=== PATIENT | female | born 1955 | race Caucasian/White ===

== ENCOUNTER → 2016-06-17 | Outpatient (CLI) | payer BC ==
[~2016-06-17] MED LIST: ASPI81TA21 PO; CARV25TA PO; CHOL100010 PO; CHOL1TAB42 PO; CIPR-255 PO; CRG625 PO; EZET10TA63 PO; FURO20TA PO; HYDR-5688 PO; HYDR12.56 PO; KRIL1CAP24 PO; LINA1TAB PO; METR-163 PO; OMEG10007 PO; ONDA4TAB10 SL; SACU1TAB PO; SPIR25TA PO; TRIA37.5 PO
== END | disposition home or self-care (01) ==
LOC: C.MAMM 11:21
PROVIDERS: ATTEND Internal Medicine
DX: M85.80 Other specified disorders of bone density and structure, unspecified site (principal); Z90.710 Acquired absence of both cervix and uterus

== ENCOUNTER → 2016-12-08 | Day surgery (SDC) | payer BC ==
[2016-11-30 09:16] VITALS: Ht 160 cm; Wt 88.6 kg
[~2016-12-08] VITALS: Ht 160 cm; Wt 88.6 kg
[~2016-12-08] MED LIST changes: -CHOL100010 PO; -CIPR-255 PO; -CRG625 PO; +EpHEDrine SULFATE 50MG/5ML SYR ONE; -FURO20TA PO; -HYDR-5688 PO; -HYDR12.56 PO; +LIDOCAINE HCL 2% 2 ML VIAL (20MG/ML) ONE; -METR-163 PO; -OMEG10007 PO; -ONDA4TAB10 SL; +PROPOFOL IV EMULSION 10 MG/ML 20 ML VIAL IV ONE
--- NOTE | 2016-12-08 13:43 | Endo History and Physical ---
History & Physical Date of Service: Dec 08, 2016. Chief Complaint: Screening Referring Physician: Dr. Houston History of Present Illness 61 yo CF who presents for screening colonoscopy. Past Medical History High Cholesterol, CHF, Hypertension Past Surgical History Hx Cardiac Surgery: No Hx Internal Defibrillator: Yes (MEDTRONIK ) Hx Pacemaker: Yes (MEDTRONIK ) Hx Abdominal Surgery: Yes (APPY, PARTIAL HYSTER WITH BLADDER AND BOWEL RECON) Hx of Implantable Prosthesis: No Hx Post-Op Nausea and Vomiting: No Hx Cancer Surgery: No Hx Thoracic Surgery: No Hx Orthopedic: Yes (RT RCR AND BICEP REPAIR) Hx Urinary Tract Surgery: No Family History None Social History Smoking Status: Never Smoker Hx Substance Use: No Hx Alcohol Use: No Allergies Coded Allergies: Adhesives (Verified Allergy, Mild, BLISTERS, 11/30/16) Atorvastatin (Verified Allergy, Unknown, MUSCLE PAIN/ACHES, DIFFICULTY WALKING, 11/30/16) Erythromycin (Verified Allergy, Unknown, blisters;red;itchy;pain;blisters in back throat, 11/30/16) Iodine (Verified Allergy, Unknown, throat blisters;skin blisters, 11/30/16) Statins (Verified Allergy, Unknown, MUSCLE PAIN/ACHES, DIFFICULTY WALKING , 11/30/16) Tetracycline (Verified Allergy, Unknown, TERRAMYCIN ALLERGY, 11/30/16) Current Medications Reported Home Medications Medications Dose Route/Sig Max Daily Dose Days Date Category Krill Oil 500 mg (Krill Oil) 1 Cap Cap 1 Cap PO QAM 11/30/16 Reported Vitamin D (Cholecalciferol) 5,000 Unit Tab 1 Tab PO HS 11/30/16 Reported Tradjenta (Linagliptin) 5 Mg Tab 1 Tab PO QAM 11/30/16 Reported Coreg (Carvedilol) 25 Mg Tab 25 Mg PO HS 11/30/16 Reported Coreg (Carvedilol) 25 Mg Tab 0.5 Tab PO QAM 11/30/16 Reported Dyazide 37.5MG/25MG (Triamterene/HCTZ) Cap 1 Tab PO Q2D 04/02/16 Reported Entresto 24-26 mg (Sacubitril-Valsartan) 1 Tab Tab 1 Tab PO BID 04/02/16 Reported Aldactone (Spironolactone) 25 Mg Tab 25 Mg PO QAM 03/14/14 Reported Ecotrin Or Generic (Aspirin) 81 Mg Tab 81 Mg PO Q2D 02/25/12 Reported Zetia (Ezetimibe) 10 Mg Tab 10 Mg PO HS 08/23/09 Reported Vital Signs Weight (Kilograms): 88.64 Height (Feet): 5 Height (Inches): 3 Physical Exam General Appearance: WD/WN, no apparent distress Respiratory/Chest: Auscultation: breath sounds normal Cardiovascular: Heart Auscultation: RRR Abdomen: Bowel Sounds: normal Inspection & Palpation: soft, non-distended, no tenderness, guarding & rebound Assessment and Plan Assessment: 61 yo CF who presents for screening colonoscopy. Plan: Proceed with colonoscopy.
[2016-12-08 14:01] VITALS: TEMP 36.5
--- NOTE | 2016-12-08 14:51 | GI REPORT ---
Procedure Date: 12/08/2016 2:13 PM Procedure: Colonoscopy Indications: Screening for colorectal malignant neoplasm Medicines: Monitored Anesthesia Care Complications: No immediate complications. Estimated Blood Loss: Estimated blood loss: none. Procedure: Pre-Anesthesia Assessment: - Prior to the procedure, a History and Physical was performed, and patient medications and allergies were reviewed. The patient's tolerance of previous anesthesia was also reviewed. The risks and benefits of the procedure and the sedation options and risks were discussed with the patient. All questions were answered, and informed consent was obtained. Prior Anticoagulants: The patient has taken aspirin, last dose was 3 days prior to procedure. ASA Grade Assessment: III - A patient with severe systemic disease. After reviewing the risks and benefits, the patient was deemed in satisfactory condition to undergo the procedure. After I obtained informed consent, the scope was passed under direct vision. Throughout the procedure, the patient's blood pressure, pulse, and oxygen saturations were monitored continuously. The Scope was introduced through the anus and advanced to the terminal ileum. The colonoscopy was performed without difficulty. The patient tolerated the procedure well. The quality of the bowel preparation was good. The terminal ileum, ileocecal valve, appendiceal orifice, and rectum were photographed. Findings: Multiple small-mouthed diverticula were found in the sigmoid colon. Non-bleeding internal hemorrhoids were found during retroflexion. The hemorrhoids were small. Two biopsies were obtained with cold forceps for histology in the ascending colon. To stop active bleeding, one hemostatic clip was successfully placed (MR conditional). There was no bleeding at the end of the procedure. Impression: - Diverticulosis in the sigmoid colon. - Non-bleeding internal hemorrhoids. - Biopsies performed in the ascending colon. - One hemostatic clip was successfully placed (MR conditional). Recommendation: - Resume previous diet. - Continue present medications. - Repeat colonoscopy for surveillance based on pathology results. - Return to primary care physician as previously scheduled. Michael Padilla, DO 12/08/2016 2:51:15 PM This report has been signed electronically. Note Initiated On: 12/08/2016 2:13 PM I attest to the content of the Intraoperative Record and orders documented therein, exceptions below
--- NOTE | 2016-12-08 14:52 | Discharge Instructions ---
Endoscopy Patient Instructions Date / Procedure(s) Performed Dec 08, 2016. Colonoscopy Allergy Information Coded Allergies: Adhesives (Verified Allergy, Mild, BLISTERS, 12/08/16) Atorvastatin (Verified Allergy, Unknown, MUSCLE PAIN/ACHES, DIFFICULTY WALKING, 12/08/16) Erythromycin (Verified Allergy, Unknown, blisters;red;itchy;pain;blisters in back throat, 12/08/16) Iodine (Verified Allergy, Unknown, throat blisters;skin blisters, 12/08/16) Statins (Verified Allergy, Unknown, MUSCLE PAIN/ACHES, DIFFICULTY WALKING , 12/08/16) Tetracycline (Verified Allergy, Unknown, TERRAMYCIN ALLERGY, 12/08/16) Discharge Date / Findings Dec 08, 2016. Random biopsies with endoclip placement x1 Diverticulosis Internal hemorrhoids Medication Instructions Stopped Medication(s): ASPIRIN 81MG LAST DOSE 12/05/16 OK to resume all medications today as prescribed Reported Home Medications Medications Dose Route/Sig Max Daily Dose Days Date Category Krill Oil 500 mg (Krill Oil) 1 Cap Cap 1 Cap PO QAM 11/30/16 Reported Vitamin D (Cholecalciferol) 5,000 Unit Tab 1 Tab PO HS 11/30/16 Reported Tradjenta (Linagliptin) 5 Mg Tab 1 Tab PO QAM 11/30/16 Reported Coreg (Carvedilol) 25 Mg Tab 25 Mg PO HS 11/30/16 Reported Coreg (Carvedilol) 25 Mg Tab 0.5 Tab PO QAM 11/30/16 Reported Dyazide 37.5MG/25MG (Triamterene/HCTZ) Cap 1 Tab PO Q2D 04/02/16 Reported Entresto 24-26 mg (Sacubitril-Valsartan) 1 Tab Tab 1 Tab PO BID 04/02/16 Reported Aldactone (Spironolactone) 25 Mg Tab 25 Mg PO QAM 03/14/14 Reported Ecotrin Or Generic (Aspirin) 81 Mg Tab 81 Mg PO Q2D 02/25/12 Reported Zetia (Ezetimibe) 10 Mg Tab 10 Mg PO HS 08/23/09 Reported Provider Instructions Activity Restrictions - No exercising or heavy lifting for 24 hours. - Do not drink alcohol the day of the procedure. - Do not drive a car or operate machinery until the day after the procedure. - Do not make any important decisions or sign important papers in 24 hours after the procedure. Following Day: - Return to full activity which may include returning to work/school. Diet Start your diet with liquids and light foods (jello, soup, juice, toast). Then eat your usual diet if not nauseated. Treatment For Common After Affects For mild abdominal pain, bloating, or excessive gas: - Rest - Eat lightly - Lie on right side Follow-Up Information Follow-up with DR. GARCIA as scheduled Anesthesia Information What You Should Know You have had a procedure that required some medicine to reduce anxiety and discomfort. This treatment is called moderate sedation. After receiving the treatment, you may be sleepy, but you will be able to breathe on your own. The effects of the treatment may last for several hours. Follow these instructions along with Activity/Diet recommendations noted above: * Do NOT do anything where dizziness or clumsiness would be dangerous. * Rest quietly at home today, then you can be up and about tomorrow. * Have a responsible person stay with you the rest of today. * You may have had an I.V. today. If so, you may take the dressing off later today. Recommendations Call your doctor if: * Trouble breathing * Continuous vomiting for more than 24 hours * Temperature above 101 degrees * Severe abdominal pain or bloating * Pain not relieved by pain medicine ordered * There is increased drainage or redness from any incision * A large amount of rectal bleeding greater than 2-3 tablespoons. (If you had a polyp/s removed or have hemorrhoids, a small amount of blood - from the rectum is to be expected.) * You have any unanswered questions or concerns. IN THE EVENT OF A SERIOUS EMERGENCY, GO TO THE NEAREST EMERGENCY ROOM Your discharge instructions were prepared by provider Michael Padilla. Patient Instructions Signature Page Maribel Noyola Patient (or Guardian) Signature/Date: I have read and understand the instructions given to me by my caregivers. Caregiver/RN/Doctor Signature/Date: The above-named patient and/or guardian has received patient instructions on this date. + Original Patient Signature Page (only) stays with chart. Please make copy for patient.
--- NOTE | 2016-12-08 15:16 | Anesthesiology Progress Note ---
Anesthesia Post Op Note Date & Time Dec 08, 2016 at 15:16 Vital Signs Pain Intensity: 0 Vital Signs Past 12 Hours Date Time Temp Pulse Resp B/P (MAP) Pulse Ox O2 Delivery O2 Flow Rate FiO2 12/08/16 15:03 75 20 106/61 (76) 97 Room Air 12/08/16 14:49 82 14 96/60 (72) 96 Room Air 12/08/16 14:01 36.5 79 20 109/62 (78) 95 Room Air Notes Mental Status: alert / awake / arousable, participated in evaluation Pt Amnestic to Procedure: Yes Nausea / Vomiting: adequately controlled Pain: adequately controlled Airway Patency, RR, SpO2: stable & adequate BP & HR: stable & adequate Hydration State: stable & adequate Anesthetic Complications: no major complications apparent
[2016-12-08 15:18] VITALS: BP 103/62; PULSE 70; O2SAT 97
== END | disposition home or self-care (01) ==
LOC: C.GI 13:25
PROVIDERS: ATTEND Internal Medicine
DX: Z12.11 Encounter for screening for malignant neoplasm of colon (principal); K57.30 Diverticulosis of large intestine without perforation or abscess without bleeding; K64.8 Other hemorrhoids; E78.00 Pure hypercholesterolemia, unspecified; I11.0 Hypertensive heart disease with heart failure; I50.9 Heart failure, unspecified; Z90.49 Acquired absence of other specified parts of digestive tract; Z90.710 Acquired absence of both cervix and uterus

== ENCOUNTER → 2017-05-13 | Outpatient (CLI) | payer BC ==
[~2017-05-13] MED LIST changes: -EpHEDrine SULFATE 50MG/5ML SYR ONE; -LIDOCAINE HCL 2% 2 ML VIAL (20MG/ML) ONE; -PROPOFOL IV EMULSION 10 MG/ML 20 ML VIAL IV ONE
--- NOTE | 2017-05-17 15:29 | MAMMOGRAPHY REPORT ---
BILATERAL DIGITAL SCREENING MAMMOGRAM TOMOSYNTHESIS WITH CAD: 05/13/2017 CLINICAL HISTORY: Routine screening. TECHNIQUE: Breast tomosynthesis in addition to standard 2D mammography was performed. Current study was also evaluated with a Computer Aided Detection (CAD) system. COMPARISON: Comparison is made to exams dated: 05/05/2015 mammogram, 02/19/2014 mammogram, 02/02/2013 mammogram, 12/14/2011 mammogram, 12/10/2010 mammogram, and 05/12/2016 mammogram - [facility] [address] BREAST COMPOSITION: There are scattered areas of fibroglandular density in both breasts. FINDINGS: No suspicious masses, calcifications, or areas of architectural distortion are noted in ei ther breast. There has been no significant interval change compared to prior exams. Bilateral nodula rity is not significantly changed. Note that the left MLO view is somewhat suboptimal due to difficu lties with positioning due to a left-sided pacemaker. IMPRESSION: ACR BI-RADS CATEGORY 2: BENIGN There is no mammographic evidence of malignancy. A 1 year screening mammogram is recommended. The pa tient will receive written notification of the results. Approximately 10% of breast cancers are not detected with mammography. A negative mammographic report should not delay biopsy if a clinically suggestive mass is present. Mary Alberts M.D. ah/:05/13/2017 17:17:10 Auto Radio Mechanic: Martine MARRERO(R)(M), [facility] [address] letter sent: Normal 1/2 BI-RADS Code: ACR BI-RADS Category 2: Benign
== END | disposition home or self-care (01) ==
LOC: C.MAMM 10:47
PROVIDERS: ATTEND Obstetrics & Gynecology
DX: Z12.31 Encounter for screening mammogram for malignant neoplasm of breast (principal)

== ENCOUNTER → 2017-05-13 | Outpatient (CLI) | payer BC ==
--- NOTE | 2017-05-13 10:53 | DIAGNOSTIC IMAGING REPORT ---
(CHEST) THORAX WITHOUT CLINICAL HISTORY: 62 years-old Female presenting with R91.1 Incidental pulmonary nodule, > 3mm and < [id number]. TECHNIQUE: Multidetector CT imaging of the chest was performed without the use of intravenous contrast. IV contrast: None. A dose lowering technique was used consistent with the principles of ALARA (as low as reasonably achievable). COMPARISON: Outside chest CT from 05/13/2016. CT DOSE (mGy.cm): The estimated cumulative dose is 619.86 mGycm. 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 On soft tissue windows, subcentimeter hypodense nodule in the right lobe of the thyroid. Left subclavian implanted cardiac defibrillator. No axillary, supraclavicular, or mediastinal lymphadenopathy. Evaluation of the jovanni limited without intravenous contrast. Atherosclerosis of the aorta. Multichamber enlargement of the heart. Coronary artery calcification. No pericardial or pleural effusion. Upper abdomen normal. On lung windows, few bandlike opacities in the left lung likely atelectasis or scarring. 4 mm solid nodule in the lateral basal segment of the left lower lobe (series 4 image 181), unchanged. No new pulmonary nodule or other infiltrate. Airways patent. On bone windows, degenerative changes of the thoracic spine. IMPRESSION: 1. Stable appearance of the 4 mm solid left lower lobe pulmonary nodule. No new pulmonary nodule. Electronically signed by: Brodie Aragon M.D. 05/13/2017 10:52 AM Dictated Date/Time: 05/13/2017 10:25 AM
== END | disposition home or self-care (01) ==
LOC: C.CTS 10:08
PROVIDERS: ATTEND Internal Medicine
DX: R91.1 Solitary pulmonary nodule (principal)

== ENCOUNTER 2022-05-13 11:53 | Inpatient (IN) ==
[2022-05-13] MEDS ORDERED: CLINDAMYCIN/D5W 900 MG/50 ML BAG IV ONE (12:11)
[2022-05-13] MEDS ORDERED: ACETAMINOPHEN 1,000 MG/100 ML VIAL IV STA (12:11)
--- NOTE | 2022-05-13 12:20 | Emergency Department Note ---
Impression & Plan SOB (shortness of breath), Tongue swelling, Dental abscess, Jaw pain, CHF (congestive heart failure) ED Provider Note NAME: LANCE CALIX AGE: 67 SEX: F : 1955 ARRIVES VIA: Walk-In INFORMANT: [Patient] ED PROVIDER(S): [Hermann Griffith MD] CHIEF COMPLAINT: Allergic reaction HISTORY OF PRESENT ILLNESS: The patient is a 67-year-old female who has had significant right sided lower dental pain for around a week. She went to see her dentist on Tuesday, 2 days ago. He felt that she had an abscess below one of her molars on the right and placed her on amoxicillin. The patient has had right-sided face and dental pain ongoing despite the antibiotics. Today, she woke up at around 10 AM, 2 hours ago. She had swelling of her tongue and her throat was sore and felt tight. She felt short of breath. No rash. She took 50 mg of oral Benadryl and presents to the ER. The patient does feel improved since the Benadryl. She has a history of antibiotic allergies but has never had an issue with amoxicillin. She does not have a fever. She did not notice lip swelling, only her tongue and the throat felt swollen. REVIEW OF SYSTEMS: See HPI for pertinent positives and negatives. A total of ten systems were reviewed and were otherwise negative. PMHx/PSHx: See Below SOCIAL HISTORY: See Below. PHYSICAL EXAM: GENERAL: Patient is in no acute distress. HEENT: No acute trauma, normocephalic atraumatic, mucous membranes moist, no nasal congestion, no scleral icterus. No facial swelling seen. No obvious swelling to the floor the mouth. The uvula is not swollen and the posterior pharynx appears unremarkable. She does have pain to palpate the right first lower molar. No obvious drainable abscess. She can speak without slurring her words. There is some trismus to open the jaw. NECK: No stridor, no adenopathy, no meningismus, trachea is midline. LUNGS: Clear to auscultation bilaterally, no wheeze, no rhonchi, breath sounds equal. HEART: Without murmurs gallops or rubs, regular rate and rhythm. ABDOMEN: Soft, nontender, bowel sounds positive, no peritonitis. EXTREMITIES: No cyanosis. Mild bilateral pedal edema, no upper extremity swelling. NEUROLOGIC: Oriented x 3, no acute motor or sensory deficits, no focal weakness. SKIN: No rash, no jaundice, no diaphoresis. DIFFERENTIAL DIAGNOSIS: Allergic reaction, abscess, Ludwigs angina, angioedema, failed outpatient management, hypoxia, CHF, among others. EMERGENCY DEPARTMENT COURSE/PROCEDURES: MEDICAL DECISION MAKING: There is no leukocytosis or concerning anemia. There is a normal platelet co unt. Creatinine is mildly elevated, this is baseline. No electrolyte abnormality in need of emergent correction. No concerning liver enzyme elevation. Chest film shows some mild CHF consistent with her previous history. Soft tissue neck CT shows mandibular soft tissue swelling on the right with a described cyst. On exam, the patient's right first lower molar was quite tender. There was no hypoxia. No obvious right facial swelling. The patient has a right-sided dental infection, I suspect a right sided lower jaw abscess. This has caused edema and swelling of her tongue. She has difficulty swallowing. She felt short of breath. The patient is in need of a hospital stay. She did receive IV clindamycin as antibiotic coverage. She was given IV Tylenol for pain. I do not think this was an allergic reaction, more so I think the swelling was from the infection itself. I did speak with Dr. Amezcua of facial surgery. He will see the patient in consult, the patient will likely eventually be taken to the OR for drainage. I spoke with the patient and case management, the on-call hospitalist was consulted. Past Med/Surg History Medical History Allergic rhinitis Asymptomatic menopausal state Atopic dermatitis CKD (chronic kidney disease), stage III Congestive heart failure with cardiomyopathy follows with Dr. Mejia Diabetes mellitus type II, controlled NIDDM Diverticulosis of colon Eustachian tube dysfunction History of sigmoidoscopy Hyperlipidemia Hypertension IBS (irritable bowel syndrome) ICD (implantable cardioverter-defibrillator) in place Placed Feb 2015 > [employer] > last checked 03/23/21 with > placed for CHF Incidental pulmonary nodule, > 3mm and < 8mm Internal hemorrhoids Mitral valve disorder follows with Dr. Mejia Obesity Osteopenia Renal insufficiency pt unaware Sigmoid diverticulitis Stage 3b chronic kidney disease Vitamin D deficiency Vitamin D deficiency Surgical History History of appendectomy History of arthroscopy of right knee History of arthroscopy of right shoulder History of breast biopsy History of cardiac cath History of carpal tunnel surgery History of colonoscopy History of repair of rotator cuff History of vaginal hysterectomy Family History Mother Breast cancer Diabetes Grandmother Myocardial infarction Denies family history of Ovarian cancer Prostate cancer Colorectal cancer Social History Smoking Status: Never smoker Second Hand Exposure: No; Hx Alcohol Use: Yes Alcohol type: wine Hx Substance Use: No Preferred Language: Albanian Communication Ability: Effective Visual Impairment: No Limitations Hearing Ability: Normal Field Marketing Specialist Required: No Beliefs That Will Affect Care: None marital status: Current Living Situation: Spouse current occupational status: retired Feels Safe at Home: Yes Childhood Exposure to Second-Hand Smoke: No caffeine: Yes during the past year weight has: remained stable Dental Care, Regularly: Yes Physical Activity Frequency: Does not Exercise Seatbelt Use: always Sunscreen Use: Yes Assistive Devices: Glasses Allergies Allergies Allergy/AdvReac Type Severity Reaction Status Date / Time erythromycin base Allergy Severe blisters;red;itchy;pain;blisters Verified 05/13/22 14:12 in back throat iodine Allergy Severe throat Verified 05/13/22 14:12 blisters;skin blisters meperidine [From Demerol] Allergy Severe quit Verified 05/13/22 14:12 breathing adhesive Allergy Mild BLISTERS Verified 05/13/22 14:12 atorvastatin Allergy Unknown MUSCLE Verified 05/13/22 14:12 PAIN/ACHES, DIFFICULTY WALKING azithromycin Allergy Unknown Gastrointestinal Verified 05/13/22 14:12 Upset rosuvastatin [From Crestor] Allergy Unknown Cramping Verified 05/13/22 14:12 of the Muscles Ocbktqs-GXL-NjP Reductase Allergy Unknown MUSCLE Verified 05/13/22 14:12 Inhibitor PAIN/ACHES, [Rcxyezc-Jcv-Pdl Reductase DIFFICULTY Inhibitor] WALKING tetracycline Allergy Unknown TERRAMYCIN Verified 05/13/22 14:12 ALLERGY metformin AdvReac Mild Diarrhea Verified 05/13/22 14:12 Home Meds Home Medications Medication Instructions Recorded Confirmed cholecalciferol (vitamin D3) 125 5,000 units PO DAILY 01/14/19 05/13/22 mcg (5,000 unit) capsule omega-3 fatty acids 1,000 mg PO QAM 03/27/21 05/13/22 aspirin 81 mg tablet,delayed 81 mg PO Q OTHER DAY 05/13/22 05/13/22 release furosemide 20 mg tablet 20 mg PO .DAILY UD edema 05/13/22 05/13/22 Previous Rx's Medication Instructions Recorded lancets (Accu-Chek Softclix #100 ea 11/26/19 Lancets) blood sugar diagnostic (Accu-Chek #100 ea 02/09/21 Guide test strips) sacubitril 49 mg-valsartan 51 mg 1 tab PO BID #180 tabs 09/07/21 tablet pantoprazole 40 mg tablet,delayed 40 mg PO DAILY #90 tabs 09/21/21 release spironolactone 25 mg tablet 25 mg PO PM #90 tabs 09/21/21 empagliflozin 25 mg tablet 25 mg PO DAILY #90 tabs 11/09/21 ezetimibe 10 mg tablet 10 mg PO PM #90 tabs 02/15/22 carvedilol 12.5 mg tablet 12.5 mg PO BID #180 tabs 04/27/22 Results & Data (ED) Vital Signs Vital Signs - 24 hr 05/13/22 11:55 05/13/22 12:11 05/13/22 12:11 Temperature 37.2 C Temperature Source Temporal Artery Scan Pulse Rate 92 H Pulse Rate [Apical] Pulse Rhythm [Apical] Pulse Strength [Apical] Respiratory Rate 16 Respiratory Effort / Characteristics Non-Labored Spontaneous Respiratory Depth Normal Respiratory Pattern Regular Blood Pressure 97/63 L Blood Pressure [Right Arm] Blood Pressure Mean 74 Blood Pressure Mean [Right Arm] Blood Pressure Position Sitting Pulse Oximetry 93 95 95 Oxygen Delivery Method Room Air Room Air Room Air Sepsis Recent Fever Within 48 Hours No Sepsis New/Unexplained Change in Mental Status No Sepsis Action Taken by Nursing No Action Required 05/13/22 12:54 05/13/22 13:06 Temperature Temperature Source Pulse Rate Pulse Rate [Apical] 84 85 Pulse Rhythm [Apical] Regular Pulse Strength [Apical] Normal Respiratory Rate 18 19 Respiratory Effort / Characteristics Non-Labored Non-Labored Spontaneous Respiratory Depth Normal Normal Respiratory Pattern Regular Blood Pressure Blood Pressure [Right Arm] 87/57 L Blood Pressure Mean Blood Pressure Mean [Right Arm] 67 Blood Pressure Position Pulse Oximetry 94 93 Oxygen Delivery Method Room Air Room Air Sepsis Recent Fever Within 48 Hours Sepsis New/Unexplained Change in Mental Status Sepsis Action Taken by [facility] Medications Current Medication List: was personally reviewed by me Laboratory Data Attestation: I reviewed the patient's lab results. Result diagrams: 05/13/22 12:21 05/13/22 12:21 Lab Results 05/13/22 05/13/22 Range/Units 12:21 12:21 WBC 9.60 (4.8-10.8) K/ul RBC 4.94 (3.93-5.22) M/uL Hgb 15.6 (12.0-16.0) g/dl Hct 46.0 H (34.1-44.9) % MCV 93.1 (80.0-100.0) fL MCH 31.6 (25.0-34.0) pg MCHC 33.9 (32.0-36.0) g/dL RDW Std Deviation 45.2 (36.4-46.3) fL RDW Coeff of Osman 13.2 (11.5-14.5) % Plt Count 224 (130-400) K/uL MPV 9.6 (9.4-12.3) fL Immature Gran % (Auto) 0.2 % Neut % (Auto) 79.9 % Lymph % (Auto) 13.2 % [place] % (Auto) 6.4 % Eos % (Auto) 0.1 % Baso % (Auto) 0.2 % Neut # (Auto) 7.67 H (1.4-6.5) K/uL Lymph # (Auto) 1.27 (1.2-3.4) K/uL [place] # (Auto) 0.61 (0.24-0.82) K/uL Eos # (Auto) 0.01 (0-0.50) K/uL Baso # (Auto) 0.02 (0-0.2) K/uL Immature Gran # (Auto) 0.02 (0.00-0.02) K/uL Sodium 138 (136-145) mmol/L Potassium 3.9 (3.5-5.1) mmol/L Chloride 100 (98-107) mmol/L Carbon Dioxide 31 (21-32) mmol/L Anion Gap 7 (3-11) BUN 27 H (6-23) mg/dl Creatinine 1.47 H (0.6-1.2) mg/dl Est Cr Clr Drug Dosing 38.0 ml/min Est GFR ( Amer) 42.7 ml/min Est GFR (Non-Af Amer) 36.8 ml/min BUN/Creatinine Ratio 18.4 (10-20) Glucose 176 H (70-99(Fasting)) mg/dl Calcium 9.5 (8.5-10.1) mg/dl Total Bilirubin 2.0 H (0.2-1.0) mg/dl AST 14 (13-39) U/L ALT 14 (7-52) U/L Alkaline Phosphatase 64 (34-104) U/L Total Protein 7.0 (6.0-8.3) gm/dl Albumin 4.1 (3.4-5.0) gm/dl Globulin 2.9 (2.5-4.0) gm/dl Albumin/Globulin Ratio 1.4 (0.9-2) Administered Medications Discontinued Medications Clindamycin Phosphate (Cleocin/D5w) 900 mg in 50 mls @ 100 mls/hr IV NOW ONE Stop: 05/13/22 12:40 Last Infusion: 05/13/22 13:33 Dose: 0 mls/hr Documented By: Admin: 05/13/22 12:53 Dose: 100 mls/hr Documented By: OUSMANE Acetaminophen (Ofirmev) 1,000 mg in 100 mls @ 400 mls/hr IV NOW STA Stop: 05/13/22 12:25 Last Infusion: 05/13/22 12:47 Dose: 0 mls/hr Documented By: Admin: 05/13/22 12:32 Dose: 400 mls/hr Documented By: OUSMANE Imaging Data Radiologist's Impression: Chest X-Ray 05/13/22 12:11 XR chest 1V portable HISTORY: 67 years-old Female sob acute shortness of breath COMPARISON: CT soft tissue neck of same day, chest radiograph 04/02/2016 TECHNIQUE: AP view of the chest FINDINGS: Cardiac silhouette is enlarged. Left subclavian pacer/AICD. Atherosclerosis of the aorta. Pulmonary vascular congestion. No pneumothorax, large pleural effusion or lobar airspace consolidation. Degenerative changes of the shoulders and spine. IMPRESSION: Cardiomegaly with pulmonary vascular congestion. ACT 112: Negative or not required by law. The above report was generated using voice recognition software. It may contain grammatical, syntax or spelling errors. Electronically signed by: Dick Franklin M.D. 05/13/2022 1:[address] 05/13/22 12:11 CT soft tissue neck wo con HISTORY: 67 years-old Female right dental pain, tongue swelling, dye allergy acute right-sided facial pain and swelling COMPARISON: None TECHNIQUE: Multiple axial CT images of the soft tissues of the neck were obtained without the use of IV contrast. A dose lowering technique was used consistent with the principals of ALIZA. FINDINGS: Senescent calcifications of the basal ganglia. Cerebral vascular calcifications. Cardiomegaly with left subclavian pacer/AICD noted on the access consultant localizer images. The globes and orbits are within normal limits. Streak artifact from dental amalgam hardware limits evaluation of the oral pharynx. The nasopharynx, oral pharynx and hypopharynx appear patent and unremarkable. The glottis and subglottic airway is within normal limits. The thyroid, parotid and submandibular glands are within normal limits. There is mild subcutaneous and deep tissue edema within the right submandibular tissues with likely reactive right submandibular lymph node nodes measuring up to 6 mm. Lung apices are generally clear. Calcified plaque of the carotid bulbs. Paranasal sinuses and mastoid air cells are generally clear. No acute facial bone fracture identified. Hqjn-fz-joimdqib degenerative changes of the cervical spine. Root canal changes of the right mandibular first molar with large posterior periapical cyst. No definite cortical dehiscence or abscess identified. IMPRESSION: 1. Large periapical cyst of the right mandibular first molar with subcutaneous and deep tissue edema within the right submandibular tissues. 2. No abscess identified. ACT 112: Negative or not required by law. The above report was generated using voice recognition software. It may contain grammatical, syntax or spelling errors. Electronically signed by: Dick Franklin M.D. 05/13/2022 1:04 PM Discharge Plan Visit Data Chief Complaint: Allergic Reaction Stated Complaint: ALLERGIC REACTION ED Provider: Hermann Griffith Discharge Problem: SOB (shortness of breath), Tongue swelling, Dental abscess, Jaw pain, CHF (congestive heart failure) Patient Disposition: Admitted As Inpatient Condition: Fair Forms Stand Alone Forms: My [facility] Prescriptions Prescriptions: No Action (DME) lancets [Accu-Chek Softclix Lancets] Misc See Dose Instructions .ROUTE .MEDSUPPLY Qty: 100 3RF Dose Instruction: As directed Rx Instructions: Check daily and as needed (DME) Accu-Chek Guide test strips Strip See Dose Instructions .ROUTE .MEDSUPPLY Qty: 100 3RF Dose Instruction: As directed Rx Instructions: daily and as needed sacubitril-valsartan 49-51 mg tablet 1 tab PO BID Qty: 180 3RF spironolactone 25 mg tablet 25 mg PO PM Qty: 90 3RF pantoprazole 40 mg tablet,delayed release (DR/EC) 40 mg PO DAILY Qty: 90 3RF empagliflozin 25 mg tablet 25 mg PO DAILY Qty: 90 3RF ezetimibe 10 mg tablet 10 mg PO PM Qty: 90 3RF carvedilol 12.5 mg tablet 12.5 mg PO BID Qty: 180 1RF cholecalciferol (vitamin D3) 5,000 unit capsule 5,000 units PO DAILY omega-3 fatty acids Capsule 1,000 mg PO QAM aspirin [Aspir-Low] 81 mg Tablet,Delayed Release (Dr/Ec) 81 mg PO Q OTHER DAY furosemide 20 mg tablet 20 mg PO .DAILY UD Rx Instructions: Can increase to 40 mg PRN for weight > 180 lb. Referrals Referrals: Theo Houston MD [Primary Care Provider] -
[2022-05-13 12:34] LABS: Basophils # (auto) 0.02 K/uL (0-0.2); Basophils % (auto) 0.2 %; Eosinophils # (auto) 0.01 K/uL (0-0.50); Eosinophils % (auto) 0.1 %; Hemoglobin 15.6 g/dl (12.0-16.0); Immature Granulocytes # (auto) 0.02 K/uL (0.00-0.02); Immature Granulocytes % (auto) 0.2 %; Lymphocytes # (auto) 1.27 K/uL (1.2-3.4); Lymphocytes % (auto) 13.2 %; Mean Corpuscular Hemoglobin 31.6 pg (25.0-34.0); Mean Corpuscular Hgb Conc 33.9 g/dL (32.0-36.0); Mean Corpuscular Volume 93.1 fL (80.0-100.0); Mean Platelet Volume 9.6 fL (9.4-12.3); Monocytes # (auto) 0.61 K/uL (0.24-0.82); Monocytes % (auto) 6.4 %; Neutrophils # (auto) 7.67 K/uL (1.4-6.5); Neutrophils % (auto) 79.9 %; Platelet Count 224 K/uL (130-400); RDW Coefficient of Variation 13.2 % (11.5-14.5); RDW Standard Deviation 45.2 fL (36.4-46.3); Red Blood Count 4.94 M/uL (3.93-5.22)
[2022-05-13 13:05] LABS: Albumin Globulin Ratio 1.4 (0.9-2); Albumin Level 4.1 gm/dl (3.4-5.0); BUN Creatinine Ratio 18.4 (10-20); Calcium 9.5 mg/dl (8.5-10.1); Est GFR (African American) 42.7 ml/min; Est GFR (Non-African American) 36.8 ml/min; Globulin 2.9 gm/dl (2.5-4.0); Potassium 3.9 mmol/L (3.5-5.1)
--- NOTE | 2022-05-13 13:06 | CT Scan Report ---
CT soft tissue neck wo con HISTORY: 67 years-old Female right dental pain, tongue swelling, dye allergy acute right-sided facia l pain and swelling COMPARISON: None TECHNIQUE: Multiple axial CT images of the soft tissues of the neck were obtained without the use of IV contrast. A dose lowering technique was used consistent with the principals of ALIZA. FINDINGS: Senescent calcifications of the basal ganglia. Cerebral vascular calcifications. Cardiomegaly with le ft subclavian pacer/AICD noted on the outreach associate localizer images. The globes and orbits are within normal limits. Streak artifact from dental amalgam hardware limits evaluation of the oral pharynx. The nasopharynx, oral pharynx and hypopharynx appear patent and unremarkable. The glottis and subglottic airway is wit hin normal limits. The thyroid, parotid and submandibular glands are within normal limits. There is m ild subcutaneous and deep tissue edema within the right submandibular tissues with likely reactive ri ght submandibular lymph node nodes measuring up to 6 mm. Lung apices are generally clear. Calcified plaque of the carotid bulbs. Paranasal sinuses and mastoid air cells are generally clear. No acute facial bone fracture identified. Yjnm-[id number]-kzpdwpqs degenerati ve changes of the cervical spine. Root canal changes of the right mandibular first molar with large p osterior periapical cyst. No definite cortical dehiscence or abscess identified. IMPRESSION: 1. Large periapical cyst of the right mandibular first molar with subcutaneous and deep tissue edema within the right submandibular tissues. 2. No abscess identified. ACT 112: Negative or not required by law. The above report was generated using voice recognition software. It may contain grammatical, syntax o r spelling errors. Electronically signed by: Dick Franklin M.D. 05/13/2022 1:04 PM
--- NOTE | 2022-05-13 13:07 | XRay Report ---
XR chest 1V portable HISTORY: 67 years-old Female sob acute shortness of breath COMPARISON: CT soft tissue neck of same day, chest radiograph 04/02/2016 TECHNIQUE: AP view of the chest FINDINGS: Cardiac silhouette is enlarged. Left subclavian pacer/AICD. Atherosclerosis of the aorta. Pulmonary v ascular congestion. No pneumothorax, large pleural effusion or lobar airspace consolidation. Degenera tive changes of the shoulders and spine. IMPRESSION: Cardiomegaly with pulmonary vascular congestion. ACT 112: Negative or not required by law. The above report was generated using voice recognition software. It may contain grammatical, syntax o r spelling errors. Electronically signed by: Dick Franklin M.D. 05/13/2022 1:05 PM
--- NOTE | 2022-05-13 13:53 | History & Physical Report ---
Date of Service May 13, 2022 Assessment & Plan (1) Dental abscess: Plan: - 1 week of right jaw pain, acutely worse over past 3 days. - Started on amoxicillin 2 days ago by dentist after obtaining an xray concerning for a molar abscess--however pain/swelling only worse after being on this for 2 days with tongue, throat swelling this AM. -Patient took 50 mg Benadryl in route to ED with resolution of swelling. Did have some shortness of breath had never experienced compromised airway, hypoxia, fever, rash. - Initially reaction felt to be possible allergic reaction due to several antibiotic allergies in the past, however more likely that the swelling was pr ogression of the infection/abscess. - Soft tissue neck CT: Large periapical cyst of the right mandibular first molar with subcutaneous and deep tissue edema within the right submandibular tissues. - Case discussed with [facility] surgeon, Dr. Amezcua who revealed imaging and feels this is an abscess. - IV clindamycin ordered with possible OR during admission--given her severe heart failure history, will require cardiac clearance. Cardiology will be consulted. - RCRI: 1 points (CHF): 6.0% 30-day risk of /NE/cardiac arrest) (2) Chronic HFrEF (heart failure with reduced ejection fraction): Plan: - Patient has an idiopathic cardiomyopathy and severely reduced systolic function, EF 15% s/p AICD placement. - No current complaints of swelling or shortness of breath. - She is normally borderline hypotensive, BP 99/62. - We will continue her home regimen: Januvia 25 mg daily, carvedilol 12.5 mg twice daily, Entresto, spironolactone 25 mg at night, Lasix rotating dose 20 mg / 40 mg every other day (due for 20 mg dose today 05/13), ASA for primary prevention. - Hold parameters for hypotension in place. - CXR: Cardiomegaly with pulmonary vascular congestion, has not yet had her Lasix, (3) CKD (chronic kidney disease), stage III: Plan: - BUN 27, creatinine 1.47, at/near baseline. - CrCl 38.0, GFR 36.8. - Monitor on daily BMP. - Avoid nephrotoxins, renally dose medications as able. (4) Diabetes mellitus type II, controlled: Plan: - Maintain on Januvia, will continue this from heart failure perspective, as well as add on bolus insulin with goal range [id number], CF 30, CR 15 - A1c 6.9% in October. We will update during admission. (5) Hyperlipidemia: Plan: - Continue ezetimibe. 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 (6) Reflux esophagitis: Plan: - Continue pantoprazole. Plan - Admit to PCU. - SCDs, heparin for VTE PPx. - Full code. History of Present Illness Chief Complaint: throat and tongue swelling x 4 hours Primary Care Provider: Theo Houston MD Maribel Noyola is a 67-year-old female with past medical history significant for idiopathic/hereditary cardiomyopathy and HFrEF, s/p ICD placement, orthostatic hypotension, DM2, and COPD who presents today for an allergic reaction. She saw her dentist 2 days ago for right-sided lower dental pain ongoing for the past week who felt that this was an abscess under one of her molars based on x-ray obtained in office and placed patient on amoxicillin. Despite the antibiotic she has continued to have face and dental pain and this morning woke up around 10 AM from a nap with swelling of her tongue and throat. She did feel somewhat short of breath and took 50 mg of Benadryl as she has had several antibiotic allergies in the past. He notes the swelling did come down significantly with the Benadryl and she is feeling back to her baseline. Does have several antibiotic allergies but never had issues with amoxicillin in the past. She did not have any rash, fever, lip swelling. On presentation her BP is 87/57, which is about her baseline given severe heart failure. Otherwise vital signs within normal limits, she is not hypoxic or febrile since arrival. Tryptase level pending, labs collected are largely unremarkable, BUN 27 creatinine 1.47 which is about baseline for her, glucose 176, t. bili mildly elevated 2.0. CXR with cardiomegaly and pulmonary congestion, CT soft tissue of the neck shows large periapical cyst in the right mandibular first molar with subcutaneous and deep tissue edema and right submandibular tissues, felt to be an abscess on review by Dr. Aemzcua w/ oromaxillary surgery. Plan for IV antibiotics and management of edema vs allergic reaction with possible OR at some point for further management of abscess. Allergies Allergy/AdvReac Type Severity Reaction Status Date / Time erythromycin base Allergy Severe blisters;red;itchy;pain;blisters Verified 05/13/22 14:12 in back throat iodine Allergy Severe throat Verified 05/13/22 14:12 blisters;skin blisters meperidine [From Demerol] Allergy Severe quit Verified 05/13/22 14:12 breathing adhesive Allergy Mild BLISTERS Verified 05/13/22 14:12 atorvastatin Allergy Unknown MUSCLE Verified 05/13/22 14:12 PAIN/ACHES, DIFFICULTY WALKING azithromycin Allergy Unknown Gastrointestinal Verified 05/13/22 14:12 Upset rosuvastatin [From Crestor] Allergy Unknown Cramping Verified 05/13/22 14:12 of the Muscles [id number]-WFY-CeO Reductase Allergy Unknown MUSCLE Verified 05/13/22 14:12 Inhibitor PAIN/ACHES, [Zjmudmz-Jcv-Ryd Reductase DIFFICULTY Inhibitor] WALKING tetracycline Allergy Unknown TERRAMYCIN Verified 05/13/22 14:12 ALLERGY metformin AdvReac Mild Diarrhea Verified 05/13/22 14:12 Home Medications Medication Instructions Recorded Confirmed Type cholecalciferol (vitamin D3) 125 5,000 units PO DAILY 01/14/19 05/13/22 History mcg (5,000 unit) capsule lancets (Accu-Chek Softclix #100 ea 11/26/19 05/04/22 Rx Lancets) blood sugar diagnostic (Accu-Chek #100 ea 02/09/21 05/04/22 Rx Guide test strips) omega-3 fatty acids 1,000 mg PO QAM 03/27/21 05/13/22 History sacubitril 49 mg-valsartan 51 mg 1 tab PO BID #180 tabs 09/07/21 05/13/22 Rx tablet pantoprazole 40 mg tablet,delayed 40 mg PO DAILY #90 tabs 09/21/21 05/13/22 Rx release spironolactone 25 mg tablet 25 mg PO PM #90 tabs 09/21/21 05/13/22 Rx empagliflozin 25 mg tablet 25 mg PO DAILY #90 tabs 11/09/21 05/13/22 Rx ezetimibe 10 mg tablet 10 mg PO PM #90 tabs 02/15/22 05/13/22 Rx carvedilol 12.5 mg tablet 12.5 mg PO BID #180 tabs 04/27/22 05/13/22 Rx aspirin 81 mg tablet,delayed 81 mg PO Q OTHER DAY 05/13/22 05/13/22 History release furosemide 20 mg tablet 20 mg PO .DAILY UD edema 05/13/22 05/13/22 History Past Med/Surg History Medical History Allergic rhinitis Asymptomatic menopausal state Atopic dermatitis CKD (chronic kidney disease), stage III Congestive heart failure with cardiomyopathy follows with Dr. Mejia Diabetes mellitus type II, controlled NIDDM Diverticulosis of colon Eustachian tube dysfunction History of sigmoidoscopy Hyperlipidemia Hypertension IBS (irritable bowel syndrome) ICD (implantable cardioverter-defibrillator) in place Placed Feb 2015 > [employer] > last checked 03/23/21 with > placed for CHF Incidental pulmonary nodule, > 3mm and < 8mm Internal hemorrhoids Mitral valve disorder follows with Dr. Mejia Obesity Osteopenia Renal insufficiency pt unaware Sigmoid diverticulitis Stage 3b chronic kidney disease Vitamin D deficiency Vitamin D deficiency Surgical History History of appendectomy History of arthroscopy of right knee History of arthroscopy of right shoulder History of breast biopsy History of cardiac cath History of carpal tunnel surgery History of colonoscopy History of repair of rotator cuff History of vaginal hysterectomy Family History Mother Breast cancer Diabetes Grandmother Myocardial infarction Denies family history of Ovarian cancer Prostate cancer Colorectal cancer Social History Smoking Status: Never smoker Second Hand Exposure: No; Hx Alcohol Use: Yes Alcohol type: wine Hx Substance Use: No Preferred Language: Irish Communication Ability: Effective Visual Impairment: No Limitations Hearing Ability: Normal Consolidator Required: No Beliefs That Will Affect Care: None marital status: Current Living Situation: Spouse current occupational status: retired Feels Safe at Home: Yes Childhood Exposure to Second-Hand Smoke: No caffeine: Yes during the past year weight has: remained stable Dental Care, Regularly: Yes Physical Activity Frequency: Does not Exercise Seatbelt Use: always Sunscreen Use: Yes Assistive Devices: Glasses Review of Systems Review of Systems: Constitutional: No fever/chills, weakness, fatigue, myalgias, anorexia, night sweats Eyes: No diplopia, no worsening or blurred vision ENT: Right jaw pain x1 week acutely worsened over the past 3 days with worsen ing tongue, right sided face/throat swelling sometime this morning upon awakening from a nap Respiratory: Transient shortness of breath this morning with tongue/throat swelling; no cough, sputum, no current dyspnea at rest or on exertion Cardiovascular: No chest pain, tightness or palpitations Abdomen: No pain, nausea, vomiting, diarrhea or constipation : Denies dysuria, hematuria, increased urgency/frequency, urinary retention Musculoskeletal: No joint pain, calf pain, swelling Neurologic: No weakness, numbness/tingling, or balance problems Psychiatric: No anxiety or depression Skin: No rash or itch Physical Exam Physical Exam: General: awake, alert, no apparent distress sitting upright breathing comfortably without accessory muscle use, tachypnea, or conversational dyspnea Head: Normocephalic, atraumatic ENT: Right mandible TTP with some lymphadenopathy, tongue appears normal or minimally swollen if anything, without any purulent drainage, tonsils partially visualized without any exudate, no stridor; PERRL, EOMI Chest: Clear to auscultation, on room air, no adventitious breath sounds Cardiac: Regular rate and rhythm, no murmur, no JVD, normal peripheral pulses, good capillary refill Abdominal: NABS x 4 quadrants, soft, nontender to palpation, no rebound, guarding or tenderness Extremities: Normal inspection, no peripheral edema or erythema, calfs nontender to palpation Psych: Normal mood and affect Neuro: AAO x 3, strength intact bilaterally and rated 5/5, no motor deficits, speech is clear, no peripheral sensory deficits Skin: no rash or erythema Results & Data Results & Data ([facility]) Vital Signs (Past 12 Hours) Vital Signs Temp Pulse Pulse Resp BP BP Pulse Ox 05/13/22 13:06 85 19 87/57 L 93 05/13/22 12:54 84 18 94 05/13/22 12:11 95 05/13/22 12:11 95 05/13/22 11:55 37.2 C 92 H 16 97/63 L 93 O2 Del Method 05/13/22 13:06 Room Air 05/13/22 12:54 Room Air 05/13/22 12:11 Room Air 05/13/22 12:11 Room Air 05/13/22 11:55 Room Air Laboratory Results Abnormal lab results 05/13/22 05/13/22 Range/Units 12:21 12:21 Hct 46.0 H (34.1-44.9) % Neut # (Auto) 7.67 H (1.4-6.5) K/uL BUN 27 H (6-23) mg/dl Creatinine 1.47 H (0.6-1.2) mg/dl Glucose 176 H (70-99(Fasting)) mg/dl Total Bilirubin 2.0 H (0.2-1.0) mg/dl Diagnostic Findings Chest X-Ray 05/13/22 12:11 XR chest 1V portable HISTORY: 67 years-old Female sob acute shortness of breath COMPARISON: CT soft tissue neck of same day, chest radiograph 04/02/2016 TECHNIQUE: AP view of the chest FINDINGS: Cardiac silhouette is enlarged. Left subclavian pacer/AICD. Atherosclerosis of the aorta. Pulmonary vascular congestion. No pneumothorax, large pleural effusion or lobar airspace consolidation. Degenerative changes of the shoulders and spine. IMPRESSION: Cardiomegaly with pulmonary vascular congestion. ACT 112: Negative or not required by law. The above report was generated using voice recognition software. It may contain grammatical, syntax or spelling errors. Electronically signed by: Dick Franklin M.D. 05/13/2022 1:[address] 05/13/22 12:11 CT soft tissue neck wo con HISTORY: 67 years-old Female right dental pain, tongue swelling, dye allergy acute right-sided facial pain and swelling COMPARISON: None TECHNIQUE: Multiple axial CT images of the soft tissues of the neck were obtained without the use of IV contrast. A dose lowering technique was used consistent with the principals of ALIZA. FINDINGS: Senescent calcifications of the basal ganglia. Cerebral vascular calcifications. Cardiomegaly with left subclavian pacer/AICD noted on the underground foreman localizer images. The globes and orbits are within normal limits. Streak artifact from dental amalgam hardware limits evaluation of the oral pharynx. The nasopharynx, oral pharynx and hypopharynx appear patent and unremarkable. The glottis and subglottic airway is within normal limits. The thyroid, parotid and submandibular glands are within normal limits. There is mild subcutaneous and deep tissue edema within the right submandibular tissues with likely reactive right submandibular lymph node nodes measuring up to 6 mm. Lung apices are generally clear. Calcified plaque of the carotid bulbs. Paranasal sinuses and mastoid air cells are generally clear. No acute facial bone fracture identified. Wvnk-yn-dqhqaugi degenerative changes of the cervical spine. Root canal changes of the right mandibular first molar with large posterior periapical cyst. No definite cortical dehiscence or abscess identified. IMPRESSION: 1. Large periapical cyst of the right mandibular first molar with subcutaneous and deep tissue edema within the right submandibular tissues. 2. No abscess identified. ACT 112: Negative or not required by law. The above report was generated using voice recognition software. It may contain grammatical, syntax or spelling errors. Electronically signed by: Dick Franklin M.D. 05/13/2022 1:04 PM Code Status & VTE Plan Code Status Full Code. Supervising Physician Co-Signing Physician Notes PA Supervision Note: I personally saw and examined the patient. I verified all alejandra points and agree with JACOB Sheridan with the following exceptions and/or additions: S-this patient is a 67-year-old female with a history of nonischemic cardiomyopathy, nonsustained V. tach, CKD stage III, ICD, HTN, hyperlipidemia, DM2, who presents to the ER with worsening right-sided jaw pain and swelling inside the mouth that she initially thought was due to an allergic reaction to amoxicillin provided by her dentist. She denies rash or itching, did have some shortness of breath earlier which went away with taking her Lasix as she missed her dose this morning. Pain is improved with acetaminophen. Found to have possible abscess on imaging of the face and neck. She denies any fevers but did have some chills at home. No chest pains, no nausea or vomiting, no diarrhea, no abdominal pains. History and ROS otherwise reviewed as above. O- Vitals reviewed Gen: AAOx3, NAD HEENT: Anicteric sclerae, EOMI, right lower gumline with white exudate, erythema , and significant positive TTP over second molar region. Also with tenderness to palpation over the right submandibular region of the neck without any overlying erythema. Specifically, there is no tongue or lip swelling, no throat swelling and her airway is widely patent CV: RRR no mgr nl S1S2 Pulm: CTAB no wcr Abd: +BS soft NT ND no masses or hernias Ext: Trace edema ankles bilaterally, 2+ DP pulses Skin: No rashes, warm/dry Neuro: Full strength throughout Labs, Rads, and ECG reviewed A/B-59-afuf-old female with history as above, here with dental infection and pain. Allergic reaction has been clinically ruled out. Continue IV antibiotics with clindamycin Awaiting OMFS consultation but will keep n.p.o. after midnight in case of procedure for tomorrow Cardiology consultation for preoperative medical assessment-we will monitor carefully for decompensation of her heart failure in the perioperative setting Continue all home cardiology type medications Tylenol as needed for pain PG Care Time/CCT Total # of Minutes Spent Total Time Spent with Patient: Total time spent is greater than 50% in coordination of care (as documented) at patient's floor/unit and/or counseling patient: Coding Level of Care Code 90613 Initial Inpt Care Lvl 3 Diagnoses Dental abscess K04.7 Chronic HFrEF (heart failure with reduced ejection fraction) I50.22 CKD (chronic kidney disease), stage III N18.30 Diabetes mellitus type II, controlled E11.9 Diabetes mellitus complication status: without complication Diabetes mellitus alf insulin use: without marine oil terminal superintendent use Hyperlipidemia E78.5 Reflux esophagitis K21.00 (1) Diabetes mellitus type II, controlled Diabetes mellitus complication status: without complication Diabetes mellitus marine oil terminal superintendent insulin use: without alf use Qualified Code(s): E11.9 - Type 2 diabetes mellitus without complications
[2022-05-13] MEDS ORDERED: FUROSEMIDE 20 MG TAB PO ONE (14:36)
[2022-05-13] MEDS ORDERED: GLUCAGON FOR INJ 1 MG VIAL SQ PRN (16:26)
[2022-05-13] MEDS ORDERED: POLYETHYLENE (MIRALAX) 17 GM PACK PO PRN (16:26)
[2022-05-13] MEDS ORDERED: ONDANSETRON INJ 2 MG/ML 2 ML VIAL IV PRN (16:26)
[2022-05-13] MEDS ORDERED: GLUCOSE 10 TAB/TUBE PO PRN (16:26)
[2022-05-13] MEDS ORDERED: ALUMINUM/MAGNESIUM SUSP 30 ML UDC PO PRN (16:26)
[2022-05-13] MEDS ORDERED: ACETAMINOPHEN 325 MG TAB PO PRN (16:26)
[2022-05-13] MEDS ORDERED: DEXTROSE 50% 50 ML SYRINGE IV PRN (16:26)
[2022-05-13] MEDS ORDERED: CARBOHYDRATES FOR HYPOGLYCEMIA PO PRN (16:26)
[2022-05-13] MEDS ORDERED: GLUCOSE 40% GEL 15 GM TUBE PO PRN (16:26)
--- NOTE | 2022-05-13 18:19 | Oral/Maxillofacial Consult ---
Date of Consultation May 13, 2022 History of Present Illness Attending Physician: Mali Garay MD History of Present Illness This patient is a 67-year-old female with a history of nonischemic cardiomyopathy, nonsustained V. tach, CKD stage III, ICD, HTN, hyperlipidemia, DM2, who presents to the ER with worsening right-sided jaw pain and swelling inside the mouth that she initially thought was due to an allergic reaction to amoxicillin provided by her dentist. She denies rash or itching, did have some shortness of breath earlier which went away with taking her Lasix as she missed her dose this morning. Pain is improved with acetaminophen. Found to have possible abscess on imaging of the face and neck. She denies any fevers but did have some chills at home. No chest pains, no nausea or vomiting, no diarrhea, no abdominal pains. Oral Maxillofacial Surgery Exam Present Complaint: I have pain/swelling/drainage from my infected# 30 tooth Symptoms have been ongoing for a while. Dentist placed on Amoxicillin on Tuesday yet symptoms continue to get worse This AM--tongue swollen, jaws tight, difficulty swallowing, ear pain, swelling floor of the mouth and submandibular area right side. Oral Exam: Finding-swelling associated with the # 30, tender gingival tissue with deep pocket formation.Tooth in an abnormal position and removal is clinical indicated. Large abscess at apex # 30 that has extended into soft tissues Imaging: CT soft tissue neck wo con HISTORY: 67 years-old Female right dental pain, tongue swelling, dye allergy acute right-sided facial pain and swelling FINDINGS: Senescent calcifications of the basal ganglia. Cerebral vascular calcifications. Cardiomegaly with left subclavian pacer/AICD noted on the master brewer localizer images. The globes and orbits are within normal limits. Streak artifact from dental amalgam hardware limits evaluation of the oral pharynx. The nasopharynx, oral pharynx and hypopharynx appear patent and unremarkable. The glottis and subglottic airway is within normal limits. The thyroid, parotid and submandibular glands are within normal limits. There is mild subcutaneous and deep tissue edema within the right submandibular tissues with likely reactive right submandibular lymph node nodes measuring up to 6 mm. Lung apices are generally clear. Calcified plaque of the carotid bulbs. Paranasal sinuses and mastoid air cells are generally clear. No acute facial bone fracture identified. Jlbs-co-wbzgtucu degenerative changes of the cervical spine. Root canal changes of the right mandibular first molar with large posterior periapical cyst. No definite cortical dehiscence or abscess identified. IMPRESSION: 1. Large periapical cyst of the right mandibular first molar with subcutaneous and deep tissue edema within the right submandibular tissues. 2. No abscess identified. Soft tissue: Subperiosteal area Right side = swollen, Floor of the mouth, tongue--swollen and tender Normal---hard/soft palate, posterior pharyngeal area all with in normal limits, no pathology or abnormal findings noted. No lesions noted that require follow up or Bx. Oral Care: Overall oral care is very good Occlusion: Class I TMJ exam: No pop, clicking, pain, good ROM, No history of TMJ injury or dysfunction Periodontal exam: Healthy gingival tissue without evidence of periodontal pathology. Noted swelling and tenderness right side, floor of mouth and submand. area. Head/Neck exam: Neck is supple, FROM, Able to extend and flex neck w/o difficulty, no masses, no abnormalities, no airway issues, no evidence of sleep apnea. Treatment Plan: Given that she failed outpatient antibiotics---IV antibiotics, pain management needed Take to OR tomorrow Drain abscess, extraction of # 30 Set up with general anesthesia in hospital due to complexity of the procedure secondary to her underlying medical comorbidities. I reviewed the treatment plan and consent with the patient. Understanding was expressed. Time was given for questions regarding the surgery, risks and post op care. Discussed alternative to treatment--procedure as planned, Do not do surgery The following teeth are decayed and fractured and removal is indicated GUY:# 30 Risks discussed: Bleeding,Pain,swelling,infection, dry socket, delayed healing, nerve injury to face,lips,tongue,chin area which could be permanent (rare). TMJ, jaw stiffness, change in bite (rare), ear pain (referred). Sinus problems like fistula or infection. Need to leave a small root fragment in place to avoid injury to nerve or sinus. Relationship of wisdom teeth to nerve/sinus and risk of jaw fracture. Home care reviewed: tooth brushing, rinsing, follow up care with Dr Amezcua. diet=ecoxs-thbp-cdmg dental. Discussed activity level, driving/work while on Rx pain Meds. Surgery to be set up once she is cleared by hospital medicine. Allergies Allergy/AdvReac Type Severity Reaction Status Date / Time erythromycin base Allergy Severe blisters;red;itchy;pain;blisters Verified 05/13/22 14:12 in back throat iodine Allergy Severe throat Verified 05/13/22 14:12 blisters;skin blisters meperidine [From Demerol] Allergy Severe quit Verified 05/13/22 14:12 breathing adhesive Allergy Mild BLISTERS Verified 05/13/22 14:12 atorvastatin Allergy Unknown MUSCLE Verified 05/13/22 14:12 PAIN/ACHES, DIFFICULTY WALKING azithromycin Allergy Unknown Gastrointestinal Verified 05/13/22 14:12 Upset rosuvastatin [From Crestor] Allergy Unknown Cramping Verified 05/13/22 14:12 of the Muscles Mzhgfvx-YSX-LjU Reductase Allergy Unknown MUSCLE Verified 05/13/22 14:12 Inhibitor PAIN/ACHES, [Kymeysc-Res-Njq Reductase DIFFICULTY Inhibitor] WALKING tetracycline Allergy Unknown TERRAMYCIN Verified 05/13/22 14:12 ALLERGY metformin AdvReac Mild Diarrhea Verified 05/13/22 14:12 Home Medications Medication Instructions Recorded Confirmed Type cholecalciferol (vitamin D3) 125 5,000 units PO DAILY 01/14/19 05/13/22 History mcg (5,000 unit) capsule lancets (Accu-Chek Softclix #100 ea 11/26/19 05/04/22 Rx Lancets) blood sugar diagnostic (Accu-Chek #100 ea 02/09/21 05/04/22 Rx Guide test strips) omega-3 fatty acids 1,000 mg PO QAM 03/27/21 05/13/22 History sacubitril 49 mg-valsartan 51 mg 1 tab PO BID #180 tabs 09/07/21 05/13/22 Rx tablet pantoprazole 40 mg tablet,delayed 40 mg PO DAILY #90 tabs 09/21/21 05/13/22 Rx release spironolactone 25 mg tablet 25 mg PO PM #90 tabs 09/21/21 05/13/22 Rx empagliflozin 25 mg tablet 25 mg PO DAILY #90 tabs 11/09/21 05/13/22 Rx ezetimibe 10 mg tablet 10 mg PO PM #90 tabs 02/15/22 05/13/22 Rx carvedilol 12.5 mg tablet 12.5 mg PO BID #180 tabs 04/27/22 05/13/22 Rx aspirin 81 mg tablet,delayed 81 mg PO Q OTHER DAY 05/13/22 05/13/22 History release furosemide 20 mg tablet 20 mg PO .DAILY UD edema 05/13/22 05/13/22 History Patient History Medical History Allergic rhinitis Asymptomatic menopausal state Atopic dermatitis CKD (chronic kidney disease), stage III Congestive heart failure with cardiomyopathy follows with Dr. Mejia Diabetes mellitus type II, controlled NIDDM Diverticulosis of colon Eustachian tube dysfunction History of sigmoidoscopy Hyperlipidemia Hypertension IBS (irritable bowel syndrome) ICD (implantable cardioverter-defibrillator) in place Placed Feb 2015 > [employer] > last checked 03/23/21 with > placed for CHF Incidental pulmonary nodule, > 3mm and < 8mm Internal hemorrhoids Mitral valve disorder follows with Dr. Mejia Obesity Osteopenia Renal insufficiency pt unaware Sigmoid diverticulitis Stage 3b chronic kidney disease Vitamin D deficiency Vitamin D deficiency Surgical History History of appendectomy History of arthroscopy of right knee History of arthroscopy of right shoulder History of breast biopsy benign History of cardiac cath 10/2017 [facility] no stents History of carpal tunnel surgery History of Neuroplasty Decompression Median Nerve At Carpal Tunnel> right History of colonoscopy History of repair of rotator cuff right History of vaginal hysterectomy Family History Mother Breast cancer Diabetes Grandmother Myocardial infarction Denies family history of Ovarian cancer Prostate cancer Colorectal cancer Social History Smoking Status: Never smoker Second Hand Exposure: No; Hx Alcohol Use: Yes Alcohol type: wine Hx Substance Use: No Preferred Language: Chinese Communication Ability: Effective Visual Impairment: No Limitations Hearing Ability: Normal Director Of Analytics Required: No Beliefs That Will Affect Care: None marital status: Current Living Situation: Spouse current occupational status: retired Feels Safe at Home: Yes Childhood Exposure to Second-Hand Smoke: No caffeine: Yes during the past year weight has: remained stable Dental Care, Regularly: Yes Physical Activity Frequency: Does not Exercise Seatbelt Use: always Sunscreen Use: Yes Assistive Devices: Glasses Results & Data ([facility]) Vital Signs (Past 12 Hours) Vital Signs Temp Pulse Pulse Resp BP BP Pulse Ox 05/13/22 16:43 05/13/22 16:43 86 16 93/56 L 93 05/13/22 16:14 80 18 93/56 L 94 05/13/22 14:24 77 18 99/62 L 93 05/13/22 13:06 85 19 87/57 L 93 05/13/22 12:54 84 18 94 05/13/22 12:11 95 05/13/22 12:11 95 05/13/22 11:55 37.2 C 92 H 16 97/63 L 93 Pulse Ox O2 Del Method O2 Del Method 05/13/22 16:43 93 Room Air 05/13/22 16:43 Room Air 05/13/22 16:14 Room Air 05/13/22 14:24 Room Air 05/13/22 13:06 Room Air 05/13/22 12:54 Room Air 05/13/22 12:11 Room Air 05/13/22 12:11 Room Air 05/13/22 11:55 Room Air PG Care Time/CCT Total # of Minutes Spent Total Time Spent with Patient: Total time spent is greater than 50% in coordination of care (as documented) at patient's floor/unit and/or counseling patient: Coding Level of Care Code 50984 Initial Inpt Care Lvl 3
[2022-05-13] MEDS: EZETIMIBE 10 MG TABLET PO SCH (18:28)
[2022-05-13] MEDS: carvediloL 12.5 MG TAB PO SCH (18:28)
[2022-05-13] MEDS: SPIRONOLACTONE 25 MG TAB PO SCH (18:28)
[2022-05-13] MEDS: VALSARTAN/SACUBITRIL 51/49 MG TAB PO SCH (18:28)
[2022-05-13] MEDS: INSULIN ASPART PER UNIT SC SCH ×2 (19:33→21:08)
[2022-05-13] MEDS: CLINDAMYCIN/D5W 900 MG/50 ML BAG IV SCH (20:00)
[2022-05-13] MEDS: HEPARIN SOD 5,000 UNIT/0.5 ML VIAL SQ SCH (20:15)
[2022-05-14] MEDS: CLINDAMYCIN/D5W 900 MG/50 ML BAG IV SCH ×3 (05:25→20:45)
[2022-05-14 06:20] LABS: Basophils # (auto) 0.03 K/uL (0-0.2); Basophils % (auto) 0.3 %; Eosinophils # (auto) 0.04 K/uL (0-0.50); Eosinophils % (auto) 0.5 %; Hematocrit (blood only) 41.7 % (34.1-44.9); Immature Granulocytes # (auto) 0.03 K/uL (0.00-0.02); Immature Granulocytes % (auto) 0.3 %; Lymphocytes # (auto) 1.86 K/uL (1.2-3.4); Lymphocytes % (auto) 21.6 %; Mean Corpuscular Hemoglobin 31.7 pg (25.0-34.0); Mean Corpuscular Hgb Conc 33.6 g/dL (32.0-36.0); Mean Corpuscular Volume 94.3 fL (80.0-100.0); Mean Platelet Volume 9.8 fL (9.4-12.3); Monocytes # (auto) 0.73 K/uL (0.24-0.82); Monocytes % (auto) 8.5 %; Neutrophils # (auto) 5.92 K/uL (1.4-6.5); Neutrophils % (auto) 68.8 %; Platelet Count 205 K/uL (130-400); RDW Coefficient of Variation 13.2 % (11.5-14.5); RDW Standard Deviation 45.9 fL (36.4-46.3); Red Blood Count 4.42 M/uL (3.93-5.22); White Blood Count 8.61 K/ul (4.8-10.8)
[2022-05-14 06:49] LABS: BUN Creatinine Ratio 19.2 (10-20); Calcium 8.6 mg/dl (8.5-10.1); Creatinine Clr Calc Pharmacy 37.9 ml/min; Est GFR (Non-African American) 37.1 ml/min; Magnesium 2.2 mg/dl (1.7-2.4); Potassium 3.6 mmol/L (3.5-5.1)
[2022-05-14 07:46] LABS: Estimated Average Glucose 157 mg/dl; Hemoglobin A1C 7.1 % (4.5-5.6)
[2022-05-14] MEDS: INSULIN ASPART PER UNIT SC SCH ×4 (07:54→20:48)
[2022-05-14] MEDS ORDERED: FUROSEMIDE 40 MG TAB PO SCH (09:00)
--- NOTE | 2022-05-14 11:48 | Anesthesiology Consultation ---
Date of Service May 14, 2022 Assessment & Plan (1) Encounter for pre-operative examination: Chart Review Chart Review: entry level buyer initiated History Surgery Operation Date: 05/14/22 12:25 Proposed Procedures p Incision and Drainage, Tooth Extraction - Quinton Amezcua DMD Height/Weight Height: 5 ft 3 in Weight: 79.6 kg Allergies Allergy/AdvReac Type Severity Reaction Status Date / Time erythromycin base Allergy Severe blisters;red;itchy;pain;blisters Verified 05/13/22 14:12 in back throat iodine Allergy Severe throat Verified 05/13/22 14:12 blisters;skin blisters meperidine [From Demerol] Allergy Severe quit Verified 05/13/22 14:12 breathing adhesive Allergy Mild BLISTERS Verified 05/13/22 14:12 atorvastatin Allergy Unknown MUSCLE Verified 05/13/22 14:12 PAIN/ACHES, DIFFICULTY WALKING azithromycin Allergy Unknown Gastrointestinal Verified 05/13/22 14:12 Upset rosuvastatin [From Crestor] Allergy Unknown Cramping Verified 05/13/22 14:12 of the Muscles Xahusmd-DBW-OxQ Reductase Allergy Unknown MUSCLE Verified 05/13/22 14:12 Inhibitor PAIN/ACHES, [Hklugxf-Kvr-Cfe Reductase DIFFICULTY Inhibitor] WALKING tetracycline Allergy Unknown TERRAMYCIN Verified 05/13/22 14:12 ALLERGY metformin AdvReac Mild Diarrhea Verified 05/13/22 14:12 Medications Home Medications Medication Instructions Recorded Confirmed Last Taken cholecalciferol (vitamin D3) 125 5,000 units PO DAILY 01/14/19 05/13/22 05/13/22 09:30 mcg (5,000 unit) capsule lancets (Accu-Chek Softclix #100 ea 11/26/19 05/04/22 Unknown Lancets) blood sugar diagnostic (Accu-Chek #100 ea 02/09/21 05/04/22 Unknown Guide test strips) omega-3 fatty acids 1,000 mg PO QAM 03/27/21 05/13/22 05/13/22 09:30 sacubitril 49 mg-valsartan 51 mg 1 tab PO BID #180 tabs 09/07/21 05/13/22 05/13/22 09:30 tablet pantoprazole 40 mg tablet,delayed 40 mg PO DAILY #90 tabs 09/21/21 05/13/22 05/13/22 09:30 release spironolactone 25 mg tablet 25 mg PO PM #90 tabs 09/21/21 05/13/22 Unknown empagliflozin 25 mg tablet 25 mg PO DAILY #90 tabs 11/09/21 05/13/22 05/13/22 09:30 ezetimibe 10 mg tablet 10 mg PO PM #90 tabs 02/15/22 05/13/22 Unknown carvedilol 12.5 mg tablet 12.5 mg PO BID #180 tabs 04/27/22 05/13/22 05/13/22 09:30 aspirin 81 mg tablet,delayed 81 mg PO Q OTHER DAY 05/13/22 05/13/22 Unknown release furosemide 20 mg tablet 20 mg PO .DAILY UD edema 05/13/22 05/13/22 Unknown Active Medications Generic Name Dose Route Start Last Admin Trade Name Freq PRN Reason Stop Dose Admin Acetaminophen 650 mg 05/13/22 16:26 05/13/22 17:30 Acetaminophen 325 Mg Tab PO 06/12/22 16:25 650 mg Q4H PRN Administration Pain or Fever Carvedilol 12.5 mg 05/13/22 21:00 05/13/22 18:28 Carvedilol 12.5 Mg Tab PO 06/12/22 20:59 Not Given BID WALKER Ezetimibe 10 mg 05/13/22 21:00 05/13/22 18:28 Ezetimibe 10 Mg Tablet PO 06/12/22 20:59 Not Given PM WALKER Heparin Sodium (Porcine) 5,000 units 05/13/22 21:00 05/13/22 20:15 Heparin Sod 5,000 Unit/0.5 Ml Vial SQ 06/12/22 20:59 Not Given Q12 WALKER Clindamycin Phosphate 900 mg in 50 mls @ 100 mls/hr 05/13/22 21:00 05/14/22 05:55 Cleocin/D5w IV 05/23/22 20:59 Infused Q8H [facility] Infusion Insulin Aspart 0 units 05/13/22 16:30 05/14/22 07:54 Insulin Aspart Per Unit SC 06/12/22 16:29 Not Given ACHS WALKER Sacubitril/Valsartan 1 tab 05/13/22 21:00 05/13/22 18:28 Valsartan/Sacubitril 51/49 Mg Tab PO 06/12/22 20:59 Not Given BID WALKER Spironolactone 25 mg 05/13/22 21:00 05/13/22 18:28 Spironolactone 25 Mg Tab PO 06/12/22 20:59 Not Given PM WALKER NPO Date Last Intake of Fluids: 05/13/22 Date Last Intake of Solids: 05/13/22 Past Medical History Medical History Allergic rhinitis Asymptomatic menopausal state Atopic dermatitis CKD (chronic kidney disease), stage III Congestive heart failure with cardiomyopathy follows with Dr. Mejia Diabetes mellitus type II, controlled NIDDM Diverticulosis of colon Eustachian tube dysfunction History of sigmoidoscopy Hyperlipidemia Hypertension IBS (irritable bowel syndrome) ICD (implantable cardioverter-defibrillator) in place Placed Feb 2015 > [employer] > last checked 03/23/21 with > placed for CHF Incidental pulmonary nodule, > 3mm and < 8mm Internal hemorrhoids Mitral valve disorder follows with Dr. Mejia Obesity Osteopenia Renal insufficiency pt unaware Sigmoid diverticulitis Stage 3b chronic kidney disease Vitamin D deficiency Vitamin D deficiency Past Family History Family History Mother Breast cancer Diabetes Grandmother Myocardial infarction Denies family history of Ovarian cancer Prostate cancer Colorectal cancer Past Surgical History Surgical History History of appendectomy History of arthroscopy of right knee History of arthroscopy of right shoulder History of breast biopsy benign History of cardiac cath 10/2017 [facility] no stents History of carpal tunnel surgery History of Neuroplasty Decompression Median Nerve At Carpal Tunnel> right History of colonoscopy History of repair of rotator cuff right History of vaginal hysterectomy Social History Smoking Status: Never smoker Hx Alcohol Use: Yes Alcohol type: wine alcohol intake frequency: holidays/special occasions only Hx Substance Use: No substance use type: does not use Physical Exam Vital Signs Last Vital Signs Temp 98.2 F 05/14/22 11:30 Pulse 83 05/14/22 11:30 Resp 18 05/14/22 11:30 BP 101/66 05/14/22 11:30 Pulse Ox 95 05/14/22 11:30 O2 Del Method 05/14/22 11:30 Testing Laboratory Results 05/14/22 05:55 05/14/22 05:55 Hemoglobin A1c 7.1 % (4.5-5.6) H 05/14/22 05:55 05/14/22 07:31 POC Glucose 139 H Electrocardiogram Date: 05/14/22 Normal sinus rhythm, rate 92 bpm Left axis deviation Non-specific intra-ventricular conduction block Possible Anterolateral infarct , age undetermined Abnormal ECG When compared with ECG of 02-APR-2016 08:00, Premature ventricular complexes are no longer Present Non-specific intra-ventricular conduction block has replaced Incomplete left bundle block Borderline criteria for Anterolateral infarct are now Present Chest X-Ray Date: 05/13/22 FINDINGS: Cardiac silhouette is enlarged. Left subclavian pacer/AICD. Atherosclerosis of the aorta. Pulmonary vascular congestion. No pneumothorax, large pleural effusion or lobar airspace consolidation. Degenerative changes of the shoulders and spine. IMPRESSION: Cardiomegaly with pulmonary vascular congestion. Echocardiogram Date: 10/27/21 Compared with 04/04/19, mild further decline in LV systolic function, otherwise no significant change LV is moderately dilated LV systolic function is severely reduced EF 15-20% Severe global hypokinesis of LV Thrombus cannot be excluded Mod MR LA is mildly dilated There is a pacemaker lead in the RV IVC is normal in size, with reduced inspiratory collapse
[2022-05-14] MEDS ORDERED: ATROPINE SULFATE 0.1 MG/ML 10ML SYR IV PRN (11:59)
[2022-05-14] MEDS ORDERED: ePHEDrine sulfate 50 MG/ML AMP IV PRN (11:59)
[2022-05-14] MEDS ORDERED: ONDANSETRON INJ 2 MG/ML 2 ML VIAL IV PRN (11:59)
[2022-05-14] MEDS ORDERED: fentaNYL citrate 100 MCG/2 ML VIAL IV PRN (11:59)
[2022-05-14] MEDS ORDERED: DexMEDEtomidine HCL IV 100 MCG/ML VIAL IV ONE (12:11)
--- NOTE | 2022-05-14 12:18 | History & Physical Bridge Note ---
Date of Service May 14, 2022 History & Physical Bridge Note I have examined the patient, reviewed the History & Physical and in the interval since the performance of the History & Physical I have noted the following changes of clinical significance: no changes noted Still very swollen and very tender to touch Plan I&D right subperiosteal and Submandibular space with extraction of # 30
[2022-05-14] MEDS ORDERED: ONDANSETRON INJ 2 MG/ML 2 ML VIAL ONE (12:19)
[2022-05-14] MEDS ORDERED: MIDAZOLAM HCL 1 MG/ML 2ML VIAL ONE (12:19)
[2022-05-14] MEDS ORDERED: fentaNYL citrate 100 MCG/2 ML VIAL ONE ×2 (12:19→14:03)
[2022-05-14] MEDS ORDERED: KETAMINE 50 MG/5 ML SYRINGE ONE (12:20)
[2022-05-14] MEDS ORDERED: BUPIVACAINE/EPINEPHRINE 0.5% 1:200,000 1.8 ML CARP ONE (12:24)
[2022-05-14] MEDS ORDERED: CHLORHEXIDINE GLUCONATE 0.12% 480 ML MT ONE (12:24)
[2022-05-14] MEDS ORDERED: LIDOCAINE/EPINEPHRINE 1.7 ML CTR ONE (12:36)
--- NOTE | 2022-05-14 13:24 | Anesthesiology Progress Note ---
Date of Service May 14, 2022 Anesthesia Post Procedure Vital Signs Vital Signs: Temp Pulse Pulse Pulse Resp BP BP 05/14/22 13:15 81 21 85/52 L 05/14/22 13:05 97.3 F L 81 23 85/54 L 05/14/22 11:57 97.5 F L 91 H 18 96/63 L 05/14/22 11:30 98.2 F 83 18 101/66 05/14/22 08:00 05/14/22 08:00 98.8 F 88 18 92/58 L 05/14/22 03:00 98.8 F 81 18 90/58 L 05/13/22 23:09 98.6 F 83 18 104/37 L 05/13/22 22:10 82 05/13/22 19:23 71 05/13/22 19:15 05/13/22 19:15 97.7 F 76 18 85/54 L 05/13/22 16:43 05/13/22 16:43 86 16 93/56 L 05/13/22 16:14 80 18 93/56 L 05/13/22 14:24 77 18 99/62 L Pulse Ox Pulse Ox O2 Del Method O2 Del Method O2 Flow Rate 05/14/22 13:15 98 Nasal Cannula 5 05/14/22 13:05 94 Nasal Cannula 5 05/14/22 11:57 93 Room Air 05/14/22 11:30 95 Room Air 05/14/22 08:00 Room Air 05/14/22 08:00 95 Room Air 05/14/22 03:00 94 Room Air 05/13/22 23:09 93 Room Air 05/13/22 22:10 05/13/22 19:23 05/13/22 19:15 Room Air 05/13/22 19:15 94 Room Air 05/13/22 16:43 93 Room Air 05/13/22 16:43 93 Room Air 05/13/22 16:14 94 Room Air 05/13/22 14:24 93 Room Air Pain Intensity Right Jaw: Pain Intensity: 3 Transfer of Care Handoff Completed per policy Notes Mental Status: alert / awake / arousable and participated in evaluation Patient Amnestic to Procedure: Yes Nausea / Vomiting: adequately controlled Pain: adequately controlled Airway Patency, RR, SpO2: stable & adequate BP & HR: stable & adequate Hydration State: stable & adequate Anesthetic Complications: no major complications apparent and Pt Satisfied with anesthetic care
--- NOTE | 2022-05-14 13:29 | Operative Report ---
PG Post Operative Report Pre & Post Diagnosis CPT 94747 K12.2 and K14.0 Infection floor of the mouth and subperiosteal plane/ tongue pain [id number] Extraction # 30 area Operation Date: 05/14/22 12:25 Pre-Op Diagnosis: infection floor of the mouth and subperiosteal plane # 30 area Right tooth abscess Post-Op Diagnosis: infection floor of the mouth and subperiosteal plane # 30 area Right tooth abscess I identified the patient and participated in the time-out.: Yes Procedure Operation Date: 05/14/22 12:25 Actual Procedures infection floor of the mouth and subperiosteal plane # 30 area p Incision and Drainage, Tooth Extraction(Right) - Quinton Amezcua DMD Surgeon Quinton Amezcua DMD Software Applications Specialist none Estimated Blood Loss 1 Findings Consistent with Post-Op Diagnosis infection floor of the mouth and subperiosteal plane # 30 area Fluids infection and swelling FOM and subperiosteal space Specimens none Drains none Anesthesia Type MAC Indications infection Description of Procedure Actual Procedures p Incision and Drainage Submandibular, subperiosteal and Floor of the mouth Abscess; Removal of Tooth #30(Not Applicable) - Quinton Amezcua DMD Once cleared for surgery general anesthesia was achieved, the eyes were protected by the anesthesia dept criteria. A time out was take for patient ID, antibiotics, equipment and position verification once all agreed the procedure began. Local anesthesia using Marcaine with a vasoconstrictor ( 1.8 ml per site) given into right inferior alveolar nerve A throat pack was placed after the oral cavity was irrigated with saline. Once a surgical level of anesthesia was obtained and the local anesthesia was given time for the blocks the surgery was started. I turned my attention to the infection which was located in the Submandibular, subperiosteal and Floor of the mouth Abscess The tongue was elevated and there was also swelling associated with tooth # 30 (this was the reason was admitted ) Incision and Drainage Using a 15 blade an incision was made medial to the alveolar ridge and lateral to the duct of the submandibular gland. Once the incision was made a lot of pus extruded from the site. A curved hemostat was carefully placed into the infected space along the medial side of the lower jaw to the inferior boarder. Some further drainage was now allowed to escape. I palpated the submandibular space and no further drainage was expressed. The area was irrigated with at least 100 ml of NS solution. I now turned my attention to remove the # 30 tooth. Lower #30 The full thick Muco-periosteal flap was made on the facial aspect from # 27-31. The flap was reflected to expose the the subperiosteal space the bone adjacent to #30 The rogue was used to remove bone, the tooth was removed with a 301 elevator, the mental nerve was intact, there was a large amount of granulation tissue on the apex and some more pus that was expressed. This was a failing necrotic root canal tooth. As seen on the CT scan there was perforation of the cortical plate resulting in the infection spread. I inspected the sites to insure all bleeding was controlled. I removed the throat pack and suctioned the throat. A gauze pressure dressings were placed. All instrument and sponge count was correct. the patient was allowed to awake from the anesthesia. Once full awake patient was taken to the recovery room with all vital sign stable. The patient tolerated the surgery very well. I will follow the patient in my office if needed, Rx and instructions will be given upon discharge by medicine. I attest to the content of the Intraoperative Record and any orders documented therein. Any exceptions are noted below.
[2022-05-14] MEDS ORDERED: Nursing to Pharmacy Communication SCH (14:00)
[2022-05-14] MEDS ORDERED: Nursing to Pharmacy Communication STA (14:02)
[2022-05-14] MEDS: fentaNYL citrate 100 MCG/2 ML VIAL IV PRN ×4 (14:05→14:20)
[2022-05-14] MEDS: HEPARIN SOD 5,000 UNIT/0.5 ML VIAL SQ SCH (14:06)
[2022-05-14] MEDS: carvediloL 12.5 MG TAB PO SCH ×2 (14:46→20:45)
[2022-05-14] MEDS ORDERED: ACETAMINOPHEN 1,000 MG/100 ML VIAL IV STA (15:30)
[2022-05-14] MEDS ORDERED: MoRPHine SULFATE 2 MG/ML CARP IV PRN (15:31)
[2022-05-14] MEDS: CHOLECALCIFEROL 5,000 UNITS 125 MCG TAB PO SCH (15:31)
[2022-05-14] MEDS: PANTOprazole 40 MG TAB PO SCH (15:34)
[2022-05-14] MEDS: VALSARTAN/SACUBITRIL 51/49 MG TAB PO SCH ×2 (15:34→20:45)
[2022-05-14] MEDS: EMPAGLIFLOZIN 25 MG TAB PO SCH (15:34)
[2022-05-14] MEDS: OMEGA-3 (PURIFIED FISH OIL) 1 GM CAP PO SCH (15:34)
--- NOTE | 2022-05-14 19:23 | Hospitalist Progress Note ---
Date of Service May 14, 2022 Assessment & Plan (1) Dental abscess: Plan: - 1 week of right jaw pain, acutely worse over past 3 days. - Started on amoxicillin 2 days ago by dentist after obtaining an xray concerning for a molar abscess--however pain/swelling only worse after being on this for 2 days with tongue, throat swelling on day of admission -Patient took 50 mg Benadryl in route to ED with resolution of swelling. Did have some shortness of breath had never experienced compromised airway, hypoxia, fever, rash. - Initially reaction felt to be possible allergic reaction due to several antibiotic allergies in the past, however more likely that the swelling was progression of the infection/abscess. - Soft tissue neck CT: Large periapical cyst of the right mandibular first molar with subcutaneous and deep tissue edema within the right submandibular tissues. - Case discussed with [facility] surgeon, Dr. Amezcua who revealed imaging and feels this is an abscess. - started on IV clindamycin Now s/p oral surgery with I&D of abscess and removal of molar #30 Having some post-op pain -ordered IV morphine prn and a one time dose of IV tylenol -continue po prn tylenol as well -continue IV clindamycin -plan to dc to home tomorrow with chlorhexidine mouth rinse, pain meds, po abx if pain controlled and doing ok from a cardiac standpoint (2) Chronic HFrEF (heart failure with reduced ejection fraction): Plan: - Patient has an idiopathic cardiomyopathy and severely reduced systolic function, EF 15% s/p AICD placement. - No current complaints of swelling or shortness of breath. - She is normally borderline hypotensive with SBP in 80-90s -will continue her home regimen: Januvia 25 mg daily, carvedilol 12.5 mg twice daily, Entresto, spironolactone 25 mg at night, Lasix rotating dose 20 mg / 40 mg every other day (due for 20 mg dose today 05/13), ASA for primary prevention. - Hold parameters for hypotension in place. - CXR: Cardiomegaly with pulmonary vascular congestion -monitor I/Os, daily weights, low sodium diet (3) CKD (chronic kidney disease), stage III: Plan: - BUN 27, creatinine 1.4, at/near baseline. - Monitor on daily BMP. - Avoid nephrotoxins, renally dose medications as able. (4) Diabetes mellitus type II, controlled: Plan: - Maintain on Januvia, will continue this from heart failure perspective, as well as add on bolus insulin with goal range [id number], CF 30, CR 15 - A1c 6.9% in October. Now is 7.1%, remains with good control (5) Hyperlipidemia: Plan: - Continue ezetimibe. 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 (6) Reflux esophagitis: Plan: - Continue pantoprazole. Plan - continued stay on PCU. - SCDs for VTE PPx.Stopped heparin due to bleeding in mouth - Full code. Admission and Anticipated Discharge Date Admission Date: May 13, 2022 Subjective Pt returned from oral surgery and had severe pain in right side of face which is now better with morphine nad IV tylenol. No CP or OSB, no nausea. Ate some mashed potatoes. Feels she needs to stay over another night before discharge. Tele with NSR and paced rhythm, rates 80s Review of Systems Review of Systems: All systems reviewed & are unremarkable except as noted in HPI & below Physical Exam Constitutional: WD/WN, vitals as above Eyes: + anicteric sclerae ENMT: Mouth: + oropharynx abnormality (small amount bloody drainage on tongue, no swelling) Neck: trachea midline, no thyromegaly Respiratory: normal respiratory effort, lungs clear to auscultation Cardiovascular: RRR, no murmur, no edema Chest (Breasts): Chest: normal inspection of chest Gastrointestinal (Abdomen): normal bowel sounds, soft, nontender, no hepatosplenomegaly Musculoskeletal: Extremities: extremities normal to inspection; no cyanosis and no clubbing Skin: no rashes, warm and dry Neurologic: moves all extremities and awake; no focal motor deficits Psychiatric: A+Ox3, euthymic affect Lymphatic: no lymphedema Results & Data Results & Data ([facility]) Vital Signs (Past 12 Hours) Vital Signs Temp Pulse Pulse Resp BP BP Pulse Ox 05/14/22 16:24 36.5 C 90 18 96/66 L 91 05/14/22 15:45 36.8 C 90 18 94/65 L 94 05/14/22 15:15 36.8 C 71 18 84/55 L 95 05/14/22 15:02 36.7 C 88 18 94/65 L 98 05/14/22 14:45 89 18 103/62 97 05/14/22 14:35 91 H 18 100/64 97 05/14/22 14:25 84 18 99/61 L 97 05/14/22 14:15 88 15 95/46 L 96 05/14/22 14:05 86 20 88/51 L 98 05/14/22 13:55 82 21 88/60 L 95 05/14/22 13:45 77 10 L 90/57 L 97 05/14/22 13:35 36.8 C 71 15 84/55 L 97 05/14/22 13:25 79 24 85/52 L 98 05/14/22 13:15 81 21 85/52 L 98 05/14/22 13:05 36.3 C L 81 23 85/54 L 94 05/14/22 11:57 36.4 C L 91 H 18 96/63 L 93 05/14/22 11:30 36.8 C 83 18 101/66 95 05/14/22 08:00 05/14/22 08:00 37.1 C 88 18 92/58 L 95 O2 Del Method O2 Flow Rate 05/14/22 16:24 Room Air 05/14/22 15:45 Room Air 05/14/22 15:15 Room Air 05/14/22 15:02 Nasal Cannula 2 05/14/22 14:45 Nasal Cannula 2 05/14/22 14:35 Nasal Cannula 2 05/14/22 14:25 Nasal Cannula 2 05/14/22 14:15 Room Air 05/14/22 14:05 Room Air 05/14/22 13:55 Room Air 05/14/22 13:45 Room Air 05/14/22 13:35 Nasal Cannula 2 05/14/22 13:25 Nasal Cannula 2 05/14/22 13:15 Nasal Cannula 5 05/14/22 13:05 Nasal Cannula 5 05/14/22 11:57 Room Air 05/14/22 11:30 Room Air 05/14/22 08:00 Room Air 05/14/22 08:00 Room Air Laboratory Results 05/14/22 05/14/22 05/14/22 Range/Units 16:32 13:08 11:22 WBC (4.8-10.8) K/ul RBC (3.93-5.22) M/uL Hgb (12.0-16.0) g/dl Hct (34.1-44.9) % MCV (80.0-100.0) fL MCH (25.0-34.0) pg MCHC (32.0-36.0) g/dL RDW Std Deviation (36.4-46.3) fL RDW Coeff of Osman (11.5-14.5) % Plt Count (130-400) K/uL MPV (9.4-12.3) fL Immature Gran % (Auto) % Neut % (Auto) % Lymph % (Auto) % Harrison % (Auto) % Eos % (Auto) % Baso % (Auto) % Neut # (Auto) (1.4-6.5) K/uL Lymph # (Auto) (1.2-3.4) K/uL Harrison # (Auto) (0.24-0.82) K/uL Eos # (Auto) (0-0.50) K/uL Baso # (Auto) (0-0.2) K/uL Immature Gran # (Auto) (0.00-0.02) K/uL Sodium (136-145) mmol/L Potassium (3.5-5.1) mmol/L Chloride (98-107) mmol/L Carbon Dioxide (21-32) mmol/L Anion Gap (3-11) BUN (6-23) mg/dl Creatinine (0.6-1.2) mg/dl Est Cr Clr Drug Dosing ml/min Est GFR ( Amer) ml/min Est GFR (Non-Af Amer) ml/min BUN/Creatinine Ratio (10-20) Glucose (70-99(Fasting)) mg/dl POC Glucose 136 H 131 H 116 H (70-99) mg/dl Estimat Average Glucose mg/dl Hemoglobin A1c (4.5-5.6) % Calcium (8.5-10.1) mg/dl Magnesium (1.7-2.4) mg/dl 05/14/22 05/14/22 05/14/22 Range/Units 07:31 05:55 05:55 WBC (4.8-10.8) K/ul RBC (3.93-5.22) M/uL Hgb (12.0-16.0) g/dl Hct (34.1-44.9) % MCV (80.0-100.0) fL MCH (25.0-34.0) pg MCHC (32.0-36.0) g/dL RDW Std Deviation (36.4-46.3) fL RDW Coeff of Osman (11.5-14.5) % Plt Count (130-400) K/uL MPV (9.4-12.3) fL Immature Gran % (Auto) % Neut % (Auto) % Lymph % (Auto) % Harrison % (Auto) % Eos % (Auto) % Baso % (Auto) % Neut # (Auto) (1.4-6.5) K/uL Lymph # (Auto) (1.2-3.4) K/uL Harrison # (Auto) (0.24-0.82) K/uL Eos # (Auto) (0-0.50) K/uL Baso # (Auto) (0-0.2) K/uL Immature Gran # (Auto) (0.00-0.02) K/uL Sodium 138 (136-145) mmol/L Potassium 3.6 (3.5-5.1) mmol/L Chloride 102 (98-107) mmol/L Carbon Dioxide 27 (21-32) mmol/L Anion Gap 9 (3-11) BUN 28 H (6-23) mg/dl Creatinine 1.46 H (0.6-1.2) mg/dl Est Cr Clr Drug Dosing 37.9 ml/min Est GFR ( Amer) 43.0 ml/min Est GFR (Non-Af Amer) 37.1 ml/min BUN/Creatinine Ratio 19.2 (10-20) Glucose 146 H (70-99(Fasting)) mg/dl POC Glucose 139 H (70-99) mg/dl Estimat Average Glucose 157 mg/dl Hemoglobin A1c 7.1 H (4.5-5.6) % Calcium 8.6 (8.5-10.1) mg/dl Magnesium 2.2 (1.7-2.4) mg/dl 05/14/22 05/13/22 Range/Units 05:55 20:06 WBC 8.61 (4.8-10.8) K/ul RBC 4.42 (3.93-5.22) M/uL Hgb 14.0 (12.0-16.0) g/dl Hct 41.7 (34.1-44.9) % MCV 94.3 (80.0-100.0) fL MCH 31.7 (25.0-34.0) pg MCHC 33.6 (32.0-36.0) g/dL RDW Std Deviation 45.9 (36.4-46.3) fL RDW Coeff of Osman 13.2 (11.5-14.5) % Plt Count 205 (130-400) K/uL MPV 9.8 (9.4-12.3) fL Immature Gran % (Auto) 0.3 % Neut % (Auto) 68.8 % Lymph % (Auto) 21.6 % Harrison % (Auto) 8.5 % Eos % (Auto) 0.5 % Baso % (Auto) 0.3 % Neut # (Auto) 5.92 (1.4-6.5) K/uL Lymph # (Auto) 1.86 (1.2-3.4) K/uL Harrison # (Auto) 0.73 (0.24-0.82) K/uL Eos # (Auto) 0.04 (0-0.50) K/uL Baso # (Auto) 0.03 (0-0.2) K/uL Immature Gran # (Auto) 0.03 H (0.00-0.02) K/uL Sodium (136-145) mmol/L Potassium (3.5-5.1) mmol/L Chloride (98-107) mmol/L Carbon Dioxide (21-32) mmol/L Anion Gap (3-11) BUN (6-23) mg/dl Creatinine (0.6-1.2) mg/dl Est Cr Clr Drug Dosing ml/min Est GFR ( Amer) ml/min Est GFR (Non-Af Amer) ml/min BUN/Creatinine Ratio (10-20) Glucose (70-99(Fasting)) mg/dl POC Glucose 234 H (70-99) mg/dl Estimat Average Glucose mg/dl Hemoglobin A1c (4.5-5.6) % Calcium (8.5-10.1) mg/dl Magnesium (1.7-2.4) mg/dl PG Care Time/CCT Total # of Minutes Spent Total Time Spent with Patient: Total time spent is greater than 50% in coordination of care (as documented) at patient's floor/unit and/or counseling patient: Coding Level of Care Code 95199 Subseq Hosp Care Lvl 2 Diagnoses Dental abscess K04.7 Chronic HFrEF (heart failure with reduced ejection fraction) I50.22 CKD (chronic kidney disease), stage III N18.30 Diabetes mellitus type II, controlled E11.9 Diabetes mellitus terminal manager insulin use: without intermediate use Diabetes mellitus complication status: without complication Hyperlipidemia E78.5 Reflux esophagitis K21.00 (1) Diabetes mellitus type II, controlled Diabetes mellitus terminal manager insulin use: without intermediate use Diabetes mellitus complication status: without complication Qualified Code(s): E11.9 - Type 2 diabetes mellitus without complications
[2022-05-14] MEDS: SPIRONOLACTONE 25 MG TAB PO SCH (20:45)
[2022-05-14] MEDS: EZETIMIBE 10 MG TABLET PO SCH (20:45)
[2022-05-15] MEDS: CLINDAMYCIN/D5W 900 MG/50 ML BAG IV SCH ×2 (05:27→12:38)
[2022-05-15 06:12] LABS: Basophils # (auto) 0.02 K/uL (0-0.2); Basophils % (auto) 0.2 %; Eosinophils # (auto) 0.05 K/uL (0-0.50); Eosinophils % (auto) 0.6 %; Hematocrit (blood only) 42.3 % (34.1-44.9); Immature Granulocytes # (auto) 0.03 K/uL (0.00-0.02); Immature Granulocytes % (auto) 0.4 %; Lymphocytes # (auto) 1.84 K/uL (1.2-3.4); Lymphocytes % (auto) 22.9 %; Mean Corpuscular Hgb Conc 33.1 g/dL (32.0-36.0); Mean Corpuscular Volume 96.8 fL (80.0-100.0); Mean Platelet Volume 9.7 fL (9.4-12.3); Monocytes # (auto) 0.69 K/uL (0.24-0.82); Monocytes % (auto) 8.6 %; Neutrophils # (auto) 5.41 K/uL (1.4-6.5); Neutrophils % (auto) 67.3 %; Platelet Count 206 K/uL (130-400); RDW Coefficient of Variation 13.2 % (11.5-14.5); RDW Standard Deviation 47.7 fL (36.4-46.3); Red Blood Count 4.37 M/uL (3.93-5.22); White Blood Count 8.04 K/ul (4.8-10.8)
[2022-05-15 06:31] LABS: BUN Creatinine Ratio 19.3 (10-20); Creatinine Clr Calc Pharmacy 32.4 ml/min; Est GFR (African American) 35.5 ml/min; Est GFR (Non-African American) 30.7 ml/min; Magnesium 2.2 mg/dl (1.7-2.4); Potassium 3.9 mmol/L (3.5-5.1)
--- NOTE | 2022-05-15 07:00 | Electrocardiogram Report ---
Test Reason : Blood Pressure : / mmHG Vent. Rate : 092 BPM Atrial Rate : 092 BPM P-R Int : 194 ms QRS Dur : 144 ms QT Int : 432 ms P-R-T Axes : 037 -68 065 degrees QTc Int : 534 ms Normal sinus rhythm Left axis deviation Non-specific intra-ventricular conduction block Anterior infarct Abnormal ECG When compared with ECG of 02-APR-2016 08:00, Non-specific intra-ventricular conduction block has replaced Incomplete left bundle block Criteria for Anterior infarct are now Present Confirmed by Chaparro Duarte ([id number]) on 05/15/2022 7:00:00 AM Referred By: REFERRED SELF Confirmed By:Chaparro Duarte
[2022-05-15] MEDS ORDERED: FUROSEMIDE 20 MG TAB PO SCH (09:00)
[2022-05-15] MEDS: carvediloL 12.5 MG TAB PO SCH (09:16)
[2022-05-15] MEDS: INSULIN ASPART PER UNIT SC SCH ×2 (09:18→13:00)
[2022-05-15] MEDS: CHOLECALCIFEROL 5,000 UNITS 125 MCG TAB PO SCH (09:59)
[2022-05-15] MEDS: VALSARTAN/SACUBITRIL 51/49 MG TAB PO SCH (09:59)
[2022-05-15] MEDS: PANTOprazole 40 MG TAB PO SCH (10:00)
[2022-05-15] MEDS: OMEGA-3 (PURIFIED FISH OIL) 1 GM CAP PO SCH (10:00)
[2022-05-15] MEDS: EMPAGLIFLOZIN 25 MG TAB PO SCH (10:00)
--- NOTE | 2022-05-15 12:55 | Discharge Summary ---
Date of Service May 15, 2022 Admission HPI Per Admitting Provider Maribel Noyola is a 67-year-old female with past medical history significant for idiopathic/hereditary cardiomyopathy and HFrEF, s/p ICD placement, orthostatic hypotension, DM2, and COPD who presents today for an allergic reaction. She saw her dentist 2 days ago for right-sided lower dental pain ongoing for the past week who felt that this was an abscess under one of her molars based on x-ray obtained in office and placed patient on amoxicillin. Despite the antibiotic she has continued to have face and dental pain and this morning woke up around 10 AM from a nap with swelling of her tongue and throat. She did feel somewhat short of breath and took 50 mg of Benadryl as she has had several antibiotic allergies in the past. He notes the swelling did come down significantly with the Benadryl and she is feeling back to her baseline. Does have several antibiotic allergies but never had issues with amoxicillin in the past. She did not have any rash, fever, lip swelling. On presentation her BP is 87/57, which is about her baseline given severe heart failure. Otherwise vital signs within normal limits, she is not hypoxic or febrile since arrival. Tryptase level pending, labs collected are largely unremarkable, BUN 27 creatinine 1.47 which is about baseline for her, glucose 176, t. bili mildly elevated 2.0. CXR with cardiomegaly and pulmonary congestion, CT soft tissue of the neck shows large periapical cyst in the right mandibular first molar with subcutaneous and deep tissue edema and right submandibular tissues, felt to be an abscess on review by Dr. Amezcua w/ oromaxillary surgery. Plan for IV antibiotics and management of edema vs allergic reaction with possible OR at some point for further management of abscess. Principal Diagnosis Dental abscess Discharge Exam Constitutional WD/WN, vitals as above Eyes + anicteric sclerae ENMT Mouth: + oropharynx abnormality (missing right lower molar,mild edema gums,no bleeding); no tongue abnormality Neck trachea midline, no thyromegaly Respiratory normal respiratory effort, lungs clear to auscultation Cardiovascular RRR, no murmur, no edema Chest (Breasts) Chest: normal inspection of chest Gastrointestinal (Abdomen) normal bowel sounds, soft, nontender, no hepatosplenomegaly Musculoskeletal Extremities: extremities normal to inspection; no cyanosis and no clubbing Skin no rashes, warm and dry Neurologic moves all extremities and awake; no focal motor deficits Psychiatric A+Ox3, euthymic affect Lymphatic no lymphedema Discharge Data Allergies Allergy/AdvReac Type Severity Reaction Status Date / Time erythromycin base Allergy Severe blisters;red;itchy;pain;blisters Verified 05/13/22 14:12 in back throat iodine Allergy Severe throat Verified 05/13/22 14:12 blisters;skin blisters meperidine [From Demerol] Allergy Severe quit Verified 05/13/22 14:12 breathing adhesive Allergy Mild BLISTERS Verified 05/13/22 14:12 atorvastatin Allergy Unknown MUSCLE Verified 05/13/22 14:12 PAIN/ACHES, DIFFICULTY WALKING azithromycin Allergy Unknown Gastrointestinal Verified 05/13/22 14:12 Upset rosuvastatin [From Crestor] Allergy Unknown Cramping Verified 05/13/22 14:12 of the Muscles Cgyicdy-PJF-BuJ Reductase Allergy Unknown MUSCLE Verified 05/13/22 14:12 Inhibitor PAIN/ACHES, [Yxkyqgu-Vbh-Rup Reductase DIFFICULTY Inhibitor] WALKING tetracycline Allergy Unknown TERRAMYCIN Verified 05/13/22 14:12 ALLERGY metformin AdvReac Mild Diarrhea Verified 05/13/22 14:12 Consultations 05/13/22 13:32 Consult Oromaxillofacial Surgery Stat 05/13/22 13:40 ED Decision to Admit Stat 05/13/22 16:26 Consult Oromaxillofacial Surgery Routine Procedures Performed Operation Date: 05/14/22 12:25 Actual Procedures p Incision and Drainage, Tooth Extraction(Right) - Quinton Amezcua DMD Ordered Studies 05/13/22 12:11 CT neck soft tissues [CT soft tissue neck wo con] Stat Hospital Course (1) Dental abscess: - 1 week of right jaw pain, acutely worse over past 3 days. - Started on amoxicillin 2 days prior by dentist after obtaining an xray concerning for a molar abscess--however pain/swelling only worse after being on this for 2 days with tongue, throat swelling on day of admission -Patient took 50 mg Benadryl in route to ED with resolution of swelling. Did have some shortness of breath had never experienced compromised airway, hypoxia, fever, rash. - Initially reaction felt to be possible allergic reaction due to several antibiotic allergies in the past, however more likely that the swelling was progression of the infection/abscess. - Soft tissue neck CT: Large periapical cyst of the right mandibular first molar with subcutaneous and deep tissue edema within the right submandibular tissues. - Case discussed with [facility] surgeon, Dr. Amezcua who revealed imaging and feels this is an abscess. - started on IV clindamycin Now s/p oral surgery with I&D of abscess and removal of molar #30 on 05/14 Had some post-op pain which is now much improved Is tolerating soft diet -continue po prn tylenol and hydrocodne prn, icing, salt rinses, clorhexadine rinses -f/u [facility] as oupt in 1-2 weeks -continue po clindamycin x 7 days (2) Chronic HFrEF (heart failure with reduced ejection fraction): - Patient has an idiopathic cardiomyopathy and severely reduced systolic functi on, EF 15% s/p AICD placement. - No current complaints of swelling or shortness of breath. - She is normally borderline hypotensive with SBP in 80-90s -will continue her home regimen: Januvia 25 mg daily, carvedilol 12.5 mg twice daily, Entresto, spironolactone 25 mg at night, Lasix rotating dose 20 mg / 40 mg every other day (due for 20 mg dose today 05/13), ASA for primary prevention. - CXR: Cardiomegaly with pulmonary vascular congestion but asymptomatic -continue daily weights, low sodium diet at home -check BMP with CHF clinic at f/u this coming week given mild increase in ladle car operator to 1.7 on day of discharge (3) CKD (chronic kidney disease), stage III: - BUN 27, creatinine 1.4, at/near baseline on arrival and at 1.7 day of discharge not overly concerning, was nPO for procedure and with dental pain, now omero po - Monitor BMP next week with CHF clinic - Avoid nephrotoxins, renally dose medications as able, ok to continue all usual home meds (4) Diabetes mellitus type II, controlled: - Maintain on Januvia, will continue this from heart failure perspective - A1c 6.9% in October. Now is 7.1%, remains with good control (5) Hyperlipidemia: - Continue ezetimibe. 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 (6) Reflux esophagitis: - Continue pantoprazole. Plan - SCDs for VTE PPx.Stopped heparin due to bleeding in mouth Dispo-stable for dc to home - Full code. Total Time Total Time Spent Total Time Spent (In Minutes): 35 min Discharge Plan Discharge Items Patient Disposition: Home - Self-Care Reason For Visit: MOLAR ABSCESS Discharge Diagnosis: acute oral infection lower right Condition on Discharge: Good Activity: Resume your previous activity Bathing: No limitations Exercise/Sports: Gradually increase as tolerated Driving/Machine Use: Resume 1 day after discharge Weightbearing: Full weightbearing Non-emergency contact: Surgeon Call non-emergency contact if: you have any medication questions and your wound pain has increased Follow-up/Referrals: Theo Houston MD [Primary Care Provider] - (Follow up within 1-2 weeks.) Quinton Amezcua DMD [Physician] - Diet: Regular and Low Sodium (2gm) Diet Texture: Dental soft (bite-sized) Addtl Attending Provider Instructions: ADDITIONAL ACTIVITY RECOMMENDATIONS: * [place] teeth after every meal. It is very important to keep your mouth clean to prevent infection. * Starting tonight rinse with the Peridex as directed then 2 x a day * it is very important to keep well hydrated, this prevents fever and possible dry socket pain SPECIAL CARE INSTRUCTIONS: *It is not uncommon that between day 2-4 that your swelling will be at its worst this is very normal, do not be alarmed. * Keep ice on the side of your face for the next 24 to 36 hours. This will help keep the swelling down. * After 36 hours, apply heat (hot water bottle or heating pad) for the next two days, as often as possible. * Tomorrow start rinsing your mouth with 1/2 teaspoon salt in 8 ounces warm water. This rinse should be used every 4-6 hours. * You may experience slight nausea. To prevent this, never take your medication on an empty stomach. If nauseated, take small sips of madeleine octavia until you feel better; then you may start on applesauce and toast. * Some swelling is common. It should gradually decrease within 4-5 days. * A certain amount of bleeding is to be expected. It is often possible to control mild oozing by placing folded gauze over the area and biting down for 30 minutes. If you are unable to control excessive bleeding, call Dr Amezcua at [phone] * You may experience some discomfort for a few days. If pain or swelling increases, Call Dr Amezcua * Return to the office for a follow up check up on: * office address--[address] phone # [phone] [facility] Provider Instructions: Please have Ms. Cristy Salazar of the CHF clinic check your blood work for your kidney function at your appointment next week. Continue the clindamycin three times a day for a course of antibiotics. You can take tylenol for mild-moderate pain and the hydrocodone as needed for moderate-severe pain. Pending Studies at Discharge: No Studies:: start with clear--full--dental soft Stand-Alone Forms: My [facility] ClassOwl, Smoking Cessation Medications and DC Order Prescriptions: New acetaminophen 325 mg Tablet 650 mg PO Q4H PRN (Reason: pain) Qty: 30 0RF Rx Instructions: OTC clindamycin HCl 300 mg capsule 300 mg PO Q8H 7 Days Qty: 21 0RF Continued (DME) lancets [Accu-Chek Softclix Lancets] Misc See Dose Instructions .ROUTE .MEDSUPPLY Qty: 100 3RF Dose Instruction: As directed Rx Instructions: Check daily and as needed (DME) Accu-Chek Guide test strips Strip See Dose Instructions .ROUTE .MEDSUPPLY Qty: 100 3RF Dose Instruction: As directed Rx Instructions: daily and as needed sacubitril-valsartan 49-51 mg tablet 1 tab PO BID Qty: 180 3RF spironolactone 25 mg tablet 25 mg PO PM Qty: 90 3RF pantoprazole 40 mg tablet,delayed release (DR/EC) 40 mg PO DAILY Qty: 90 3RF empagliflozin 25 mg tablet 25 mg PO DAILY Qty: 90 3RF ezetimibe 10 mg tablet 10 mg PO PM Qty: 90 3RF carvedilol 12.5 mg tablet 12.5 mg PO BID Qty: 180 1RF cholecalciferol (vitamin D3) 5,000 unit capsule 5,000 units PO DAILY omega-3 fatty acids Capsule 1,000 mg PO QAM aspirin [Aspir-Low] 81 mg Tablet,Delayed Release (Dr/Ec) 81 mg PO Q OTHER DAY furosemide 20 mg tablet 20 mg PO .DAILY UD Rx Instructions: Can increase to 40 mg PRN for weight > 180 lb. hydrocodone-acetaminophen 5-325 mg tablet 1 tab PO Q4H PRN (Reason: moderate-severe pain) Qty: 10 0RF Discharge Orders: Discharge Order (Routine); Ordered 05/15/22 Ordered By: Mali Grier/Other Patient Handouts: Managing Type 2 Diabetes Admission Data Admit Date/Time: 05/13/22 14:00 Attending Provider: Mali Garay Admit Provider: Mali Garay Primary Care Provider: Theo Houston Other Providers: Quinton Amezcua Natalie B. Coding Level of Care Code D/C DAY MANAGEMENT >30 MINS Diagnoses Dental abscess K04.7 Chronic HFrEF (heart failure with reduced ejection fraction) I50.22 CKD (chronic kidney disease), stage III N18.30 Diabetes mellitus type II, controlled E11.9 Diabetes mellitus residential insulin use: without long chain beamer use Diabetes mellitus complication status: without complication Hyperlipidemia E78.5 Reflux esophagitis K21.00
== END 2022-05-15 13:36 | disposition home or self-care (01) | DRG 137 ==
LOC: ED 11:53 → EDINP 14:00 → 4W 20:19

== ENCOUNTER 2022-05-23 22:27 | Inpatient (IN) ==
[2022-05-23] MEDS ORDERED: ASPIRIN CHEW 324 MG PO STA (22:43)
[2022-05-23] MEDS ORDERED: ONDANSETRON INJ 2 MG/ML 2 ML VIAL IV STA (22:43)
[2022-05-23] MEDS ORDERED: SODIUM CHLORIDE 0.9% 500 ML IV STA (22:43)
[2022-05-23 23:17] LABS: Basophils # (auto) 0.03 K/uL (0-0.2); Basophils % (auto) 0.3 %; Eosinophils # (auto) 0.03 K/uL (0-0.50); Eosinophils % (auto) 0.3 %; Hematocrit (blood only) 40.8 % (34.1-44.9); Hemoglobin 13.9 g/dl (12.0-16.0); Immature Granulocytes # (auto) 0.03 K/uL (0.00-0.02); Immature Granulocytes % (auto) 0.3 %; Lymphocytes # (auto) 1.53 K/uL (1.2-3.4); Lymphocytes % (auto) 14.3 %; Mean Corpuscular Hemoglobin 31.7 pg (25.0-34.0); Mean Corpuscular Hgb Conc 34.1 g/dL (32.0-36.0); Mean Corpuscular Volume 93.2 fL (80.0-100.0); Mean Platelet Volume 9.6 fL (9.4-12.3); Monocytes # (auto) 0.52 K/uL (0.24-0.82); Monocytes % (auto) 4.8 %; Neutrophils # (auto) 8.59 K/uL (1.4-6.5); Platelet Count 227 K/uL (130-400); RDW Coefficient of Variation 13.2 % (11.5-14.5); Red Blood Count 4.38 M/uL (3.93-5.22); White Blood Count 10.73 K/ul (4.8-10.8)
[2022-05-23] MEDS ORDERED: GI COCKTAIL ED USE PO ONE (23:22)
[2022-05-23] MEDS ORDERED: MoRPHine SULFATE 2 MG/ML CARP IV STA (23:22)
[2022-05-23 23:23] LABS: iSTAT Creatinine 1.6 mg/dl (0.6-1.3); iSTAT Hemoglobin 14.3 g/dl (12.0-16.0); iSTAT Ionized Calcium 1.14 mmol/l (1.12-1.32); iSTAT Potassium 3.8 mmol/L (3.3-5.0)
[2022-05-23 23:29] LABS: INR 1.1 (0.9-1.1); Partial Thromboplastin Ratio 0.8; Partial Thromboplastin Time 23.1 Seconds (21.0-31.0); Prothrombin Time 11.2 Seconds (9.0-12.0)
[2022-05-23 23:37] LABS: Albumin Level 4.2 gm/dl (3.4-5.0); BUN Creatinine Ratio 20.6 (10-20); Bilirubin Direct 0.2 mg/dl (0-0.2); Calcium 9.2 mg/dl (8.5-10.1); Creatinine Clr Calc Pharmacy 36.3 ml/min; Est GFR (Non-African American) 34.5 ml/min; Potassium 3.8 mmol/L (3.5-5.1)
[2022-05-23 23:43] LABS: Troponin I High Sensitivity 13.4 pg/ml (0-14)
--- NOTE | 2022-05-24 00:18 | Emergency Department Note ---
History of Present Illness General Chief Complaint: Abdominal Pain Stated Complaint: ABDOMINAL PAIN, VOMITING, SHOULDER PAIN Time Seen by Provider: 05/23/22 22:43 History of Present Illness Provider Complaint: abdominal pain Onset (ago): 1 day(s) Pain Consistency: constant Location: epigastric Radiation: back and chest Severity: moderate Maximum Pain Intensity: 8 Current Pain Intensity: 8 Quality: + stabbing, + aching, + sharp and + dull Relieved By: + nothing Exacerbated By: + nothing Context: no foreign travel, no possible food poisoning, no sick contacts, no recent antibiotic use, no recent surgery/procedure, no recent injury or no history of similar episodes Associated Symptoms: + nausea and + vomiting; no diarrhea, no fever, no chills, no dysuria, no hematemesis, no hematochezia, no melena, no hematuria, no anorexia, no headache and no neck pain Home Medications Medication Instructions Recorded Confirmed Type cholecalciferol (vitamin D3) 125 5,000 units PO DAILY 01/14/19 05/23/22 History mcg (5,000 unit) capsule lancets (Accu-Chek Softclix #100 ea 11/26/19 05/18/22 Rx Lancets) blood sugar diagnostic (Accu-Chek #100 ea 02/09/21 05/18/22 Rx Guide test strips) sacubitril 49 mg-valsartan 51 mg 1 tab PO BID #180 tabs 09/07/21 05/23/22 Rx tablet pantoprazole 40 mg tablet,delayed 40 mg PO DAILY #90 tabs 09/21/21 05/23/22 Rx release spironolactone 25 mg tablet 25 mg PO PM #90 tabs 09/21/21 05/23/22 Rx empagliflozin 25 mg tablet 25 mg PO DAILY #90 tabs 11/09/21 05/23/22 Rx ezetimibe 10 mg tablet 10 mg PO PM #90 tabs 02/15/22 05/23/22 Rx carvedilol 12.5 mg tablet 12.5 mg PO BID #180 tabs 04/27/22 05/23/22 Rx aspirin 81 mg tablet,delayed 81 mg PO Q OTHER DAY 05/13/22 05/23/22 History release furosemide 20 mg tablet 20 mg PO DAILY edema 05/13/22 05/23/22 History acetaminophen 325 mg tablet 650 mg PO Q4H PRN pain #30 tabs 05/14/22 05/23/22 Rx hydrocodone 5 mg-acetaminophen 325 1 tab PO Q4H PRN moderate-severe 05/14/22 05/23/22 Rx mg tablet pain #10 tabs fluconazole 150 mg tablet 150 mg PO Q3D 2 doses #2 tabs 05/20/22 05/23/22 Rx omega-3 fatty acids 1,000 mg 1,000 mg PO QAM 05/23/22 05/23/22 History capsule Allergies Allergy/AdvReac Type Severity Reaction Status Date / Time erythromycin base Allergy Severe blisters;red;itchy;pain;blisters Verified 05/23/22 22:59 in back throat iodine Allergy Severe throat Verified 05/23/22 22:59 blisters;skin blisters meperidine [From Demerol] Allergy Severe quit Verified 05/23/22 22:59 breathing adhesive Allergy Intermediate BLISTERS Verified 05/23/22 22:59 tetracycline Allergy Unknown TERRAMYCIN Verified 05/23/22 22:59 ALLERGY atorvastatin AdvReac Intermediate MUSCLE Verified 05/23/22 22:59 PAIN/ACHES, DIFFICULTY WALKING azithromycin AdvReac Intermediate Gastrointestinal Verified 05/23/22 22:59 Upset metformin AdvReac Intermediate Diarrhea Verified 05/23/22 22:59 rosuvastatin [From Crestor] AdvReac Intermediate Cramping Verified 05/23/22 22:59 of the Muscles Duqnlff-GBP-VjW Reductase AdvReac Intermediate MUSCLE Verified 05/23/22 22:59 Inhibitor PAIN/ACHES, [Gbzubux-Ynl-Hho Reductase DIFFICULTY Inhibitor] WALKING Past Med/Surg History Medical History Allergic rhinitis Asymptomatic menopausal state Atopic dermatitis CKD (chronic kidney disease), stage III Congestive heart failure with cardiomyopathy follows with Dr. Mejia Diabetes mellitus type II, controlled NIDDM Diverticulosis of colon Eustachian tube dysfunction History of sigmoidoscopy Hyperlipidemia Hypertension IBS (irritable bowel syndrome) ICD (implantable cardioverter-defibrillator) in place Placed Feb 2015 > Pumanttronic > last checked 03/23/21 with > placed for CHF Incidental pulmonary nodule, > 3mm and < 8mm Internal hemorrhoids Mitral valve disorder follows with Dr. Mejia Obesity Osteopenia Renal insufficiency pt unaware Sigmoid diverticulitis Stage 3b chronic kidney disease Vitamin D deficiency Vitamin D deficiency Surgical History History of appendectomy History of arthroscopy of right knee History of arthroscopy of right shoulder History of breast biopsy benign History of cardiac cath 10/2017 [facility] no stents History of carpal tunnel surgery History of Neuroplasty Decompression Median Nerve At Carpal Tunnel> right History of colonoscopy History of incision and drainage (05/14/22) infection floor of the mouth and subperiosteal plane # 30 area p Incision and Drainage, Tooth Extraction(Right) - Quinton Amezcua, DMD History of repair of rotator cuff right History of vaginal hysterectomy Family History Mother Breast cancer Diabetes Grandmother Myocardial infarction Denies family history of Ovarian cancer Prostate cancer Colorectal cancer Social History Smoking Status: Never smoker Second Hand Exposure: No; Hx Alcohol Use: Yes Alcohol type: wine Hx Substance Use: No Preferred Language: Malian Communication Ability: Effective Visual Impairment: No Limitations Hearing Ability: Normal Research Environmental Scientist Required: No Beliefs That Will Affect Care: None marital status: Current Living Situation: Spouse current occupational status: retired Feels Safe at Home: Yes Childhood Exposure to Second-Hand Smoke: No caffeine: Yes during the past year weight has: remained stable Dental Care, Regularly: Yes Physical Activity Frequency: Does not Exercise Seatbelt Use: always Sunscreen Use: Yes Assistive Devices: None Physical Exam Vital Signs: Vital Signs - 24 hr 05/23/22 22:29 05/24/22 00:19 05/24/22 00:27 Temperature 36.4 C L Temperature Source Temporal Artery Sc an Pulse Rate 100 H 90 Pulse Rate [Apical ] 88 Pulse Rhythm Regular Pulse Rhythm [Apic al] Regular Pulse Strength [Ap ical] Normal Respiratory Rate 20 18 18 Respiratory Effort / Characteristics Non-Labored Sponta neous Non-Labored Sponta neous Respiratory Depth Normal Normal Respiratory Patter n Regular Blood Pressure 101/70 Blood Pressure [Ri ght Arm] 106/64 Blood Pressure Shelbi n 80 Blood Pressure Shelbi n [Right Arm] 78 Blood Pressure Pos ition [Right Arm] Semi-fowlers Pulse Oximetry 92 96 94 Oxygen Delivery Me thod Room Air Room Air Room Air Sepsis New/Unexpla ined Change in Men jatinder Status N/A Sepsis Action Take n by Nursing No Action Required Physical Exam: Physical Exam GENERAL: She is oriented to person, place, and time. She appears well-developed and well-nourished. She does not appear distressed. HENT: Exam performed. -Head: Normocephalic and atraumatic. -Right Ear: External ear normal. No mastoid tenderness. -Left Ear: External ear normal. No mastoid tenderness. -Mouth/Throat: The oropharynx is clear and moist. No trismus in the jaw. No dental abscesses or uvula swelling. No oropharyngeal exudate or tonsillar abscesses. EYES: Conjunctivae and EOM are normal. Pupils are equal, round, and reactive to light. Right eye exhibits no discharge. Left eye exhibits no discharge. No scleral icterus. NECK: Normal range of motion. Neck supple. No JVD present. No spinous process tenderness present. No carotid bruit present. No rigidity. No tracheal deviation and normal range of motion present. No Brudzinski's sign and no Kernig's sign noted. CV: Normal rate, regular rhythm, normal heart sounds and intact distal pulses. There is no peripheral edema. Palpable radial pulses bue. PULM/CHEST: Effort normal and breath sounds normal. No respiratory distress. No stridor. She has no wheezes. She has no rales. -Chest Wall: She exhibits no tenderness. ABD: The abdomen is soft. Bowel sounds are normal. She has no distension. No mass is present. There is tenderness to palpation of the epigastric area. There is no rebound, no guarding, no Stout's sign and no tenderness at McBurney's point. Rovsig negative MUSC/SKEL: Normal range of motion. There is no peripheral edema, tenderness or deformity. LYMPH: No cervical adenopathy. NEURO: She is alert and oriented to person, place, and time. She has normal strength. No cranial nerve deficit or sensory deficit. Coordination and gait normal. GCS eye subscore is 4. GCS verbal subscore is 5. GCS motor subscore is 6. Cerebellar tests wnl. SKIN: Skin is warm and dry. She is not diaphoretic. PSYCH: She has a normal mood and affect. Behavior is normal. Judgment and thought content normal. Course Course 2242: The patient was evaluated in room A10. A complete history and physical exam was performed Administered Medications Discontinued Medications Al Hydrox/Mg Hydrox/Simethicone (Gi Cocktail Ed Use) 1 dose PO ONE ONE Stop: 05/23/22 23:23 Last Admin: 05/23/22 23:33 Dose: 1 dose Documented By: RICHI Aspirin (Aspirin Chew 324 Mg) 324 mg PO NOW STA Stop: 05/23/22 22:44 Last Admin: 05/23/22 23:15 Dose: 324 mg Documented By: RICHI Sodium Chloride (Nss) 500 mls @ 999 mls/hr IV .Q31M STA Stop: 05/23/22 23:13 Last Infusion: 05/23/22 23:51 Dose: 0 mls/hr Documented By: Admin: 05/23/22 23:17 Dose: 999 mls/hr Documented By: RICHI Morphine Sulfate (Morphine Sulfate 2 Mg/Ml Carp) 2 mg IV NOW STA Stop: 05/23/22 23:23 Last Admin: 05/23/22 23:36 Dose: 2 mg Documented By: RICHI Morphine Sulfate (Morphine Sulfate 4 Mg/Ml 1 Ml Carp\Vial) 4 mg IV NOW STA Stop: 05/24/22 00:58 Last Admin: 05/24/22 01:05 Dose: 4 mg Documented By: RICHI Ondansetron HCl (Ondansetron Inj 2 Mg/Ml 2 Ml Vial) 4 mg IV NOW STA Stop: 05/23/22 22:44 Last Admin: 05/23/22 23:15 Dose: 4 mg Documented By: RICHI Ondansetron HCl (Ondansetron Inj 2 Mg/Ml 2 Ml Vial) 4 mg IV NOW STA Stop: 05/24/22 00:58 Last Admin: 05/24/22 01:03 Dose: 4 mg Documented By: RICHI Medical Decision Making Laboratory Data Result diagrams: 05/23/22 22:58 05/23/22 22:58 Lab Results 05/23/22 05/23/22 05/23/22 Range/Units 22:58 22:58 22:58 WBC 10.73 (4.8-10.8) K/ul RBC 4.38 (3.93-5.22) M/uL Hgb 13.9 (12.0-16.0) g/dl POC Hgb (12.0-16.0) g/dl Hct 40.8 (34.1-44.9) % POC Hct (37-47) % MCV 93.2 (80.0-100.0) fL MCH 31.7 (25.0-34.0) pg MCHC 34.1 (32.0-36.0) g/dL RDW Std Deviation 45.0 (36.4-46.3) fL RDW Coeff of Osman 13.2 (11.5-14.5) % Plt Count 227 (130-400) K/uL MPV 9.6 (9.4-12.3) fL Immature Gran % (Auto) 0.3 % Neut % (Auto) 80.0 % Lymph % (Auto) 14.3 % Anderson % (Auto) 4.8 % Eos % (Auto) 0.3 % Baso % (Auto) 0.3 % Neut # (Auto) 8.59 H (1.4-6.5) K/uL Lymph # (Auto) 1.53 (1.2-3.4) K/uL Anderson # (Auto) 0.52 (0.24-0.82) K/uL Eos # (Auto) 0.03 (0-0.50) K/uL Baso # (Auto) 0.03 (0-0.2) K/uL Immature Gran # (Auto) 0.03 H (0.00-0.02) K/uL PT 11.2 (9.0-12.0) Seconds INR 1.1 (0.9-1.1) APTT 23.1 (21.0-31.0) Seconds PTT Ratio 0.8 POC Sodium (135-144) mmol/L Sodium 137 (136-145) mmol/L POC Potassium (3.3-5.0) mmol/L Potassium 3.8 (3.5-5.1) mmol/L POC Chloride (101-112) mmol/L Chloride 102 (98-107) mmol/L Carbon Dioxide 24 (21-32) mmol/L POC Total CO2 (24-31) mmol/L Anion Gap 11 (3-11) POC Anion Gap (16-25) mmol/L POC BUN (7-18) mg/dl BUN 32 H (6-23) mg/dl Creatinine 1.55 H (0.6-1.2) mg/dl POC Creatinine (0.6-1.3) mg/dl Est Cr Clr Drug Dosing 36.3 ml/min Est GFR ( Amer) 40.0 ml/min Est GFR (Non-Af Amer) 34.5 ml/min BUN/Creatinine Ratio 20.6 H (10-20) Glucose 161 H (70-99(Fasting)) mg/dl POC Glucose (other) (70-99) mg/dl Calcium 9.2 (8.5-10.1) mg/dl POC Ioniz Calcium Carlito (1.12-1.32) mmol/l Total Bilirubin 1.0 (0.2-1.0) mg/dl Direct Bilirubin 0.2 (0-0.2) mg/dl AST 19 (13-39) U/L ALT 18 (7-52) U/L Alkaline Phosphatase 57 (34-104) U/L Troponin I High Sens 13.4 (0-14) pg/ml Total Protein 7.0 (6.0-8.3) gm/dl Albumin 4.2 (3.4-5.0) gm/dl Lipase 32 (11-82) U/L SARS-CoV-2, RNA, NAAT (NEGATIVE) 05/23/22 05/23/22 Range/Units 23:10 23:44 WBC (4.8-10.8) K/ul RBC (3.93-5.22) M/uL Hgb (12.0-16.0) g/dl POC Hgb 14.3 (12.0-16.0) g/dl Hct (34.1-44.9) % POC Hct 42 (37-47) % MCV (80.0-100.0) fL MCH (25.0-34.0) pg MCHC (32.0-36.0) g/dL RDW Std Deviation (36.4-46.3) fL RDW Coeff of Osman (11.5-14.5) % Plt Count (130-400) K/uL MPV (9.4-12.3) fL Immature Gran % (Auto) % Neut % (Auto) % Lymph % (Auto) % Anderson % (Auto) % Eos % (Auto) % Baso % (Auto) % Neut # (Auto) (1.4-6.5) K/uL Lymph # (Auto) (1.2-3.4) K/uL Anderson # (Auto) (0.24-0.82) K/uL Eos # (Auto) (0-0.50) K/uL Baso # (Auto) (0-0.2) K/uL Immature Gran # (Auto) (0.00-0.02) K/uL PT (9.0-12.0) Seconds INR (0.9-1.1) APTT (21.0-31.0) Seconds PTT Ratio POC Sodium 138 (135-144) mmol/L Sodium (136-145) mmol/L POC Potassium 3.8 (3.3-5.0) mmol/L Potassium (3.5-5.1) mmol/L POC Chloride 103 (101-112) mmol/L Chloride (98-107) mmol/L Carbon Dioxide (21-32) mmol/L POC Total CO2 23 L (24-31) mmol/L Anion Gap (3-11) POC Anion Gap 16.0 (16-25) mmol/L POC BUN 29 H (7-18) mg/dl BUN (6-23) mg/dl Creatinine (0.6-1.2) mg/dl POC Creatinine 1.6 H (0.6-1.3) mg/dl Est Cr Clr Drug Dosing ml/min Est GFR ( Amer) ml/min Est GFR (Non-Af Amer) ml/min BUN/Creatinine Ratio (10-20) Glucose (70-99(Fasting)) mg/dl POC Glucose (other) 163 H (70-99) mg/dl Calcium (8.5-10.1) mg/dl POC Ioniz Calcium Carlito 1.14 (1.12-1.32) mmol/l Total Bilirubin (0.2-1.0) mg/dl Direct Bilirubin (0-0.2) mg/dl AST (13-39) U/L ALT (7-52) U/L Alkaline Phosphatase (34-104) U/L Troponin I High Sens (0-14) pg/ml Total Protein (6.0-8.3) gm/dl Albumin (3.4-5.0) gm/dl Lipase (11-82) U/L SARS-CoV-2, RNA, NAAT NEGATIVE (NEGATIVE) Imaging Data My Impression: Cardiomegaly with mild cephalization Radiologist's Impression: PreliminaryFindingsOnly See Final Report For Complete Findings CT ABDOMEN & PELVIS Without Contrast: There is no bowel obstruction or inflammation. Left:Diverticulosis. Negative for diverticulitis or colitis. The appendix is not distinctlyidentified. No secondarysigns of appendicitis. No free intraperitoneal air or free fluid. The gallbladder is somewhat distended and there is a question of mild gallbladder wall thickening and some fat stranding around the gallbladder. Correlate with right upper quadrant pain to help evaluate for acute gallbladder disease. Ultrasound if indicated. Normal liver. There is some nonspecific fatty stranding in the area of the falciformligament extending to the latanya. Uncertain if related.. Normal spleen. Normal pancreas. Normal adrenal glands. No urinarytract stone or obstruction. Cardiomegaly. Small left pleural effusion. Trace right pleural effusion. Peribronchial thickening at the lung bases. Osseous structures are intact Radiologist: Rudi Ratliff MD Study ready at 00:05 and initial results transmitted at 00:48 ECG Data Attestation: I personally reviewed and interpreted this ECG as follows: Indication: chest pain Rate (beats per minute): 98 Rhythm: normal sinus Findings: + LBBB; no ST depression or no ST elevation Comparison ECG Date: from (May 14, 2022) Change: no significant change Additional Comments: NM 180 QRS 142 QTC 515 EKG #2 at 0025: Sinus rhythm with a rate of 88. NM 188 QRS 140 QTC 527 left bundle branch block present. No ST elevation or ST depression. No significant change from her previous EKG. MDM Narrative Cardiac monitoring: An order was placed for continuous cardiac monitoring. The monitor shows a rate of 100 with sinus rhythm Labs are within normal limits with white blood cell count of 10 creatinine of 1.55 at patient's baseline. Bilirubin and liver function test within normal limits lipase within normal limits troponin within normal limits. CT of the abdomen pelvis showed gallbladder distention with mild wall thickening and fat stranding around the gallbladder. Patient has a negative Stout sign. Patient will be treated with antibiotics at this time for possible cholecystitis Rocephin and Flagyl. Discussed CT findings with the patient who states she is not sure if she would want to proceed with any surgical options as she states she has a very weak heart. Discussed case with Dr. Glass hospitalist team and patient will be brought in for HIDA scan and GI consultation surgical consultation. Ultrasound of the right upper quadrant is pending. While the patient was in the emergency department the patient's oxygen saturation did go down to 89%, this is unclear if this is due to the morphine that she was given for pain or due to the fluids that she was given for her initial hypotension. Patient tolerating nasal cannula well and her oxygen saturations well on nasal cannula. Impression & Plan Abdominal pain, Cholecystitis Discharge Plan Visit Data Chief Complaint: Abdominal Pain Stated Complaint: ABDOMINAL PAIN, VOMITING, SHOULDER PAIN ED Provider: Harrison Peter Discharge Problem: Abdominal pain, Cholecystitis Patient Disposition: Being Evaluated by Hospitalist Forms Stand Alone Forms: [facility] [employer] Prescriptions Prescriptions: No Action (DME) lancets [Accu-Chek Softclix Lancets] Misc See Dose Instructions .ROUTE .MEDSUPPLY Qty: 100 3RF Dose Instruction: As directed Rx Instructions: Check daily and as needed (DME) Accu-Chek Guide test strips Strip See Dose Instructions .ROUTE .MEDSUPPLY Qty: 100 3RF Dose Instruction: As directed Rx Instructions: daily and as needed sacubitril-valsartan 49-51 mg tablet 1 tab PO BID Qty: 180 3RF spironolactone 25 mg tablet 25 mg PO PM Qty: 90 3RF pantoprazole 40 mg tablet,delayed release (DR/EC) 40 mg PO DAILY Qty: 90 3RF empagliflozin 25 mg tablet 25 mg PO DAILY Qty: 90 3RF ezetimibe 10 mg tablet 10 mg PO PM Qty: 90 3RF fluconazole 150 mg tablet 150 mg PO Q3D Qty: 2 0RF carvedilol 12.5 mg tablet 12.5 mg PO BID Qty: 180 1RF cholecalciferol (vitamin D3) 5,000 unit capsule 5,000 units PO DAILY aspirin 81 mg Tablet,Delayed Release (Dr/Ec) 81 mg PO Q OTHER DAY furosemide 20 mg tablet 20 mg PO DAILY Rx Instructions: May increase to 40 mg PRN for weight > 180 lb. acetaminophen 325 mg Tablet 650 mg PO Q4H PRN (Reason: pain) Qty: 30 0RF Rx Instructions: OTC hydrocodone-acetaminophen 5-325 mg tablet 1 tab PO Q4H PRN (Reason: moderate-severe pain) Qty: 10 0RF omega-3 fatty acids 1,000 mg Capsule 1,000 mg PO QAM Referrals Referrals: Theo Houston MD [Primary Care Provider] -
[2022-05-24] MEDS ORDERED: MoRPHine SULFATE 4 MG/ML 1 ML CARP\\VIAL IV STA (00:57)
[2022-05-24] MEDS ORDERED: metroNIDAZOLE 500 MG/100 ML BAG IV STA (00:57)
[2022-05-24] MEDS ORDERED: ONDANSETRON INJ 2 MG/ML 2 ML VIAL IV STA (00:57)
[2022-05-24] MEDS ORDERED: cefTRIAXone SODIUM 1,000 MG in DEXTROSE 5% AD-VAN 50 ML IV STA (00:57)
--- NOTE | 2022-05-24 01:20 | History & Physical Report ---
Date of Service May 24, 2022 Assessment & Plan (1) Abdominal pain: Plan: 67-year-old female with history of idiopathic cardiomyopathy with severely reduced EF, ICD in place, diabetes and CKD presents with acute onset of epigastric abdominal pain since 0400. Labs are unremarkable with no leukocytosis, normal LFTs and lipase. Exam with negative Stout's testing. CT as above with possible edema of the gallbladder. Considering acute cholecystitis - patient is afebrile, normal labs as above. Patient is uncertain that she would want any type of surgical intervention unless absolutely necessary given her cardiac history. Possibly GERD or PUD. Patient does have a hiatal hernia and had an esophageal ulcer in the past. -Observation to medical -Awaiting results of US -Check HIDA scan -Zofran PRN nausea -Morphine PRN pain -Zosyn empirically for possible cholecystitis -Protonix 40mg IV daily -Maalox PRN -Consider GI consultation if symptoms continue -General surgery evaluation appreciated (2) Chronic HFrEF (heart failure with reduced ejection fraction): Plan: Patient with idiopathic cardiomyopathy, chronic heart failure with severe reduced EF of 15 to 20% status post ICD placement. Patient follows with heart failure clinic. Dry weight reported to be 175 pounds. She appears euvolemic on exam today. Continue Entresto Continue spironolactone Continue empagliflozin Continue carvedilol Gentle IV fluids, LR at 80 mL/h x 1 L only Monitor blood pressure carefully. Patient has had hypotension associated with her medications. (3) CKD (chronic kidney disease), stage III: Plan: BUN and creatinine are near baseline. Avoid nephrotoxic agents Renal dosing were needed Repeat chemistry in a.m. (4) Hypertension: Plan: Patient with episodes of hypotension associate with medication use. Presently 106/64 We will continue heart failure medications as above with close monitoring of blood pressure (5) Hyperlipidemia: Plan: Chronic. Patient is statin intolerant due to muscle aches and pains. Continue Zetia 10 mg p.o. every afternoon (6) Diabetes mellitus type II, controlled: Plan: Overall well controlled. Blood sugar elevated today at 161. Last hemoglobin A1c on 05/14/2022 = 7.1. Continue empagliflozin Insulin sliding scale with goal blood sugar 110-1 40 F/E/N - LR at 80mL/hr x 1L Ppx - low risk for DVT Code - Full Dispo - Observation to medical History of Present Illness Chief Complaint: epigastric pain Primary Care Provider: Theo Houston MD Patient is a 67yo female with multiple medical comorbidities to include idiopathic cardiomyopathy with HFrEF s/p ICD placement, DM and COPD presenting with epigastric pain. Patient reports she did not feel well last evening. She ate some cheese and crackers. At 0400 she woke with severe sharp and stabbing epigastric pain with radiation to the right shoulder. She reports some belching as well as some reflux symptoms, bitter tasking fluid in her throat, nausea and non-bloody/non-bilious vomiting. No history of prior. No complaint of fever, chills, chest pain. Normal bowel movements with no melena or hematochezia. She took some TUMS with some relief. However, pain persisted. Intermittent worsening throughout the day today which prompted her to come to the ER. In the ER she was hypotensive with BP of 80/52. She was given 500mL IVF with improvement in BP to 106/64. Still with epigastric pain. Is having difficult time getting comfortable. ER Course: ASA 324mg Zofran 4mg IV x 2 doses NSS x 500mL GI cocktail Morphine 2mg IV + 4mg IV Allergies Allergy/AdvReac Type Severity Reaction Status Date / Time erythromycin base Allergy Severe blisters;red;itchy;pain;blisters Verified 05/23/22 22:59 in back throat iodine Allergy Severe throat Verified 05/23/22 22:59 blisters;skin blisters meperidine [From Demerol] Allergy Severe quit Verified 05/23/22 22:59 breathing adhesive Allergy Intermediate BLISTERS Verified 05/23/22 22:59 tetracycline Allergy Unknown TERRAMYCIN Verified 05/23/22 22:59 ALLERGY atorvastatin AdvReac Intermediate MUSCLE Verified 05/23/22 22:59 PAIN/ACHES, DIFFICULTY WALKING azithromycin AdvReac Intermediate Gastrointestinal Verified 05/23/22 22:59 Upset metformin AdvReac Intermediate Diarrhea Verified 05/23/22 22:59 rosuvastatin [From Crestor] AdvReac Intermediate Cramping Verified 05/23/22 22:59 of the Muscles Tuesuca-KGF-CfU Reductase AdvReac Intermediate MUSCLE Verified 05/23/22 22:59 Inhibitor PAIN/ACHES, [Svyfyam-Szp-Lnt Reductase DIFFICULTY Inhibitor] WALKING Home Medications Medication Instructions Recorded Confirmed Type cholecalciferol (vitamin D3) 125 5,000 units PO DAILY 01/14/19 05/23/22 History mcg (5,000 unit) capsule lancets (Accu-Chek Softclix #100 ea 11/26/19 05/18/22 Rx Lancets) blood sugar diagnostic (Accu-Chek #100 ea 02/09/21 05/18/22 Rx Guide test strips) sacubitril 49 mg-valsartan 51 mg 1 tab PO BID #180 tabs 09/07/21 05/23/22 Rx tablet pantoprazole 40 mg tablet,delayed 40 mg PO DAILY #90 tabs 09/21/21 05/23/22 Rx release spironolactone 25 mg tablet 25 mg PO PM #90 tabs 09/21/21 05/23/22 Rx empagliflozin 25 mg tablet 25 mg PO DAILY #90 tabs 11/09/21 05/23/22 Rx ezetimibe 10 mg tablet 10 mg PO PM #90 tabs 02/15/22 05/23/22 Rx carvedilol 12.5 mg tablet 12.5 mg PO BID #180 tabs 04/27/22 05/23/22 Rx aspirin 81 mg tablet,delayed 81 mg PO Q OTHER DAY 05/13/22 05/23/22 History release furosemide 20 mg tablet 20 mg PO DAILY edema 05/13/22 05/23/22 History acetaminophen 325 mg tablet 650 mg PO Q4H PRN pain #30 tabs 05/14/22 05/23/22 Rx hydrocodone 5 mg-acetaminophen 325 1 tab PO Q4H PRN moderate-severe 05/14/22 05/23/22 Rx mg tablet pain #10 tabs fluconazole 150 mg tablet 150 mg PO Q3D 2 doses #2 tabs 05/20/22 05/23/22 Rx omega-3 fatty acids 1,000 mg 1,000 mg PO QAM 05/23/22 05/23/22 History capsule Past Med/Surg History Medical History Allergic rhinitis Asymptomatic menopausal state Atopic dermatitis CKD (chronic kidney disease), stage III Congestive heart failure with cardiomyopathy follows with Dr. Mejia Diabetes mellitus type II, controlled NIDDM Diverticulosis of colon Eustachian tube dysfunction History of sigmoidoscopy Hyperlipidemia Hypertension IBS (irritable bowel syndrome) ICD (implantable cardioverter-defibrillator) in place Placed Feb 2015 > [employer] > last checked 03/23/21 with > placed for CHF Incidental pulmonary nodule, > 3mm and < 8mm Internal hemorrhoids Mitral valve disorder follows with Dr. Mejia Obesity Osteopenia Renal insufficiency pt unaware Sigmoid diverticulitis Stage 3b chronic kidney disease Vitamin D deficiency Vitamin D deficiency Surgical History History of appendectomy History of arthroscopy of right knee History of arthroscopy of right shoulder History of breast biopsy benign History of cardiac cath 10/2017 [facility] no stents History of carpal tunnel surgery History of Neuroplasty Decompression Median Nerve At Carpal Tunnel> right History of colonoscopy History of incision and drainage (05/14/22) infection floor of the mouth and subperiosteal plane # 30 area p Incision and Drainage, Tooth Extraction(Right) - Quinton Amezcua, DMD History of repair of rotator cuff right History of vaginal hysterectomy Family History Mother Breast cancer Diabetes Grandmother Myocardial infarction Denies family history of Ovarian cancer Prostate cancer Colorectal cancer Social History Smoking Status: Never smoker Second Hand Exposure: No; Hx Alcohol Use: Yes Alcohol type: wine Hx Substance Use: No Preferred Language: [place] Communication Ability: Effective Visual Impairment: No Limitations Hearing Ability: Normal Patent Agent Required: No Beliefs That Will Affect Care: None marital status: Current Living Situation: Spouse current occupational status: retired Feels Safe at Home: Yes Childhood Exposure to Second-Hand Smoke: No caffeine: Yes during the past year weight has: remained stable Dental Care, Regularly: Yes Physical Activity Frequency: Does not Exercise Seatbelt Use: always Sunscreen Use: Yes Assistive Devices: None Review of Systems Review of Systems: All systems reviewed & are unremarkable except as noted in HPI & below Physical Exam Physical Exam: General: patient resting comfortably, NAD, non-toxic in appearance, AA&O x 4 Skin: warm, dry, intact, no rashes or lesions HEENT: NC/AT, PERRL, EOMI, anicteric sclera, conjunctiva without injection, external ear normal to inspection and nontender, nares patent, moist mucus membranes, dentition intact, no oropharyngeal lesions, neck supple, trachea midline, no LAD, no thyromegaly, no JVD Heart: +S1/S2, regular, no m/r/g Lungs: equal air entry bilaterally, no rales/rhonchi/wheezes Abd: +BS, soft, ND, negative Stout's, epigastric tenderness with some voluntary guarding, no rebound, no masses/organomegaly/ascites Ext: warm, 2+ pulses in UE/LE bilaterally, no clubbing/cyanosis or edema Neuro: nonfocal, patient AA&O x 4, speech intact, no facial droop, moving all extremities on command with equal strength 5/5 Results & Data Results & Data ([facility]) Vital Signs (Past 12 Hours) Vital Signs Temp Pulse Pulse Resp BP BP Pulse Ox 05/24/22 00:27 88 18 106/64 94 05/24/22 00:19 90 18 96 05/23/22 22:29 36.4 C L 100 H 20 101/70 92 O2 Del Method 05/24/22 00:27 Room Air 05/24/22 00:19 Room Air 05/23/22 22:29 Room Air Laboratory Results Laboratory Results WBC 10.73 K/ul (4.8-10.8) 05/23/22 22:58 RBC 4.38 M/uL (3.93-5.22) 05/23/22 22:58 Hgb 13.9 g/dl (12.0-16.0) 05/23/22 22:58 POC Hgb 14.3 g/dl (12.0-16.0) 05/23/22 23:10 Hct 40.8 % (34.1-44.9) 05/23/22 22:58 POC Hct 42 % (37-47) 05/23/22 23:10 MCV 93.2 fL (80.0-100.0) 05/23/22 22:58 MCH 31.7 pg (25.0-34.0) 05/23/22 22:58 MCHC 34.1 g/dL (32.0-36.0) 05/23/22 22:58 RDW Std Deviation 45.0 fL (36.4-46.3) 05/23/22 22:58 RDW Coeff of Osman 13.2 % (11.5-14.5) 05/23/22 22:58 Plt Count 227 K/uL (130-400) 05/23/22 22:58 MPV 9.6 fL (9.4-12.3) 05/23/22 22:58 Immature Gran % (Auto) 0.3 % 05/23/22 22:58 Neut % (Auto) 80.0 % 05/23/22 22:58 Lymph % (Auto) 14.3 % 05/23/22 22:58 [place] % (Auto) 4.8 % 05/23/22 22:58 Eos % (Auto) 0.3 % 05/23/22 22:58 Baso % (Auto) 0.3 % 05/23/22 22:58 Neut # (Auto) 8.59 K/uL (1.4-6.5) H 05/23/22 22:58 Lymph # (Auto) 1.53 K/uL (1.2-3.4) 05/23/22 22:58 [place] # (Auto) 0.52 K/uL (0.24-0.82) 05/23/22 22:58 Eos # (Auto) 0.03 K/uL (0-0.50) 05/23/22 22:58 Baso # (Auto) 0.03 K/uL (0-0.2) 05/23/22 22:58 Immature Gran # (Auto) 0.03 K/uL (0.00-0.02) H 05/23/22 22:58 PT 11.2 Seconds (9.0-12.0) 05/23/22 22:58 INR 1.1 (0.9-1.1) 05/23/22 22:58 APTT 23.1 Seconds (21.0-31.0) 05/23/22 22:58 PTT Ratio 0.8 05/23/22 22:58 POC Sodium 138 mmol/L (135-144) 05/23/22 23:10 Sodium 137 mmol/L (136-145) 05/23/22 22:58 POC Potassium 3.8 mmol/L (3.3-5.0) 05/23/22 23:10 Potassium 3.8 mmol/L (3.5-5.1) 05/23/22 22:58 POC Chloride 103 mmol/L (101-112) 05/23/22 23:10 Chloride 102 mmol/L (98-107) 05/23/22 22:58 Carbon Dioxide 24 mmol/L (21-32) 05/23/22 22:58 POC Total CO2 23 mmol/L (24-31) L 05/23/22 23:10 Anion Gap 11 (3-11) 05/23/22 22:58 POC Anion Gap 16.0 mmol/L (16-25) 05/23/22 23:10 POC BUN 29 mg/dl (7-18) H 05/23/22 23:10 BUN 32 mg/dl (6-23) H 05/23/22 22:58 Creatinine 1.55 mg/dl (0.6-1.2) H 05/23/22 22:58 POC Creatinine 1.6 mg/dl (0.6-1.3) H 05/23/22 23:10 Est Cr Clr Drug Dosing 36.3 ml/min 05/23/22 22:58 Est GFR ( Amer) 40.0 ml/min 05/23/22 22:58 Est GFR (Non-Af Amer) 34.5 ml/min 05/23/22 22:58 BUN/Creatinine Ratio 20.6 (10-20) H 05/23/22 22:58 Glucose 161 mg/dl (70-99(Fasting)) H 05/23/22 22:58 POC Glucose (other) 163 mg/dl (70-99) H 05/23/22 23:10 Calcium 9.2 mg/dl (8.5-10.1) 05/23/22 22:58 POC Ioniz Calcium Carlito 1.14 mmol/l (1.12-1.32) 05/23/22 23:10 Total Bilirubin 1.0 mg/dl (0.2-1.0) 05/23/22 22:58 Direct Bilirubin 0.2 mg/dl (0-0.2) 05/23/22 22:58 AST 19 U/L (13-39) 05/23/22 22:58 ALT 18 U/L (7-52) 05/23/22 22:58 Alkaline Phosphatase 57 U/L (34-104) 05/23/22 22:58 Troponin I High Sens 13.4 pg/ml (0-14) 05/23/22 22:58 Total Protein 7.0 gm/dl (6.0-8.3) 05/23/22 22:58 Albumin 4.2 gm/dl (3.4-5.0) 05/23/22 22:58 Lipase 32 U/L (11-82) 05/23/22 22:58 SARS-CoV-2, RNA, NAAT NEGATIVE (NEGATIVE) 05/23/22 23:[address] abdomen pelvis without contrastPer stat read: There is no bowel obstruction or inflammation. Left colon diverticulosis. Negative for diverticulitis or colitis. The appendix is not distinctly identified. No secondary signs of appendicitis. No free intraperitoneal air or free fluid. The gallbladder is somewhat distended and there is a question of mild gallbladder wall thickening and some fat stranding around the gallbladder. Correlate with right upper quadrant pain to help evaluate for acute gallbladder disease. Ultrasound if indicated. Normal liver. There is some nonspecific fatty stranding in the area of the falciform ligament extending to the latanya. Uncertain if related. Normal spleen. Normal pancreas. Normal adrenal glands. No urinary tract stones or obstruction. Cardiomegaly. Small left pleural effusion. Trace right pleural effusion. Peribronchial thickening of the lung bases. Osseous structures are intact. ECG Additional Comments: EKG with normal sinus rhythm at 80 bpm, left axis deviation, LA = 188, QRS = 140, QTC = 527, nonspecific conduction block present. Similar to study from 05/14/2022 PG Care Time/CCT Total # of Minutes Spent Total Time Spent with Patient: Total time spent is greater than 50% in coordination of care (as documented) at patient's floor/unit and/or counseling patient: Coding Level of Care Code INT OBSERVATION CARE 70M LVL 3 Diagnoses Abdominal pain R10.13 Abdominal location: epigastric Chronic HFrEF (heart failure with reduced ejection fraction) I50.22 CKD (chronic kidney disease), stage III N18.30 Hypertension I10 Hyperlipidemia E78.5 Diabetes mellitus type II, controlled E11.9 Diabetes mellitus complication status: without complication Diabetes mellitus chcf insulin use: without long term care pharmacist use (1) Diabetes mellitus type II, controlled Diabetes mellitus complication status: without complication Diabetes mellitus long term care pharmacist insulin use: without long term care pharmacist use Qualified Code(s): E11.9 - Type 2 diabetes mellitus without complications (2) Abdominal pain Abdominal location: epigastric Qualified Code(s): R10.13 - Epigastric pain
[2022-05-24] MEDS ORDERED: POLYETHYLENE (MIRALAX) 17 GM PACK PO PRN (04:03)
[2022-05-24] MEDS ORDERED: ACETAMINOPHEN 325 MG TAB PO PRN (04:03)
[2022-05-24] MEDS ORDERED: GLUCOSE 40% GEL 15 GM TUBE PO PRN (04:03)
[2022-05-24] MEDS ORDERED: CARBOHYDRATES FOR HYPOGLYCEMIA PO PRN (04:03)
[2022-05-24] MEDS ORDERED: ALUMINUM/MAGNESIUM SUSP 30 ML UDC PO PRN (04:03)
[2022-05-24] MEDS ORDERED: DEXTROSE 50% 50 ML SYRINGE IV PRN (04:03)
[2022-05-24] MEDS ORDERED: ONDANSETRON INJ 2 MG/ML 2 ML VIAL IV PRN (04:03)
[2022-05-24] MEDS ORDERED: LACTATED RINGER'S 1,000 ML IV SCH (04:03)
[2022-05-24] MEDS ORDERED: GLUCOSE 10 TAB/TUBE PO PRN (04:03)
[2022-05-24] MEDS ORDERED: DOCUSATE SODIUM 100 MG CAP PO PRN (04:03)
[2022-05-24] MEDS ORDERED: MoRPHine SULFATE 2 MG/ML CARP IV PRN (04:03)
[2022-05-24] MEDS ORDERED: GLUCAGON FOR INJ 1 MG VIAL SQ PRN (04:03)
[2022-05-24] MEDS ORDERED: MoRPHine SULFATE 4 MG/ML 1 ML CARP\\VIAL IV PRN (04:03)
[2022-05-24] MEDS ORDERED: PIPERACILLIN/TAZOBACTAM 3.375 GM in DEXTROSE 5% 100 ML IV ONE (04:30)
--- NOTE | 2022-05-24 06:53 | Ultrasound Report ---
US gallbladder HISTORY: 67 years-old Female ro ketty acute right upper quadrant abdominal pain COMPARISON: CT abdomen and pelvis May 23, 2022 TECHNIQUE: Multiple real-time sonographic images of the abdominal right upper quadrant were obtained assessing grayscale appearance and color flow FINDINGS: The visualized pancreas is unremarkable. The liver measures up to 16.3 cm in length and is unremarkab le. The common bile duct measures up to 7 mm. Equivocal choledocholithiasis on the comparison CT. The gallbladder measures up to 9 mm in length and contains layering sludge with cholelithiasis. Gall[place] es are noted within the gallbladder neck. Trace pericholecystic fluid. Gallbladder wall measures up t o 3 mm. The patient was recently given patent medications, therefore the sonographic Stout sign was unable to be assessed. The imaged right kidney demonstrates no hydronephrosis. IMPRESSION: 1. Distended gallbladder with cholelithiasis, borderline wall thickening and trace pericholecystic fl uid suspicious for acute cholecystitis. 2. The common bile duct is slightly dilated at 7 mm. Correlation with serum bilirubin recommended. ACT 112: Negative or not required by law. The above report was generated using voice recognition software. It may contain grammatical, syntax o r spelling errors. Electronically signed by: Dick Franklin M.D. 05/24/2022 6:50 AM
--- NOTE | 2022-05-24 07:52 | XRay Report ---
XR chest 1V portable CLINICAL HISTORY: Chest pain, nonspecific COMPARISON STUDY: Chest radiograph May 13, 2022. FINDINGS: Lung volumes are normal. There is no pneumothorax or pleural effusion. A left subclavian pa cer/AICD is in place. Cardiomegaly is unchanged. Pulmonary vascular congestion is similar to prior ex am. There is no consolidation to suggest pneumonia. IMPRESSION: No significant change in appearance of the chest. Cardiomegaly with pulmonary vascular c ongestion. ACT 112: Negative or not required by law. Electronically signed by: Eduardo Mayfield M.D. 05/24/2022 7:51 AM
--- NOTE | 2022-05-24 08:20 | CT Scan Report ---
CT OF THE ABDOMEN AND PELVIS WITHOUT CONTRAST CLINICAL HISTORY: Epigastric pain. COMPARISON STUDY: CT of the abdomen and pelvis September 22, 2020. TECHNIQUE: Axial images of the abdomen and pelvis were obtained without IV contrast. Images were revi ewed in the axial, sagittal, and coronal planes. Automated exposure control was utilized for the irwin dy. A dose lowering technique was utilized adhering to the principles of ALARA. FINDINGS: Pacer leads are partially imaged. There is moderate cardiomegaly with a trace pericardial e ffusion. Interlobular septal thickening within the lower lungs represent interstitial pulmonary edema . Trace bilateral pleural effusions. No pneumatosis, free air or portal venous gas. Unenhanced images of the liver, spleen, adrenal glands, kidneys and pancreas are unremarkable. Is no hydronephrosis. T here is no biliary or pancreatic ductal dilatation. The gallbladder is mildly distended. There is mil d pericholecystic stranding. Colonic diverticulosis is present without evidence for acute diverticuli tis. No evidence for a bowel obstruction. There is mild symmetric bilateral perinephric stranding. No acute fracture or suspicious lesions within visualized skeletal structures are present. IMPRESSION: 1. Findings suggestive of acute cholecystitis. 2. Cardiomegaly. Interstitial pulmonary edema with trace bilateral pleural effusions. 3. Colonic diverticulosis without evidence for acute diverticulitis. 4. No bowel obstruction. ACT 112: Negative or not required by law. Electronically signed by: Eduardo Mayfield M.D. 05/24/2022 8:18 AM
--- NOTE | 2022-05-24 08:26 | Communication Note ---
Date of Service: May 24, 2022 Please see today's H+P for full assessment and plan except as otherwise stated: Patient with acute epigastric pain noted on CTAP and confirmed on US GB to have cholecystitis. General Surgery consulted, and patient on Zosyn at this time. Gen Surg recommends non-operative with antibiotics for now and continue to monitor for improvement. Cardiology consulted for risk assessment given significantly decreased EF (idiopathic). "For preoperative risk assessment given her demographics comorbidities suggests an estimated overall complication rate of 28%. A major complication rate of 22%. Risk of 3%." Home diuretic resumed as patient has very good fluid status at this time and due to her poor EF her fluid balance is tenuous. Daily I/O and standing weights.
[2022-05-24] MEDS ORDERED: BUPIVACAINE 0.5 % 5 MG/1 ML MPF 30ML VIAL ONE (08:56)
[2022-05-24] MEDS ORDERED: PANTOprazole 40 MG TAB PO SCH (09:00)
[2022-05-24] MEDS ORDERED: FLUCONAZOLE 50 MG TAB PO ONE (09:00)
[2022-05-24] MEDS: VALSARTAN/SACUBITRIL 51/49 MG TAB PO SCH ×2 (09:00→20:21)
[2022-05-24] MEDS: EMPAGLIFLOZIN 25 MG TAB PO SCH (09:00)
[2022-05-24] MEDS: carvediloL 12.5 MG TAB PO SCH ×2 (09:00→20:22)
[2022-05-24] MEDS: INSULIN ASPART PER UNIT SC SCH ×4 (09:00→20:56)
[2022-05-24] MEDS ORDERED: fentaNYL citrate 100 MCG/2 ML VIAL ONE (09:18)
[2022-05-24] MEDS ORDERED: NEOSTIGMINE METHYLSULFATE 1 MG/ML 10ML VIAL ONE (09:18)
[2022-05-24] MEDS ORDERED: ONDANSETRON INJ 2 MG/ML 2 ML VIAL ONE ×2 (09:18→09:20)
[2022-05-24] MEDS ORDERED: DEXAMETHASONE SOD INJ 4 MG/ML VIAL ONE (09:18)
[2022-05-24] MEDS ORDERED: PROPOFOL IV EMULSION 10 MG/ML 20 ML VIAL IV ONE (09:18)
[2022-05-24] MEDS ORDERED: MIDAZOLAM HCL 1 MG/ML 2ML VIAL ONE (09:18)
[2022-05-24] MEDS ORDERED: GLYCOPYRROLATE 0.2 MG/ML VIAL ONE (09:18)
[2022-05-24] MEDS ORDERED: LIDOCAINE 2% 2 ML VIAL/AMP(20MG/ML) INFIL ONE (09:18)
[2022-05-24] MEDS ORDERED: LARYING-O-JET KIT (LTA) ONE (09:20)
[2022-05-24] MEDS ORDERED: ROCURONIUM BROMIDE 10 MG/ML 5 ML VIAL IV ONE (09:20)
--- NOTE | 2022-05-24 09:21 | Anesthesiology Consultation ---
Date of Service May 24, 2022 Assessment & Plan Chart Review Chart Review: Patient NOT seen in Pre Admission Testing urgent procedure, patient requiring definitive procedure LVAD/transplant d/t severe idiopathic cardiomyopathy with reduced EF Consults Requested none History Surgery Operation Date: 05/24/22 08:20 Proposed Procedures p Laparoscopic Cholecystectomy - Tiffany Ren MD Height/Weight Height: 5 ft 3 in Weight: 82.5 kg Allergies Allergy/AdvReac Type Severity Reaction Status Date / Time erythromycin base Allergy Severe blisters;red;itchy;pain;blisters Verified 22:59 in back throat iodine Allergy Severe throat Verified 05/23/22 22:59 blisters;skin blisters meperidine [From Demerol] Allergy Severe quit Verified 05/23/22 22:59 breathing adhesive Allergy Intermediate BLISTERS Verified 05/23/22 22:59 tetracycline Allergy Unknown TERRAMYCIN Verified 05/23/22 22:59 ALLERGY atorvastatin AdvReac Intermediate MUSCLE Verified 05/23/22 22:59 PAIN/ACHES, DIFFICULTY WALKING azithromycin AdvReac Intermediate Gastrointestinal Verified 05/23/22 22:59 Upset metformin AdvReac Intermediate Diarrhea Verified 05/23/22 22:59 rosuvastatin [From Crestor] AdvReac Intermediate Cramping Verified 05/23/22 22:59 of the Muscles Legolab-VEM-NxQ Reductase AdvReac Intermediate MUSCLE Verified 05/23/22 22:59 Inhibitor PAIN/ACHES, [Qbwpukc-Rxx-Zuz Reductase DIFFICULTY Inhibitor] WALKING Medications Home Medications Medication Instructions Recorded Confirmed Last Taken cholecalciferol (vitamin D3) 125 5,000 units PO DAILY 01/14/19 05/23/22 05/23/22 mcg (5,000 unit) capsule lancets (Accu-Chek Softclix #100 ea 11/26/19 05/18/22 Unknown Lancets) blood sugar diagnostic (Accu-Chek #100 ea 02/09/21 05/18/22 Unknown Guide test strips) sacubitril 49 mg-valsartan 51 mg 1 tab PO BID #180 tabs 09/07/21 05/23/22 05/23/22 08:00 tablet pantoprazole 40 mg tablet,delayed 40 mg PO DAILY #90 tabs 09/21/21 05/23/22 05/23/22 release spironolactone 25 mg tablet 25 mg PO PM #90 tabs 09/21/21 05/23/22 05/22/22 empagliflozin 25 mg tablet 25 mg PO DAILY #90 tabs 11/09/21 05/23/22 05/23/22 ezetimibe 10 mg tablet 10 mg PO PM #90 tabs 02/15/22 05/23/22 05/22/22 carvedilol 12.5 mg tablet 12.5 mg PO BID #180 tabs 04/27/22 05/23/22 05/23/22 08:00 aspirin 81 mg tablet,delayed 81 mg PO Q OTHER DAY 05/13/22 05/23/22 05/22/22 release furosemide 20 mg tablet 20 mg PO DAILY edema 05/13/22 05/23/22 05/23/22 acetaminophen 325 mg tablet 650 mg PO Q4H PRN pain #30 tabs 05/14/22 05/23/22 Unknown hydrocodone 5 mg-acetaminophen 325 1 tab PO Q4H PRN moderate-severe 05/14/22 05/23/22 Unknown mg tablet pain #10 tabs fluconazole 150 mg tablet 150 mg PO Q3D 2 doses #2 tabs 05/20/22 05/23/22 Unknown omega-3 fatty acids 1,000 mg 1,000 mg PO QAM 05/23/22 05/23/22 05/23/22 capsule Active Medications Generic Name Dose Route Start Last Admin Trade Name Damianq PRN Reason Stop Dose Admin Carvedilol 12.5 mg 05/24/22 09:00 05/24/22 09:00 Carvedilol 12.5 Mg Tab PO 06/23/22 08:59 Not Given BID WALKER Empagliflozin 25 mg 05/24/22 09:00 05/24/22 09:00 Empagliflozin 25 Mg Tab PO 06/23/22 08:59 25 mg DAILY WALKER Administration Lactated Ringer's 1,000 mls @ 80 mls/hr 05/24/22 04:03 05/24/22 05:15 Lr IV 05/24/22 16:32 80 mls/hr .[id number] WALKER Administration Insulin Aspart 0 units 05/24/22 07:30 05/24/22 09:00 Insulin Aspart Per Unit SC 06/23/22 07:29 Not Given ACHS WALKER Sacubitril/Valsartan 1 tab 05/24/22 09:00 05/24/22 09:00 Valsartan/Sacubitril 51/49 Mg Tab PO 06/23/22 08:59 1 tab BID WALKER Administration Past Medical History Medical History Allergic rhinitis Asymptomatic menopausal state Atopic dermatitis CKD (chronic kidney disease), stage III Congestive heart failure with cardiomyopathy follows with Dr. Mejia Diabetes mellitus type II, controlled NIDDM Diverticulosis of colon Eustachian tube dysfunction History of sigmoidoscopy Hyperlipidemia Hypertension IBS (irritable bowel syndrome) ICD (implantable cardioverter-defibrillator) in place Placed Feb 2015 > [employer]tronic > last checked 03/23/21 with > placed for CHF Incidental pulmonary nodule, > 3mm and < 8mm Internal hemorrhoids Mitral valve disorder follows with Dr. Mejia Obesity Osteopenia Renal insufficiency pt unaware Sigmoid diverticulitis Stage 3b chronic kidney disease Vitamin D deficiency Vitamin D deficiency Past Family History Family History Mother Breast cancer Diabetes Grandmother Myocardial infarction Denies family history of Ovarian cancer Prostate cancer Colorectal cancer Past Surgical History Surgical History History of appendectomy History of arthroscopy of right knee History of arthroscopy of right shoulder History of breast biopsy benign History of cardiac cath 10/2017 [facility] no stents History of carpal tunnel surgery History of Neuroplasty Decompression Median Nerve At Carpal Tunnel> right History of colonoscopy History of incision and drainage (05/14/22) infection floor of the mouth and subperiosteal plane # 30 area p Incision and Drainage, Tooth Extraction(Right) - Quinton Amezcua, DA History of repair of rotator cuff right History of vaginal hysterectomy Social History Smoking Status: Never smoker Hx Alcohol Use: Yes Alcohol type: wine alcohol intake frequency: holidays/special occasions only Hx Substance Use: No substance use type: does not use Physical Exam Vital Signs Last Vital Signs Temp 98.2 F 05/24/22 08:52 Pulse 91 H 05/24/22 08:52 Resp 16 05/24/22 08:52 BP 93/64 L 05/24/22 08:52 Pulse Ox 96 05/24/22 08:52 O2 Del Method 01/02/23 08:52 O2 Flow Rate 2 05/24/22 08:52 Testing Laboratory Results 05/23/22 22:58 05/23/22 22:58 PT 11.2 Seconds (9.0-12.0) 05/23/22 22:58 INR 1.1 (0.9-1.1) 05/23/22 22:58 APTT 23.1 Seconds (21.0-31.0) 05/23/22 22:58 05/24/22 05/23/22 08:54 23:10 POC Glucose 135 H POC Glucose (other) 163 H Electrocardiogram Date: 05/24/22 Findings: + NSR @ Echocardiogram Date: 10/27/21 EF: 15-20 LV Function: dysfunctional RWMA: + hypokinetic
--- NOTE | 2022-05-24 09:36 | Surgery Consultation ---
Date of Consultation May 24, 2022 Assessment & Plan (1) Cholecystitis: No clinical signs of acute cholecystitis but imaging is suggestive of it. WBC ct normal, no Stout's sign, normal LFT's. Would treat with antibiotics and IVF, HIDA scan ordered. If acute cholecystitis confirmed, consider percutaneous cholecystostomy tube as her cardiac function likely precludes operative intervention. (2) Chronic HFrEF (heart failure with reduced ejection fraction): Last cardiology note reviewed. Appears as though her EF has been steadily worsening, now at 10-15%. Currently, deciding between heart transplant vs palliation. Would recommend cardiology eval to see if she is a candidate for general anesthesia at all (or at this institution). If not, can consider cholecystostomy tube if HIDA confirms acute cholecystitis. History of Present Illness Reason for Consultation: possible acute cholecystitis Requesting Physician: Winter Alcantara DO Attending Physician: Winter Alcantara DO History of Present Illness 67 yr old woman with severe idiopathic cardiomyopathy with EF 10-15% and continued decline in function who presents with epigastric/ RUQ pain that started around 4 am. Did not eat anything unusual for her - pain is sharp, stabbing, quite intense, through to back, no fevers/ chills, no jaundice. As pain persisted, came to ER for evaluation. Better with pain medications. No prior similar episodes. No change in bowel habits. 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 Discussion of palliative care vs heart transplant at that time. Was recently admitted for a tooth abscess and had been on clindamycin for that. Did require surgery at that time - done under general anesthesia (EF had been 15-20% on echo prior in October 2021). Allergies Allergy/AdvReac Type Severity Reaction Status Date / Time erythromycin base Allergy Severe blisters;red;itchy;pain;blisters Verified 05/23/22 22:59 in back throat iodine Allergy Severe throat Verified 05/23/22 22:59 blisters;skin blisters meperidine [From Demerol] Allergy Severe quit Verified 05/23/22 22:59 breathing adhesive Allergy Intermediate BLISTERS Verified 05/23/22 22:59 tetracycline Allergy Unknown TERRAMYCIN Verified 05/23/22 22:59 ALLERGY atorvastatin AdvReac Intermediate MUSCLE Verified 05/23/22 22:59 PAIN/ACHES, DIFFICULTY WALKING azithromycin AdvReac Intermediate Gastrointestinal Verified 05/23/22 22:59 Upset metformin AdvReac Intermediate Diarrhea Verified 05/23/22 22:59 rosuvastatin [From Crestor] AdvReac Intermediate Cramping Verified 05/23/22 22:59 of the Muscles Mopybqy-AYC-XrJ Reductase AdvReac Intermediate MUSCLE Verified 05/23/22 22:59 Inhibitor PAIN/ACHES, [Qrstwqb-Enq-Oxt Reductase DIFFICULTY Inhibitor] WALKING Home Medications Medication Instructions Recorded Confirmed Type cholecalciferol (vitamin D3) 125 5,000 units PO DAILY 01/14/19 05/23/22 History mcg (5,000 unit) capsule lancets (Accu-Chek Softclix #100 ea 11/26/19 05/18/22 Rx Lancets) blood sugar diagnostic (Accu-Chek #100 ea 02/09/21 05/18/22 Rx Guide test strips) sacubitril 49 mg-valsartan 51 mg 1 tab PO BID #180 tabs 09/07/21 05/23/22 Rx tablet pantoprazole 40 mg tablet,delayed 40 mg PO DAILY #90 tabs 09/21/21 05/23/22 Rx release spironolactone 25 mg tablet 25 mg PO PM #90 tabs 09/21/21 05/23/22 Rx empagliflozin 25 mg tablet 25 mg PO DAILY #90 tabs 11/09/21 05/23/22 Rx ezetimibe 10 mg tablet 10 mg PO PM #90 tabs 02/15/22 05/23/22 Rx carvedilol 12.5 mg tablet 12.5 mg PO BID #180 tabs 04/27/22 05/23/22 Rx aspirin 81 mg tablet,delayed 81 mg PO Q OTHER DAY 05/13/22 05/23/22 History release furosemide 20 mg tablet 20 mg PO DAILY edema 05/13/22 05/23/22 History acetaminophen 325 mg tablet 650 mg PO Q4H PRN pain #30 tabs 05/14/22 05/23/22 Rx hydrocodone 5 mg-acetaminophen 325 1 tab PO Q4H PRN moderate-severe 05/14/22 05/23/22 Rx mg tablet pain #10 tabs fluconazole 150 mg tablet 150 mg PO Q3D 2 doses #2 tabs 05/20/22 05/23/22 Rx omega-3 fatty acids 1,000 mg 1,000 mg PO QAM 05/23/22 05/23/22 History capsule Patient History Medical History Allergic rhinitis Asymptomatic menopausal state Atopic dermatitis CKD (chronic kidney disease), stage III Congestive heart failure with cardiomyopathy follows with Dr. Mejia Diabetes mellitus type II, controlled NIDDM Diverticulosis of colon Eustachian tube dysfunction History of sigmoidoscopy Hyperlipidemia Hypertension IBS (irritable bowel syndrome) ICD (implantable cardioverter-defibrillator) in place Placed Feb 2015 > [employer] > last checked 03/23/21 with > placed for CHF Incidental pulmonary nodule, > 3mm and < 8mm Internal hemorrhoids Mitral valve disorder follows with Dr. Mejia Obesity Osteopenia Renal insufficiency pt unaware Sigmoid diverticulitis Stage 3b chronic kidney disease Vitamin D deficiency Vitamin D deficiency Surgical History History of appendectomy History of arthroscopy of right knee History of arthroscopy of right shoulder History of breast biopsy benign History of cardiac cath 10/2017 [facility] no stents History of carpal tunnel surgery History of Neuroplasty Decompression Median Nerve At Carpal Tunnel> right History of colonoscopy History of incision and drainage (05/14/22) infection floor of the mouth and subperiosteal plane # 30 area p Incision and Drainage, Tooth Extraction(Right) - Quinton Amezcua, DA History of repair of rotator cuff right History of vaginal hysterectomy Family History Mother Breast cancer Diabetes Grandmother Myocardial infarction Denies family history of Ovarian cancer Prostate cancer Colorectal cancer Social History Smoking Status: Never smoker Second Hand Exposure: No; Hx Alcohol Use: Yes Alcohol type: wine Hx Substance Use: No Preferred Language: Thai Communication Ability: Effective Visual Impairment: No Limitations Hearing Ability: Normal Crane Operator Required: No Beliefs That Will Affect Care: None marital status: Current Living Situation: Spouse current occupational status: retired Other Information That Helps Us Care for You: No Feels Safe at Home: Yes Safety Concerns: Feels Safe At This Time Childhood Exposure to Second-Hand Smoke: No caffeine: Yes during the past year weight has: remained stable Dental Care, Regularly: Yes Physical Activity Frequency: Does not Exercise Seatbelt Use: always Sunscreen Use: Yes Assistive Devices: Glasses Review of Systems Eyes: no problem reported Ear, Nose, Mouth, Throat: no problem reported Respiratory: no cough and no hemoptysis Cardiovascular: Additional Comments: see HPI Gastrointestinal: as per Subjective / HPI Genitourinary: no problem reported Neurologic: no problem reported Psychiatric: no problem reported Physical Exam Constitutional: WD/WN, vitals as above Eyes: PERRL, conjunctivae normal, anicteric sclerae Respiratory: normal respiratory effort, lungs clear to auscultation Cardiovascular: Rate/Rhythm: regular rate (pacemaker in place) Gastrointestinal (Abdomen): Inspection/Auscultation: abdomen normal to inspection and normal bowel sounds; abdomen not distended Percussion/Palpation: + abdomen tender (very mild, right upper quadrant/ epigastric) and abdomen soft; no guarding Neurologic: awake; no focal motor deficits Psychiatric: A+Ox3, euthymic affect Results & Data ([facility]) Vital Signs (Past 12 Hours) Vital Signs Temp Pulse Pulse Pulse Resp BP BP 05/24/22 08:52 36.8 C 91 H 16 93/64 L 05/24/22 07:50 36.8 C 82 16 92/58 L 05/24/22 07:43 36.7 C 84 16 05/24/22 05:00 05/24/22 04:23 36.5 C 82 18 05/24/22 03:18 84 18 111/77 05/24/22 00:27 88 18 05/24/22 00:19 90 18 05/23/22 22:29 36.4 C L 100 H 20 101/70 BP Pulse Ox O2 Del Method O2 Flow Rate 05/24/22 08:52 96 Nasal Cannula 2 05/24/22 07:50 94 Nasal Cannula 2 05/24/22 07:43 86/57 L 95 Nasal Cannula 2 05/24/22 05:00 Nasal Cannula 2 05/24/22 04:23 101/66 95 Nasal Cannula 2 05/24/22 03:18 96 Nasal Cannula 2 05/24/22 00:27 106/64 94 Room Air 05/24/22 00:19 96 Room Air 05/23/22 22:29 92 Room Air Laboratory Results 05/24/22 05/23/22 05/23/22 Range/Units 08:54 23:44 23:10 WBC (4.8-10.8) K/ul RBC (3.93-5.22) M/uL Hgb (12.0-16.0) g/dl POC Hgb 14.3 (12.0-16.0) g/dl Hct (34.1-44.9) % POC Hct 42 (37-47) % MCV (80.0-100.0) fL MCH (25.0-34.0) pg MCHC (32.0-36.0) g/dL RDW Std Deviation (36.4-46.3) fL RDW Coeff of Osman (11.5-14.5) % Plt Count (130-400) K/uL MPV (9.4-12.3) fL Immature Gran % (Auto) % Neut % (Auto) % Lymph % (Auto) % [place] % (Auto) % Eos % (Auto) % Baso % (Auto) % Neut # (Auto) (1.4-6.5) K/uL Lymph # (Auto) (1.2-3.4) K/uL [place] # (Auto) (0.24-0.82) K/uL Eos # (Auto) (0-0.50) K/uL Baso # (Auto) (0-0.2) K/uL Immature Gran # (Auto) (0.00-0.02) K/uL PT (9.0-12.0) Seconds INR (0.9-1.1) APTT (21.0-31.0) Seconds PTT Ratio POC Sodium 138 (135-144) mmol/L Sodium (136-145) mmol/L POC Potassium 3.8 (3.3-5.0) mmol/L Potassium (3.5-5.1) mmol/L POC Chloride 103 (101-112) mmol/L Chloride (98-107) mmol/L Carbon Dioxide (21-32) mmol/L POC Total CO2 23 L (24-31) mmol/L Anion Gap (3-11) POC Anion Gap 16.0 (16-25) mmol/L POC BUN 29 H (7-18) mg/dl BUN (6-23) mg/dl Creatinine (0.6-1.2) mg/dl POC Creatinine 1.6 H (0.6-1.3) mg/dl Est Cr Clr Drug Dosing ml/min Est GFR ( Amer) ml/min Est GFR (Non-Af Amer) ml/min BUN/Creatinine Ratio (10-20) Glucose (70-99(Fasting)) mg/dl POC Glucose 135 H (70-99) mg/dl POC Glucose (other) 163 H (70-99) mg/dl Calcium (8.5-10.1) mg/dl POC Ioniz Calcium Carlito 1.14 (1.12-1.32) mmol/l Total Bilirubin (0.2-1.0) mg/dl Direct Bilirubin (0-0.2) mg/dl AST (13-39) U/L ALT (7-52) U/L Alkaline Phosphatase (34-104) U/L Troponin I High Sens (0-14) pg/ml Total Protein (6.0-8.3) gm/dl Albumin (3.4-5.0) gm/dl Lipase (11-82) U/L SARS-CoV-2, RNA, NAAT NEGATIVE (NEGATIVE) 05/23/22 05/23/22 05/23/22 Range/Units 22:58 22:58 22:58 WBC 10.73 (4.8-10.8) K/ul RBC 4.38 (3.93-5.22) M/uL Hgb 13.9 (12.0-16.0) g/dl POC Hgb (12.0-16.0) g/dl Hct 40.8 (34.1-44.9) % POC Hct (37-47) % MCV 93.2 (80.0-100.0) fL MCH 31.7 (25.0-34.0) pg MCHC 34.1 (32.0-36.0) g/dL RDW Std Deviation 45.0 (36.4-46.3) fL RDW Coeff of Osman 13.2 (11.5-14.5) % Plt Count 227 (130-400) K/uL MPV 9.6 (9.4-12.3) fL Immature Gran % (Auto) 0.3 % Neut % (Auto) 80.0 % Lymph % (Auto) 14.3 % [place] % (Auto) 4.8 % Eos % (Auto) 0.3 % Baso % (Auto) 0.3 % Neut # (Auto) 8.59 H (1.4-6.5) K/uL Lymph # (Auto) 1.53 (1.2-3.4) K/uL [place] # (Auto) 0.52 (0.24-0.82) K/uL Eos # (Auto) 0.03 (0-0.50) K/uL Baso # (Auto) 0.03 (0-0.2) K/uL Immature Gran # (Auto) 0.03 H (0.00-0.02) K/uL PT 11.2 (9.0-12.0) Seconds INR 1.1 (0.9-1.1) APTT 23.1 (21.0-31.0) Seconds PTT Ratio 0.8 POC Sodium (135-144) mmol/L Sodium 137 (136-145) mmol/L POC Potassium (3.3-5.0) mmol/L Potassium 3.8 (3.5-5.1) mmol/L POC Chloride (101-112) mmol/L Chloride 102 (98-107) mmol/L Carbon Dioxide 24 (21-32) mmol/L POC Total CO2 (24-31) mmol/L Anion Gap 11 (3-11) POC Anion Gap (16-25) mmol/L POC BUN (7-18) mg/dl BUN 32 H (6-23) mg/dl Creatinine 1.55 H (0.6-1.2) mg/dl POC Creatinine (0.6-1.3) mg/dl Est Cr Clr Drug Dosing 36.3 ml/min Est GFR ( Amer) 40.0 ml/min Est GFR (Non-Af Amer) 34.5 ml/min BUN/Creatinine Ratio 20.6 H (10-20) Glucose 161 H (70-99(Fasting)) mg/dl POC Glucose (70-99) mg/dl POC Glucose (other) (70-99) mg/dl Calcium 9.2 (8.5-10.1) mg/dl POC Ioniz Calcium Carlito (1.12-1.32) mmol/l Total Bilirubin 1.0 (0.2-1.0) mg/dl Direct Bilirubin 0.2 (0-0.2) mg/dl AST 19 (13-39) U/L ALT 18 (7-52) U/L Alkaline Phosphatase 57 (34-104) U/L Troponin I High Sens 13.4 (0-14) pg/ml Total Protein 7.0 (6.0-8.3) gm/dl Albumin 4.2 (3.4-5.0) gm/dl Lipase 32 (11-82) U/L SARS-CoV-2, RNA, NAAT (NEGATIVE) Diagnostic Findings US gallbladder HISTORY: 67 years-old Female ro ketty acute right upper quadrant abdominal pain COMPARISON: CT abdomen and pelvis May 23, 2022 TECHNIQUE: Multiple real-time sonographic images of the abdominal right upper quadrant were obtained assessing grayscale appearance and color flow FINDINGS: The visualized pancreas is unremarkable. The liver measures up to 16.3 cm in length and is unremarkable. The common bile duct measures up to 7 mm. Equivocal choledocholithiasis on the comparison CT. The gallbladder measures up to 9 mm in length and contains layering sludge with cholelithiasis. Gallstones are noted within the gallbladder neck. Trace pericholecystic fluid. Gallbladder wall measures up to 3 mm. The patient was recently given patent medications, therefore the sonographic Stout sign was unable to be assessed. The imaged right kidney demonstrates no hydronephrosis. IMPRESSION: 1. Distended gallbladder with cholelithiasis, borderline wall thickening and trace pericholecystic fluid suspicious for acute cholecystitis. 2. The common bile duct is slightly dilated at 7 mm. Correlation with serum bilirubin recommended. CT scan: CT OF THE ABDOMEN AND PELVIS WITHOUT CONTRAST CLINICAL HISTORY: Epigastric pain. COMPARISON STUDY: CT of the abdomen and pelvis September 22, 2020. TECHNIQUE: Axial images of the abdomen and pelvis were obtained without IV contrast. Images were reviewed in the axial, sagittal, and coronal planes. Automated exposure control was utilized for the study. A dose lowering technique was utilized adhering to the principles of ALARA. FINDINGS: Pacer leads are partially imaged. There is moderate cardiomegaly with a trace pericardial effusion. Interlobular septal thickening within the lower lungs represent interstitial pulmonary edema. Trace bilateral pleural effusions. No pneumatosis, free air or portal venous gas. Unenhanced images of the liver, spleen, adrenal glands, kidneys and pancreas are unremarkable. Is no hydronephrosis. There is no biliary or pancreatic ductal dilatation. The gallbladder is mildly distended. There is mild pericholecystic stranding. Colonic diverticulosis is present without evidence for acute diverticulitis. No evidence for a bowel obstruction. There is mild symmetric bilateral perinephric stranding. No acute fracture or suspicious lesions within visualized skeletal structures are present. IMPRESSION: 1. Findings suggestive of acute cholecystitis. 2. Cardiomegaly. Interstitial pulmonary edema with trace bilateral pleural effusions. 3. Colonic diverticulosis without evidence for acute diverticulitis. 4. No bowel obstruction.
[2022-05-24] MEDS: PIPERACILLIN/TAZOBACTAM 3.375 GM in DEXTROSE 5% 100 ML IV SCH ×2 (12:06→17:58)
[2022-05-24] MEDS: PANTOprazole 40 MG in SYRINGE 0 ML IV SCH (12:06)
--- NOTE | 2022-05-24 12:31 | Nuclear Medicine Report ---
NM hepatobiliary CLINICAL HISTORY: ?cholecystitis TECHNIQUE: Following the intravenous injection of 5.7 mCi of Tc-99m labeled Technetium 99m mebrofeni n, multiple images of the upper abdomen were obtained in the anterior projection with uptake measurem ents of the gallbladder obtained. Once the gallbladder and small bowel were visualized, the patient w as intravenously infused over 30 minutes with 0.02 mcg/kg of Sincalide (CCK), and imaging and uptakes were again obtained. Comparison: None available at the time of this dictation. FINDINGS: Sequential images demonstrate normal uptake in the liver, common bile duct, and small bowel . No uptake was seen in the gallbladder even following administration of morphine. Ejection fraction was not calculated. IMPRESSION: No evidence of uptake in the gallbladder following administration of morphine. Findings are suspiciou s for acute cholecystitis. ACT 112: Negative or not required by law. Electronically signed by: Inderjit Frank M.D. 05/24/2022 12:28 PM
[2022-05-24] MEDS ORDERED: FUROSEMIDE 20 MG TAB PO SCH (13:00)
--- NOTE | 2022-05-24 16:10 | Cardiology Consultation ---
Date of Consultation May 24, 2022 Assessment & Plan (1) Cholecystitis: (2) Idiopathic cardiomyopathy: (3) Congestive heart failure with cardiomyopathy: (4) ICD (implantable cardioverter-defibrillator) in place: Plan 1. Idiopathic cardiomyopathy: This is severe. The patient is exploring options for more advanced therapy such as cardiac transplantation. She is on aggressive medical therapy to include carvedilol, Jardiance, Entresto and spironolactone. Also on a daily dose of diuretic. 2. Congestive heart failure: She has actually been well compensated recently. She has been monitoring her weight which is been quite stable. She has some symptoms of heart failure with more moderate exertion, but during routine activity does not appear to be limited by dyspnea. Very mild pulmonary congestion noted today. I would continue her routine diuretic. 3. Single-chamber ICD: Occasional episodes of nonsustained ventricular tachycardia. No recent therapies. 4. Preoperative risk assessment: For preoperative risk assessment given her demographics comorbidities suggests an estimated overall complication rate of 28%. A major complication rate of 22%. Risk of 3%. These risks are certainly elevated given her degree of cardiac dysfunction. If there is a re asonable non operative alternative this would likely be preferred. However, she is well compensated currently and perioperative management with center around her volume status and hemodynamics. We need to monitor her volume status closely to avoid significant decompensation. She is also known to have an element of hypotension at baseline which could be exacerbated in the perioperative period. History of Present Illness Reason for Consultation: Preoperative evaluation Requesting Physician: Quinton Attending Physician: Winter Alcantara, History of Present Illness The patient is a 67-year-old woman with a longstanding history of a nonischemic cardiomyopathy who presented with symptoms of epigastric discomfort. The patient states that leading up to her admission she was having severe jabbing pains in the epigastric and precordial region. This was associated with some symptoms of nausea and vomiting. She did not report associated fevers or chills. No diarrhea. She presents to the hospital for evaluation and was discovered to have symptoms consistent with cholecystitis. HIDA scan performed today also suggested acute cholecystitis. Recently the patient has been doing quite well with respect to her breathing and weight management. She was admitted to the hospital few weeks ago with a dental abscess. However, she has been monitoring her diet closely, using her diuretics as prescribed and monitoring her weight. She has not report a worsening breathing difficulty or worsening orthopnea lately. No worsening lower extremity edema. Weight has been stable. Occasionally she will use an extra dose of diuretic at home. With normal activity she does not appear to be limited by significant dyspnea. At ascending stairs or performing more moderate activity will produce some mild dyspnea. No associated chest pain. No recent palpitations. Some longstanding history of orthostatic symptoms, these are mild and well managed. No presyncope or syncope. Allergies Allergy/AdvReac Type Severity Reaction Status Date / Time erythromycin base Allergy Severe blisters;red;itchy;pain;blisters Verified 05/23/22 22:59 in back throat iodine Allergy Severe throat Verified 05/23/22 22:59 blisters;skin blisters meperidine [From Demerol] Allergy Severe quit Verified 05/23/22 22:59 breathing adhesive Allergy Intermediate BLISTERS Verified 05/23/22 22:59 tetracycline Allergy Unknown TERRAMYCIN Verified 05/23/22 22:59 ALLERGY atorvastatin AdvReac Intermediate MUSCLE Verified 05/23/22 22:59 PAIN/ACHES, DIFFICULTY WALKING azithromycin AdvReac Intermediate Gastrointestinal Verified 05/23/22 22:59 Upset metformin AdvReac Intermediate Diarrhea Verified 05/23/22 22:59 rosuvastatin [From Crestor] AdvReac Intermediate Cramping Verified 05/23/22 22:59 of the Muscles Abcehfh-RNT-RvL Reductase AdvReac Intermediate MUSCLE Verified 05/23/22 22:59 Inhibitor PAIN/ACHES, [Mdgrran-Xro-Vgq Reductase DIFFICULTY Inhibitor] WALKING Home Medications Medication Instructions Recorded Confirmed Type cholecalciferol (vitamin D3) 125 5,000 units PO DAILY 01/14/19 05/23/22 History mcg (5,000 unit) capsule lancets (Accu-Chek Softclix #100 ea 11/26/19 05/18/22 Rx Lancets) blood sugar diagnostic (Accu-Chek #100 ea 02/09/21 05/18/22 Rx Guide test strips) sacubitril 49 mg-valsartan 51 mg 1 tab PO BID #180 tabs 09/07/21 05/23/22 Rx tablet pantoprazole 40 mg tablet,delayed 40 mg PO DAILY #90 tabs 09/21/21 05/23/22 Rx release spironolactone 25 mg tablet 25 mg PO PM #90 tabs 09/21/21 05/23/22 Rx empagliflozin 25 mg tablet 25 mg PO DAILY #90 tabs 11/09/21 05/23/22 Rx ezetimibe 10 mg tablet 10 mg PO PM #90 tabs 02/15/22 05/23/22 Rx carvedilol 12.5 mg tablet 12.5 mg PO BID #180 tabs 04/27/22 05/23/22 Rx aspirin 81 mg tablet,delayed 81 mg PO Q OTHER DAY 05/13/22 05/23/22 History release furosemide 20 mg tablet 20 mg PO DAILY edema 05/13/22 05/23/22 History acetaminophen 325 mg tablet 650 mg PO Q4H PRN pain #30 tabs 05/14/22 05/23/22 Rx hydrocodone 5 mg-acetaminophen 325 1 tab PO Q4H PRN moderate-severe 05/14/22 05/23/22 Rx mg tablet pain #10 tabs fluconazole 150 mg tablet 150 mg PO Q3D 2 doses #2 tabs 05/20/22 05/23/22 Rx omega-3 fatty acids 1,000 mg 1,000 mg PO QAM 05/23/22 05/23/22 History capsule Patient History Medical History Allergic rhinitis Asymptomatic menopausal state Atopic dermatitis CKD (chronic kidney disease), stage III Congestive heart failure with cardiomyopathy follows with Dr. Mejia Diabetes mellitus type II, controlled NIDDM Diverticulosis of colon Eustachian tube dysfunction History of sigmoidoscopy Hyperlipidemia Hypertension IBS (irritable bowel syndrome) ICD (implantable cardioverter-defibrillator) in place Placed Feb 2015 > [employer] > last checked 03/23/21 with > placed for CHF Incidental pulmonary nodule, > 3mm and < 8mm Internal hemorrhoids Mitral valve disorder follows with Dr. Mejia Obesity Osteopenia Renal insufficiency pt unaware Sigmoid diverticulitis Stage 3b chronic kidney disease Vitamin D deficiency Vitamin D deficiency Surgical History History of appendectomy History of arthroscopy of right knee History of arthroscopy of right shoulder History of breast biopsy benign History of cardiac cath 10/2017 [facility] no stents History of carpal tunnel surgery History of Neuroplasty Decompression Median Nerve At Carpal Tunnel> right History of colonoscopy History of incision and drainage (05/14/22) infection floor of the mouth and subperiosteal plane # 30 area p Incision and Drainage, Tooth Extraction(Right) - Quinton Amezcua DMD History of repair of rotator cuff right History of vaginal hysterectomy Family History Mother Breast cancer Diabetes Grandmother Myocardial infarction Denies family history of Ovarian cancer Prostate cancer Colorectal cancer Social History Smoking Status: Never smoker Second Hand Exposure: No; Hx Alcohol Use: Yes Alcohol type: wine Hx Substance Use: No Preferred Language: [place] Communication Ability: Effective Visual Impairment: No Limitations Hearing Ability: Normal Infection Control Rn Required: No Beliefs That Will Affect Care: Zoroastrian marital status: Current Living Situation: Spouse current occupational status: retired Other Information That Helps Us Care for You: No Feels Safe at Home: Yes Safety Concerns: Feels Safe At This Time Childhood Exposure to Second-Hand Smoke: No caffeine: Yes during the past year weight has: remained stable Dental Care, Regularly: Yes Physical Activity Frequency: Does not Exercise Seatbelt Use: always Sunscreen Use: Yes Assistive Devices: Glasses Review of Systems Review of Systems: Per HPI. Physical Exam Physical Exam: She is alert and oriented x3. Mood affect appear normal. She answered all questions appropriately. HEENT: Sclerae are anicteric. Pupils are equal and reactive to light and accommodation. Extraocular movements were intact. Neuro: Cranial nerves intact Lungs: Occasional crackle in the bases bilaterally. Otherwise normal respiratory effort without expiratory wheezing. Cardiac: The rhythm was regular. S1 and S2 were normal. There are no murmurs on examination. The PMI was not markedly displaced on palpation. Extremities: Patient has bilateral radial pulses that are equal in intensity. There is no evidence cyanosis or clubbing. There was no evidence of significant peripheral edema bilaterally. Skin: There are no rashes noted on examination today. Results & Data ([facility]) Vital Signs (Past 12 Hours) Vital Signs Temp Pulse Pulse Pulse Resp BP BP 05/24/22 15:00 36.5 C 77 18 91/60 L 05/24/22 07:20 05/24/22 08:52 36.8 C 91 H 16 93/64 L 05/24/22 07:50 36.8 C 82 16 92/58 L 05/24/22 07:43 36.7 C 84 16 86/57 L 05/24/22 05:00 05/24/22 04:23 36.5 C 82 18 101/66 Pulse Ox O2 Del Method O2 Flow Rate 05/24/22 15:00 95 Nasal Cannula 1.5 05/24/22 07:20 Nasal Cannula 2 05/24/22 08:52 96 Nasal Cannula 2 05/24/22 07:50 94 Nasal Cannula 2 05/24/22 07:43 95 Nasal Cannula 2 05/24/22 05:00 Nasal Cannula 2 05/24/22 04:23 95 Nasal Cannula 2 Laboratory Results Abnormal Lab Results 05/23/22 05/23/22 05/23/22 22:58 22:58 22:58 WBC 10.73 RBC 4.38 Hgb 13.9 POC Hgb Hct 40.8 POC Hct MCV 93.2 MCH 31.7 MCHC 34.1 RDW Std Deviation 45.0 RDW Coeff of Osman 13.2 Plt Count 227 MPV 9.6 Immature Gran % (Auto) 0.3 Neut % (Auto) 80.0 Lymph % (Auto) 14.3 Bullitt % (Auto) 4.8 Eos % (Auto) 0.3 Baso % (Auto) 0.3 Neut # (Auto) 8.59 H Lymph # (Auto) 1.53 Bullitt # (Auto) 0.52 Eos # (Auto) 0.03 Baso # (Auto) 0.03 Immature Gran # (Auto) 0.03 H PT 11.2 INR 1.1 APTT 23.1 PTT Ratio 0.8 POC Sodium Sodium 137 POC Potassium Potassium 3.8 POC Chloride Chloride 102 Carbon Dioxide 24 POC Total CO2 Anion Gap 11 POC Anion Gap POC BUN BUN 32 H Creatinine 1.55 H POC Creatinine Est Cr Clr Drug Dosing 36.3 Est GFR ( Amer) 40.0 Est GFR (Non-Af Amer) 34.5 BUN/Creatinine Ratio 20.6 H Glucose 161 H POC Glucose POC Glucose (other) Calcium 9.2 POC Ioniz Calcium Carlito Total Bilirubin 1.0 Direct Bilirubin 0.2 AST 19 ALT 18 Alkaline Phosphatase 57 Troponin I High Sens 13.4 Total Protein 7.0 Albumin 4.2 Lipase 32 SARS-CoV-2, RNA, NAAT 05/23/22 05/23/2223 23:10 23:44 08:54 WBC RBC Hgb POC Hgb 14.3 Hct POC Hct 42 MCV MCH MCHC RDW Std Deviation RDW Coeff of Osman Plt Count MPV Immature Gran % (Auto) Neut % (Auto) Lymph % (Auto) Bullitt % (Auto) Eos % (Auto) Baso % (Auto) Neut # (Auto) Lymph # (Auto) Bullitt # (Auto) Eos # (Auto) Baso # (Auto) Immature Gran # (Auto) PT INR APTT PTT Ratio POC Sodium 138 Sodium POC Potassium 3.8 Potassium POC Chloride 103 Chloride Carbon Dioxide POC Total CO2 23 L Anion Gap POC Anion Gap 16.0 POC BUN 29 H BUN Creatinine POC Creatinine 1.6 H Est Cr Clr Drug Dosing Est GFR ( Amer) Est GFR (Non-Af Amer) BUN/Creatinine Ratio Glucose POC Glucose 135 H POC Glucose (other) 163 H Calcium POC Ioniz Calcium Carlito 1.14 Total Bilirubin Direct Bilirubin AST ALT Alkaline Phosphatase Troponin I High Sens Total Protein Albumin Lipase SARS-CoV-2, RNA, NAAT NEGATIVE 05/24/22 12:06 WBC RBC Hgb POC Hgb Hct POC Hct MCV MCH MCHC RDW Std Deviation RDW Coeff of Osman Plt Count MPV Immature Gran % (Auto) Neut % (Auto) Lymph % (Auto) Bullitt % (Auto) Eos % (Auto) Baso % (Auto) Neut # (Auto) Lymph # (Auto) Bullitt # (Auto) Eos # (Auto) Baso # (Auto) Immature Gran # (Auto) PT INR APTT PTT Ratio POC Sodium Sodium POC Potassium Potassium POC Chloride Chloride Carbon Dioxide POC Total CO2 Anion Gap POC Anion Gap POC BUN BUN Creatinine POC Creatinine Est Cr Clr Drug Dosing Est GFR ( Amer) Est GFR (Non-Af Amer) BUN/Creatinine Ratio Glucose POC Glucose 126 H POC Glucose (other) Calcium POC Ioniz Calcium Carlito Total Bilirubin Direct Bilirubin AST ALT Alkaline Phosphatase Troponin I High Sens Total Protein Albumin Lipase SARS-CoV-2, RNA, NAAT Diagnostic Findings Echocardiogram performed 10/27/2021: Moderately dilated left ventricle with severely reduced LV systolic function. Ejection fraction estimated at 15-20%. Moderate mitral regurgitation. Mildly dilated left atrium. HIDA scan today suggestive of acute cholecystitis Gallbladder ultrasound performed today revealed distended gallbladder with ch olelithiasis. Suspicious for acute cholecystitis. Chest CTA revealed evidence of acute cholecystitis. Cardiomegaly and pulmonary edema with bilateral pleural effusions. ECG Additional Comments: EKG demonstrated normal sinus rhythm with nonspecific intraventricular conduction delay. PG Care Time/CCT Total # of Minutes Spent Total Time Spent with Patient: Total time spent is greater than 50% in coordination of care (as documented) at patient's floor/unit and/or counseling patient: Coding Level of Care Code 46345 INT INP/OBS CARE 3MIN Diagnoses Cholecystitis K81.9 Idiopathic cardiomyopathy I42.8 Congestive heart failure with cardiomyopathy I50.9; I42.9 ICD (implantable cardioverter-defibrillator) in place Z95.810
--- NOTE | 2022-05-24 18:59 | Electrocardiogram Report ---
Test Reason : Blood Pressure : / mmHG Vent. Rate : 098 BPM Atrial Rate : 098 BPM P-R Int : 180 ms QRS Dur : 142 ms QT Int : 404 ms P-R-T Axes : 061 208 057 degrees QTc Int : 515 ms Normal sinus rhythm Non-specific intra-ventricular conduction block Possible Lateral infarct (cited on or before 14-MAY-2022) Abnormal ECG When compared with ECG of 14-MAY-2022 09:29, Questionable change in QRS axis Confirmed by Theo Galicia ([id number]) on 05/24/2022 6:59:40 PM Referred By: REFERRED SELF Confirmed By:Corey Galicia
--- NOTE | 2022-05-24 19:00 | Electrocardiogram Report ---
Test Reason : Blood Pressure : / mmHG Vent. Rate : 088 BPM Atrial Rate : 088 BPM P-R Int : 188 ms QRS Dur : 140 ms QT Int : 436 ms P-R-T Axes : 051 -62 074 degrees QTc Int : 527 ms Normal sinus rhythm Left axis deviation Non-specific intra-ventricular conduction block Possible Anterolateral infarct (cited on or before 14-MAY-2022) Abnormal ECG When compared with ECG of 23-MAY-2022 22:38, (unconfirmed) Questionable change in QRS axis Confirmed by Theo Galicia ([id number]) on 05/24/2022 7:00:16 PM Referred By: REFERRED SELF Confirmed By:Corey Galicia
[2022-05-24] MEDS: SPIRONOLACTONE 25 MG TAB PO SCH (20:21)
[2022-05-24] MEDS: EZETIMIBE 10 MG TABLET PO SCH (20:21)
[2022-05-25] MEDS: PIPERACILLIN/TAZOBACTAM 3.375 GM in DEXTROSE 5% 100 ML IV SCH ×3 (03:38→17:25)
[2022-05-25] MEDS: INSULIN ASPART PER UNIT SC SCH ×4 (08:38→21:04)
[2022-05-25] MEDS: EMPAGLIFLOZIN 25 MG TAB PO SCH (08:39)
[2022-05-25] MEDS: carvediloL 12.5 MG TAB PO SCH ×2 (08:39→20:30)
[2022-05-25] MEDS: VALSARTAN/SACUBITRIL 51/49 MG TAB PO SCH ×2 (08:41→20:30)
[2022-05-25] MEDS ORDERED: FUROSEMIDE 20 MG TAB PO SCH (09:00)
[2022-05-25 09:02] LABS: Hematocrit (blood only) 36.2 % (34.1-44.9); Hemoglobin 11.7 g/dl (12.0-16.0); Mean Corpuscular Hemoglobin 31.5 pg (25.0-34.0); Mean Corpuscular Hgb Conc 32.3 g/dL (32.0-36.0); Mean Corpuscular Volume 97.3 fL (80.0-100.0); Mean Platelet Volume 9.8 fL (9.4-12.3); Platelet Count 175 K/uL (130-400); RDW Coefficient of Variation 13.3 % (11.5-14.5); RDW Standard Deviation 48.1 fL (36.4-46.3); Red Blood Count 3.72 M/uL (3.93-5.22); White Blood Count 7.59 K/ul (4.8-10.8)
[2022-05-25 09:29] LABS: Albumin Level 3.6 gm/dl (3.4-5.0); BUN Creatinine Ratio 18.8 (10-20); Bilirubin Direct 0.3 mg/dl (0-0.2); Bilirubin,Total 1.6 mg/dl (0.2-1.0); Calcium 8.4 mg/dl (8.5-10.1); Creatinine Clr Calc Pharmacy 37.8 ml/min; Est GFR (Non-African American) 36.2 ml/min; Potassium 4.2 mmol/L (3.5-5.1)
[2022-05-25] MEDS ORDERED: MoRPHine SULFATE 2 MG/ML CARP IV PRN (11:14)
[2022-05-25] MEDS: PANTOprazole 40 MG in SYRINGE 0 ML IV SCH (12:33)
--- NOTE | 2022-05-25 14:12 | Hospitalist Progress Note ---
Date of Service May 25, 2022 Assessment & Plan (1) Cholecystitis: Plan: CTAP, gallbladder US, and HIDA all with evidence of acute cholecystitis. TBili 1.6, WBC count normal. On Zosyn IV with improvement in symptoms. PRN pain medications and zofran ordered. Given poor surgical candidate recommendation made for percutaneous cholecystostomy tube. [facility] transfer accepted (Dr. Zelaya - accepting hospitalist, and Dr. Garza - Gastroenterology). Would give inotropic agents before fluids if symptomatic low BP. (2) Chronic HFrEF (heart failure with reduced ejection fraction): Plan: Idiopathic cardiomyopathy with EF of 15%, ICD in place. Generally in sinus rhythm with episodes of NSVT on infrequent basis. Continue Entresto. Continue spironolactone. Continue empagliflozin. Continue carvedilol. Monitor blood pressure carefully. Patient has had hypotension associated with her medications. Holding furosemide for now but low threshold to resume. (3) CKD (chronic kidney disease), stage III: Plan: BUN and creatinine are near baseline. Avoid nephrotoxic agents Daily BMP. (4) Hypertension: Plan: Patient with episodes of hypotension associate with medication use. We will continue heart failure medications as above with close monitoring of blood pressure. (5) Hyperlipidemia: Plan: Chronic. Patient is statin intolerant due to muscle aches and pains. Continue Zetia 10 mg p.o. every afternoon. (6) Diabetes mellitus type II, controlled: Plan: Overall well controlled. Blood sugar elevated today at 161. Last hemoglobin A1c on 05/14/2022 = 7.1. Continue empagliflozin Insulin sliding scale with goal blood sugar 110-140 (7) Hypotension: Plan: Noted overnight. Patient's BP 90s systolic now which is her baseline. Telemetry, and continue current CHF medications. Plan Holding chemoppx for DVT given upcoming procedure Admission and Anticipated Discharge Date Admission Date: May 24, 2022 Subjective Overnight had low BP, however good MAP. Night resident made aware and patient moved to telemetry. Not given fluids due to asymptomatic, good MAP, EF of 15%. Patient on my interview reports some mild nausea and right abdomen pain, relived with prn medications. Review of Systems Review of Systems: All systems reviewed & are unremarkable except as noted in Subjective Physical Exam Constitutional: WD/WN, vitals as above Respiratory: normal respiratory effort, lungs clear to auscultation Cardiovascular: RRR, no murmur, no edema Gastrointestinal (Abdomen): normal bowel sounds, abdomen soft, tender, no rebound Skin: no rashes, warm and dry Psychiatric: A+Ox3, euthymic affect Results & Data Results & Data ([facility]) Vital Signs (Past 12 Hours) Vital Signs Temp Pulse Resp BP BP Pulse Ox O2 Del Method 05/25/22 11:29 36.6 C 84 19 88/68 L 95 Room Air 05/25/22 07:20 Nasal Cannula 05/25/22 08:37 36.7 C 79 16 79/46 L 96 Nasal Cannula 05/25/22 06:00 87 79/52 L 05/25/22 04:25 36.6 C 80 16 65/40 L 98 Nasal Cannula O2 Flow Rate 05/25/22 11:29 05/25/22 07:20 2 05/25/22 08:37 2 05/25/22 06:00 05/25/22 04:25 2 PG Care Time/CCT Total # of Minutes Spent Total Time Spent with Patient: Total time spent in care of this patient including chart review, orders and documentation, discussing case with transfer physicians, and discussion of assessment and plan with family/patient/consulting providers: 60 minutes Coding Level of Care Code 00126 SUB INP/OBS CARE 3/50MIN Diagnoses Cholecystitis K81.9 Chronic HFrEF (heart failure with reduced ejection fraction) I50.22 CKD (chronic kidney disease), stage III N18.30 Hypertension I10 Hyperlipidemia E78.5 Diabetes mellitus type II, controlled E11.9 Diabetes mellitus complication status: without complication Diabetes mellitus meterman insulin use: without fpc use Hypotension I95.9 (1) Diabetes mellitus type II, controlled Diabetes mellitus complication status: without complication Diabetes mellitus meterman insulin use: without fpc use Qualified Code(s): E11.9 - Type 2 diabetes mellitus without complications
--- NOTE | 2022-05-25 16:14 | Surgery Progress Note ---
Date of Service May 25, 2022 Assessment & Plan (1) Cholecystitis: Plan: No clinical signs of acute cholecystitis but imaging is suggestive of it. WBC ct normal, no Stout's sign, normal LFT's. Would treat with antibiotics and IVF, HIDA scan ordered. If acute cholecystitis confirmed, consider percutaneous cholecystostomy tube as her cardiac function likely precludes operative intervention. 05/25/2022 4:15PM Dr. Archer IMP: acute cholecystitis, base on pt's CHF, cardiac EF 10-15%, recommend to transfer tertiary care center for percutaneous drainage gallbladder, D/W benefits, risks and alternatives of the transfer, pt understood, she agreed with transfer, I answered all questions, D/W pt's attending, (2) Chronic HFrEF (heart failure with reduced ejection fraction): Plan: Last cardiology note reviewed. Appears as though her EF has been steadily worsening, now at 10-15%. Currently, deciding between heart transplant vs palliation. Would recommend cardiology eval to see if she is a candidate for general anesthesia at all (or at this institution). If not, can consider cholecystostomy tube if HIDA confirms acute cholecystitis. Admission and Anticipated Discharge Date Admission Date: May 24, 2022 Subjective F/U acute cholecystitis, pt has no significant abdominal pain now, pt denies fever, no nausea, no vomiting, HIDA scan- acute cholecystitis, Review of Systems Eyes: no problem reported Ear, Nose, Mouth, Throat: no problem reported Respiratory: no cough and no hemoptysis Cardiovascular: Additional Comments: see HPI Gastrointestinal: as per Subjective / HPI Genitourinary: no problem reported Neurologic: no problem reported Psychiatric: no problem reported Physical Exam Constitutional: WD/WN, vitals as above Eyes: PERRL, conjunctivae normal, anicteric sclerae Neck: trachea midline, no thyromegaly Respiratory: normal respiratory effort, lungs clear to auscultation Cardiovascular: RRR, no murmur, no edema Gastrointestinal (Abdomen): soft, mild tenderness at epigastric area, no rebound pain, no distend, BS + Musculoskeletal: no cyanosis or clubbing, extremities motor strength 5/5 Neurologic: patellar DTR's 2+ bilat, sensation intact Psychiatric: A+Ox3, euthymic affect Results & Data ([facility]) Vital Signs (Past 12 Hours) Vital Signs Temp Pulse Pulse Resp BP BP Pulse Ox 05/25/22 15:59 36.5 C 88 20 95/57 L 94 05/25/22 11:29 36.6 C 84 19 88/68 L 95 05/25/22 07:20 05/25/22 08:37 36.7 C 79 16 79/46 L 96 05/25/22 06:00 87 79/52 L 05/25/22 04:25 36.6 C 80 16 65/40 L 98 O2 Del Method O2 Flow Rate 05/25/22 15:59 Room Air 05/25/22 11:29 Room Air 05/25/22 07:20 Nasal Cannula 2 05/25/22 08:37 Nasal Cannula 2 05/25/22 06:00 05/25/22 04:25 Nasal Cannula 2 Laboratory Results Abnormal lab results 05/24/22 05/24/22 05/25/22 Range/Units 17:39 20:20 08:26 RBC 3.72 L (3.93-5.22) M/uL Hgb 11.7 L (12.0-16.0) g/dl RDW Std Deviation 48.1 H (36.4-46.3) fL Sodium (136-145) mmol/L BUN (6-23) mg/dl Creatinine (0.6-1.2) mg/dl Glucose (70-99(Fasting)) mg/dl POC Glucose 142 H 137 H (70-99) mg/dl Calcium (8.5-10.1) mg/dl Total Bilirubin (0.2-1.0) mg/dl Direct Bilirubin (0-0.2) mg/dl 05/25/22 05/25/22 05/25/22 Range/Units 08:26 08:31 11:09 RBC (3.93-5.22) M/uL Hgb (12.0-16.0) g/dl RDW Std Deviation (36.4-46.3) fL Sodium 135 L (136-145) mmol/L BUN 28 H (6-23) mg/dl Creatinine 1.49 H (0.6-1.2) mg/dl Glucose 131 H (70-99(Fasting)) mg/dl POC Glucose 140 H 119 H (70-99) mg/dl Calcium 8.4 L (8.5-10.1) mg/dl Total Bilirubin 1.6 H D (0.2-1.0) mg/dl Direct Bilirubin 0.3 H (0-0.2) mg/dl Diagnostic Findings NM hepatobiliary CLINICAL HISTORY: ?cholecystitis TECHNIQUE: Following the intravenous injection of 5.7 mCi of Tc-99m labeled Technetium 99m mebrofenin, multiple images of the upper abdomen were obtained in the anterior projection with uptake measurements of the gallbladder obtained. Once the gallbladder and small bowel were visualized, the patient was intravenously infused over 30 minutes with 0.02 mcg/kg of Sincalide (CCK), and imaging and uptakes were again obtained. Comparison: None available at the time of this dictation. FINDINGS: Sequential images demonstrate normal uptake in the liver, common bile duct, and small bowel. No uptake was seen in the gallbladder even following administration of morphine. Ejection fraction was not calculated. IMPRESSION: No evidence of uptake in the gallbladder following administration of morphine. Findings are suspicious for acute cholecystitis.
[2022-05-25] MEDS: SPIRONOLACTONE 25 MG TAB PO SCH (20:30)
[2022-05-25] MEDS: EZETIMIBE 10 MG TABLET PO SCH (20:30)
[2022-05-26] MEDS: PIPERACILLIN/TAZOBACTAM 3.375 GM in DEXTROSE 5% 100 ML IV SCH ×3 (02:08→17:26)
[2022-05-26 05:50] LABS: Basophils # (auto) 0.02 K/uL (0-0.2); Basophils % (auto) 0.2 %; Eosinophils # (auto) 0.04 K/uL (0-0.50); Eosinophils % (auto) 0.5 %; Hematocrit (blood only) 35.7 % (34.1-44.9); Hemoglobin 11.9 g/dl (12.0-16.0); Immature Granulocytes # (auto) 0.02 K/uL (0.00-0.02); Immature Granulocytes % (auto) 0.2 %; Lymphocytes % (auto) 12.9 %; Mean Corpuscular Hgb Conc 33.3 g/dL (32.0-36.0); Mean Platelet Volume 9.8 fL (9.4-12.3); Monocytes % (auto) 8.2 %; Neutrophils # (auto) 6.66 K/uL (1.4-6.5); Platelet Count 161 K/uL (130-400); RDW Coefficient of Variation 13.3 % (11.5-14.5); RDW Standard Deviation 47.3 fL (36.4-46.3); Red Blood Count 3.72 M/uL (3.93-5.22); White Blood Count 8.54 K/ul (4.8-10.8)
[2022-05-26 06:12] LABS: Albumin Globulin Ratio 1.5 (0.9-2); Albumin Level 3.4 gm/dl (3.4-5.0); BUN Creatinine Ratio 17.2 (10-20); Bilirubin,Total 1.3 mg/dl (0.2-1.0); Calcium 8.3 mg/dl (8.5-10.1); Creatinine Clr Calc Pharmacy 39.1 ml/min; Est GFR (African American) 43.4 ml/min; Est GFR (Non-African American) 37.4 ml/min; Globulin 2.3 gm/dl (2.5-4.0); Potassium 4.3 mmol/L (3.5-5.1); Total Protein 5.7 gm/dl (6.0-8.3)
--- NOTE | 2022-05-26 07:50 | Hospitalist Progress Note ---
Date of Service May 26, 2022 Assessment & Plan (1) Cholecystitis: Plan: CTAP, gallbladder US, and HIDA all with evidence of acute cholecystitis. TBili 1.6, WBC count normal. On Zosyn IV with improvement in symptoms. PRN pain medications and zofran ordered. Given poor surgical candidate recommendation made for percutaneous cholecystostomy tube. [facility] [place] transfer accepted (Dr. Zelaya - accepting hospitalist, and Dr. Garza - Gastroenterology). Would give inotropic agents before fluids if symptomatic low BP. (2) Chronic HFrEF (heart failure with reduced ejection fraction): Plan: Idiopathic cardiomyopathy with EF of 15%, ICD in place. Generally in sinus rhythm with episodes of NSVT on infrequent basis. Continue Entresto. Continue spironolactone. Continue empagliflozin. Continue carvedilol. Monitor blood pressure carefully. Patient has had hypotension associated with her medications. Holding furosemide for now but low threshold to resume. (3) CKD (chronic kidney disease), stage III: Plan: BUN and creatinine are near baseline. Avoid nephrotoxic agents Daily BMP. (4) Hypertension: Plan: Patient with episodes of hypotension associate with medication use. We will continue heart failure medications as above with close monitoring of blood pressure. (5) Hyperlipidemia: Plan: Chronic. Patient is statin intolerant due to muscle aches and pains. Continue Zetia 10 mg p.o. every afternoon. (6) Diabetes mellitus type II, controlled: Plan: Overall well controlled. Blood sugar elevated today at 161. Last hemoglobin A1c on 05/14/2022 = 7.1. Continue empagliflozin Insulin sliding scale with goal blood sugar 110-140 (7) Hypotension: Plan: Noted overnight. Patient's BP 90s systolic now which is her baseline. Telemetry, and continue current CHF medications. Plan Holding chemoppx for DVT given upcoming procedure Admission and Anticipated Discharge Date Admission Date: May 24, 2022 Results & Data Results & Data ([facility]) Vital Signs (Past 12 Hours) Vital Signs Temp Pulse Resp BP Pulse Ox O2 Del Method O2 Flow Rate 05/26/22 04:00 36.7 C 82 20 89/56 L 96 Nasal Cannula 2 05/26/22 00:00 36.7 C 84 21 91/58 L 94 Room Air 05/25/22 20:00 36.6 C 86 20 91/54 L 92 Room Air PG Care Time/CCT Total # of Minutes Spent Total Time Spent with Patient: Total time spent is greater than 50% in coordination of care (as documented) at patient's floor/unit and/or counseling patient: Coding Diagnoses Cholecystitis K81.9 Chronic HFrEF (heart failure with reduced ejection fraction) I50.22 CKD (chronic kidney disease), stage III N18.30 Hypertension I10 Hyperlipidemia E78.5 Diabetes mellitus type II, controlled E11.9 Diabetes mellitus complication status: without complication Diabetes mellitus exterminator termite insulin use: without exterminator termite use Hypotension I95.9 (1) Diabetes mellitus type II, controlled Diabetes mellitus complication status: without complication Diabetes mellitus exterminator termite insulin use: without fpc use Qualified Code(s): E11.9 - Type 2 diabetes mellitus without complications
[2022-05-26] MEDS ORDERED: FUROSEMIDE 20 MG TAB PO ONE (07:51)
[2022-05-26] MEDS: INSULIN ASPART PER UNIT SC SCH ×4 (08:11→20:15)
[2022-05-26] MEDS: EMPAGLIFLOZIN 25 MG TAB PO SCH (08:12)
[2022-05-26] MEDS: carvediloL 12.5 MG TAB PO SCH ×2 (08:12→20:14)
[2022-05-26] MEDS: VALSARTAN/SACUBITRIL 51/49 MG TAB PO SCH ×2 (08:12→20:14)
[2022-05-26] MEDS: PANTOprazole 40 MG in SYRINGE 0 ML IV SCH (10:35)
[2022-05-26] MEDS: SPIRONOLACTONE 25 MG TAB PO SCH (20:14)
[2022-05-26] MEDS: EZETIMIBE 10 MG TABLET PO SCH (20:14)
--- NOTE | 2022-05-26 23:30 | Discharge Summary ---
Discharge Summary Date of Service May 26, 2022 Admission HPI Per Admitting Provider Patient is a 67yo female with multiple medical comorbidities to include idiopathic cardiomyopathy with HFrEF s/p ICD placement, DM and COPD presenting with epigastric pain. Patient reports she did not feel well last evening. She ate some cheese and crackers. At 0400 she woke with severe sharp and stabbing epigastric pain with radiation to the right shoulder. She reports some belching as well as some reflux symptoms, bitter tasking fluid in her throat, nausea and non-bloody/non-bilious vomiting. No history of prior. No complaint of fever, chills, chest pain. Normal bowel movements with no melena or hematochezia. She took some TUMS with some relief. However, pain persisted. Intermittent worsening throughout the day today which prompted her to come to the ER. In the ER she was hypotensive with BP of 80/52. She was given 500mL IVF with improvement in BP to 106/64. Still with epigastric pain. Is having difficult time getting comfortable. ER Course: ASA 324mg Zofran 4mg IV x 2 doses NSS x 500mL GI cocktail Morphine 2mg IV + 4mg IV Admission Exam Per Admitting Provider General: patient resting comfortably, NAD, non-toxic in appearance, AA&O x 4 Skin: warm, dry, intact, no rashes or lesions HEENT: NC/AT, PERRL, EOMI, anicteric sclera, conjunctiva without injection, external ear normal to inspection and nontender, nares patent, moist mucus membranes, dentition intact, no oropharyngeal lesions, neck supple, trachea midline, no LAD, no thyromegaly, no JVD Heart: +S1/S2, regular, no m/r/g Lungs: equal air entry bilaterally, no rales/rhonchi/wheezes Abd: +BS, soft, ND, negative Stout's, epigastric tenderness with some voluntary guarding, no rebound, no masses/organomegaly/ascites Ext: warm, 2+ pulses in UE/LE bilaterally, no clubbing/cyanosis or edema Neuro: nonfocal, patient AA&O x 4, speech intact, no facial droop, moving all extremities on command with equal strength 5/5 Principal Dx & Hospital Course #1 = Principal Diagnosis (1) Cholecystitis: CTAP, gallbladder US, and HIDA all with evidence of acute cholecystitis. TBili 1.6, WBC count normal. On Zosyn IV with improvement in symptoms. PRN pain medications and zofran ordered. Given poor surgical candidate recommendation made for percutaneous cholecystostomy tube. [facility] [place] transfer accepted (Dr. Zelaya - accepting hospitalist, and Dr. Garza - Gastroenterology). Transfer late this evening. (2) Chronic HFrEF (heart failure with reduced ejection fraction): Idiopathic cardiomyopathy with EF of 15%, ICD in place. Generally in sinus rhythm with episodes of NSVT on infrequent basis. Continue Entresto. Continue spironolactone. Continue empagliflozin. Continue carvedilol. Continue Lasix. (3) CKD (chronic kidney disease), stage III: BUN and creatinine are near baseline. (4) Hypertension: Patient with episodes of hypotension associate with medication use. Continue heart failure medications as above with close monitoring of blood pre ssure in transit. (5) Hyperlipidemia: Chronic. Patient is statin intolerant due to muscle aches and pains. Continue Zetia 10 mg p.o. every afternoon. (6) Diabetes mellitus type II, controlled: Overall well controlled. Last hemoglobin A1c on 05/14/2022 = 7.1. Continue empagliflozin (7) Hypotension: Noted at times overnight. Patient's BP 90s systolic now which is her baseline. Telemetry, and continue current CHF medications. Plan Holding chemoppx for DVT given upcoming procedure Discharge Exam Constitutional well developed and well nourished; no acute distress Respiratory normal respiratory effort, lungs clear to auscultation Cardiovascular RRR, no murmur, no edema Gastrointestinal (Abdomen) abdomen soft, tender in epigastric region, no rebound or guarding Updated Medication List Medication Instructions Recorded Confirmed Type cholecalciferol (vitamin D3) 125 5,000 units PO DAILY 01/14/19 05/23/22 History mcg (5,000 unit) capsule lancets (Accu-Chek Softclix #100 ea 11/26/19 05/18/22 Rx Lancets) blood sugar diagnostic (Accu-Chek #100 ea 02/09/21 05/18/22 Rx Guide test strips) sacubitril 49 mg-valsartan 51 mg 1 tab PO BID #180 tabs 09/07/21 05/23/22 Rx tablet pantoprazole 40 mg tablet,delayed 40 mg PO DAILY #90 tabs 09/21/21 05/23/22 Rx release spironolactone 25 mg tablet 25 mg PO PM #90 tabs 09/21/21 05/23/22 Rx empagliflozin 25 mg tablet 25 mg PO DAILY #90 tabs 11/09/21 05/23/22 Rx ezetimibe 10 mg tablet 10 mg PO PM #90 tabs 02/15/22 05/23/22 Rx carvedilol 12.5 mg tablet 12.5 mg PO BID #180 tabs 04/27/22 05/23/22 Rx aspirin 81 mg tablet,delayed 81 mg PO Q OTHER DAY 05/13/22 05/23/22 History release furosemide 20 mg tablet 20 mg PO DAILY edema 05/13/22 05/23/22 History acetaminophen 325 mg tablet 650 mg PO Q4H PRN pain #30 tabs 05/14/22 05/23/22 Rx hydrocodone 5 mg-acetaminophen 325 1 tab PO Q4H PRN moderate-severe 05/14/22 05/23/22 Rx mg tablet pain #10 tabs fluconazole 150 mg tablet 150 mg PO Q3D 2 doses #2 tabs 05/20/22 05/23/22 Rx omega-3 fatty acids 1,000 mg 1,000 mg PO QAM 05/23/22 05/23/22 History capsule Hospital Stay Data Consultations 05/24/22 04:03 Consult General Surgery Routine 05/24/22 10:48 Consult Cardiology Routine Procedures Performed Operation Date: 05/24/22 08:20 <No data on this case meets the specified criteria> Diagnostic Imagining Performed 05/23/22 23:15 CT abd pelvis wo con Urgent 05/24/22 00:55 US gallbladder Urgent Pending Results Patient Have Any Pending Studies at Discharge: No Discharge Instructions Given to Patient (Per Discharging Provider) 67 yo F presenting to hospital for abdominal pain and found to have acute cholecystitis. Complex cardiac historry with known EF of 15%. Cholecystitis: CTAP, gallbladder US, and HIDA all with evidence of acute cholecystitis. TBili 1.6, WBC count normal. On Zosyn IV with improvement in symptoms. PRN pain medications and zofran ordered. Given poor surgical candidate recommendation made for percutaneous cholecystostomy tube. [facility] [place] transfer accepted (Dr. Zelaya - accepting hospitalist, and Dr. Garza - Gastroenterology). Would give inotropic agents before fluids if symptomatic low BP. Chronic HFrEF (heart failure with reduced ejection fraction): Idiopathic cardiomyopathy with EF of 15%, ICD in place. Generally in sinus rhythm with episodes of NSVT on infrequent basis. Continue Entresto. Continue spironolactone. Continue empagliflozin. Continue carvedilol. Monitor blood pressure carefully. Patient has had hypotension associated with her medications. Holding furosemide for now but low threshold to resume. CKD (chronic kidney disease), stage III: BUN and creatinine are near baseline. Avoid nephrotoxic agents Daily BMP. Hypertension: Patient with episodes of hypotension associate with medication use. We will continue heart failure medications as above with close monitoring of blood pressure. Hyperlipidemia: Chronic. Patient is statin intolerant due to muscle aches and pains. Continue Zetia 10 mg p.o. every afternoon. Diabetes mellitus type II, controlled: Overall well controlled. Last hemoglobin A1c on 05/14/2022 = 7.1. Continue empagliflozin Insulin sliding scale with goal blood sugar 110-140 Hypotension: Chronic, associated with heart failure medications, asymptomatic. Patient's BP 80-90s systolic now which is her baseline. Telemetry, and continue current CHF medications. Holding chemoppx for DVT given upcoming procedure Total Time Total Time Spent Total Time Spent (In Minutes): 45 minutes Coding Level of Care Code HOSP INP/OBS DISCH >30 MIN Diagnoses Cholecystitis K81.9 Chronic HFrEF (heart failure with reduced ejection fraction) I50.22 CKD (chronic kidney disease), stage III N18.30 Hypertension I10 Hyperlipidemia E78.5 Diabetes mellitus type II, controlled E11.9 Diabetes mellitus meterman insulin use: without mcc use Diabetes mellitus complication status: without complication Hypotension I95.9
== END 2022-05-26 22:55 | disposition short-term general hospital (02) | DRG 445 ==
LOC: 3W 22:27 → ED 22:27 → SUATTDRO 05-24 01:19 → 3W 05-24 03:18 → 1E 05-25 06:43

== ENCOUNTER 2022-06-08 02:01 | Observation (INO) ==
--- NOTE | 2022-06-08 02:27 | Emergency Department Note ---
History of Present Illness General Chief complaint: Shortness of Breath/Dyspnea Stated complaint: SOB, L SIDE PAIN Time Seen by Provider: 06/08/22 02:09 History of Present Illness Maximum Pain Intensity: 1 67-year-old female presents emergency department she is status postcholecystectomy [address] [facility]. Patient has a history of CHF she felt short of breath today she has dyspnea on exertion. Patient denies chest pain. Patient did take Lasix however she is not produced any urine according to her all day. Patient denies any significant swelling however she states that she weighed herself and gained 3 pounds today. Patient has no abdominal pain. Patient has no chest pain or pleuritic chest pain. Patient denies hemoptysis. There are no other mitigating or alleviating factors Home Medications Medication Instructions Recorded Confirmed Type cholecalciferol (vitamin D3) 125 5,000 units PO DAILY 01/14/19 06/04/22 History mcg (5,000 unit) capsule lancets (Accu-Chek Softclix #100 ea 11/26/19 06/04/22 Rx Lancets) blood sugar diagnostic (Accu-Chek #100 ea 02/09/21 06/04/22 Rx Guide test strips) pantoprazole 40 mg tablet,delayed 40 mg PO DAILY #90 tabs 09/21/21 06/04/22 Rx release empagliflozin 25 mg tablet 25 mg PO DAILY #90 tabs 11/09/21 06/04/22 Rx ezetimibe 10 mg tablet 10 mg PO PM #90 tabs 02/15/22 06/04/22 Rx aspirin 81 mg tablet,delayed 81 mg PO Q OTHER DAY 05/13/22 06/04/22 History release acetaminophen 325 mg tablet 650 mg PO Q4H PRN pain #30 tabs 05/14/22 06/04/22 Rx omega-3 fatty acids 1,000 mg 1,000 mg PO QAM 05/23/22 06/04/22 History capsule carvedilol 3.125 mg tablet 3.125 mg PO BID 06/01/22 06/04/22 History sacubitril 24 mg-valsartan 26 mg 1 tab PO BID 06/01/22 06/04/22 History tablet (Entresto) Allergies Allergy/AdvReac Type Severity Reaction Status Date / Time erythromycin base Allergy Severe blisters;red;itchy;pain;blisters Verified 0 06/04/22 09:00 in back throat iodine Allergy Severe throat Verified 06/04/22 09:00 blisters;skin blisters meperidine [From Demerol] Allergy Severe quit Verified 06/04/22 09:00 breathing adhesive Allergy Intermediate BLISTERS Verified 06/04/22 09:00 tetracycline Allergy Unknown TERRAMYCIN Verified 06/04/22 09:00 ALLERGY atorvastatin AdvReac Intermediate MUSCLE Verified 06/04/22 09:00 PAIN/ACHES, DIFFICULTY WALKING azithromycin AdvReac Intermediate Gastrointestinal Verified 06/04/22 09:00 Upset metformin AdvReac Intermediate Diarrhea Verified 06/04/22 09:00 rosuvastatin [From Crestor] AdvReac Intermediate Cramping Verified 06/04/22 09:00 of the Muscles [id number] Reductase AdvReac Intermediate MUSCLE Verified 06/04/22 09:00 Inhibitor PAIN/ACHES, [Psdwjkv-Qzh-Ilm Reductase DIFFICULTY Inhibitor] WALKING Past Med/Surg History Medical History Allergic rhinitis Asymptomatic menopausal state Atopic dermatitis CKD (chronic kidney disease), stage III Congestive heart failure with cardiomyopathy follows with Dr. Mejia Dental abscess Diabetes mellitus type II, controlled NIDDM Diverticulosis of colon Eustachian tube dysfunction History of sigmoidoscopy Hyperlipidemia Hypertension IBS (irritable bowel syndrome) ICD (implantable cardioverter-defibrillator) in place Placed Feb 2015 > [employer] > last checked 03/23/21 with > placed for CHF Incidental pulmonary nodule, > 3mm and < 8mm Internal hemorrhoids Mitral valve disorder follows with Dr. Mejia Obesity Osteopenia Renal insufficiency pt unaware Sigmoid diverticulitis Stage 3b chronic kidney disease Vitamin D deficiency Vitamin D deficiency Surgical History History of appendectomy History of arthroscopy of right knee History of arthroscopy of right shoulder History of breast biopsy benign History of cardiac cath 10/2017 [facility] no stents History of carpal tunnel surgery History of Neuroplasty Decompression Median Nerve At Carpal Tunnel> right History of colonoscopy History of incision and drainage (05/14/22) infection floor of the mouth and subperiosteal plane # 30 area p Incision and Drainage, Tooth Extraction(Right) - Quinton R Amezcua, DMD History of repair of rotator cuff right History of vaginal hysterectomy Family History Mother Breast cancer Diabetes Grandmother Myocardial infarction Denies family history of Ovarian cancer Prostate cancer Colorectal cancer Social History Smoking Status: Never smoker Second Hand Exposure: No; Hx Alcohol Use: Yes Alcohol type: wine Hx Substance Use: No Preferred Language: Upper Sorbian Communication Ability: Effective Visual Impairment: No Limitations Hearing Ability: Normal Seamless Hosiery Knitter Required: No Beliefs That Will Affect Care: Mormonism marital status: Current Living Situation: Spouse current occupational status: retired Feels Safe at Home: Yes Childhood Exposure to Second-Hand Smoke: No caffeine: Yes during the past year weight has: remained stable Dental Care, Regularly: Yes Physical Activity Frequency: Does not Exercise Seatbelt Use: always Sunscreen Use: Yes Assistive Devices: Glasses Review of Systems A total of 10 systems reviewed and were otherwise negative Respiratory: + dyspnea and + dyspnea on exertion Cardiovascular: no chest pain Physical Exam Vital Signs Vital Signs - 24 hr 06/08/22 02:04 06/08/22 02:38 06/08/22 02:01 Temperature 36.5 C Temperature Source Temporal Artery Scan Pulse Rate 97 H Pulse Rate from SpO2 Sensor Respiratory Rate 20 Respiratory Effort / Characteristics Non-Labored Spontaneous Non-Labored Respiratory Depth Normal Normal Respiratory Pattern Regular Blood Pressure 101/54 L Blood Pressure Mean 69 Blood Pressure Position Sitting Pulse Oximetry 94 Oxygen Delivery Method Room Air Room Air Room Air Sepsis Recent Fever Within 48 Hours No Sepsis New/Unexplained Change in Mental Status N/A Sepsis Action Taken by Nursing No Action Required 06/08/22 03:20 06/08/22 03:50 Temperature Temperature Source Pulse Rate 88 96 H Pulse Rate from SpO2 Sensor 87 95 H Respiratory Rate 25 H 29 H Respiratory Effort / Characteristics Respiratory Depth Respiratory Pattern Blood Pressure 106/74 108/58 L Blood Pressure Mean 84 74 Blood Pressure Position Pulse Oximetry 94 93 Oxygen Delivery Method Room Air Room Air Sepsis Recent Fever Within 48 Hours Sepsis New/Unexplained Change in Mental Status Sepsis Action Taken by Nursing GENERAL: Patient is awake alert in no acute distress patient is resting comfortably and showing no signs of anxiety EYES: The conjunctivae are clear. The pupils are round and reactive. EARS, NOSE, MOUTH AND THROAT: The nose is without any evidence of any deformity. Mucous membranes are moist. Tongue is midline. NECK: The neck is nontender and supple. RESPIRATORY: Normal respiratory effort is noted there is no evidence of wheezing rhonchi or rales CARDIOVASCULAR: Regular rate and rhythm noted there no murmurs rubs or gallops normal S1 normal S2. GASTROINTESTINAL: The abdomen is soft. Abdomen is nontender. There are laparoscopy scars present and a hematoma present in the midepigastrium the surgical sites are clean dry and intact BACK: No midline tenderness or or step-off noted range of motion in flexion extension as well as rotation no signs of muscle spasm noted MUSCULOSKELETAL/EXTREMITIES: There is no evidence of gross deformity full range of motion is noted in the hips and shoulders. Calves are nontender there is mild pedal edema present bilaterally SKIN: There is no obvious evidence of any rash. There are no petechiae, pallor or cyanosis noted. NEUROLOGIC: Patient is awake alert and oriented x3 strength is symmetric PSYCH: Normal affect Course Reevaluation(s) Reevaluation #1: Patient states she felt improved after given IV Lasix. Patient has no current chest pain. I did discuss the evaluation of the patient at bedside. Time: 04:13 Consultations Consultation #1: [facility]. [facility] agrees with inpatient admission for CHF Time: 04:14 Administered Medications Discontinued Medications Furosemide (Furosemide 40 Mg/4 Ml Vial) 40 mg IV ONE ONE Stop: 06/08/22 02:39 Last Admin: 06/08/22 03:15 Dose: 40 mg Documented By: CARLOS Medical Decision Making Medical Records Attestation: I reviewed the patient's medical records. Home Medications Current Medication List: was personally reviewed by me Laboratory Data Attestation: I reviewed the patient's lab results. Patient has an elevated BNP consistent with CHF, otherwise labs are unremarkable 06/08/22 03:00 06/08/22 03:00 Lab Results 06/08/22 06/08/22 06/08/22 Range/Units 03:00 03:00 03:00 WBC 8.66 (4.8-10.8) K/ul RBC 3.74 L (3.93-5.22) M/uL Hgb 11.8 L (12.0-16.0) g/dl Hct 35.8 (34.1-44.9) % MCV 95.7 (80.0-100.0) fL MCH 31.6 (25.0-34.0) pg MCHC 33.0 (32.0-36.0) g/dL RDW Std Deviation 48.0 H (36.4-46.3) fL RDW Coeff of Osman 13.9 (11.5-14.5) % Plt Count 276 (130-400) K/uL MPV 9.5 (9.4-12.3) fL Immature Gran % (Auto) 0.2 % Neut % (Auto) 74.7 % Lymph % (Auto) 17.3 % Esmeralda % (Auto) 7.3 % Eos % (Auto) 0.2 % Baso % (Auto) 0.3 % Neut # (Auto) 6.46 (1.4-6.5) K/uL Lymph # (Auto) 1.50 (1.2-3.4) K/uL Esmeralda # (Auto) 0.63 (0.24-0.82) K/uL Eos # (Auto) 0.02 (0-0.50) K/uL Baso # (Auto) 0.03 (0-0.2) K/uL Immature Gran # (Auto) 0.02 (0.00-0.02) K/uL PT 12.4 H (9.0-12.0) Seconds INR 1.2 H (0.9-1.1) APTT 24.7 (21.0-31.0) Seconds PTT Ratio 0.9 Sodium 140 (136-145) mmol/L Potassium 3.3 L (3.5-5.1) mmol/L Chloride 106 (98-107) mmol/L Carbon Dioxide 26 (21-32) mmol/L Anion Gap 8 (3-11) BUN 14 (6-23) mg/dl Creatinine 0.96 (0.6-1.2) mg/dl Est Cr Clr Drug Dosing 58.6 ml/min Est GFR ( Amer) 71.4 ml/min Est GFR (Non-Af Amer) 61.6 ml/min BUN/Creatinine Ratio 14.6 (10-20) Glucose 130 H (70-99(Fasting)) mg/dl Calcium 8.6 (8.5-10.1) mg/dl Total Bilirubin 1.0 (0.2-1.0) mg/dl AST 20 (13-39) U/L ALT 18 (7-52) U/L Alkaline Phosphatase 79 (34-104) U/L Troponin I High Sens 15.5 H (0-14) pg/ml B-Natriuretic Peptide (0-100) pg/ml Total Protein 6.2 (6.0-8.3) gm/dl Albumin 3.4 (3.4-5.0) gm/dl Globulin 2.8 (2.5-4.0) gm/dl Albumin/Globulin Ratio 1.2 (0.9-2) Urine Color Urine Appearance (Clear) Urine pH (4.5-7.5) Ur Specific [place] (1.000-1.030) Urine Protein (Negative) Urine Glucose (UA) (Negative) Urine Ketones (Negative) Urine Blood (Negative) Urine Nitrite (Negative) Urine Bilirubin (Negative) Urine Urobilinogen (Negative) Ur Leukocyte Esterase (Negative) 06/08/22 06/08/22 Range/Units 03:00 03:46 WBC (4.8-10.8) K/ul RBC (3.93-5.22) M/uL Hgb (12.0-16.0) g/dl Hct (34.1-44.9) % MCV (80.0-100.0) fL MCH (25.0-34.0) pg MCHC (32.0-36.0) g/dL RDW Std Deviation (36.4-46.3) fL RDW Coeff of Osman (11.5-14.5) % Plt Count (130-400) K/uL MPV (9.4-12.3) fL Immature Gran % (Auto) % Neut % (Auto) % Lymph % (Auto) % Esmeralda % (Auto) % Eos % (Auto) % Baso % (Auto) % Neut # (Auto) (1.4-6.5) K/uL Lymph # (Auto) (1.2-3.4) K/uL Esmeralda # (Auto) (0.24-0.82) K/uL Eos # (Auto) (0-0.50) K/uL Baso # (Auto) (0-0.2) K/uL Immature Gran # (Auto) (0.00-0.02) K/uL PT (9.0-12.0) Seconds INR (0.9-1.1) APTT (21.0-31.0) Seconds PTT Ratio Sodium (136-145) mmol/L Potassium (3.5-5.1) mmol/L Chloride (98-107) mmol/L Carbon Dioxide (21-32) mmol/L Anion Gap (3-11) BUN (6-23) mg/dl Creatinine (0.6-1.2) mg/dl Est Cr Clr Drug Dosing ml/min Est GFR ( Amer) ml/min Est GFR (Non-Af Amer) ml/min BUN/Creatinine Ratio (10-20) Glucose (70-99(Fasting)) mg/dl Calcium (8.5-10.1) mg/dl Total Bilirubin (0.2-1.0) mg/dl AST (13-39) U/L ALT (7-52) U/L Alkaline Phosphatase (34-104) U/L Troponin I High Sens (0-14) pg/ml B-Natriuretic Peptide 4537 H (0-100) pg/ml Total Protein (6.0-8.3) gm/dl Albumin (3.4-5.0) gm/dl Globulin (2.5-4.0) gm/dl Albumin/Globulin Ratio (0.9-2) Urine Color Yellow Urine Appearance Clear (Clear) Urine pH 6.0 (4.5-7.5) Ur Specific [place] 1.006 (1.000-1.030) Urine Protein Negative (Negative) Urine Glucose (UA) 1+ H (Negative) Urine Ketones Negative (Negative) Urine Blood Negative (Negative) Urine Nitrite Negative (Negative) Urine Bilirubin Negative (Negative) Urine Urobilinogen Negative (Negative) Ur Leukocyte Esterase Negative (Negative) Imaging Data Attestation: I personally reviewed and interpreted this imaging study as follows: My Impression: Chest x-ray interpreted by me cardiomegaly pacemaker is present mild congestive heart failure seen ECG Data Attestation: I personally reviewed and interpreted this ECG as follows: Additional Comments: EKG interpreted by me normal sinus rhythm rate of 92, left axis deviation, incomplete right bundle branch block, no ST segment elevation or depression MDM Narrative Medical decision making differential diagnosis includes CHF, pneumonia, bronchitis, pleural effusion; plan is to check labs, EKG, chest x-ray Nursing notes have been reviewed and appreciated I have reviewed external medical records regarding the patient's 2 past admissions and transferred to [facility] in May 2022 Family at bedside is also provided history to me Patient had an elevated BNP patient's clinical exam is CHF. Patient was given IV Lasix. Patient will be admitted for CHF. The case was discussed with the [facility] hospitalist who agrees for inpatient admission for CHF. Impression & Plan CHF (congestive heart failure) Discharge Plan Visit Data Chief Complaint: Shortness of Breath/Dyspnea Stated Complaint: SOB, L SIDE PAIN ED Provider: Rudi Harris Discharge Problem: CHF (congestive heart failure) Patient Disposition: Admitted As Inpatient Forms Stand Alone Forms: My [facility] Prescriptions Prescriptions: No Action (DME) lancets [Accu-Chek Softclix Lancets] Misc See Dose Instructions .ROUTE .MEDSUPPLY Qty: 100 3RF Dose Instruction: As directed Rx Instructions: Check daily and as needed (DME) Accu-Chek Guide test strips Strip See Dose Instructions .ROUTE .MEDSUPPLY Qty: 100 3RF Dose Instruction: As directed Rx Instructions: daily and as needed pantoprazole 40 mg tablet,delayed release (DR/EC) 40 mg PO DAILY Qty: 90 3RF empagliflozin 25 mg tablet 25 mg PO DAILY Qty: 90 3RF ezetimibe 10 mg tablet 10 mg PO PM Qty: 90 3RF Entresto 24-26 mg tablet 1 tab PO BID carvedilol 3.125 mg tablet 3.125 mg PO BID Rx Instructions: must administer with a meal/food cholecalciferol (vitamin D3) 5,000 unit capsule 5,000 units PO DAILY aspirin 81 mg Tablet,Delayed Release (Dr/Ec) 81 mg PO Q OTHER DAY acetaminophen 325 mg Tablet 650 mg PO Q4H PRN (Reason: pain) Qty: 30 0RF Rx Instructions: OTC omega-3 fatty acids 1,000 mg Capsule 1,000 mg PO QAM Referrals Referrals: Theo Houston MD [Primary Care Provider] - Risk - HEART Scoring HEART Score for Major Cardiac Events History: Slightly Suspicious EKG: Non-Specific Repolarization Disturbance Age: > 64 Years of Age Risk Factors: >2 Risk Factors Initial Troponin: Normal Limit Total Points: 5 Risk Level: Moderate Risk for Major Adverse Cardiac Event HEART Score Interpretation: Score interpretation (as per derivation study): HEART Adverse Cardiac Score Event Risk Management 0-3 0.9-1.7% In the HEART Score study, these patients were discharged. 4-6 12-16.6% In the HEART Score study, these patients were admitted to the hospital. 7-10 50-65% In the HEART Score study, these patients were candidates for early invasive measurements. Original Source: 1. Jacob AJ, Drew BE, Hemant SARAH. Chest pain in the emergency room: value of the HEART score. Neth Heart J. 2008; 16(6):191-6.
[2022-06-08] MEDS ORDERED: FUROSEMIDE 40 MG/4 ML VIAL IV ONE (02:38)
[2022-06-08 03:25] LABS: Basophils # (auto) 0.03 K/uL (0-0.2); Basophils % (auto) 0.3 %; Eosinophils # (auto) 0.02 K/uL (0-0.50); Eosinophils % (auto) 0.2 %; Hematocrit (blood only) 35.8 % (34.1-44.9); Hemoglobin 11.8 g/dl (12.0-16.0); Immature Granulocytes # (auto) 0.02 K/uL (0.00-0.02); Immature Granulocytes % (auto) 0.2 %; Lymphocytes % (auto) 17.3 %; Mean Corpuscular Hemoglobin 31.6 pg (25.0-34.0); Mean Corpuscular Volume 95.7 fL (80.0-100.0); Mean Platelet Volume 9.5 fL (9.4-12.3); Monocytes # (auto) 0.63 K/uL (0.24-0.82); Monocytes % (auto) 7.3 %; Neutrophils # (auto) 6.46 K/uL (1.4-6.5); Neutrophils % (auto) 74.7 %; Platelet Count 276 K/uL (130-400); RDW Coefficient of Variation 13.9 % (11.5-14.5); Red Blood Count 3.74 M/uL (3.93-5.22); White Blood Count 8.66 K/ul (4.8-10.8)
[2022-06-08 03:41] LABS: INR 1.2 (0.9-1.1); Partial Thromboplastin Ratio 0.9; Partial Thromboplastin Time 24.7 Seconds (21.0-31.0); Prothrombin Time 12.4 Seconds (9.0-12.0)
[2022-06-08 03:49] LABS: Albumin Globulin Ratio 1.2 (0.9-2); Albumin Level 3.4 gm/dl (3.4-5.0); BUN Creatinine Ratio 14.6 (10-20); Calcium 8.6 mg/dl (8.5-10.1); Creatinine Clr Calc Pharmacy 58.6 ml/min; Est GFR (African American) 71.4 ml/min; Est GFR (Non-African American) 61.6 ml/min; Globulin 2.8 gm/dl (2.5-4.0); Potassium 3.3 mmol/L (3.5-5.1); Total Protein 6.2 gm/dl (6.0-8.3)
[2022-06-08 03:55] LABS: Appearance Urine Clear (Clear); Bilirubin Urine Negative (Negative); Blood Urine Negative (Negative); Color Urine Yellow; Glucose Urine UA 1+ (Negative); Ketones Urine Negative (Negative); Leukocyte Esterase Urine Negative (Negative); Nitrite Urine Negative (Negative); Protein Urine Negative (Negative); Specific Gravity Urine 1.006 (1.000-1.030); Urobilinogen Urine Negative (Negative)
[2022-06-08 03:57] LABS: Troponin I High Sensitivity 15.5 pg/ml (0-14)
--- NOTE | 2022-06-08 05:15 | History & Physical Report ---
Date of Service June 08, 2022 Assessment & Plan (1) CHF (congestive heart failure): Plan: 67-year-old woman with history of CHF s/p ICD placement (on Entresto, carvedilol, Jardiance no prior history of exacerbation), CKD 3, DM2, recent cholecystectomy (POD 11/12) presenting with acute orthopnea x2 days admitted for management of presumed CHF exacerbation. CHF -[facility] patient of Dr. Mejia. Managed on Entresto, Coreg, Jardiance. Spironolactone was stopped approximately 2 weeks ago just before cholecystectomy. -Patient denies prior episode of SOB, prior hospitalization for exacerbation. Most recent EF = 15 to 20% ~2 weeks ago (at [facility], though this will have to be confirmed). -[id number]; initial [id number]. Now s/p IV furosemide 40 mg x 1. * Made n.p.o. * Trend high-sensitivity troponin every 6 hours x3. * Continue home Entresto, Jardiance, Coreg. Cardiology consulted. Continue home aspirin 81 mg q2d * As needed Zofran for nausea. * Starting furosemide 40 mg p.o. Consider restarting spironolactone, though will leave to cardiology to adjust. Refrain from ordering echo, given recent study done 12 days ago at [facility]. Will leave for cardiology to decide whether to reorder. * Admit to MedSurg telemetry. Hyperkalemia: KCl 40 mEq p.o. daily. Trend daily labs. Replete as indicated Hyperlipidemia: Hold ezetimibe Hypertension: See above CHF regimen (Coreg, Entresto). GERD: Home pantoprazole Code: Full code Dispo: Med-Surg telemetry FEN/GI: NPO DVT Prophylaxis: Lovenox 40 mg q24h PT/OT: Consults: Cardiology (2) Chronic HFrEF (heart failure with reduced ejection fraction): (3) CKD (chronic kidney disease), stage III: (4) Mitral valve disorder: (5) Hypertension: (6) Hyperlipidemia: (7) Diabetes mellitus type II, controlled: (8) Congestive heart failure with cardiomyopathy: History of Present Illness Primary Care Provider: Theo Houston MD Maribel is a 67-year-old woman with a history of type 2 diabetes, CHF with cardiomyopathy, CKD3, hypertension, and hyperlipidemia, who presents to the emergency room with new onset, progressive shortness of breath x2 days. Shortness of breath is worsened only by lying down. She does not notice it when upright and performing ADLs. ROS + dizziness, persistent dry cough, and nausea. She denies headache, vision changes, chest pain, abdominal pain, leg swelling, or vomiting. She is POD 11 or 12 s/p cholecystectomy, performed at [facility]. She also reports having had a dental procedure done for abscess a week before that. In the ED, labs were notable for K+ of 3.0, high-sensitivity troponin of 15.5, and a BNP of 4537. CXR (not yet read by radiologist) shows evidence of cardiomegaly, pleural effusion and cephalization. She received IV Lasix 40 mg x 1 with recommendation to admit for further acute management of presumed CHF exacerbation. Patient is a [facility] cardiology patient (Dr. Kendall Mejia) managed on Entresto, Jardiance, and carvedilol. She was previously on spironolactone but this was stopped prior to her cholecystectomy. Her carvedilol dose (3.125 mg twice daily) was also recently stopped, also just prior to her cholecystectomy. She was scheduled to meet with Dr. Mejia this Tuesday. Her most recent echo at [facility], performed 10-27, shows moderate left ventricular dilation, severely reduced LV systolic function, EF = 15 to 20%, severe global hypokinesis of the left ventricle, moderate MR, and mild left atrial dilation. She states that she has a more recent echo, performed at [facility], from 05/27/2022, just before her surgery, showing a similar EF, and no major changes in comparison to the echo performed at [facility] in October. Allergies Allergy/AdvReac Type Severity Reaction Status Date / Time erythromycin base Allergy Severe blisters;red;itchy;pain;blisters Verified 06/04/22 09:00 in back throat iodine Allergy Severe throat Verified 06/04/22 09:00 blisters;skin blisters meperidine [From Demerol] Allergy Severe quit Verified 06/04/22 09:00 breathing adhesive Allergy Intermediate BLISTERS Verified 06/04/22 09:00 tetracycline Allergy Unknown TERRAMYCIN Verified 06/04/22 09:00 ALLERGY atorvastatin AdvReac Intermediate MUSCLE Verified 06/04/22 09:00 PAIN/ACHES, DIFFICULTY WALKING azithromycin AdvReac Intermediate Gastrointestinal Verified 06/04/22 09:00 Upset metformin AdvReac Intermediate Diarrhea Verified 06/04/22 09:00 rosuvastatin [From Crestor] AdvReac Intermediate Cramping Verified 06/04/22 09:00 of the Muscles [id number] Reductase AdvReac Intermediate MUSCLE Verified 06/04/22 09:00 Inhibitor PAIN/ACHES, [[place]-Twd-Gfn Reductase DIFFICULTY Inhibitor] WALKING Home Medications Medication Instructions Recorded Confirmed Type cholecalciferol (vitamin D3) 125 5,000 units PO DAILY 01/14/19 06/04/22 History mcg (5,000 unit) capsule lancets (Accu-Chek Softclix #100 ea 11/26/19 06/04/22 Rx Lancets) blood sugar diagnostic (Accu-Chek #100 ea 02/09/21 06/04/22 Rx Guide test strips) pantoprazole 40 mg tablet,delayed 40 mg PO DAILY #90 tabs 09/21/21 06/04/22 Rx release empagliflozin 25 mg tablet 25 mg PO DAILY #90 tabs 11/09/21 06/04/22 Rx ezetimibe 10 mg tablet 10 mg PO PM #90 tabs 02/15/22 06/04/22 Rx aspirin 81 mg tablet,delayed 81 mg PO Q OTHER DAY 05/13/22 06/04/22 History release acetaminophen 325 mg tablet 650 mg PO Q4H PRN pain #30 tabs 05/14/22 06/04/22 Rx omega-3 fatty acids 1,000 mg 1,000 mg PO QAM 05/23/22 06/04/22 History capsule carvedilol 3.125 mg tablet 3.125 mg PO BID 06/01/22 06/04/22 History sacubitril 24 mg-valsartan 26 mg 1 tab PO BID 06/01/22 06/04/22 History tablet (Entresto) Past Med/Surg History Medical History Allergic rhinitis Asymptomatic menopausal state Atopic dermatitis CKD (chronic kidney disease), stage III Congestive heart failure with cardiomyopathy follows with Dr. Mejia Dental abscess Diabetes mellitus type II, controlled NIDDM Diverticulosis of colon Eustachian tube dysfunction History of sigmoidoscopy Hyperlipidemia Hypertension IBS (irritable bowel syndrome) ICD (implantable cardioverter-defibrillator) in place Placed Feb 2015 > [employer] > last checked 03/23/21 with > placed for CHF Incidental pulmonary nodule, > 3mm and < 8mm Internal hemorrhoids Mitral valve disorder follows with Dr. Mejia Obesity Osteopenia Renal insufficiency pt unaware Sigmoid diverticulitis Stage 3b chronic kidney disease Vitamin D deficiency Vitamin D deficiency Surgical History History of appendectomy History of arthroscopy of right knee History of arthroscopy of right shoulder History of breast biopsy benign History of cardiac cath 10/2017 [facility] no stents History of carpal tunnel surgery History of Neuroplasty Decompression Median Nerve At Carpal Tunnel> right History of colonoscopy History of incision and drainage (05/14/22) infection floor of the mouth and subperiosteal plane # 30 area p Incision and Drainage, Tooth Extraction(Right) - Quinton Amezcua, DA History of repair of rotator cuff right History of vaginal hysterectomy Family History Mother Breast cancer Diabetes Grandmother Myocardial infarction Denies family history of Ovarian cancer Prostate cancer Colorectal cancer Social History Smoking Status: Never smoker Second Hand Exposure: No; Hx Alcohol Use: Yes Alcohol type: wine Hx Substance Use: No Preferred Language: Cymraes Communication Ability: Effective Visual Impairment: No Limitations Hearing Ability: Normal Framing Inspector Required: No Beliefs That Will Affect Care: None marital status: Current Living Situation: Spouse current occupational status: retired Feels Safe at Home: Yes Childhood Exposure to Second-Hand Smoke: No caffeine: Yes during the past year weight has: remained stable Dental Care, Regularly: Yes Physical Activity Frequency: Does not Exercise Seatbelt Use: always Sunscreen Use: Yes Assistive Devices: Glasses Review of Systems Review of Systems: All systems reviewed & are unremarkable except as noted in HPI & below Physical Exam Physical Exam: General: In no acute distress HEENT: PERRLA. Normal conjunctiva, anicteric sclera. Oropharynx normal. Respiratory: Respiratory effort inhibited by coughing, crackles heard at left lung base. Cardiovascular: RRR without murmurs, gallops, or rubs. Mild bilateral 1+ pedal edema, L >R. GI: Soft abdomen with normal bowel sounds heard on auscultation. Nontender x4 quadrants Neuro: Alert and oriented x3. Results & Data Results & Data ([facility]) Vital Signs (Past 12 Hours) Vital Signs Temp Pulse Resp BP Pulse Ox O2 Del Method 06/08/22 03:58 95 H 32 H 108/58 L 93 Room Air 06/08/22 03:50 96 H 29 H 108/58 L 93 Room Air 06/08/22 03:20 88 25 H 106/74 94 Room Air 06/08/22 02:01 Room Air 06/08/22 02:38 Room Air 06/08/22 02:04 36.5 C 97 H 20 101/54 L 94 Room Air Supervising Physician Co-Signing Physician Notes Attending addendum: I have physically seen this patient, have supervised the medical residents activities, and agree with the H&P unless as otherwise noted. Assessment and Plan: NSTEMI/HFrEF exacerbation- The patient will be admitted to telemetry for serial cardiac enzymes, serial EKG's, cardiac rhythm monitoring and a 2-D echocardiogram with Dopplers. Highly sensitive troponin mildly elevated at 15.5 BNP 4537 Given furosemide 40 mg IV in the ED and will continue every morning Echo from 10/27/2021 with ejection fraction 15-20% Continue home Entresto, Jardiance, Coreg and aspirin Consult cardiology Hypokalemia- Potassium chloride 40 mEq p.o. now, repeat laboratories in a.m., follow closely while being diuresed Hyperlipidemia- Continue routine home medications Check fasting lipid panel CKD- Creatinine 0.96, within acceptable range Remaining orders and notations as noted Resident Activity Tracking Resident Involvement: Resident Care Provided Care Provided: Adult Hospital Medicine (1) Diabetes mellitus type II, controlled Diabetes mellitus complication status: without complication Diabetes mellitus terminal supervisor insulin use: without shelter use Qualified Code(s): E11.9 - Type 2 diabetes mellitus without complications
[2022-06-08] MEDS ORDERED: ONDANSETRON INJ 2 MG/ML 2 ML VIAL IV PRN (06:01)
[2022-06-08] MEDS ORDERED: ACETAMINOPHEN 325 MG TAB PO PRN (06:01)
[2022-06-08] MEDS ORDERED: POLYETHYLENE (MIRALAX) 17 GM PACK PO PRN (06:01)
[2022-06-08] MEDS ORDERED: NITROGLYCERIN SL 0.4 MG/TAB TAB SL PRN (06:01)
--- NOTE | 2022-06-08 06:58 | XRay Report ---
XR chest 1V portable HISTORY: 67 years-old Female Chest pain, nonspecific acute shortness of breath COMPARISON: Chest radiograph May 23, 2022 TECHNIQUE: AP view of the chest FINDINGS: Cardiac silhouette is enlarged. Left subclavian pacer/AICD. Pulmonary vascular congestion. No pneumot horax. Unchanged small left and trace right pleural effusions with mild left basilar opacities. Mild coarsening of interstitium. Degenerative changes of the shoulders and spine. IMPRESSION: 1. Cardiomegaly with mild pulmonary edema. 2. Small left and trace right pleural effusions are again noted. ACT 112: Negative or not required by law. The above report was generated using voice recognition software. It may contain grammatical, syntax o r spelling errors. Electronically signed by: Dick Franklin M.D. 06/08/2022 6:56 AM
[2022-06-08] MEDS ORDERED: VALSARTAN/SACUBITRIL 26/24MG TAB PO SCH (09:00)
[2022-06-08] MEDS ORDERED: ASPIRIN 81 MG ECTAB PO SCH (09:00)
[2022-06-08] MEDS: CHOLECALCIFEROL 5,000 UNITS 125 MCG TAB PO SCH (09:57)
[2022-06-08] MEDS: POTASSIUM CHLORIDE CRTAB 20 MEQ TABCR PO SCH (09:58)
[2022-06-08] MEDS: FUROSEMIDE 40 MG TAB PO SCH (09:58)
[2022-06-08] MEDS: EMPAGLIFLOZIN 25 MG TAB PO SCH (09:58)
[2022-06-08] MEDS: OMEGA-3 (PURIFIED FISH OIL) 1 GM CAP PO SCH (09:58)
[2022-06-08] MEDS: PANTOprazole 40 MG TAB PO SCH (09:58)
[2022-06-08] MEDS: ENOXAPARIN INJ 40 MG/0.4 ML SYR SQ SCH ×2 (10:03→15:29)
[2022-06-08] MEDS: carvediloL 3.125 MG TAB PO SCH ×2 (10:03→17:01)
[2022-06-08] MEDS ORDERED: PNEUMOCOCCAL Polysaccharide Vaccine 25mcg/0.5mL vial/Syr IM ONE (11:30)
--- NOTE | 2022-06-08 14:41 | Cardiology Consultation ---
Date of Consultation June 08, 2022 Assessment & Plan (1) Acute on chronic HFrEF (heart failure with reduced ejection fraction): (2) Mitral valve disorder: (3) Idiopathic cardiomyopathy: (4) Hypotension: Plan ASSESSMENT/PLAN: 1. Acute on chronic heart failure with reduced EF: She appears hypervolemic. Continue diuresis. Goal diuresis at least 1 L net negative fluid balance today. She received 40 mg of IV Lasix followed by 40 mg of p.o. Lasix thus far. Giving dose of IV Lasix if necessary. Resume spironolactone with a partial dose today and 25 mg tomorrow. Increase Entresto to previously tolerated dose of 49/51 mg twice daily. Can increase carvedilol in the near future, possibly tomorrow or in a few days to 6.25 mg twice daily. Low-sodium diet, less than 2000 mg daily. Daily weights. Strict I's and O's while hospitalized. 2. Cardiomyopathy: Nonischemic. She reports that she is going to be evaluated at a tertiary care center for advanced modalities if necessary. We will attempt to titrate her medical therapy to her recently tolerated doses. Hold parameters will be adjusted to hold for systolic blood pressure less than 90 mmHg. She did not receive carvedilol today due to mild hypotension. Would expect to continue to have mild hypotension and as long as it is well-tolerated, would continue her heart failure medications. More aggressive management has not been tolerated in the past according to records. She has ICD in place for primary prevention. 3. Hypotension: Would expect some degree of mild hypotension and as long as it is well-tolerated, would continue her most recently tolerated max heart failure medications. Holding parameters rewritten. 4. Mitral regurgitation: Nonsevere in the past. Can be followed by Dr. Mejia, her primary officer lieutenant. 5. Disposition: When seen earlier today, she was still hypervolemic. Titrate medical therapy as above. Anticipate that she should be able to be discharged in the next day or so. Her CHF exacerbation is likely due to the fact that her medical therapy has been reduced/discontinued following cholecystectomy. Follow-up closely with Dr. Mejia, her primary officer lieutenant, as well as Cristy Salazar with heart failure program. Patient care communicated with Dr. Grant of the primary hospitalist service. Highly complex medical issues. Thank you for allowing me to participate in the care of your patient. Please call for any other questions or concerns. Sincerely, Rony Duarte M.D. History of Present Illness Reason for Consultation: CHF exacerbation Requesting Physician: Joe Chadwick Attending Physician: Laura Grant MD History of Present Illness Mrs. Noyola is a very pleasant 67-year-old female with a history significant for nonischemic cardiomyopathy, heart failure with reduced EF, type 2 diabetes, CKD, hypertension, and dyslipidemia. She has ICD for primary prevention Her primary officer lieutenant is Dr. Mejia. She is also followed in the heart failure program. She has had the following studies/procedures: 1. Dual-chamber ICD 03/14/2014. 2. Cardiac cath 2018: No significant CAD. 3. Echo 10/27/2021 [facility]: Severely reduced LV systolic function. EF 15 to 20%. Moderately dilated LV. Severe global hypokinesis. Moderate MR. Mild left atrial dilation. 4. Echo 05/28/2022 [facility]: Per patient report, EF remained 15 to 20%. She was hospitalized on 06/08/2022 due to shortness of breath. On 06/07/2022, in the afternoon she had acute shortness of breath. Shortness of breath was present at rest, with exertion, and also reports orthopnea. She did not notice any edema. She took Lasix 20 mg the evening prior and also on 06/07/2022 without significant improvement or even notable urine output compared to baseline. She noted that she had a 2 pound weight gain yesterday morning and a total of 3 pounds by the end of the day yesterday. She was recently hospitalized at [facility] and underwent cholecystectomy on 05/28/2022 given a diagnosis of cholecystitis. During her hospital stay, Entresto was reduced from 49/51 twice daily to 24/26 twice daily. Carvedilol was reduced from 6.25 mg twice daily to 3.125 mg twice daily. Lasix was discontinued altogether and spironolactone was also held. She states that she had been doing quite well for some time leading up to her hospital stay at [facility] on his medications however during her hospital stay in the postoperative period, she was reportedly hypotensive, prompting the medication changes according to discharge summary and patient report. She denies shortness of breath, syncope, near syncope, palpitations. She admits that while hospitalized at [facility] with hypotension, she occasionally felt lightheaded but states that her blood pressure is typically mildly hypotensive and she tends to tolerate it well. She maintains a low-sodium diet and in fact states that she has not been eating much since recovering from her cholecystectomy. She weighs herself twice daily. She has been taking Lasix 20 mg once daily with an additional 20 mg as needed prior to her [facility] hospitalization. While in the emergency department/admitted, she received 40 mg of IV Lasix x1 and noted significant urine output and overall feels much better and back to baseline. She is hoping to go home soon. In fact, she had a scheduled appointment today with Dr. Mejia in the outpatient setting. Review of systems: As above. Review of systems otherwise negative/unremarkable. Family history: Father in a motor vehicle accident however 4 of his siblings from [facility]. Social history: She denies tobacco or drug abuse. Rare alcohol. She lives at home with her . She has 2 adult children. She was unaccompanied in her ER/inpatient room. Allergies Allergy/AdvReac Type Severity Reaction Status Date / Time erythromycin base Allergy Severe blisters;red;itchy;pain;blisters Verified 06/04/22 09:00 in back throat iodine Allergy Severe throat Verified 06/04/22 09:00 blisters;skin blisters meperidine [From Demerol] Allergy Severe quit Verified 06/04/22 09:00 breathing adhesive Allergy Intermediate BLISTERS Verified 06/04/22 09:00 tetracycline Allergy Unknown TERRAMYCIN Verified 06/04/22 09:00 ALLERGY atorvastatin AdvReac Intermediate MUSCLE Verified 06/04/22 09:00 PAIN/ACHES, DIFFICULTY WALKING azithromycin AdvReac Intermediate Gastrointestinal Verified 06/04/22 09:00 Upset metformin AdvReac Intermediate Diarrhea Verified 06/04/22 09:00 rosuvastatin [From Crestor] AdvReac Intermediate Cramping Verified 06/04/22 09:00 of the Muscles [id number]-[id number]-[id number] Reductase AdvReac Intermediate MUSCLE Verified 06/04/22 09:00 Inhibitor PAIN/ACHES, [Pbngzfx-Zya-Fsi Reductase DIFFICULTY Inhibitor] WALKING Home Medications Medication Instructions Recorded Confirmed Type cholecalciferol (vitamin D3) 125 5,000 units PO DAILY 01/14/19 06/04/22 History mcg (5,000 unit) capsule lancets (Accu-Chek Softclix #100 ea 11/26/19 06/04/22 Rx Lancets) blood sugar diagnostic (Accu-Chek #100 ea 02/09/21 06/04/22 Rx Guide test strips) pantoprazole 40 mg tablet,delayed 40 mg PO DAILY #90 tabs 09/21/21 06/04/22 Rx release empagliflozin 25 mg tablet 25 mg PO DAILY #90 tabs 11/09/21 06/04/22 Rx ezetimibe 10 mg tablet 10 mg PO PM #90 tabs 02/15/22 06/04/22 Rx aspirin 81 mg tablet,delayed 81 mg PO Q OTHER DAY 05/13/22 06/04/22 History release acetaminophen 325 mg tablet 650 mg PO Q4H PRN pain #30 tabs 05/14/22 06/04/22 Rx omega-3 fatty acids 1,000 mg 1,000 mg PO QAM 05/23/22 06/04/22 History capsule carvedilol 3.125 mg tablet 3.125 mg PO BID 06/01/22 06/04/22 History sacubitril 24 mg-valsartan 26 mg 1 tab PO BID 06/01/22 06/04/22 History tablet (Entresto) Patient History Medical History Allergic rhinitis Asymptomatic menopausal state Atopic dermatitis CKD (chronic kidney disease), stage III Congestive heart failure with cardiomyopathy follows with Dr. Mejia Dental abscess Diabetes mellitus type II, controlled NIDDM Diverticulosis of colon Eustachian tube dysfunction History of sigmoidoscopy Hyperlipidemia Hypertension IBS (irritable bowel syndrome) ICD (implantable cardioverter-defibrillator) in place Placed Feb 2015 > [employer] > last checked 03/23/21 with > placed for CHF Incidental pulmonary nodule, > 3mm and < 8mm Internal hemorrhoids Mitral valve disorder follows with Dr. Mejia Obesity Osteopenia Renal insufficiency pt unaware Sigmoid diverticulitis Stage 3b chronic kidney disease Vitamin D deficiency Vitamin D deficiency Surgical History History of appendectomy History of arthroscopy of right knee History of arthroscopy of right shoulder History of breast biopsy benign History of cardiac cath 10/2017 [facility] no stents History of carpal tunnel surgery History of Neuroplasty Decompression Median Nerve At Carpal Tunnel> right History of colonoscopy History of incision and drainage (05/14/22) infection floor of the mouth and subperiosteal plane # 30 area p Incision and Drainage, Tooth Extraction(Right) - Quinton Amezcua, DMD History of repair of rotator cuff right History of vaginal hysterectomy Family History Mother Breast cancer Diabetes Grandmother Myocardial infarction Denies family history of Ovarian cancer Prostate cancer Colorectal cancer Social History Smoking Status: Never smoker Second Hand Exposure: No; Hx Alcohol Use: Yes Alcohol type: wine Hx Substance Use: No Preferred Language: Bengali Communication Ability: Effective Visual Impairment: No Limitations Hearing Ability: Normal Compliance Technician Required: No Beliefs That Will Affect Care: None marital status: Current Living Situation: Spouse current occupational status: retired Other Information That Helps Us Care for You: No Feels Safe at Home: Yes Safety Concerns: Feels Safe At This Time Childhood Exposure to Second-Hand Smoke: No caffeine: Yes during the past year weight has: remained stable Dental Care, Regularly: Yes Physical Activity Frequency: Does not Exercise Seatbelt Use: always Sunscreen Use: Yes Assistive Devices: Glasses Physical Exam Physical Exam: Gen.: No acute distress. Alert and oriented. HEENT: Anicteric sclera. Neck: No appreciable JVD or hepatojugular reflux. No bruits. Normal carotid upstrokes bilaterally. Cardiac: PMI was nonpalpable. No ventricular heave. Regular. Normal S1-S2. No murmurs, rubs, or gallops. Pulmonary: Bibasilar Rales, left greater than right. Abdomen: Soft, nontender, nondistended, with normoactive bowel sounds. No bruits noted. Extremities: 2+ radial pulses bilaterally. 2+ posterior tibialis pulses bilaterally. Trace bilateral lower extremity edema. No cyanosis. Psychiatric: Affect appears appropriate. Results & Data ([facility]) Vital Signs (Past 12 Hours) Vital Signs Temp Pulse Pulse Resp BP BP BP 06/08/22 10:00 83 18 95/64 L 06/08/22 07:55 06/08/22 07:54 06/08/22 07:11 37.0 C 87 16 98/61 L 91/63 L 06/08/22 06:00 86 23 95/62 L 06/08/22 05:32 89 23 101/68 06/08/22 05:00 92 H 27 H 101/68 06/08/22 03:58 95 H 32 H 108/58 L 06/08/22 03:50 96 H 29 H 108/58 L 06/08/22 03:20 88 25 H 106/74 06/08/22 02:38 Pulse Ox O2 Del Method O2 Flow Rate 06/08/22 10:00 93 Room Air 06/08/22 07:55 96 Nasal Cannula 3 06/08/22 07:54 85 L Room Air 06/08/22 07:11 91 Room Air 06/08/22 06:00 93 Room Air 06/08/22 05:32 94 Room Air 06/08/22 05:00 93 Room Air 06/08/22 03:58 93 Room Air 06/08/22 03:50 93 Room Air 06/08/22 03:20 94 Room Air 06/08/22 02:38 Room Air Intake & Output 06/06/22 06/07/22 06/08/22 06/09/22 06:59 06:59 06:59 06:59 Weight 181 lb 14.102 oz 181 lb 14.102 oz Laboratory Results Laboratory Results - last 24 hr 06/08/22 06/08/22 06/08/22 03:00 03:00 03:00 WBC 8.66 RBC 3.74 L Hgb 11.8 L Hct 35.8 MCV 95.7 MCH 31.6 MCHC 33.0 RDW Std Deviation 48.0 H RDW Coeff of Osman 13.9 Plt Count 276 MPV 9.5 Immature Gran % (Auto) 0.2 Neut % (Auto) 74.7 Lymph % (Auto) 17.3 [place] % (Auto) 7.3 Eos % (Auto) 0.2 Baso % (Auto) 0.3 Neut # (Auto) 6.46 Lymph # (Auto) 1.50 [place] # (Auto) 0.63 Eos # (Auto) 0.02 Baso # (Auto) 0.03 Immature Gran # (Auto) 0.02 PT 12.4 H INR 1.2 H APTT 24.7 PTT Ratio 0.9 Sodium 140 Potassium 3.3 L Chloride 106 Carbon Dioxide 26 Anion Gap 8 BUN 14 Creatinine 0.96 Est Cr Clr Drug Dosing 58.6 Est GFR ( Amer) 71.4 Est GFR (Non-Af Amer) 61.6 BUN/Creatinine Ratio 14.6 Glucose 130 H Calcium 8.6 Total Bilirubin 1.0 AST 20 ALT 18 Alkaline Phosphatase 79 Troponin I High Sens 15.5 H B-Natriuretic Peptide Total Protein 6.2 Albumin 3.4 Globulin 2.8 Albumin/Globulin Ratio 1.2 Urine Color Urine Appearance Urine pH Ur Specific [place] Urine Protein Urine Glucose (UA) Urine Ketones Urine Blood Urine Nitrite Urine Bilirubin Urine Urobilinogen Ur Leukocyte Esterase SARS-CoV-2, RNA, NAAT 06/08/22 06/08/22 06/08/22 03:00 03:46 04:05 WBC RBC Hgb Hct MCV MCH MCHC RDW Std Deviation RDW Coeff of Osman Plt Count MPV Immature Gran % (Auto) Neut % (Auto) Lymph % (Auto) [place] % (Auto) Eos % (Auto) Baso % (Auto) Neut # (Auto) Lymph # (Auto) [place] # (Auto) Eos # (Auto) Baso # (Auto) Immature Gran # (Auto) PT INR APTT PTT Ratio Sodium Potassium Chloride Carbon Dioxide Anion Gap BUN Creatinine Est Cr Clr Drug Dosing Est GFR ( Amer) Est GFR (Non-Af Amer) BUN/Creatinine Ratio Glucose Calcium Total Bilirubin AST ALT Alkaline Phosphatase Troponin I High Sens B-Natriuretic Peptide 4537 H Total Protein Albumin Globulin Albumin/Globulin Ratio Urine Color Yellow Urine Appearance Clear Urine pH 6.0 Ur Specific [place] 1.006 Urine Protein Negative Urine Glucose (UA) 1+ H Urine Ketones Negative Urine Blood Negative Urine Nitrite Negative Urine Bilirubin Negative Urine Urobilinogen Negative Ur Leukocyte Esterase Negative SARS-CoV-2, RNA, NAAT NEGATIVE 06/08/22 06/08/22 06:11 11:40 WBC RBC Hgb Hct MCV MCH MCHC RDW Std Deviation RDW Coeff of Osman Plt Count MPV Immature Gran % (Auto) Neut % (Auto) Lymph % (Auto) [place] % (Auto) Eos % (Auto) Baso % (Auto) Neut # (Auto) Lymph # (Auto) [place] # (Auto) Eos # (Auto) Baso # (Auto) Immature Gran # (Auto) PT INR APTT PTT Ratio Sodium Potassium Chloride Carbon Dioxide Anion Gap BUN Creatinine Est Cr Clr Drug Dosing Est GFR ( Amer) Est GFR (Non-Af Amer) BUN/Creatinine Ratio Glucose Calcium Total Bilirubin AST ALT Alkaline Phosphatase Troponin I High Sens 16.3 H 15.0 H B-Natriuretic Peptide Total Protein Albumin Globulin Albumin/Globulin Ratio Urine Color Urine Appearance Urine pH Ur Specific [place] Urine Protein Urine Glucose (UA) Urine Ketones Urine Blood Urine Nitrite Urine Bilirubin Urine Urobilinogen Ur Leukocyte Esterase SARS-CoV-2, RNA, NAAT Diagnostic Findings Echo report reviewed as noted above in HPI. Outside discharge summary from [facility] reviewed from 05/31/2022. ECG personally reviewed 06/08/2022 at 3:55 AM: Sinus rhythm 92 bpm. LBBB. Outpatient cardiology reports reviewed from 04/27/2022 and also electrophysiology report. Chest x-ray 06/08/2022 image personally reviewed: Dual-chamber ICD noted. Prominent vascular markings suggesting pulmonary vascular congestion. Radiology interpretation small left and trace right pleural effusion with mild pulmonary edema. History and physical report reviewed. Medications Administered Current Inpatient Medications Acetaminophen (Acetaminophen 325 Mg Tab) 650 mg PO Q4H PRN PRN Reason: pain Stop: 07/08/22 06:00 Aspirin (Aspirin 81 Mg Ectab) 81 mg PO Q2D@0900 [facility] Stop: 07/08/22 08:59 Last Admin: 06/08/22 09:57 Dose: 81 mg Carvedilol (Carvedilol 3.125 Mg Tab) 3.125 mg PO BIDM [facility] Stop: 07/08/22 07:59 Last Admin: 06/08/22 10:03 Dose: Not Given Empagliflozin (Empagliflozin 25 Mg Tab) 25 mg PO DAILY [facility] Stop: 07/08/22 08:59 Last Admin: 06/08/22 09:58 Dose: 25 mg Enoxaparin Sodium (Enoxaparin Inj 40 Mg/0.4 Ml Syr) 40 mg SQ QAM [facility] Stop: 07/08/22 08:59 Last Admin: 06/08/22 10:03 Dose: 40 mg Fish Oil ([place]-3 (Purified Fish Oil) 1 Gm Cap) 1 gm PO QAM [facility] Stop: 07/08/22 08:59 Last Admin: 06/08/22 09:58 Dose: 1 gm Furosemide (Furosemide 40 Mg Tab) 40 mg PO QAM [facility] Stop: 07/08/22 08:59 Last Admin: 06/08/22 09:58 Dose: 40 mg Nitroglycerin (Nitroglycerin Sl 0.4 Mg/Tab Tab) 0.4 mg SL UD PRN PRN Reason: Chest Pain Stop: 07/08/22 06:00 Ondansetron HCl (Ondansetron Inj 2 Mg/Ml 2 Ml Vial) 4 mg IV Q6H PRN PRN Reason: Nausea Stop: 07/08/22 06:00 Last Admin: 06/08/22 06:33 Dose: 4 mg Pantoprazole Sodium (Pantoprazole 40 Mg Tab) 40 mg PO DAILY [facility] Stop: 07/08/22 08:59 Last Admin: 06/08/22 09:58 Dose: 40 mg Polyethylene Glycol (Polyethylene (Miralax) 17 Gm Pack) 17 gm PO DAILY PRN PRN Reason: Constipation Stop: 07/08/22 06:00 Potassium Chloride (Potassium Chloride Crtab 20 Meq Tabcr) 40 meq PO QAM [facility] Stop: 07/08/22 08:59 Last Admin: 06/08/22 09:58 Dose: 40 meq Sacubitril/Valsartan (Valsartan/Sacubitril 26/24mg Tab) 1 tab PO BID [facility] Stop: 07/08/22 08:59 Last Admin: 06/08/22 09:58 Dose: 1 tab Vitamin D (Cholecalciferol 5,000 Units 125 Mcg Tab) 5,000 units PO QAM [facility] Stop: 07/08/22 08:59 Last Admin: 06/08/22 09:57 Dose: 5,000 units PG Care Time/CCT Total # of Minutes Spent Total Time Spent with Patient: Total time spent is greater than 50% in coordination of care (as documented) at patient's floor/unit and/or counseling patient: Coding Level of Care Code 41279 INT INP/OBS CARE 3/75MIN Diagnoses Acute on chronic HFrEF (heart failure with reduced ejection fraction) I50.23 Mitral valve disorder I05.9 Idiopathic cardiomyopathy I42.8 Hypotension I95.9
[2022-06-08] MEDS ORDERED: SPIRONOLACTONE 12.5 MG TAB PO ONE (15:00)
[2022-06-08] MEDS: VALSARTAN/SACUBITRIL 51/49 MG TAB PO SCH (21:16)
--- NOTE | 2022-06-08 21:36 | Billing Data ---
Date of Service June 08, 2022 Coding Level of Care Code 63181 INT INP/OBS CARE
[2022-06-09 06:56] LABS: Basophils # (auto) 0.02 K/uL (0-0.2); Basophils % (auto) 0.2 %; Eosinophils # (auto) 0.02 K/uL (0-0.50); Eosinophils % (auto) 0.2 %; Hematocrit (blood only) 34.5 % (34.1-44.9); Hemoglobin 11.4 g/dl (12.0-16.0); Immature Granulocytes # (auto) 0.04 K/uL (0.00-0.02); Immature Granulocytes % (auto) 0.4 %; Lymphocytes # (auto) 1.37 K/uL (1.2-3.4); Lymphocytes % (auto) 12.4 %; Mean Corpuscular Hemoglobin 31.5 pg (25.0-34.0); Mean Corpuscular Volume 95.3 fL (80.0-100.0); Mean Platelet Volume 9.6 fL (9.4-12.3); Monocytes # (auto) 0.93 K/uL (0.24-0.82); Monocytes % (auto) 8.4 %; Neutrophils # (auto) 8.64 K/uL (1.4-6.5); Neutrophils % (auto) 78.4 %; Platelet Count 256 K/uL (130-400); RDW Coefficient of Variation 14.1 % (11.5-14.5); RDW Standard Deviation 48.7 fL (36.4-46.3); Red Blood Count 3.62 M/uL (3.93-5.22); White Blood Count 11.02 K/ul (4.8-10.8)
[2022-06-09 07:41] LABS: Calcium 8.1 mg/dl (8.5-10.1); Magnesium 1.6 mg/dl (1.7-2.4); Potassium 3.9 mmol/L (3.5-5.1)
[2022-06-09 07:47] LABS: BUN Creatinine Ratio 11.7 (10-20); Creatinine Clr Calc Pharmacy 41.1 ml/min; Est GFR (African American) 46.5 ml/min; Est GFR (Non-African American) 40.1 ml/min; Phosphorus 3.8 mg/dl (2.5-4.9)
[2022-06-09] MEDS: ENOXAPARIN INJ 40 MG/0.4 ML SYR SQ SCH (08:16)
[2022-06-09] MEDS: FUROSEMIDE 40 MG TAB PO SCH (08:17)
[2022-06-09] MEDS: VALSARTAN/SACUBITRIL 51/49 MG TAB PO SCH (08:17)
[2022-06-09] MEDS: carvediloL 3.125 MG TAB PO SCH (08:17)
[2022-06-09] MEDS: EMPAGLIFLOZIN 25 MG TAB PO SCH (08:17)
[2022-06-09] MEDS: CHOLECALCIFEROL 5,000 UNITS 125 MCG TAB PO SCH (08:17)
[2022-06-09] MEDS: OMEGA-3 (PURIFIED FISH OIL) 1 GM CAP PO SCH (08:17)
[2022-06-09] MEDS: POTASSIUM CHLORIDE CRTAB 20 MEQ TABCR PO SCH (08:17)
[2022-06-09] MEDS: PANTOprazole 40 MG TAB PO SCH (08:17)
[2022-06-09] MEDS ORDERED: guaiFENesin/DEXTROM SYRUP 100MG/10MG 5ML UDC PO PRN (08:51)
[2022-06-09] MEDS ORDERED: guaiFENesin/DEXTROM SYRUP 100MG/10MG 5ML UDC PO ONE (08:51)
[2022-06-09] MEDS ORDERED: SPIRONOLACTONE 25 MG TAB PO SCH (09:00)
--- NOTE | 2022-06-09 11:12 | Hospitalist Progress Note ---
Date of Service June 09, 2022 Assessment & Plan (1) CHF (congestive heart failure): Plan: 67-year-old woman with history of CHF s/p ICD placement (on Entresto, carvedilol, Jardiance no prior history of exacerbation), CKD 3, DM2, recent cholecystectomy (POD 11/12) presenting with acute orthopnea x2 days admitted for management of presumed CHF exacerbation. CHF -[facility] patient of Dr. Mejia. Managed on Entresto, Coreg, Jardiance. Spironolactone was stopped approximately 2 weeks ago just before cholecystectomy. -Patient denies prior episode of SOB, prior hospitalization for exacerbation. Most recent EF = 15 to 20% ~2 weeks ago (at [facility], though this will have to be confirmed). -[id number]; initial [id number]. Now s/p IV furosemide 40 mg x 1. * Made n.p.o. * Trend high-sensitivity troponin every 6 hours x3. * Continue home Entresto, Jardiance, Coreg. Cardiology consulted. Continue home aspirin 81 mg q2d * As needed Zofran for nausea. * Starting furosemide 40 mg p.o. Consider restarting spironolactone, though will leave to cardiology to adjust. Refrain from ordering echo, given recent study done 12 days ago at [facility]. Will leave for cardiology to decide whether to reorder. * Admit to MedSurg telemetry. Hyperkalemia: KCl 40 mEq p.o. daily. Trend daily labs. Replete as indicated Hyperlipidemia: Hold ezetimibe Hypertension: See above CHF regimen (Coreg, Entresto). GERD: Home pantoprazole Code: Full code Dispo: Med-Surg telemetry FEN/GI: NPO DVT Prophylaxis: Lovenox 40 mg q24h PT/OT: Consults: Cardiology (2) Chronic HFrEF (heart failure with reduced ejection fraction): (3) CKD (chronic kidney disease), stage III: (4) Mitral valve disorder: (5) Hypertension: (6) Hyperlipidemia: (7) Diabetes mellitus type II, controlled: (8) Congestive heart failure with cardiomyopathy: Admission and Anticipated Discharge Date Admission Date: June 08, 2022 Results & Data Results & Data ([facility]) Vital Signs (Past 12 Hours) Vital Signs Temp Pulse Resp BP BP Pulse Ox O2 Del Method 06/09/22 09:45 99.1 F 99 H 18 98/61 L 96/56 L 97 06/09/22 08:00 Room Air 06/09/22 07:55 99.1 F 99 H 18 96/56 L 97 Nasal Cannula 06/09/22 03:20 99.1 F 72 18 91/62 L 96 Nasal Cannula 06/08/22 23:46 Room Air O2 Flow Rate 06/09/22 09:45 06/09/22 08:00 06/09/22 07:55 2 06/09/22 03:20 06/08/22 23:46 PG Care Time/CCT Total # of Minutes Spent Total Time Spent with Patient: Total time spent is greater than 50% in coordination of care (as documented) at patient's floor/unit and/or counseling patient: Coding Diagnoses CHF (congestive heart failure) I50.9 Chronic HFrEF (heart failure with reduced ejection fraction) I50.22 CKD (chronic kidney disease), stage III N18.30 Mitral valve disorder I05.9 Hypertension I10 Hyperlipidemia E78.5 Diabetes mellitus type II, controlled E11.9 Diabetes mellitus assistant terminal manager insulin use: without assistant terminal manager use Diabetes mellitus complication status: without complication Congestive heart failure with cardiomyopathy I50.9; I42.9 (1) Diabetes mellitus type II, controlled Diabetes mellitus senior care insulin use: without assistant terminal manager use Diabetes mellitus complication status: without complication Qualified Code(s): E11.9 - Type 2 diabetes mellitus without complications
--- NOTE | 2022-06-09 11:18 | Discharge Summary ---
Date of Service June 09, 2022 Admission HPI Per Admitting Provider Maribel is a 67-year-old woman with a history of type 2 diabetes, CHF with cardiomyopathy, CKD3, hypertension, and hyperlipidemia, who presents to the emergency room with new onset, progressive shortness of breath x2 days. Shortness of breath is worsened only by lying down. She does not notice it when upright and performing ADLs. ROS + dizziness, persistent dry cough, and nausea. She denies headache, vision changes, chest pain, abdominal pain, leg swelling, or vomiting. She is POD 11 or 12 s/p cholecystectomy, performed at [facility] [place]. She also reports having had a dental procedure done for abscess a week before that. In the ED, labs were notable for K+ of 3.0, high-sensitivity troponin of 15.5, and a BNP of 4537. CXR (not yet read by radiologist) shows evidence of cardiomegaly, pleural effusion and cephalization. She received IV Lasix 40 mg x 1 with recommendation to admit for further acute management of presumed CHF exacerbation. Patient is a [facility] cardiology patient (Dr. Kendall Mejia) managed on Entresto, Jardiance, and carvedilol. She was previously on spironolactone but this was stopped prior to her cholecystectomy. Her carvedilol dose (3.125 mg twice daily) was also recently stopped, also just prior to her cholecystectomy. She was scheduled to meet with Dr. Mejia this Tuesday. Her most recent echo at [facility], performed 10-27, shows moderate left ventricular dilation, severely reduced LV systolic function, EF = 15 to 20%, severe global hypokinesis of the left ventricle, moderate MR, and mild left atrial dilation. She states that she has a more recent echo, performed at [facility] [place], from 05/27/2022, just before her surgery, showing a similar EF, and no major changes in comparison to the echo performed at [facility] in October. Principal Diagnosis chf exacerbation Discharge Exam The patient is awake, alert and oriented 3, well developed and well nourished, normocephalic and atraumatic, lying in bed and in no acute distress. HEENT--PERRL, EOMI, mucous membranes and oropharynx mildly dry Neck--supple. No JVD. No bruits. Thyroid normal, trachea midline, no adenopathy. Heart--normal S1 and S2. No murmurs, rubs or gallops. Lungs--clear bilaterally, no respiratory distress, no accessory muscle use. Abdomen--normal bowel sounds and soft. Mild epigastric and left sided abdominal pain Extremities--no cyanosis or clubbing. No edema. Dermatologic--normal skin turgor, normal color, no abnormal lymph nodes, no rash. Neurologic--cranial nerves II through XII grossly intact. Rheumatologic--normal range of motion. Psychiatric--normal affect. Discharge Data Allergies Allergy/AdvReac Type Severity Reaction Status Date / Time erythromycin base Allergy Severe blisters;red;itchy;pain;blisters Verified 06/04/22 09:00 in back throat iodine Allergy Severe throat Verified 06/04/22 09:00 blisters;skin blisters meperidine [From Demerol] Allergy Severe quit Verified 06/04/22 09:00 breathing adhesive Allergy Intermediate BLISTERS Verified 06/04/22 09:00 tetracycline Allergy Unknown TERRAMYCIN Verified 06/04/22 09:00 ALLERGY atorvastatin AdvReac Intermediate MUSCLE Verified 06/04/22 09:00 PAIN/ACHES, DIFFICULTY WALKING azithromycin AdvReac Intermediate Gastrointestinal Verified 06/04/22 09:00 Upset metformin AdvReac Intermediate Diarrhea Verified 06/04/22 09:00 rosuvastatin [From Crestor] AdvReac Intermediate Cramping Verified 06/04/22 09:00 of the Muscles [id number]-FEH-CzS Reductase AdvReac Intermediate MUSCLE Verified 06/04/22 09:00 Inhibitor PAIN/ACHES, [Fjgtgxo-Iop-Gie Reductase DIFFICULTY Inhibitor] WALKING Consultations 06/08/22 04:10 ED Decision to Admit Stat 06/08/22 06:01 Consult Cardiology Routine 06/08/22 14:57 [facility] Referral Routine Hospital Course (1) CHF (congestive heart failure): 67-year-old woman with history of CHF s/p ICD placement (on Entresto, carvedilol, Jardiance no prior history of exacerbation), CKD 3, DM2, recent cholecystectomy (POD 11/12) presenting with acute orthopnea x2 days admitted for management of presumed CHF exacerbation. CHF -[facility] patient of Dr. Mejia. Managed on Entresto, Coreg, Jardiance. Spironolactone was stopped approximately 2 weeks ago just before cholecystectomy. -Patient denies prior episode of SOB, prior hospitalization for exacerbation. Most recent EF = 15 to 20% ~2 weeks ago (at [facility] [place], though this will have to be confirmed). -[id number]; initial dhtbvoiv19.3. Now s/p IV furosemide 40 mg x 1. * SOB much improved, although developed some dry cough * Continue home Entresto, Jardiance, Coreg. Cardiology consulted. Continue home aspirin 81 mg q2d * As needed Zofran for nausea. * Starting furosemide 40 mg p.o. and spironolactone, Entresto. * Admit to MedSurg telemetry. Hyperkalemia: KCl 40 mEq p.o. daily. Trend daily labs. Replete as indicated Hyperlipidemia: Hold ezetimibe Hypertension: See above CHF regimen (Coreg, Entresto). GERD: Home pantoprazole Code: Full code Dispo: Med-Surg telemetry FEN/GI: NPO DVT Prophylaxis: Lovenox 40 mg q24h PT/OT: Consults: Cardiology (2) Chronic HFrEF (heart failure with reduced ejection fraction): Last ECHO showed EF15-20% Her home meds were held when she went for cholcystectomy will resume Entresto (double dose), spironolactone, lasix (3) CKD (chronic kidney disease), stage III: monitor (4) Mitral valve disorder: (5) Hypertension: stable, was initially soft holding parameters (6) Hyperlipidemia: (7) Diabetes mellitus type II, controlled: blood glucose under good control (8) Congestive heart failure with cardiomyopathy: Plan d/c home to follow up with cardiology Total Time Total Time Spent Total Time Spent (In Minutes): 35 Discharge Plan Discharge Items Patient Disposition: Home - Self-Care Reason For Visit: CHF EXACERBATION Discharge Diagnosis: CHF exacerbation Activity: Resume your previous activity Non-emergency contact: Primary Care Provider and Orthopedic Tech Call non-emergency contact if: you have any medication questions and your symptoms worsen Follow-up/Referrals: Theo Houston MD [Primary Care Provider] - 06/17/22 11:00 am Diet: Heart Healthy Addtl Attending Provider Instructions: please make appointment to follow up with your veterinary virologist Please check your Blood Pressure daily. Dont take Entresto, Spironolactone if your systolic blood pressure is less than 90mmhg Pending Studies at Discharge: No Stand-Alone Forms: My [facility], Smoking Cessation Medications and DC Order Prescriptions: New furosemide 40 mg Tablet 40 mg PO QAM 30 Days Qty: 30 0RF dextromethorphan-guaifenesin 10-100 mg/5 mL Syrup 5 ml PO Q6H PRN (Reason: cough) 5 Days Qty: 30 0RF potassium chloride 20 mEq Tablet,Er Particles/Crystals 40 meq PO QAM 30 Days Qty: 60 0RF spironolactone 25 mg Tablet 25 mg PO QAM 30 Days Qty: 30 0RF Entresto 49-51 mg Tablet 1 tab PO BID 30 Days Qty: 60 0RF Continued (DME) lancets [Accu-Chek Softclix Lancets] Misc See Dose Instructions .ROUTE .MEDSUPPLY Qty: 100 3RF Dose Instruction: As directed Rx Instructions: Check daily and as needed (DME) Accu-Chek Guide test strips Strip See Dose Instructions .ROUTE .MEDSUPPLY Qty: 100 3RF Dose Instruction: As directed Rx Instructions: daily and as needed pantoprazole 40 mg tablet,delayed release (DR/EC) 40 mg PO DAILY Qty: 90 3RF empagliflozin 25 mg tablet 25 mg PO DAILY Qty: 90 3RF ezetimibe 10 mg tablet 10 mg PO PM Qty: 90 3RF carvedilol 3.125 mg tablet 3.125 mg PO BID Rx Instructions: must administer with a meal/food cholecalciferol (vitamin D3) 5,000 unit capsule 5,000 units PO DAILY aspirin 81 mg Tablet,Delayed Release (Dr/Ec) 81 mg PO Q OTHER DAY acetaminophen 325 mg Tablet 650 mg PO Q4H PRN (Reason: pain) Qty: 30 0RF Rx Instructions: OTC omega-3 fatty acids 1,000 mg Capsule 1,000 mg PO QAM Discontinued Entresto 24-26 mg tablet 1 tab PO BID Discharge Orders: Discharge Order (Routine); Ordered 06/09/22 Ordered By: Laura Grant Discharge Order- CHF (Routine); Ordered 06/09/22 Ordered By: Laura Grant Admission Data Admit Date/Time: 06/08/22 04:47 Attending Provider: aLura Grant Admit Provider: Joe Chadwick Primary Care Provider: Theo Houston Other Providers: Jamie Felix ; Srinivasa Quan ; Edgar Mejia ; Silvano Norman ; Golden Olivier ; Elliot Donovan ; Yoni Simental Jr ; Chaparro Duarte ; Krissy Marroquin ; Maria Eugenia Renee ; Gordo Joy ; Theo Galicia ; Nithin Prieto ; Cristy Salazar ; Nena Reyes ; Laron Lai ; Quan Gudino Henry C. ; Golden Salas V. Other Interventions: Discharge Summary Assessment (RN) Last Done: 06/09/22 09:45 Coding Level of Care Code HOSP INP/OBS DISCH >30 MIN Diagnoses CHF (congestive heart failure) I50.9 Chronic HFrEF (heart failure with reduced ejection fraction) I50.22 CKD (chronic kidney disease), stage III N18.30 Mitral valve disorder I05.9 Hypertension I10 Hyperlipidemia E78.5 Diabetes mellitus type II, controlled E11.9 Diabetes mellitus usp insulin use: without moth exterminator use Diabetes mellitus complication status: without complication Congestive heart failure with cardiomyopathy I50.9; I42.9 Time Spent (min) 35
--- NOTE | 2022-06-10 05:44 | Electrocardiogram Report ---
Test Reason : Blood Pressure : / mmHG Vent. Rate : 092 BPM Atrial Rate : 092 BPM P-R Int : 182 ms QRS Dur : 140 ms QT Int : 440 ms P-R-T Axes : 029 -45 052 degrees QTc Int : 544 ms Normal sinus rhythm Left axis deviation Left bundle branch block Abnormal ECG When compared with ECG of 24-MAY-2022 00:25, No significant change Confirmed by Chaparro Duarte ([id number]) on 06/10/2022 5:44:43 AM Referred By: REFERRED SELF Confirmed By:Chaparro Duarte
== END 2022-06-09 10:25 | disposition home or self-care (01) | DRG 291 ==
LOC: ED 02:01 → EDINP 04:47 → INTOOBSV 04:47 → SUATTDRO 04:47 → 2N 06:01

== ENCOUNTER 2022-06-14 01:42 | Inpatient (IN) ==
[2022-06-14] MEDS ORDERED: methylPREDNISolone 125 MG/2 ML VIAL IV STA (02:14)
[2022-06-14] MEDS ORDERED: diphenhydrAMINE 50 MG/ML VIAL IV STA (02:14)
[2022-06-14 02:51] LABS: Basophils # (auto) 0.02 K/uL (0-0.2); Basophils % (auto) 0.2 %; Eosinophils # (auto) 0.02 K/uL (0-0.50); Eosinophils % (auto) 0.2 %; Hematocrit (blood only) 35.3 % (34.1-44.9); Hemoglobin 11.5 g/dl (12.0-16.0); Immature Granulocytes # (auto) 0.05 K/uL (0.00-0.02); Immature Granulocytes % (auto) 0.4 %; Lymphocytes % (auto) 9.2 %; Mean Corpuscular Hemoglobin 31.3 pg (25.0-34.0); Mean Corpuscular Hgb Conc 32.6 g/dL (32.0-36.0); Mean Corpuscular Volume 95.9 fL (80.0-100.0); Mean Platelet Volume 9.8 fL (9.4-12.3); Monocytes # (auto) 0.98 K/uL (0.24-0.82); Monocytes % (auto) 8.2 %; Neutrophils # (auto) 9.74 K/uL (1.4-6.5); Neutrophils % (auto) 81.8 %; Platelet Count 279 K/uL (130-400); RDW Coefficient of Variation 14.6 % (11.5-14.5); RDW Standard Deviation 51.1 fL (36.4-46.3); Red Blood Count 3.68 M/uL (3.93-5.22); White Blood Count 11.91 K/ul (4.8-10.8)
[2022-06-14 03:28] LABS: Albumin Level 3.1 gm/dl (3.4-5.0); BUN Creatinine Ratio 21.7 (10-20); Bilirubin,Total 1.3 mg/dl (0.2-1.0); Calcium 8.7 mg/dl (8.5-10.1); Creatinine Clr Calc Pharmacy 34.8 ml/min; Est GFR (African American) 38.2 ml/min; Globulin 3.2 gm/dl (2.5-4.0); Magnesium 1.7 mg/dl (1.7-2.4); Potassium 5.2 mmol/L (3.5-5.1); Total Protein 6.3 gm/dl (6.0-8.3); Troponin I High Sensitivity 18.5 pg/ml (0-14)
[2022-06-14 03:36] LABS: INR 1.1 (0.9-1.1); Partial Thromboplastin Time 28.2 Seconds (21.0-31.0); Prothrombin Time 11.9 Seconds (9.0-12.0)
[2022-06-14 03:47] LABS: Appearance Urine Cloudy (Clear); Bacteria Urine Automated Negative (Negative); Bilirubin Urine Negative (Negative); Blood Urine Negative (Negative); Color Urine Yellow; Epithelial Cell Urine Auto >30 /lpf (0-5); Glucose Urine UA 3+ (Negative); Ketones Urine Negative (Negative); Leukocyte Esterase Urine Negative (Negative); Nitrite Urine Negative (Negative); Protein Urine 1+ (Negative); RBC Urine Automated 0-4 /hpf (0-4); Specific Gravity Urine 1.022 (1.000-1.030); Urobilinogen Urine Negative (Negative)
[2022-06-14] MEDS ORDERED: OPTIRAY 320 500ml IV ONE (03:54)
--- NOTE | 2022-06-14 04:44 | Emergency Department Note ---
History of Present Illness General Chief complaint: Cough Stated complaint: COUGH,CAN'T CATCH BREATH Time Seen by Provider: 06/14/22 01:58 History of Present Illness This is a 67-year-old female presenting to the emergency department for evaluation of cough and shortness of breath. The patient states her symptoms have been worsening since being discharged from this facility a few days ago. The patient had a cholecystectomy performed at [facility] on May 28, 2022. She was admitted to [facility] on 06/08/2022 for CHF exacerbation. The patient felt better after diuresis after the CHF, but admittedly was not good at receiving her Lovenox shots for DVT prophylaxis. The patient went home and has been trying Tessalon Perles and Robitussin for her cough. She states this feels different from her symptoms when she has a CHF exacerbation. She rates her discomfort a 7/10. She states that she will occasionally have some left-sided chest discomfort with coughing, but this is not persistent. There is a past medical history that is with kidney disease, diabetes, and a cardiac pacemaker. Home Medications Medication Instructions Recorded Confirmed Type cholecalciferol (vitamin D3) 125 5,000 units PO DAILY 01/14/19 06/14/22 History mcg (5,000 unit) capsule lancets (Accu-Chek Softclix #100 ea 11/26/19 06/09/22 Rx Lancets) blood sugar diagnostic (Accu-Chek #100 ea 02/09/21 06/09/22 Rx Guide test strips) pantoprazole 40 mg tablet,delayed 40 mg PO DAILY #90 tabs 09/21/21 06/14/22 Rx release empagliflozin 25 mg tablet 25 mg PO DAILY #90 tabs 11/09/21 06/14/22 Rx ezetimibe 10 mg tablet 10 mg PO PM #90 tabs 02/15/22 06/14/22 Rx aspirin 81 mg tablet,delayed 81 mg PO Q OTHER DAY 05/13/22 06/14/22 History release acetaminophen 325 mg tablet 650 mg PO Q4H PRN pain #30 tabs 05/14/22 06/14/22 Rx omega-3 fatty acids 1,000 mg 1,000 mg PO QAM 05/23/22 06/14/22 History capsule carvedilol 3.125 mg tablet 3.125 mg PO BID 06/01/22 06/14/22 History benzonatate 100 mg capsule 100 mg PO TID PRN cough #30 caps 06/09/22 06/14/22 Rx furosemide 40 mg tablet 40 mg PO QAM 30 days #30 tabs 06/09/22 06/14/22 Rx potassium chloride 20 mEq 40 meq PO QAM 30 days #60 tabs 06/09/22 06/14/22 Rx tablet,extended release(part/cryst) sacubitril 49 mg-valsartan 51 mg 1 tab PO BID 30 days #60 tabs 06/09/22 06/14/22 Rx tablet (Entresto) spironolactone 25 mg tablet 25 mg PO QAM 30 days #30 tabs 06/09/22 06/14/22 Rx Allergies Allergy/AdvReac Type Severity Reaction Status Date / Time erythromycin base Allergy Severe blisters;red;itchy;pain;blisters Verified 06/14/22 02:19 in back throat iodine Allergy Severe throat Verified 06/14/22 02:19 blisters;skin blisters meperidine [From Demerol] Allergy Severe quit Verified 06/14/22 02:19 breathing adhesive Allergy Intermediate BLISTERS Verified 06/14/22 02:19 tetracycline Allergy Unknown TERRAMYCIN Verified 06/14/22 02:19 ALLERGY atorvastatin AdvReac Intermediate MUSCLE Verified 06/14/22 02:19 PAIN/ACHES, DIFFICULTY WALKING azithromycin AdvReac Intermediate Gastrointestinal Verified 06/14/22 02:19 Upset metformin AdvReac Intermediate Diarrhea Verified 06/14/22 02:19 rosuvastatin [From Crestor] AdvReac Intermediate Cramping Verified 06/14/22 02:19 of the Muscles Agierua-ADJ-CmZ Reductase AdvReac Intermediate MUSCLE Verified 06/14/22 02:19 Inhibitor PAIN/ACHES, [Qnabunw-Fbc-Rfd Reductase DIFFICULTY Inhibitor] WALKING Past Med/Surg History Medical History Allergic rhinitis Asymptomatic menopausal state Atopic dermatitis CKD (chronic kidney disease), stage III Congestive heart failure with cardiomyopathy follows with Dr. Mejia Dental abscess Diabetes mellitus type II, controlled NIDDM Diverticulosis of colon Eustachian tube dysfunction History of sigmoidoscopy Hyperlipidemia Hypertension IBS (irritable bowel syndrome) ICD (implantable cardioverter-defibrillator) in place Placed Feb 2015 > [employer] > last checked 03/23/21 with > placed for CHF Incidental pulmonary nodule, > 3mm and < 8mm Internal hemorrhoids Mitral valve disorder follows with Dr. Mejia Obesity Osteopenia Renal insufficiency pt unaware Sigmoid diverticulitis Stage 3b chronic kidney disease Vitamin D deficiency Vitamin D deficiency Surgical History History of appendectomy History of arthroscopy of right knee History of arthroscopy of right shoulder History of breast biopsy benign History of cardiac cath 10/2017 [facility] no stents History of carpal tunnel surgery History of Neuroplasty Decompression Median Nerve At Carpal Tunnel> right History of cholecystectomy 05/28/[address] [place] [address] Ivey History of colonoscopy History of incision and drainage (05/14/22) infection floor of the mouth and subperiosteal plane # 30 area p Incision and Drainage, Tooth Extraction(Right) - Quinton Amezcua, DA History of repair of rotator cuff right History of vaginal hysterectomy Family History Mother Breast cancer Diabetes Grandmother Myocardial infarction Denies family history of Ovarian cancer Prostate cancer Colorectal cancer Social History Smoking Status: Never smoker Second Hand Exposure: No; Hx Alcohol Use: Yes Alcohol type: wine Hx Substance Use: No Preferred Language: Citizen Of [place] Communication Ability: Effective Visual Impairment: No Limitations Hearing Ability: Normal Behavioral Specialist Required: No Beliefs That Will Affect Care: None marital status: Current Living Situation: Spouse current occupational status: retired Feels Safe at Home: Yes Childhood Exposure to Second-Hand Smoke: No caffeine: Yes during the past year weight has: remained stable Dental Care, Regularly: Yes Physical Activity Frequency: Does not Exercise Seatbelt Use: always Sunscreen Use: Yes Assistive Devices: Glasses Review of Systems A total of 10 systems reviewed and were otherwise negative Physical Exam Vital Signs Vital Signs - 24 hr 06/14/22 01:46 06/14/22 01:59 06/14/22 02:40 Temperature 36.5 C Temperature Source Temporal Artery Scan Pulse Rate 96 H 92 H 87 Pulse Rate [Apical] Pulse Rate from SpO2 Sensor 87 Respiratory Rate 28 H 18 32 H Respiratory Effort / Characteristics Labored Blood Pressure 75/49 L 88/49 L Blood Pressure [Right Arm] Blood Pressure Mean 57 62 Blood Pressure Mean [Right Arm] Pulse Oximetry 96 94 93 Oxygen Delivery Method Room Air Room Air Room Air Oxygen Flow Rate Sepsis New/Unexplained Change in Mental Status N/A Sepsis Action Taken by Nursing No Action Required 06/14/22 03:00 06/14/22 04:00 06/14/22 05:20 Temperature Temperature Source Pulse Rate 90 86 Pulse Rate [Apical] 90 Pulse Rate from SpO2 Sensor 89 88 Respiratory Rate 23 32 H 32 H Respiratory Effort / Characteristics Blood Pressure 86/54 L 92/62 L Blood Pressure [Right Arm] Blood Pressure Mean 64 72 Blood Pressure Mean [Right Arm] Pulse Oximetry 97 93 99 Oxygen Delivery Method Room Air Nasal Cannula Oxygen Flow Rate 2 Sepsis New/Unexplained Change in Mental Status Sepsis Action Taken by Nursing 06/14/22 05:00 06/14/22 05:31 Temperature Temperature Source Pulse Rate 84 Pulse Rate [Apical] Pulse Rate from SpO2 Sensor 84 Respiratory Rate 41 H Respiratory Effort / Characteristics Blood Pressure 81/44 L Blood Pressure [Right Arm] 94/59 L Blood Pressure Mean 56 Blood Pressure Mean [Right Arm] 70 Pulse Oximetry 94 Oxygen Delivery Method Room Air Oxygen Flow Rate Sepsis New/Unexplained Change in Mental Status Sepsis Action Taken by Nursing VITALS: Vitals are noted on the nurse's note and reviewed by myself. Vital signs with hypertension GENERAL: White female who is chronically ill appearing. She is answering questions in full sentences. HEAD: Normocephalic atraumatic. HEART: Regular rate and rhythm without murmurs gallops or rubs. LUNGS: Crackles best heard in the right lower lobe but not left lower lobe. No significant wheezing or rhonchi. ABDOMEN: Positive normal bowel sounds x 4. Soft, nontender, without masses or organomegaly. No guarding or rebound tenderness. MUSCULOSKELETAL: No muscle atrophy, erythema, or edema noted. Full range of motion in all extremities. No obvious calf tenderness or edema. No palpable cord. NEURO: Patient was alert and oriented to person place and time. CN II through XII grossly intact. Course Administered Medications Discontinued Medications Diphenhydramine HCl (Diphenhydramine 50 Mg/Ml Vial) 25 mg IV NOW STA Stop: 06/14/22 02:15 Last Admin: 06/14/22 02:34 Dose: 25 mg Documented By: TNB Ioversol (Optiray 320 500ml) 125 ml IV ONCE ONE Stop: 06/14/22 03:55 Last Admin: 06/14/22 03:54 Dose: 109 ml Documented By: FAUSTO Methylprednisolone (Methylprednisolone 125 Mg/2 Ml Vial) 125 mg IV NOW STA Stop: 06/14/22 02:15 Last Admin: 06/14/22 02:34 Dose: 125 mg Documented By: JIE Critical Care Time I have personally spent greater than 42 minutes of critical care time in the direct management of this patient. This includes bedside care, interpretation of diagnostic studies, and testing, discussion with consultants, patient, and family members, and other required patient management activities. This 42 minutes is in excess of all separately billable procedures. Medical Decision Making Differential Diagnosis Differential diagnosis includes, but is not limited to: Myocardial infarction, dysrhythmia, pericarditis, pneumothorax, aortic aneurysm/dissection, DVT/PE, anxiety, GERD, PUD, electrolyte imbalance, thyroid disorder, pneumonia, bronchitis, pancreatitis, and others Laboratory Data 06/14/22 02:25 06/14/22 02:25 Lab Results 06/14/22 06/14/22 06/14/22 Range/Units 02:25 02:25 02:25 WBC 11.91 H (4.8-10.8) K/ul RBC 3.68 L (3.93-5.22) M/uL Hgb 11.5 L (12.0-16.0) g/dl Hct 35.3 (34.1-44.9) % MCV 95.9 (80.0-100.0) fL MCH 31.3 (25.0-34.0) pg MCHC 32.6 (32.0-36.0) g/dL RDW Std Deviation 51.1 H (36.4-46.3) fL RDW Coeff of Osman 14.6 H (11.5-14.5) % Plt Count 279 (130-400) K/uL MPV 9.8 (9.4-12.3) fL Immature Gran % (Auto) 0.4 % Neut % (Auto) 81.8 % Lymph % (Auto) 9.2 % [place] % (Auto) 8.2 % Eos % (Auto) 0.2 % Baso % (Auto) 0.2 % Neut # (Auto) 9.74 H (1.4-6.5) K/uL Lymph # (Auto) 1.10 L (1.2-3.4) K/uL [place] # (Auto) 0.98 H (0.24-0.82) K/uL Eos # (Auto) 0.02 (0-0.50) K/uL Baso # (Auto) 0.02 (0-0.2) K/uL Immature Gran # (Auto) 0.05 H (0.00-0.02) K/uL PT 11.9 (9.0-12.0) Seconds INR 1.1 (0.9-1.1) APTT 28.2 (21.0-31.0) Seconds PTT Ratio 1.0 Sodium (136-145) mmol/L Potassium (3.5-5.1) mmol/L Chloride (98-107) mmol/L Carbon Dioxide (21-32) mmol/L Anion Gap (3-11) BUN (6-23) mg/dl Creatinine (0.6-1.2) mg/dl Est Cr Clr Drug Dosing ml/min Est GFR ( Amer) ml/min Est GFR (Non-Af Amer) ml/min BUN/Creatinine Ratio (10-20) Glucose (70-99(Fasting)) mg/dl Calcium (8.5-10.1) mg/dl Magnesium (1.7-2.4) mg/dl Total Bilirubin (0.2-1.0) mg/dl AST (13-39) U/L ALT (7-52) U/L Alkaline Phosphatase (34-104) U/L Troponin I High Sens (0-14) pg/ml B-Natriuretic Peptide 3986 H (0-100) pg/ml Total Protein (6.0-8.3) gm/dl Albumin (3.4-5.0) gm/dl Globulin (2.5-4.0) gm/dl Albumin/Globulin Ratio (0.9-2) Lipase (11-82) U/L Urine Color Urine Appearance (Clear) Urine pH (4.5-7.5) Ur Specific [place] (1.000-1.030) Urine Protein (Negative) Urine Glucose (UA) (Negative) Urine Ketones (Negative) Urine Blood (Negative) Urine Nitrite (Negative) Urine Bilirubin (Negative) Urine Urobilinogen (Negative) Ur Leukocyte Esterase (Negative) Urine WBC (Auto) (0-5) /hpf Urine RBC (Auto) (0-4) /hpf U Hyaline Cast (Auto) (0-5) /lpf U Epithel Cells (Auto) (0-5) /lpf Urine Bacteria (Auto) (Negative) SARS-CoV-2, RNA, NAAT (NEGATIVE) 06/14/22 06/14/22 06/14/22 Range/Units 02:25 03:15 Unknown WBC (4.8-10.8) K/ul RBC (3.93-5.22) M/uL Hgb (12.0-16.0) g/dl Hct (34.1-44.9) % MCV (80.0-100.0) fL MCH (25.0-34.0) pg MCHC (32.0-36.0) g/dL RDW Std Deviation (36.4-46.3) fL RDW Coeff of Osman (11.5-14.5) % Plt Count (130-400) K/uL MPV (9.4-12.3) fL Immature Gran % (Auto) % Neut % (Auto) % Lymph % (Auto) % [place] % (Auto) % Eos % (Auto) % Baso % (Auto) % Neut # (Auto) (1.4-6.5) K/uL Lymph # (Auto) (1.2-3.4) K/uL [place] # (Auto) (0.24-0.82) K/uL Eos # (Auto) (0-0.50) K/uL Baso # (Auto) (0-0.2) K/uL Immature Gran # (Auto) (0.00-0.02) K/uL PT (9.0-12.0) Seconds INR (0.9-1.1) APTT (21.0-31.0) Seconds PTT Ratio Sodium 137 (136-145) mmol/L Potassium 5.2 H (3.5-5.1) mmol/L Chloride 104 (98-107) mmol/L Carbon Dioxide 24 (21-32) mmol/L Anion Gap 9 (3-11) BUN 35 H (6-23) mg/dl Creatinine 1.61 H (0.6-1.2) mg/dl Est Cr Clr Drug Dosing 34.8 ml/min Est GFR ( Amer) 38.2 ml/min Est GFR (Non-Af Amer) 33.0 ml/min BUN/Creatinine Ratio 21.7 H (10-20) Glucose 197 H (70-99(Fasting)) mg/dl Calcium 8.7 (8.5-10.1) mg/dl Magnesium 1.7 (1.7-2.4) mg/dl Total Bilirubin 1.3 H (0.2-1.0) mg/dl AST 13 (13-39) U/L ALT 13 (7-52) U/L Alkaline Phosphatase 186 H (34-104) U/L Troponin I High Sens 18.5 H (0-14) pg/ml B-Natriuretic Peptide (0-100) pg/ml Total Protein 6.3 (6.0-8.3) gm/dl Albumin 3.1 L (3.4-5.0) gm/dl Globulin 3.2 (2.5-4.0) gm/dl Albumin/Globulin Ratio 1.0 (0.9-2) Lipase 28 (11-82) U/L Urine Color Yellow Urine Appearance Cloudy A (Clear) Urine pH 5.0 (4.5-7.5) Ur Specific [place] 1.022 (1.000-1.030) Urine Protein 1+ H (Negative) Urine Glucose (UA) 3+ H (Negative) Urine Ketones Negative (Negative) Urine Blood Negative (Negative) Urine Nitrite Negative (Negative) Urine Bilirubin Negative (Negative) Urine Urobilinogen Negative (Negative) Ur Leukocyte Esterase Negative (Negative) Urine WBC (Auto) 1-5 (0-5) /hpf Urine RBC (Auto) 0-4 (0-4) /hpf U Hyaline Cast (Auto) 1-5 (0-5) /lpf U Epithel Cells (Auto) >30 H (0-5) /lpf Urine Bacteria (Auto) Negative (Negative) SARS-CoV-2, RNA, NAAT NEGATIVE (NEGATIVE) Imaging Data Radiologist's Impression: Preliminary Findings Only See Final Report For Complete Findings CTA CHEST: Comparison noncontrast chest CT 05/13/17. PEs in lobar and segmental arteries of right middle and right lower lobes, segmental/subsegmental arteries of right upper lobe, and segmental/subsegmental arteries of left lower lobe. Right lower lobe densities, probably pulmonary infarct. Small right pleural effusion. Equivocal right heart strain. RV/LV ratio less than 1.0 but left ventricle appears enlarged, and there is right atrial enlargement as well as contrast reflux into hepatic veins.. Left chest ICD. Small pericardial effusion. Radiologist:Ann Garcia MD Study ready at 04:04 and initial results transmitted at 04:34 ECG Data Additional Comments: Normal sinus rhythm @[address] elevation Non-specific intra-ventricular conduction block Possible Lateral infarct (cited on or before 14-JUN-2022) When compared with ECG of 08-JUN-2022 03:55, Nonspecific T wave abnormality, improved in Inferior leads MDM Narrative Physical exam and history were performed. Nursing notes, EMR, and Medication List were personally reviewed. No social concerns were identified as barriers to patients care. Patient appears to have cough and shortness of breath symptoms bringing her to the ER. She is with low blood pressure at baseline, but her presenting blood pressure was 75/49, and seems much lower than baseline. She is slightly tachycardic at 96 and tachypneic at 28. IV access was established and labs were obtained. Chest x-ray was performed. COVID swab was gathered. The patient does have listed iodine allergy. I did discuss this with her at bedside, and explained that we would need a CT with contrast to rule out a pulmonary embolism. Using shared decision making she was comfortable with premedication with Solu-Medrol and Benadryl and attempting CT scan. The patient's blood work is as above and was reviewed. She does have a slightly elevated white count of almost 12,000. She does not have significant anemia or gross electrolyte imbalance. INR is 1.1. Potassium is 5.2. BUN is 35 and creatinine is 1.61. Glucose is 197. BNP is 3900. Troponin is slightly elevated 18.5, with her baseline being around 15 or 16. Because of her labs and symptoms she was sent to CT scan for further evaluation. CT scan was reviewed by myself and radiology and unfortunately does reveal several pulmonary emboli with likely pulmonary infarct in the right lower lobe. The patient continued to be tachypneic and was placed on nasal cannula oxygen. Her COVID is negative. Case was discussed with my attending, Dr. Ruiz, who also evaluated the patient. Patient was started on heparin drip here in the ER. Case was discussed with the on-call hospitalist team, who agreed to evaluate the patient here in the ER. Please see their dictation for further patient course, plan, and disposition. The chart was completed utilizing [employer] Speech Voice Recognition Software. Grammatical errors, random word insertions, pronoun errors, and incomplete sentences are an occasional consequence of this system due to software l imitations, ambient noise, and hardware issues. Any formal questions or concerns about the content, text, or information contained within the body of this dictation should be directly addressed to the provider for clarification. . Impression & Plan Acute pulmonary embolism, CKD (chronic kidney disease), stage III, Shortness of breath, Lab test negative for COVID-19 virus Discharge Plan Visit Data Chief Complaint: Cough Stated Complaint: COUGH,CAN'T CATCH BREATH ED Provider: Cherry Ruiz ED Midlevel Provider: Golden Hancock Discharge Problem: Acute pulmonary embolism, CKD (chronic kidney disease), stage III, Shortness of breath, Lab test negative for COVID-19 virus Forms Stand Alone Forms: My [facility] Validroid Prescriptions Prescriptions: No Action (DME) lancets [Accu-Chek Softclix Lancets] Misc See Dose Instructions .ROUTE .MEDSUPPLY Qty: 100 3RF Dose Instruction: As directed Rx Instructions: Check daily and as needed (DME) Accu-Chek Guide test strips Strip See Dose Instructions .ROUTE .MEDSUPPLY Qty: 100 3RF Dose Instruction: As directed Rx Instructions: daily and as needed pantoprazole 40 mg tablet,delayed release (DR/EC) 40 mg PO DAILY Qty: 90 3RF empagliflozin 25 mg tablet 25 mg PO DAILY Qty: 90 3RF ezetimibe 10 mg tablet 10 mg PO PM Qty: 90 3RF carvedilol 3.125 mg tablet 3.125 mg PO BID Rx Instructions: must administer with a meal/food benzonatate 100 mg capsule 100 mg PO TID PRN (Reason: cough) Qty: 30 2RF cholecalciferol (vitamin D3) 5,000 unit capsule 5,000 units PO DAILY aspirin 81 mg Tablet,Delayed Release (Dr/Ec) 81 mg PO Q OTHER DAY acetaminophen 325 mg Tablet 650 mg PO Q4H PRN (Reason: pain) Qty: 30 0RF Rx Instructions: OTC omega-3 fatty acids 1,000 mg Capsule 1,000 mg PO QAM furosemide 40 mg Tablet 40 mg PO QAM 30 Days Qty: 30 0RF potassium chloride 20 mEq Tablet,Er Particles/Crystals 40 meq PO QAM 30 Days Qty: 60 0RF spironolactone 25 mg Tablet 25 mg PO QAM 30 Days Qty: 30 0RF Entresto 49-51 mg Tablet 1 tab PO BID 30 Days Qty: 60 0RF Referrals Referrals: Theo Houston MD [Primary Care Provider] -
[2022-06-14] MEDS ORDERED: Heparin IV Adult Wt-Based Standard WITH Bolus Protocol IV STA (05:01)
--- NOTE | 2022-06-14 05:12 | Emergency Department Note ---
ED Visit Note I was consulted by the Advanced Practice Provider. I saw the patient personally and performed a substantive portion of the visit. This includes aspects of the HPI, MDM, diagnostic interpretations, and disposition/plan. .
[2022-06-14] MEDS ORDERED: HEPARIN SOD (PORCINE) 1000 UNIT/ML IV ONE ×2 (05:16→06:15)
--- NOTE | 2022-06-14 06:25 | History & Physical Report ---
Date of Service June 14, 2022 Assessment & Plan (1) Acute pulmonary embolism: Plan: 67-year-old woman with history of CHF s/p ICD placement (on Entresto, carvedilol, Jardiance no prior history of exacerbation), CKD 3, DM2, recent cholecystectomy (POD 11/12) presenting with persisitent cough. Now admitted for PEs discovered on CT chest, on anticoagulation. Acute pulmonary embolism * Heparin gtt anticoagulation * Admit to PCU. NPO * Venous doppler, TTE pending * Hypercoagulable w/u ordered CHF -HFrEF s/p ICD. EF=15-20%. BNP 3986. -On Entresto, Jardiance, Coreg, spironolactone, and furosemide. * Continue Coreg. Holding Entresto, spironolactone, furosemide and Jardiance. Hypertension -BP low on admission -Holding CHF meds, as above out of concern for BP. * Home Coreg Hyperkalemia -K+ 5.2 on admission. -Spironolactone, furosemide held, as above. * Repeat BMP at 11 AM to trend K+ * Daily BMP DM2 * Holding po Jardiance * SQ SSI per protocol Code: Full code Dispo: PCU FEN/GI: NPO. No additional fluids DVT Prophylaxis: Heparin gtt PT/OT: No Consults: Cardiology, nephrology (2) CHF (congestive heart failure): (3) CKD (chronic kidney disease), stage III: (4) Hypotension: (5) Diabetes mellitus type II, controlled: History of Present Illness Primary Care Provider: Theo Houston MD Maribel is a 67-year-old woman with a history of type 2 diabetes, HFrEF with cardiomyopathy s/p ICD on Entresto, Coreg, and Jardiance (EF=15-20%), CKD3, hypertension, and hyperlipidemia, who presents to the emergency room with cough and SOB x1 week. Pt. states she is unable to catch her breath. She was recently [place] [facility] for cholecyst[place]. Almost 2 weeks later, she presented to [facility] with SOB and orthopnea suggestive of an acute on chronic CHF exacerbation. At that visit, prior to d/c, she developed a persistent cough at that visit, though her SOB improved. Pt recalls refusing SQ Lovenox just prior to d/c, as she was tired of getting stuck. At home, her cough persisted abd became more frequent/constant, even at bedtime, affecting sleep. When her symp toms progressed to include SOB and increased dizziness, she came to the ED. In the ED, vitals were notable for BP of 75/49 and RR of 28 with labored breathing. O2 sats were 96% on RA. Labs were notable for WBC of 11.9, BNP of 3986, K+ of 5.2, Cr of 1.61, alk phos of 186, and a troponin of 18.5. CT chest with contrast (premedicated with IV methyprednisone and IV benadryl--iodine allergy) revealed "PEs in lobar and segmental arteries of right middle and right lower lobes, segmental/subsegmental arteries of right upper lobe, and segmental/subsegmental arteries of left lower lobe. Right lower lobe densities, probably pulmonary infarct. Small right pleural effusion. Equivocal right heart strain. RV/LV ratio less than 1.0 but left ventricle appears enlarged, and there is right atrial enlargement as well as contrast reflux into hepatic veins. Left chest ICD. Small pericardial effusion." The overnight hospitalist was consulted for admission at which point the patient was started on heparin with loading bolus. Allergies Allergy/AdvReac Type Severity Reaction Status Date / Time erythromycin base Allergy Severe blisters;red;itchy;pain;blisters Verified 06/14/22 02:19 in back throat iodine Allergy Severe throat Verified 06/14/22 02:19 blisters;skin blisters meperidine [From Demerol] Allergy Severe quit Verified 06/14/22 02:19 breathing adhesive Allergy Intermediate BLISTERS Verified 06/14/22 02:19 tetracycline Allergy Unknown TERRAMYCIN Verified 06/14/22 02:19 ALLERGY atorvastatin AdvReac Intermediate MUSCLE Verified 06/14/22 02:19 PAIN/ACHES, DIFFICULTY WALKING azithromycin AdvReac Intermediate Gastrointestinal Verified 06/14/22 02:19 Upset metformin AdvReac Intermediate Diarrhea Verified 06/14/22 02:19 rosuvastatin [From Crestor] AdvReac Intermediate Cramping Verified 06/14/22 02:19 of the Muscles Ueldyxp-ACV-RyX Reductase AdvReac Intermediate MUSCLE Verified 06/14/22 02:19 Inhibitor PAIN/ACHES, [Bqcnrob-Sme-Vym Reductase DIFFICULTY Inhibitor] WALKING Home Medications Medication Instructions Recorded Confirmed Type cholecalciferol (vitamin D3) 125 5,000 units PO DAILY 01/14/19 06/14/22 History mcg (5,000 unit) capsule lancets (Accu-Chek Softclix #100 ea 11/26/19 06/09/22 Rx Lancets) blood sugar diagnostic (Accu-Chek #100 ea 02/09/21 06/09/22 Rx Guide test strips) pantoprazole 40 mg tablet,delayed 40 mg PO DAILY #90 tabs 09/21/21 06/14/22 Rx release empagliflozin 25 mg tablet 25 mg PO DAILY #90 tabs 11/09/21 06/14/22 Rx ezetimibe 10 mg tablet 10 mg PO PM #90 tabs 02/15/22 06/14/22 Rx aspirin 81 mg tablet,delayed 81 mg PO Q OTHER DAY 05/13/22 06/14/22 History release acetaminophen 325 mg tablet 650 mg PO Q4H PRN pain #30 tabs 05/14/22 06/14/22 Rx omega-3 fatty acids 1,000 mg 1,000 mg PO QAM 05/23/22 06/14/22 History capsule carvedilol 3.125 mg tablet 3.125 mg PO BID 06/01/22 06/14/22 History benzonatate 100 mg capsule 100 mg PO TID PRN cough #30 caps 06/09/22 06/14/22 Rx furosemide 40 mg tablet 40 mg PO QAM 30 days #30 tabs 06/09/22 06/14/22 Rx potassium chloride 20 mEq 40 meq PO QAM 30 days #60 tabs 06/09/22 06/14/22 Rx tablet,extended release(part/cryst) sacubitril 49 mg-valsartan 51 mg 1 tab PO BID 30 days #60 tabs 06/09/22 06/14/22 Rx tablet (Entresto) spironolactone 25 mg tablet 25 mg PO QAM 30 days #30 tabs 06/09/22 06/14/22 Rx Past Med/Surg History Medical History Allergic rhinitis Asymptomatic menopausal state Atopic dermatitis CKD (chronic kidney disease), stage III Congestive heart failure with cardiomyopathy follows with Dr. Roberto Dental abscess Diabetes mellitus type II, controlled NIDDM Diverticulosis of colon Eustachian tube dysfunction History of sigmoidoscopy Hyperlipidemia Hypertension IBS (irritable bowel syndrome) ICD (implantable cardioverter-defibrillator) in place Placed Feb 2015 > [employer] > last checked 03/23/21 with > placed for CHF Incidental pulmonary nodule, > 3mm and < 8mm Internal hemorrhoids Mitral valve disorder follows with Dr. Mejia Obesity Osteopenia Renal insufficiency pt unaware Sigmoid diverticulitis Stage 3b chronic kidney disease Vitamin D deficiency Vitamin D deficiency Surgical History History of appendectomy History of arthroscopy of right knee History of arthroscopy of right shoulder History of breast biopsy benign History of cardiac cath 10/2017 [facility] no stents History of carpal tunnel surgery History of Neuroplasty Decompression Median Nerve At Carpal Tunnel> right History of cholecystectomy 05/28/[address] [place] [address] Ivey History of colonoscopy History of incision and drainage (05/14/22) infection floor of the mouth and subperiosteal plane # 30 area p Incision and Drainage, Tooth Extraction(Right) - Quinton Amezcua DMD History of repair of rotator cuff right History of vaginal hysterectomy Family History Mother Breast cancer Diabetes Grandmother Myocardial infarction Denies family history of Ovarian cancer Prostate cancer Colorectal cancer Social History Smoking Status: Never smoker Second Hand Exposure: No; Hx Alcohol Use: Yes Alcohol type: wine Hx Substance Use: No Preferred Language: Spanish Communication Ability: Effective Visual Impairment: No Limitations Hearing Ability: Normal Safety Instructor Required: No Beliefs That Will Affect Care: None marital status: Current Living Situation: Spouse current occupational status: retired Feels Safe at Home: Yes Childhood Exposure to Second-Hand Smoke: No caffeine: Yes during the past year weight has: remained stable Dental Care, Regularly: Yes Physical Activity Frequency: Does not Exercise Seatbelt Use: always Sunscreen Use: Yes Assistive Devices: Glasses Review of Systems Review of Systems: All systems reviewed & are unremarkable except as noted in HPI & below Physical Exam Physical Exam: General: No acute distress HEENT: PERRLA. Normal conjunctiva, anicteric sclera. Oropharynx normal. Respiratory: Normal respiratory effort, RLL crackles. Cardiovascular: RRR without murmurs, gallops, or rubs. No edema. GI: Soft abdomen with normal bowel sounds heard on auscultation. Nontender x4 quadrants Neuro: Alert and oriented x3. Results & Data Results & Data ([facility]) Vital Signs (Past 12 Hours) Vital Signs Temp Pulse Pulse Resp BP Pulse Ox O2 Del Method 06/14/22 05:00 84 41 H 81/44 L 94 Room Air 06/14/22 05:20 90 32 H 99 Nasal Cannula 06/14/22 04:00 86 32 H 92/62 L 93 06/14/22 03:00 90 23 86/54 L 97 Room Air 06/14/22 02:40 87 32 H 88/49 L 93 Room Air 06/14/22 01:59 92 H 18 94 Room Air 06/14/22 01:46 36.5 C 96 H 28 H 75/49 L 96 Room Air O2 Flow Rate 06/14/22 05:00 06/14/22 05:20 2 06/14/22 04:00 06/14/22 03:00 06/14/22 02:40 06/14/22 01:59 06/14/22 01:46 Supervising Physician Co-Signing Physician Notes Attending addendum: I have physically seen this patient, have supervised the medical residents activities, and agree with the H&P unless as otherwise noted. Assessment and Plan: Bilateral pulmonary emboli- Patient was premedicated CT scan due to iodine allergy with both the IV Benadryl and IV methylprednisolone PE's noted bilaterally Hypercoagulable work-up Lower extremity venous Dopplers bilaterally Order echocardiogram Heparin drip weight-based per protocol Of note, patient was prescribed Lovenox at last hospitalization, however, did not want to take it due to issues with bruising already Elevated troponin/CHF/ischemic cardiomyopathy/CAD- The patient will be admitted to telemetry for serial cardiac enzymes, serial EKG's, cardiac rhythm monitoring and a 2-D echocardiogram with Dopplers. Troponin 18.3 on admission Admitted 06/08-06/09/2022 for CHF Consult cardiology Question right heart strain noted on CT scan Heparin IV above as noted Acute kidney injury on CKD stage III- Creatinine 1.61 admission, with base 0.96 Did receive IV contrast for CTA of chest Difficult given IV fluids due to EF of 15% and ischemic cardiomyopathy Hold spironolactone, Entresto, potassium chloride and furosemide for now Order a BMP for 11:00 this a.m. Diabetes mellitus- Continue Jardiance for heart failure protocol Placed on Accu-Cheks before meals and at bedtime with NovoLog coverage per scale Remaining orders and notations as noted Resident Activity Tracking Resident Involvement: Resident Care Provided Care Provided: Adult Hospital Medicine (1) Diabetes mellitus type II, controlled Diabetes mellitus complication status: without complication Diabetes mellitus tank terminal gauger insulin use: without tank terminal gauger use Qualified Code(s): E11.9 - Type 2 diabetes mellitus without complications
[2022-06-14] MEDS: HEPARIN SODIUM/DEXTROSE 25,000 UNITS/500 ML BAG IV SCH (06:42)
--- NOTE | 2022-06-14 06:59 | Billing Data ---
Date of Service June 14, 2022 Coding Level of Care Code 15557 INT INP/OBS CARE
--- NOTE | 2022-06-14 07:20 | XRay Report ---
XR chest 1V portable CLINICAL HISTORY: cough, sob, chf hx TECHNIQUE: Single frontal radiograph of the chest was obtained. Comparison: Comparison is made to chest radiograph 06/08/2022 FINDINGS: Pacemaker defibrillator is seen. Cardiomegaly is noted. Bilateral lower lung predominant airspace opa cities are seen. Prominence of the pulmonary vasculature is noticed. No pneumothorax is seen, pleural effusions cannot be excluded. IMPRESSION: 1. Cardiomegaly and mild pulmonary edema. 2. Bibasilar airspace opacities are again seen which may represent atelectasis, aspiration, and/or p neumonia. 3. Possible small bilateral pleural effusions. ACT 112: Negative or not required by law. Electronically signed by: Inderjit Frank M.D. 06/14/2022 7:19 AM
--- NOTE | 2022-06-14 07:42 | CT Scan Report ---
CT angio chest PE protocol CLINICAL HISTORY: PE TECHNIQUE: Multidetector row helical CT of the chest was performed with angiographic protocol. White l and sagittal reformations were obtained. Coronal and sagittal MIPS were obtained from the axial megan a set and were submitted for review. Automated dose lowering techniques and/or adjustment according to patient size were utilized for this exam. CT DOSE: 621.22 mGy.cm Comparison: Comparison is made to CT chest 05/13/2017 FINDINGS: Lungs and pleura: There is groundglass opacity and consolidation in the right lower lobe. There is a left lower lobe focus of atelectasis. There is a small right pleural effusion. Heart and pericardium: Cardiomegaly is seen with biatrial enlargement. There is flattening of the in terventricular septum which may represent mild right heart strain. Vessels: Lobar and segmental pulmonary emboli are seen in the right middle and lower lobes as well as in segmental and subsegmental portions of the right upper lobe. Reflux of contrast is seen into the hepatic veins. Mediastinum and jovanni: There is a 13 mm subcarinal node. Additional subcentimeter nodes are seen in th e mediastinum. Chest wall and lower neck: Left chest ICD is seen. Abdomen: Unremarkable. Bones: Degenerative changes in the thoracic spine. IMPRESSION: Multiple pulmonary emboli are seen with possible right heart strain. Right lower lung airspace opacit ies likely represent pulmonary infarct with possible reactive pleural effusion. ACT 112: Negative or not required by law. Electronically signed by: Inderjit Frank M.D. 06/14/2022 7:41 AM
[2022-06-14] MEDS ORDERED: GLUCAGON FOR INJ 1 MG VIAL SQ PRN (08:15)
[2022-06-14] MEDS ORDERED: GLUCOSE 40% GEL 15 GM TUBE PO PRN (08:15)
[2022-06-14] MEDS ORDERED: CARBOHYDRATES FOR HYPOGLYCEMIA PO PRN (08:15)
[2022-06-14] MEDS ORDERED: DEXTROSE 50% 50 ML SYRINGE IV PRN (08:15)
[2022-06-14] MEDS ORDERED: ACETAMINOPHEN 325 MG TAB PO PRN (08:15)
[2022-06-14] MEDS ORDERED: GLUCOSE 10 TAB/TUBE PO PRN (08:15)
[2022-06-14] MEDS ORDERED: ONDANSETRON INJ 2 MG/ML 2 ML VIAL IV PRN (08:15)
--- NOTE | 2022-06-14 09:57 | Ultrasound Report ---
US venous doppler LE BI CLINICAL HISTORY: PE's TECHNIQUE: Bilateral lower extremity real-time compression venous ultrasound with Color Doppler imagi ng. Utilizing real-time ultrasonic imaging multiple real time high-resolution ultrasonic images with compression and noncompression maneuvers of the deep venous system in addition to color doppler imagi ng were performed from the common femoral vein through the proximal calf veins. COMPARISON: None available at the time of this dictation. FINDINGS/IMPRESSION: Currently there is normal compressibility of the deep venous system from the common femoral vein thro ugh the proximal calf veins. No superficial venous thrombosis is identified. ACT 112: Negative or not required by law. Electronically signed by: Inderjit Frank M.D. 06/14/2022 9:56 AM
[2022-06-14] MEDS: carvediloL 3.125 MG TAB PO SCH ×2 (10:19→18:05)
[2022-06-14] MEDS: EMPAGLIFLOZIN 25 MG TAB PO SCH (10:24)
[2022-06-14] MEDS: PANTOprazole 40 MG TAB PO SCH (10:24)
[2022-06-14] MEDS: CHOLECALCIFEROL 5,000 UNITS 125 MCG TAB PO SCH (10:24)
--- NOTE | 2022-06-14 10:50 | Medical Student Progress Note ---
Date of Service June 14, 2022 Assessment & Plan (1) Acute pulmonary embolism: Plan: 67 y/o female with history to T2DM, HFrEF of 15-20% with cardiomyopathy s/p ICD on entresto, coreg, and Jardiance, CKD stage 3, HTN, HLD, and recent admission at [facility] [place] on 05/28/22 for cholecystectomy presented to the ED with persistent cough. Pt was admitted for PEs discovered on CT chest and is currently being treated with heparin. Acute pulmonary embolism -CT chest with contrast showed bilateral PEs -Recent (05/28/22) cholecystectomy in setting of refusing SQ heparin upon discharge, recent imobility, and complicated medical history are likely all cont ributory to development of multiple PEs -Echocardiogram ordered in the setting of possible right heart strain found on CT with contrast and HFrEF with cardiomyopathy history. -Heparin gtt anticoagulation -Admit to PCU. NPO -Venous doppler, TTE pending -Hypercoagulable w/u ordered (2) CHF (congestive heart failure): Plan: -HFrEF s/p ICD. EF=15-20% -BNP of 4537 on admission, currently 3986 -Troponin 18.5 on admission, currently 18.5 -On Entresto, Jardiance, Coreg, spironolactone, and furosemide. * Continue Coreg. Holding Entresto, spironolactone, furosemide and Jardiance. * Cardiology consult ordered * Echo ordered * Trend troponin (3) CKD (chronic kidney disease), stage III: Plan: -Cr 1.61 on admission, current Cr 1.60 -Cr 1.37 on discharge 06/09 -Holding Entresto, spironolactone, furosemide and Jardiance -Trend BMP (4) Hypotension: Plan: -Hypotensive on admission -Holding Entresto, spironolactone, furosemide and Jardiance as above out of concern for BP -Continue home Coreg (5) Hyperkalemia: Plan: -K 5.2 on admission. -Currently, K 5.4 -Spironolactone, furosemide held, as above -Trend BMP (6) Diabetes mellitus type II, controlled: Plan: -Holding po Jardiance -SQ SSI per protocol Diabetes mellitus complication status: without complication Diabetes mellitus correction insulin use: without intermediate project manager use Qualified Code(s): E11.9 - Type 2 diabetes mellitus without complications Plan Code: Full code Dispo: PCU FEN/GI: NPO. No additional fluids DVT Prophylaxis: Heparin gtt PT/OT: No Consults: Cardiology, nephrology Admission and Anticipated Discharge Date Admission Date: June 14, 2022 Supervising Attestation I personally examined the patient and verified all alejandra points of history and exam, discussed case, and agree with decision making of medical student/medical office assistant instructor. Subjective 67 y/o female with history to T2DM, HFrEF of 15-20% with cardiomyopathy s/p ICD on entresto, coreg, and Jardiance, CKD stage 3, HTN, HLD, and recent admission at [facility] [place] on 05/28/22 for cholecystectomy presented to the ED with persistent cough. Pt was hypotensive with 75/49 and tachypneic with RR of 28 with O2 sats of 96% on room air. Labs indicated WBC of 11.9, BNP of 3986, K 5.2 Cr of 1.61, Alk phos of 186, and troponin of 18.5. CT chest with contrast indicated multiple bilateral PEs with possible right heart strain and right atrial enlargement. Pt was started on loading bolus of heparin. Today, pt endorses improved SOB. Currently on 2L nasal cannula with no increased work of breathing. Pt was not aware of the possible cause of her multiple PEs. Pt has a past history of excessive bruising at injeciton sites for subcutaneous heparin. Pt was not aware of the possibility of requiring long-term anticoagulation. Pt has no new acute concerns today. Review of Systems Respiratory: Improved SOB per HPI. Cardiovascular: no chest pain Physical Exam Respiratory: no respiratory distress and does not use accessory muscles Coarse, decreased breath sounds in RLL. Normal auscultation in all other lobes. Cardiovascular: Rate/Rhythm: regular rate and regular rhythm Heart Sounds: no click, no gallop, no murmur and no cardiac rub Extremities: no pedal edema Mild bilateral calf tenderness to palpation Results & Data ([facility]) Vital Signs (Past 12 Hours) Vital Signs Temp Pulse Pulse Resp BP BP Pulse Ox 06/14/22 08:31 36.6 C 84 33 H 97/59 L 99 06/14/22 08:31 06/14/22 07:00 77 33 H 99/54 L 99 06/14/22 06:00 80 29 H 95/60 L 99 06/14/22 05:31 94/59 L 06/14/22 05:00 84 41 H 81/44 L 94 06/14/22 05:20 90 32 H 99 06/14/22 04:00 86 32 H 92/62 L 93 06/14/22 03:00 90 23 86/54 L 97 06/14/22 02:40 87 32 H 88/49 L 93 06/14/22 01:59 92 H 18 94 06/14/22 01:46 36.5 C 96 H 28 H 75/49 L 96 Pulse Ox O2 Del Method O2 Del Method O2 Flow Rate O2 Flow Rate 06/14/22 08:31 Nasal Cannula 2 06/14/22 08:31 98 Room Air 2 06/14/22 07:00 Nasal Cannula 2 06/14/22 06:00 Nasal Cannula 2 06/14/22 05:31 06/14/22 05:00 Room Air 06/14/22 05:20 Nasal Cannula 2 06/14/22 04:00 06/14/22 03:00 Room Air 06/14/22 02:40 Room Air 06/14/22 01:59 Room Air 06/14/22 01:46 Room Air
[2022-06-14] MEDS: INSULIN ASPART PER UNIT SC SCH ×4 (11:16→20:32)
[2022-06-14 11:32] LABS: BUN Creatinine Ratio 22.5 (10-20); Calcium 8.5 mg/dl (8.5-10.1); Creatinine Clr Calc Pharmacy 35.1 ml/min; Est GFR (African American) 38.5 ml/min; Est GFR (Non-African American) 33.2 ml/min; Potassium 5.4 mmol/L (3.5-5.1)
[2022-06-14 13:26] LABS: Partial Thromboplastin Ratio 2.1
--- NOTE | 2022-06-14 13:27 | XCELERA ---
[id number]
[2022-06-14] MEDS ORDERED: PNEUMOCOCCAL POLYSACCHARIDES 25 MCG/0.5 ML VIAL/SYR IM ONE (16:44)
--- NOTE | 2022-06-14 16:58 | Cardiology Consultation ---
Date of Consultation June 14, 2022 Assessment & Plan (1) Acute pulmonary embolism: (2) CHF (congestive heart failure): (3) Mitral valve disorder: (4) ICD (implantable cardioverter-defibrillator) in place: (5) Idiopathic cardiomyopathy: Plan 1. Pulmonary embolism: This was in the postoperative period. Likely related in some fashion. No evidence of DVT. Started on systemic anticoagulation. There is no evidence of right heart failure on echocardiography or by examination. Very likely that her symptoms recently related to the pulmonary embolus and not exclusively decompensated heart failure. 2. Congestive heart failure: ProBNP was markedly elevated at the time of a dmission. While is likely most her symptoms are related to pulmonary embolus I would continue her daily dose of diuretic. 3. Cardiomyopathy: She has relatively lower blood pressures, but this is a chronic finding. I think he would be a helpful to continue on her usual outpatient heart failure regimen which can cysts of low-dose carvedilol, Jardiance, spironolactone and Lasix. We need to be somewhat cautious regarding diuresis given the pre G and potential for RV failure. However, this was not manifest on her recent echocardiogram. In the setting of worsening hemodynamics after diuresis fluid administration would be needed. 4. Dual-chamber Medtronic ICD 5. Mitral regurgitation: Moderate. History of Present Illness Reason for Consultation: Elevated troponin Requesting Physician: Isidro Attending Physician: Jamie Felix MD History of Present Illness The patient is a 67-year-old woman with a longstanding history of severe nonischemic cardiomyopathy who was initially admitted with symptoms of cholecystitis. She eventually underwent a cholecystectomy and was discharged home only to return with symptoms of decompensated heart failure shortly afterwards. Patient's symptoms improved and she was discharged home but developed a nonproductive cough. The nonproductive cough became progressively worse and was accompanied by worsening dyspnea as well. Last evening she sought medical attention in the emergency room and was diagnosed with pulmonary emboli. She denied associated chest pain. She denied any pain in her legs. She does not feel that she has gained significant amount of weight or noticed any lower extremity edema. She has not been aware of any palpitations. No dizziness, lightheadedness or syncope. Allergies Allergy/AdvReac Type Severity Reaction Status Date / Time erythromycin base Allergy Severe blisters;red;itchy;pain;blisters Verified 06/14/22 02:19 in back throat iodine Allergy Severe throat Verified 06/14/22 02:19 blisters;skin blisters meperidine [From Demerol] Allergy Severe quit Verified 06/14/22 02:19 breathing adhesive Allergy Intermediate BLISTERS Verified 06/14/22 02:19 tetracycline Allergy Unknown TERRAMYCIN Verified 06/14/22 02:19 ALLERGY atorvastatin AdvReac Intermediate MUSCLE Verified 06/14/22 02:19 PAIN/ACHES, DIFFICULTY WALKING azithromycin AdvReac Intermediate Gastrointestinal Verified 06/14/22 02:19 Upset metformin AdvReac Intermediate Diarrhea Verified 06/14/22 02:19 rosuvastatin [From Crestor] AdvReac Intermediate Cramping Verified 06/14/22 02:19 of the Muscles Qlzrixn-YOR-UuE Reductase AdvReac Intermediate MUSCLE Verified 06/14/22 02:19 Inhibitor PAIN/ACHES, [Hiixowy-Elx-Ebv Reductase DIFFICULTY Inhibitor] WALKING Home Medications Medication Instructions Recorded Confirmed Type cholecalciferol (vitamin D3) 125 5,000 units PO DAILY 01/14/19 06/14/22 History mcg (5,000 unit) capsule lancets (Accu-Chek Softclix #100 ea 11/26/19 06/09/22 Rx Lancets) blood sugar diagnostic (Accu-Chek #100 ea 02/09/21 06/09/22 Rx Guide test strips) pantoprazole 40 mg tablet,delayed 40 mg PO DAILY #90 tabs 09/21/21 06/14/22 Rx release empagliflozin 25 mg tablet 25 mg PO DAILY #90 tabs 11/09/21 06/14/22 Rx ezetimibe 10 mg tablet 10 mg PO PM #90 tabs 02/15/22 06/14/22 Rx aspirin 81 mg tablet,delayed 81 mg PO Q OTHER DAY 05/13/22 06/14/22 History release acetaminophen 325 mg tablet 650 mg PO Q4H PRN pain #30 tabs 05/14/22 06/14/22 Rx omega-3 fatty acids 1,000 mg 1,000 mg PO QAM 05/23/22 06/14/22 History capsule carvedilol 3.125 mg tablet 3.125 mg PO BID 06/01/22 06/14/22 History benzonatate 100 mg capsule 100 mg PO TID PRN cough #30 caps 06/09/22 06/14/22 Rx furosemide 40 mg tablet 40 mg PO QAM 30 days #30 tabs 06/09/22 06/14/22 Rx potassium chloride 20 mEq 40 meq PO QAM 30 days #60 tabs 06/09/22 06/14/22 Rx tablet,extended release(part/cryst) sacubitril 49 mg-valsartan 51 mg 1 tab PO BID 30 days #60 tabs 06/09/22 06/14/22 Rx tablet (Entresto) spironolactone 25 mg tablet 25 mg PO QAM 30 days #30 tabs 06/09/22 06/14/22 Rx Patient History Medical History Allergic rhinitis Asymptomatic menopausal state Atopic dermatitis CKD (chronic kidney disease), stage III Congestive heart failure with cardiomyopathy follows with Dr. Mejia Dental abscess Diabetes mellitus type II, controlled NIDDM Diverticulosis of colon Eustachian tube dysfunction History of sigmoidoscopy Hyperlipidemia Hypertension IBS (irritable bowel syndrome) ICD (implantable cardioverter-defibrillator) in place Placed Feb 2015 > Granulartronic > last checked 03/23/21 with > placed for CHF Incidental pulmonary nodule, > 3mm and < 8mm Internal hemorrhoids Mitral valve disorder follows with Dr. Mejia Obesity Osteopenia Renal insufficiency pt unaware Sigmoid diverticulitis Stage 3b chronic kidney disease Vitamin D deficiency Vitamin D deficiency Surgical History History of appendectomy History of arthroscopy of right knee History of arthroscopy of right shoulder History of breast biopsy benign History of cardiac cath 10/2017 [facility] no stents History of carpal tunnel surgery History of Neuroplasty Decompression Median Nerve At Carpal Tunnel> right History of cholecystectomy 05/28/[address] [place] [address] Ivey History of colonoscopy History of incision and drainage (05/14/22) infection floor of the mouth and subperiosteal plane # 30 area p Incision and Drainage, Tooth Extraction(Right) - Quinton Amezcua, DA History of repair of rotator cuff right History of vaginal hysterectomy Family History Mother Breast cancer Diabetes Grandmother Myocardial infarction Denies family history of Ovarian cancer Prostate cancer Colorectal cancer Social History Smoking Status: Never smoker Second Hand Exposure: No; Hx Alcohol Use: No Hx Substance Use: No Preferred Language: Slovenian Communication Ability: Effective Visual Impairment: No Limitations Hearing Ability: Normal School Health Aide Required: No Beliefs That Will Affect Care: None marital status: Current Living Situation: Spouse current occupational status: retired Feels Safe at Home: Yes Childhood Exposure to Second-Hand Smoke: No caffeine: Yes during the past year weight has: remained stable Dental Care, Regularly: Yes Physical Activity Frequency: Does not Exercise Seatbelt Use: always Sunscreen Use: Yes Assistive Devices: Glasses Review of Systems Review of Systems: Per HPI Physical Exam Physical Exam: She is alert and oriented x3. Mood affect appear normal. She answered all questions appropriately. HEENT: Sclerae are anicteric. Pupils are equal and reactive to light and accommodation. Extraocular movements were intact. Neuro: Cranial nerves intact Lungs: Some crackles in the lung bases more noticeable on the right versus the left. No expiratory wheezing. Normal respiratory effort. Cardiac: The rhythm was regular. S1 and S2 were normal. There are no murmurs on examination. The PMI was not markedly displaced on palpation. Extremities: Patient has bilateral radial pulses that are equal in intensity. There is no evidence cyanosis or clubbing. Right lower extremity appears slightly larger than the left. No pitting edema. Skin: There are no rashes noted on examination today. Results & Data ([facility]) Vital Signs (Past 12 Hours) Vital Signs Temp Pulse Pulse Resp BP BP BP 06/14/22 16:30 36.3 C L 93 H 16 90/60 L 06/14/22 08:31 36.6 C 84 33 H 97/59 L 06/14/22 08:31 06/14/22 07:00 77 33 H 99/54 L 06/14/22 06:00 80 29 H 95/60 L 06/14/22 05:31 94/59 L 06/14/22 05:00 84 41 H 81/44 L 06/14/22 05:20 90 32 H Pulse Ox Pulse Ox O2 Del Method O2 Del Method O2 Flow Rate O2 Flow Rate 06/14/22 16:30 Room Air 06/14/22 08:31 99 Nasal Cannula 2 06/14/22 08:31 98 Room Air 2 06/14/22 07:00 99 Nasal Cannula 2 06/14/22 06:00 99 Nasal Cannula 2 06/14/22 05:31 06/14/22 05:00 94 Room Air 06/14/22 05:20 99 Nasal Cannula 2 Laboratory Results Abnormal Lab Results 06/14/22 06/14/22 06/14/22 02:25 02:25 02:25 WBC 11.91 H RBC 3.68 L Hgb 11.5 L Hct 35.3 MCV 95.9 MCH 31.3 MCHC 32.6 RDW Std Deviation 51.1 H RDW Coeff of Osman 14.6 H Plt Count 279 MPV 9.8 Immature Gran % (Auto) 0.4 Neut % (Auto) 81.8 Lymph % (Auto) 9.2 Cherry % (Auto) 8.2 Eos % (Auto) 0.2 Baso % (Auto) 0.2 Neut # (Auto) 9.74 H Lymph # (Auto) 1.10 L Cherry # (Auto) 0.98 H Eos # (Auto) 0.02 Baso # (Auto) 0.02 Immature Gran # (Auto) 0.05 H PT 11.9 INR 1.1 APTT 28.2 PTT Ratio 1.0 Sodium Potassium Chloride Carbon Dioxide Anion Gap BUN Creatinine Est Cr Clr Drug Dosing Est GFR ( Amer) Est GFR (Non-Af Amer) BUN/Creatinine Ratio Glucose POC Glucose Calcium Magnesium Total Bilirubin AST ALT Alkaline Phosphatase Troponin I High Sens B-Natriuretic Peptide 3986 H Total Protein Albumin Globulin Albumin/Globulin Ratio Lipase Urine Color Urine Appearance Urine pH Ur Specific [place] Urine Protein Urine Glucose (UA) Urine Ketones Urine Blood Urine Nitrite Urine Bilirubin Urine Urobilinogen Ur Leukocyte Esterase Urine WBC (Auto) Urine RBC (Auto) U Hyaline Cast (Auto) U Epithel Cells (Auto) Urine Bacteria (Auto) SARS-CoV-2, RNA, NAAT 06/14/22 06/14/22 06/14/22 02:25 03:15 06:28 WBC RBC Hgb Hct MCV MCH MCHC RDW Std Deviation RDW Coeff of Osman Plt Count MPV Immature Gran % (Auto) Neut % (Auto) Lymph % (Auto) Cherry % (Auto) Eos % (Auto) Baso % (Auto) Neut # (Auto) Lymph # (Auto) Cherry # (Auto) Eos # (Auto) Baso # (Auto) Immature Gran # (Auto) PT INR APTT PTT Ratio Sodium 137 Potassium 5.2 H Chloride 104 Carbon Dioxide 24 Anion Gap 9 BUN 35 H Creatinine 1.61 H Est Cr Clr Drug Dosing 34.8 Est GFR ( Amer) 38.2 Est GFR (Non-Af Amer) 33.0 BUN/Creatinine Ratio 21.7 H Glucose 197 H POC Glucose Calcium 8.7 Magnesium 1.7 Total Bilirubin 1.3 H AST 13 ALT 13 Alkaline Phosphatase 186 H Troponin I High Sens 18.5 H 18.4 H B-Natriuretic Peptide Total Protein 6.3 Albumin 3.1 L Globulin 3.2 Albumin/Globulin Ratio 1.0 Lipase 28 Urine Color Yellow Urine Appearance Cloudy A Urine pH 5.0 Ur Specific [place] 1.022 Urine Protein 1+ H Urine Glucose (UA) 3+ H Urine Ketones Negative Urine Blood Negative Urine Nitrite Negative Urine Bilirubin Negative Urine Urobilinogen Negative Ur Leukocyte Esterase Negative Urine WBC (Auto) 1-5 Urine RBC (Auto) 0-4 U Hyaline Cast (Auto) 1-5 U Epithel Cells (Auto) >30 H Urine Bacteria (Auto) Negative SARS-CoV-2, RNA, NAAT 06/14/22 06/14/22 06/14/22 08:48 10:27 10:50 WBC RBC Hgb Hct MCV MCH MCHC RDW Std Deviation RDW Coeff of Osman Plt Count MPV Immature Gran % (Auto) Neut % (Auto) Lymph % (Auto) Cherry % (Auto) Eos % (Auto) Baso % (Auto) Neut # (Auto) Lymph # (Auto) Cherry # (Auto) Eos # (Auto) Baso # (Auto) Immature Gran # (Auto) PT INR APTT PTT Ratio Sodium 135 L Potassium 5.4 H Chloride 103 Carbon Dioxide 23 Anion Gap 9 BUN 36 H Creatinine 1.60 H Est Cr Clr Drug Dosing 35.1 Est GFR ( Amer) 38.5 Est GFR (Non-Af Amer) 33.2 BUN/Creatinine Ratio 22.5 H Glucose 270 H POC Glucose 230 H Calcium 8.5 Magnesium Total Bilirubin AST ALT Alkaline Phosphatase Troponin I High Sens 18.5 H B-Natriuretic Peptide Total Protein Albumin Globulin Albumin/Globulin Ratio Lipase Urine Color Urine Appearance Urine pH Ur Specific [place] Urine Protein Urine Glucose (UA) Urine Ketones Urine Blood Urine Nitrite Urine Bilirubin Urine Urobilinogen Ur Leukocyte Esterase Urine WBC (Auto) Urine RBC (Auto) U Hyaline Cast (Auto) U Epithel Cells (Auto) Urine Bacteria (Auto) SARS-CoV-2, RNA, NAAT 06/14/22 06/14/22 06/14/22 12:36 12:39 14:19 WBC RBC Hgb Hct MCV MCH MCHC RDW Std Deviation RDW Coeff of Osman Plt Count MPV Immature Gran % (Auto) Neut % (Auto) Lymph % (Auto) Cherry % (Auto) Eos % (Auto) Baso % (Auto) Neut # (Auto) Lymph # (Auto) Cherry # (Auto) Eos # (Auto) Baso # (Auto) Immature Gran # (Auto) PT INR APTT 59.0 H* PTT Ratio 2.1 Sodium Potassium Chloride Carbon Dioxide Anion Gap BUN Creatinine Est Cr Clr Drug Dosing Est GFR ( Amer) Est GFR (Non-Af Amer) BUN/Creatinine Ratio Glucose POC Glucose 270 H Calcium Magnesium Total Bilirubin AST ALT Alkaline Phosphatase Troponin I High Sens 15.7 H B-Natriuretic Peptide Total Protein Albumin Globulin Albumin/Globulin Ratio Lipase Urine Color Urine Appearance Urine pH Ur Specific [place] Urine Protein Urine Glucose (UA) Urine Ketones Urine Blood Urine Nitrite Urine Bilirubin Urine Urobilinogen Ur Leukocyte Esterase Urine WBC (Auto) Urine RBC (Auto) U Hyaline Cast (Auto) U Epithel Cells (Auto) Urine Bacteria (Auto) SARS-CoV-2, RNA, NAAT 06/14/22 06/14/22 16:31 Unknown WBC RBC Hgb Hct MCV MCH MCHC RDW Std Deviation RDW Coeff of Osman Plt Count MPV Immature Gran % (Auto) Neut % (Auto) Lymph % (Auto) Cherry % (Auto) Eos % (Auto) Baso % (Auto) Neut # (Auto) Lymph # (Auto) Cherry # (Auto) Eos # (Auto) Baso # (Auto) Immature Gran # (Auto) PT INR APTT PTT Ratio Sodium Potassium Chloride Carbon Dioxide Anion Gap BUN Creatinine Est Cr Clr Drug Dosing Est GFR ( Amer) Est GFR (Non-Af Amer) BUN/Creatinine Ratio Glucose POC Glucose 289 H Calcium Magnesium Total Bilirubin AST ALT Alkaline Phosphatase Troponin I High Sens B-Natriuretic Peptide Total Protein Albumin Globulin Albumin/Globulin Ratio Lipase Urine Color Urine Appearance Urine pH Ur Specific [place] Urine Protein Urine Glucose (UA) Urine Ketones Urine Blood Urine Nitrite Urine Bilirubin Urine Urobilinogen Ur Leukocyte Esterase Urine WBC (Auto) Urine RBC (Auto) U Hyaline Cast (Auto) U Epithel Cells (Auto) Urine Bacteria (Auto) SARS-CoV-2, RNA, NAAT NEGATIVE Diagnostic Findings Echocardiogram performed today revealed severely reduced LV systolic function with global hypokinesis. Normal right ventricular function and size. Mild left atrial dilation. Mild to moderate right atrial dilation. Moderate mitral regurgitation. [id number] tricuspid regurgitation with elevated pulmonary pressures estimated at 40-50 mm of mercury. Chest CTA performed at the time of admission revealed multiple pulmonary emboli. Possible right lower lung pulmonary infarct. Lower extremity ultrasounds and not reveal any evidence of venous thrombosis. ECG Additional Comments: EKG demonstrated normal sinus rhythm with nonspecific interventricular conduction delay. PG Care Time/CCT Total # of Minutes Spent Total Time Spent with Patient: Total time spent is greater than 50% in coordination of care (as documented) at patient's floor/unit and/or counseling patient: Coding Level of Care Code 19435 INT INP/OBS CARE 3/75MIN Diagnoses Acute pulmonary embolism I26.99 CHF (congestive heart failure) I50.9 Mitral valve disorder I05.9 ICD (implantable cardioverter-defibrillator) in place Z95.810 Idiopathic cardiomyopathy I42.8
[2022-06-14] MEDS ORDERED: FUROSEMIDE 40 MG TAB PO ONE (17:00)
--- NOTE | 2022-06-14 18:26 | Electrocardiogram Report ---
Test Reason : Blood Pressure : / mmHG Vent. Rate : 093 BPM Atrial Rate : 093 BPM P-R Int : 186 ms QRS Dur : 134 ms QT Int : 420 ms P-R-T Axes : -22 233 031 degrees QTc Int : 522 ms Normal sinus rhythm Non-specific intra-ventricular conduction block Possible Lateral infarct (cited on or before 14-JUN-2022) Abnormal ECG When compared with ECG of 08-JUN-2022 03:55, Nonspecific T wave abnormality, improved in Inferior leads Confirmed by Theo Galicia ([id number]) on 06/14/2022 6:26:48 PM Referred By: REFERRED SELF Confirmed By:Corye Galicia
[2022-06-14] MEDS: EZETIMIBE 10 MG TABLET PO SCH (20:34)
[2022-06-15] MEDS: HEPARIN SODIUM/DEXTROSE 25,000 UNITS/500 ML BAG IV SCH (04:31)
[2022-06-15 06:24] LABS: Basophils # (auto) 0.01 K/uL (0-0.2); Basophils % (auto) 0.1 %; Hematocrit (blood only) 31.4 % (34.1-44.9); Hemoglobin 10.4 g/dl (12.0-16.0); Immature Granulocytes # (auto) 0.05 K/uL (0.00-0.02); Immature Granulocytes % (auto) 0.4 %; Lymphocytes # (auto) 0.73 K/uL (1.2-3.4); Lymphocytes % (auto) 5.4 %; Mean Corpuscular Hgb Conc 33.1 g/dL (32.0-36.0); Mean Corpuscular Volume 93.5 fL (80.0-100.0); Mean Platelet Volume 9.9 fL (9.4-12.3); Monocytes # (auto) 0.78 K/uL (0.24-0.82); Monocytes % (auto) 5.8 %; Neutrophils # (auto) 11.88 K/uL (1.4-6.5); Neutrophils % (auto) 88.3 %; Platelet Count 266 K/uL (130-400); RDW Coefficient of Variation 14.2 % (11.5-14.5); RDW Standard Deviation 48.5 fL (36.4-46.3); Red Blood Count 3.36 M/uL (3.93-5.22); White Blood Count 13.45 K/ul (4.8-10.8)
[2022-06-15 06:34] LABS: INR 1.2 (0.9-1.1); Partial Thromboplastin Ratio 1.5; Partial Thromboplastin Time 41.3 Seconds (21.0-31.0); Prothrombin Time 12.2 Seconds (9.0-12.0)
[2022-06-15 06:47] LABS: Albumin Level 2.8 gm/dl (3.4-5.0); BUN Creatinine Ratio 26.4 (10-20); Bilirubin,Total 0.7 mg/dl (0.2-1.0); Calcium 8.7 mg/dl (8.5-10.1); Creatinine Clr Calc Pharmacy 35.2 ml/min; Est GFR (African American) 37.7 ml/min; Est GFR (Non-African American) 32.5 ml/min; Globulin 2.9 gm/dl (2.5-4.0); Magnesium 1.7 mg/dl (1.7-2.4); Potassium 5.1 mmol/L (3.5-5.1); Total Protein 5.7 gm/dl (6.0-8.3)
[2022-06-15] MEDS: APIXABAN 5 MG TABLET PO SCH ×2 (08:28→21:39)
[2022-06-15] MEDS: carvediloL 3.125 MG TAB PO SCH ×2 (08:29→17:57)
[2022-06-15] MEDS: CHOLECALCIFEROL 5,000 UNITS 125 MCG TAB PO SCH (08:29)
[2022-06-15] MEDS: PANTOprazole 40 MG TAB PO SCH (08:30)
[2022-06-15] MEDS: EMPAGLIFLOZIN 25 MG TAB PO SCH (08:31)
[2022-06-15] MEDS ORDERED: ASPIRIN 81 MG ECTAB PO SCH (09:00)
[2022-06-15] MEDS: INSULIN ASPART PER UNIT SC SCH ×4 (09:10→21:43)
--- NOTE | 2022-06-15 09:52 | Medical Student Progress Note ---
Date of Service June 15, 2022 Assessment & Plan (1) Acute pulmonary embolism: Plan: 67 y/o female with history to T2DM, HFrEF of 15-20% with cardiomyopathy s/p ICD on entresto, coreg, and Jardiance, CKD stage 3, HTN, HLD, and [place] [facility] [place]ole[place] presented to the ED with persistent cough. Pt was admitted for PEs discovered on CT chest and was being treated with heparin. Acute pulmonary embolism -CT chest with contrast showed bilateral PEs -Recent (05/28/22) cholecystectomy in setting of refusing SQ heparin upon discharge, recent imobility, and complicated medical history are likely all contributory to development of multiple PEs -Echocardiogram showed no evidence of right heart failure -Was treated with heparin -Eliquis started this morning (06/15), 10 mg BID for 7 days, 5 mg BID for 10 days -Admit to PCU. NPO -Venous doppler: was negative for venous thrombosis -Hypercoagulable w/u pending (2) CHF (congestive heart failure): Plan: -HFrEF s/p ICD. EF=15-20% -Echocardiogram showed normal right ventricular systolic function. Left ventricular systolic function severely reduced. Moderate mitral regurgitation. Mild to moderate tricuspid regurgitation. -BNP of 4537 on admission, 3986 yesterday (06/14) -Troponin 18.5 on admission, currently 14.7 -On Entresto, Jardiance, Coreg, spironolactone, and furosemide * Continue Coreg * Appreciate cardiology recommendation to restart Entresto, spironolactone, furosemide and Jardiance * Trend troponin (3) Wound dehiscence, surgical: Plan: -Post-cholecystectomy wound dehiscence -No evidence of drainage or infectious process -Wound care consult ordered (4) CKD (chronic kidney disease), stage III: Plan: -Cr 1.61 on admission, current Cr 1.63 -Cr 1.37 on discharge 06/09 -Resuming Entresto, spironolactone, furosemide and Jardiance -Trend BMP (5) Hypotension: Plan: -Hypotensive on admission -Continue home Coreg -Resuming Entresto, spironolactone, furosemide and Jardiance (6) Hyperkalemia: Plan: -K 5.2 on admission. -Currently, K 5.1 -Resuming Entresto, spironolactone, furosemide and Jardiance -Trend BMP (7) Diabetes mellitus type II, controlled: Plan: -Resuming po Jardiance -Glucose of 191 today -SQ SSI per protocol Diabetes mellitus complication status: without complication Diabetes mellitus termite exterminator helper insulin use: without termite exterminator helper use Qualified Code(s): E11.9 - Type 2 diabetes mellitus without complications Plan Code: Full code Dispo: PCU FEN/GI: NPO. No additional fluids DVT Prophylaxis: Heparin gtt PT/OT: No Consults: Cardiology, nephrology Admission and Anticipated Discharge Date Admission Date: June 14, 2022 Supervising Attestation I saw and examined patient. I agree with medical student's assessment and plan with the below additional comments. Patient is more uncomfortable this evening citing right upper quadrant pressure that could be secondary to bowel gas. She also admitted to shortness of breath with exertion as well as chest pressure. EKG was obtained which showed no changes in comparison to her most recent EKG. I will add on a CBC with differential to ensure no acute process in the abdomen. Also, in the right upper quadrant would like to general surgery evaluate her for any type of wound options. It appears that she does have wound dehiscence present and would like to get their opinion about whether or not surgical intervention is needed to prevent secondary traction and to promote appropriate healing. Continue with Diana and continue having cardiology on board for further recommendations of care. Subjective 67 y/o female with history to T2DM, HFrEF of 15-20% with cardiomyopathy s/p ICD on entresto, coreg, and Jardiance, CKD stage 3, HTN, HLD, and recent [place] [facility] [place] for cholecystectomy presented to the ED with persistent cough, tachypnea, and hypotension. CT chest with contrast indicated multiple bilateral PEs. Pt is being treated with heparin. Today, pt has no shortness of breath at rest on room air. Pt is mildly short of breath when getting up to go to the bathroom. Pt has not been out of bed much since her admission but states that she is planning to walk with her as permitted when he arrives late this morning. Pt has no new symptoms. Pt did ask me to take a look at a non-healing cholecystectomy incisional wound. Pt has no pain associated with the wound but wants to make sure it does not need to be treated. Review of Systems Respiratory: Per HPI, mild dyspnea when walking out of bed. No dyspnea at rest. Cardiovascular: no chest pain Gastrointestinal: no abdominal pain and no constipation Neurologic: no numbness and no paresthesia Psychiatric: no visual hallucinations Stable mood Physical Exam Respiratory: normal respiratory effort, lungs clear to auscultation Cardiovascular: RRR, no murmur, no edema Gastrointestinal (Abdomen): normal bowel sounds, soft, nontender, no hepatosplenomegaly Skin: Nonhealing depressed right upper quadrant incisional wound. Mild erythema around wound. No evidence of fluctuance. No tenderness to palpation. No drainage or active bleeding. Neurologic: deep tendon reflexes 2+ bilaterally Psychiatric: Affect: euthymic affect Results & Data ([facility]) Vital Signs (Past 12 Hours) Vital Signs Temp Pulse Pulse Pulse Resp BP Pulse Ox 06/15/22 08:19 36.8 C 91 H 18 80/47 L 95 06/15/22 05:43 83 06/15/22 01:58 06/15/22 03:48 36.5 C 80 18 92/59 L 91 06/14/22 23:44 36.7 C 78 18 101/55 L 95 Pulse Ox O2 Del Method O2 Del Method 06/15/22 08:19 Room Air 06/15/22 05:43 06/15/22 01:58 95 Room Air 06/15/22 03:48 Room Air 06/14/22 23:44 Room Air
[2022-06-15] MEDS: FUROSEMIDE 20 MG TAB PO SCH (15:10)
--- NOTE | 2022-06-15 15:12 | Cardiology Progress Note ---
Date of Service June 15, 2022 Assessment & Plan (1) Acute pulmonary embolism: (2) Acute on chronic HFrEF (heart failure with reduced ejection fraction): (3) CHF (congestive heart failure): Plan 1. Pulmonary embolism: Started on oral anticoagulation today. No evidence of RV strain or overload on her echocardiogram. Hemodynamically she has been stable although her chronic low blood pressures. We will need to monitor her response to diuretics closely. 2. Congestive heart failure: Receive 1 dose of Lasix 40 mg yesterday. Will continue her usual daily dose of 20 mg daily. 3. Cardiomyopathy: Chronic low blood pressure. Continued beta-ric. Continue diuretic. On Jardiance. Will hold spironolactone currently given hyperkalemia. We will restart half dose Entresto. 4. Dual-chamber Medtronic ICD 5. Mitral regurgitation: Moderate. Admission and Anticipated Discharge Date Admission Date: June 14, 2022 Subjective This afternoon the patient reported some worsening cough. Breathing has stabilized but not improved much. Still dyspneic with ambulation around the wright. Review of Systems Review of Systems: Per HPI. Physical Exam Physical Exam: She is alert and oriented x3. Mood affect appear normal. She answered all questions appropriately. HEENT: Sclerae are anicteric. Pupils are equal and reactive to light and accommodation. Extraocular movements were intact. Neuro: Cranial nerves intact Lungs: Some crackles in the lung bases more noticeable on the right versus the left. No expiratory wheezing. Normal respiratory effort. Cardiac: The rhythm was regular. S1 and S2 were normal. There are no murmurs on examination. The PMI was not markedly displaced on palpation. Extremities: Patient has bilateral radial pulses that are equal in intensity. There is no evidence cyanosis or clubbing. Right lower extremity appears slightly larger than the left. No pitting edema. Skin: There are no rashes noted on examination today. Results & Data ([facility]) Vital Signs (Past 12 Hours) Vital Signs Temp Pulse Pulse Pulse Resp BP Pulse Ox 06/15/22 14:55 36.6 C 91 H 18 83/60 L 95 06/15/22 11:47 36.3 C L 99 H 20 93/67 L 95 06/15/22 07:00 80 06/15/22 07:15 06/15/22 08:19 36.8 C 91 H 18 80/47 L 95 06/15/22 05:43 83 01/24/23 03:48 36.5 C 80 18 92/59 L 91 O2 Del Method 06/15/22 14:55 Room Air 06/15/22 11:47 Room Air 06/15/22 07:00 06/15/22 07:15 Room Air 06/15/22 08:19 Room Air 06/15/22 05:43 06/15/22 03:48 Room Air Laboratory Results Abnormal Lab Results 06/14/22 06/14/22 06/14/22 16:31 20:16 20:38 WBC RBC Hgb Hct MCV MCH MCHC RDW Std Deviation RDW Coeff of Osman Plt Count MPV Immature Gran % (Auto) Neut % (Auto) Lymph % (Auto) [place] % (Auto) Eos % (Auto) Baso % (Auto) Neut # (Auto) Lymph # (Auto) [place] # (Auto) Eos # (Auto) Baso # (Auto) Immature Gran # (Auto) PT INR APTT PTT Ratio Sodium Potassium Chloride Carbon Dioxide Anion Gap BUN Creatinine Est Cr Clr Drug Dosing Est GFR ( Amer) Est GFR (Non-Af Amer) BUN/Creatinine Ratio Glucose POC Glucose 289 H 218 H Calcium Magnesium Total Bilirubin AST ALT Alkaline Phosphatase Troponin I High Sens 13.9 Total Protein Albumin Globulin Albumin/Globulin Ratio 06/15/22 06/15/22 06/15/22 01:17 05:59 05:59 WBC 13.45 H RBC 3.36 L Hgb 10.4 L Hct 31.4 L MCV 93.5 MCH 31.0 MCHC 33.1 RDW Std Deviation 48.5 H RDW Coeff of Osman 14.2 Plt Count 266 MPV 9.9 Immature Gran % (Auto) 0.4 Neut % (Auto) 88.3 Lymph % (Auto) 5.4 [place] % (Auto) 5.8 Eos % (Auto) 0.0 Baso % (Auto) 0.1 Neut # (Auto) 11.88 H Lymph # (Auto) 0.73 L [place] # (Auto) 0.78 Eos # (Auto) 0.00 Baso # (Auto) 0.01 Immature Gran # (Auto) 0.05 H PT 12.2 H INR 1.2 H APTT 41.3 H PTT Ratio 1.5 Sodium Potassium Chloride Carbon Dioxide Anion Gap BUN Creatinine Est Cr Clr Drug Dosing Est GFR ( Amer) Est GFR (Non-Af Amer) BUN/Creatinine Ratio Glucose POC Glucose Calcium Magnesium Total Bilirubin AST ALT Alkaline Phosphatase Troponin I High Sens 14.7 H Total Protein Albumin Globulin Albumin/Globulin Ratio 06/15/22 06/15/22 06/15/22 05:59 08:04 12:03 WBC RBC Hgb Hct MCV MCH MCHC RDW Std Deviation RDW Coeff of Osman Plt Count MPV Immature Gran % (Auto) Neut % (Auto) Lymph % (Auto) [place] % (Auto) Eos % (Auto) Baso % (Auto) Neut # (Auto) Lymph # (Auto) [place] # (Auto) Eos # (Auto) Baso # (Auto) Immature Gran # (Auto) PT INR APTT PTT Ratio Sodium 136 Potassium 5.1 Chloride 103 Carbon Dioxide 23 Anion Gap 10 BUN 43 H Creatinine 1.63 H Est Cr Clr Drug Dosing 35.2 Est GFR ( Amer) 37.7 Est GFR (Non-Af Amer) 32.5 BUN/Creatinine Ratio 26.4 H Glucose 191 H POC Glucose 194 H 217 H Calcium 8.7 Magnesium 1.7 Total Bilirubin 0.7 D AST 11 L ALT 12 Alkaline Phosphatase 151 H Troponin I High Sens Total Protein 5.7 L Albumin 2.8 L Globulin 2.9 Albumin/Globulin Ratio 1.0 PG Care Time/CCT Total # of Minutes Spent Total Time Spent with Patient: Total time spent is greater than 50% in coordination of care (as documented) at patient's floor/unit and/or counseling patient: Coding Level of Care Code 67928 SUB INP/OBS CARE 2/35MIN Diagnoses Acute pulmonary embolism I26.99 Acute on chronic HFrEF (heart failure with reduced ejection fraction) I50.23 CHF (congestive heart failure) I50.9 Heart failure chronicity: acute on chronic Heart failure type: unspecified (1) CHF (congestive heart failure) Heart failure chronicity: acute on chronic Heart failure type: unspecified Qualified Code(s): I50.9 - Heart failure, unspecified
--- NOTE | 2022-06-15 17:21 | Surgery Consultation ---
Date of Consultation June 15, 2022 Assessment & Plan (1) Wound dehiscence, surgical: This is a 67y F with PMH of heart failure, CKD, cholecystectomy on 05/28 at [facility] who presents to the [facility] on 06/14/22 with shortness of breath. Workup has shown patient has pulmonary emboli and started on anticoagulation. We have been consulted given concern for wound dehiscence at one of patient's laparoscopic incisions. Operative report in system and appears right lateral incision needed to be extended given bleeding and was cauterized. On exam patient's incisions are well healed, outside of the R lateral port site. It is opened ~2cm wide at the skin superficially. Scab noted inside wound. The wound was probed with q-tip and the dehiscence does not extend beyond superficial area. There was a clear stitch consisted with a Monocryl suture exposed in the wound not holding any tension. This was removed without issue. No active drainage. There is some surrounding erythema of wound patient states is improving. Would dress daily with dry gauze and tape until healed by secondary intention. Follow up with her surgeon as previously scheduled. No plans for surgical intervention. We will sign off but okay to call with any questions/concerns. History of Present Illness Attending Physician: Silvano Benitez, DO History of Present Illness This is a 67y F with PMH of heart failure, CKD, cholecystectomy on 05/28 at [facility] who presents to the [facility] ED on 06/14/22 with shortness of breath. Workup has shown patient has pulmonary emboli and started on anticoagulation. We have been consulted given concern for wound dehiscence at one of patient's laparoscopic incisions. Apparently patient diagnosed with cholecystitis earlier this month and given her heart failure was transferred to [facility] to consider perc ketty tube. After their evaluation they deemed her candidate for lap ketty of which was performed on 05/28. She remained in the hospital for a few days after on IV abx, but was not discharged on any. Patient reports feeling okay and was eating/drinking okay. No nausea/vomiting. Having + bowel function. She had been seen for redness over her right sided wound in follow up, but nothing prescribed. It has opened, but is not draining, and patient reports the redness has improved. Has some soreness that feels like a muscle pull on the right side and hurts to lie on it, but this is improving. Allergies Allergy/AdvReac Type Severity Reaction Status Date / Time erythromycin base Allergy Severe blisters;red;itchy;pain;blisters Verified 06/14/22 02:19 in back throat iodine Allergy Severe throat Verified 06/14/22 02:19 blisters;skin blisters meperidine [From Demerol] Allergy Severe quit Verified 06/14/22 02:19 breathing adhesive Allergy Intermediate BLISTERS Verified 06/14/22 02:19 tetracycline Allergy Unknown TERRAMYCIN Verified 06/14/22 02:19 ALLERGY atorvastatin AdvReac Intermediate MUSCLE Verified 06/14/22 02:19 PAIN/ACHES, DIFFICULTY WALKING azithromycin AdvReac Intermediate Gastrointestinal Verified 06/14/22 02:19 Upset metformin AdvReac Intermediate Diarrhea Verified 06/14/22 02:19 rosuvastatin [From Crestor] AdvReac Intermediate Cramping Verified 06/14/22 02:19 of the Muscles Ildrlag-TWO-XpL Reductase AdvReac Intermediate MUSCLE Verified 06/14/22 02:19 Inhibitor PAIN/ACHES, [Diwnmuk-Bev-Hzt Reductase DIFFICULTY Inhibitor] WALKING Home Medications Medication Instructions Recorded Confirmed Type cholecalciferol (vitamin D3) 125 5,000 units PO DAILY 01/14/19 06/14/22 History mcg (5,000 unit) capsule lancets (Accu-Chek Softclix #100 ea 11/26/19 06/09/22 Rx Lancets) blood sugar diagnostic (Accu-Chek #100 ea 02/09/21 06/09/22 Rx Guide test strips) pantoprazole 40 mg tablet,delayed 40 mg PO DAILY #90 tabs 09/21/21 06/14/22 Rx release empagliflozin 25 mg tablet 25 mg PO DAILY #90 tabs 11/09/21 06/14/22 Rx ezetimibe 10 mg tablet 10 mg PO PM #90 tabs 02/15/22 06/14/22 Rx aspirin 81 mg tablet,delayed 81 mg PO Q OTHER DAY 05/13/22 06/14/22 History release acetaminophen 325 mg tablet 650 mg PO Q4H PRN pain #30 tabs 05/14/22 06/14/22 Rx omega-3 fatty acids 1,000 mg 1,000 mg PO QAM 05/23/22 06/14/22 History capsule carvedilol 3.125 mg tablet 3.125 mg PO BID 06/01/22 06/14/22 History benzonatate 100 mg capsule 100 mg PO TID PRN cough #30 caps 06/09/22 06/14/22 Rx furosemide 40 mg tablet 40 mg PO QAM 30 days #30 tabs 06/09/22 06/14/22 Rx potassium chloride 20 mEq 40 meq PO QAM 30 days #60 tabs 06/09/22 06/14/22 Rx tablet,extended release(part/cryst) sacubitril 49 mg-valsartan 51 mg 1 tab PO BID 30 days #60 tabs 06/09/22 06/14/22 Rx tablet (Entresto) spironolactone 25 mg tablet 25 mg PO QAM 30 days #30 tabs 06/09/22 06/14/22 Rx Patient History Medical History Allergic rhinitis Asymptomatic menopausal state Atopic dermatitis CKD (chronic kidney disease), stage III Congestive heart failure with cardiomyopathy follows with Dr. Mejia Dental abscess Diabetes mellitus type II, controlled NIDDM Diverticulosis of colon Eustachian tube dysfunction History of sigmoidoscopy Hyperlipidemia Hypertension IBS (irritable bowel syndrome) ICD (implantable cardioverter-defibrillator) in place Placed Feb 2015 > [employer] > last checked 03/23/21 with > placed for CHF Incidental pulmonary nodule, > 3mm and < 8mm Internal hemorrhoids Mitral valve disorder follows with Dr. Mejia Obesity Osteopenia Renal insufficiency pt unaware Sigmoid diverticulitis Stage 3b chronic kidney disease Vitamin D deficiency Vitamin D deficiency Surgical History History of appendectomy History of arthroscopy of right knee History of arthroscopy of right shoulder History of breast biopsy benign History of cardiac cath 10/2017 [facility] no stents History of carpal tunnel surgery History of Neuroplasty Decompression Median Nerve At Carpal Tunnel> right History of cholecystectomy 05/28/[address] [facility] [address] Ivey History of colonoscopy History of incision and drainage (05/14/22) infection floor of the mouth and subperiosteal plane # 30 area p Incision and Drainage, Tooth Extraction(Right) - Quinton Amezcua DMD History of repair of rotator cuff right History of vaginal hysterectomy Family History Mother Breast cancer Diabetes Grandmother Myocardial infarction Denies family history of Ovarian cancer Prostate cancer Colorectal cancer Social History Smoking Status: Never smoker Second Hand Exposure: No; Hx Alcohol Use: No Hx Substance Use: No Preferred Language: Polish Communication Ability: Effective Visual Impairment: No Limitations Hearing Ability: Normal Wax Room Supervisor Required: No Beliefs That Will Affect Care: None marital status: Current Living Situation: Spouse current occupational status: retired Feels Safe at Home: Yes Childhood Exposure to Second-Hand Smoke: No caffeine: Yes during the past year weight has: remained stable Dental Care, Regularly: Yes Physical Activity Frequency: Does not Exercise Seatbelt Use: always Sunscreen Use: Yes Assistive Devices: None Review of Systems Constitutional: no fever and no chills Respiratory: no dyspnea Gastrointestinal: + abdominal pain (some mild pain around R side); no nausea and no vomiting open lateral r abdominal wound Physical Exam Physical Exam: awake/alert, no distress Respiratory: normal respiratory effort on room air Gastrointestinal (Abdomen): Inspection/Auscultation: + abdominal surgical incision; abdomen not distended Percussion/Palpation: abdomen soft; abdomen nontender surgical incisions c/d/i outside of R lateral port site. Skin is opened superficially with dry scab in wound. No drainage. Clear stitch exposed. mild surrounding erythema Results & Data ([facility]) Vital Signs (Past 12 Hours) Vital Signs Temp Pulse Pulse Pulse Resp BP Pulse Ox 06/15/22 14:55 36.6 C 91 H 18 83/60 L 95 06/15/22 11:47 36.3 C L 99 H 20 93/67 L 95 06/15/22 07:00 80 06/15/22 07:15 06/15/22 08:19 36.8 C 91 H 18 80/47 L 95 06/15/22 05:43 83 O2 Del Method 06/15/22 14:55 Room Air 06/15/22 11:47 Room Air 06/15/22 07:00 06/15/22 07:15 Room Air 06/15/22 08:19 Room Air 06/15/22 05:43 PG Care Time/CCT Total # of Minutes Spent Total Time Spent with Patient: Total time spent is greater than 50% in coordination of care (as documented) at patient's floor/unit and/or counseling patient: Coding Level of Care Code 89379 INT INP/OBS CARE 1/40MIN Diagnoses Wound dehiscence, surgical T81.31XA
[2022-06-15 17:24] LABS: Basophils # (auto) 0.01 K/uL (0-0.2); Basophils % (auto) 0.1 %; Hematocrit (blood only) 33.8 % (34.1-44.9); Hemoglobin 11.2 g/dl (12.0-16.0); Immature Granulocytes # (auto) 0.04 K/uL (0.00-0.02); Immature Granulocytes % (auto) 0.3 %; Lymphocytes # (auto) 1.36 K/uL (1.2-3.4); Lymphocytes % (auto) 9.1 %; Mean Corpuscular Hemoglobin 31.3 pg (25.0-34.0); Mean Corpuscular Hgb Conc 33.1 g/dL (32.0-36.0); Mean Corpuscular Volume 94.4 fL (80.0-100.0); Mean Platelet Volume 9.8 fL (9.4-12.3); Monocytes # (auto) 1.03 K/uL (0.24-0.82); Monocytes % (auto) 6.9 %; Neutrophils # (auto) 12.55 K/uL (1.4-6.5); Neutrophils % (auto) 83.6 %; Platelet Count 343 K/uL (130-400); RDW Coefficient of Variation 14.5 % (11.5-14.5); RDW Standard Deviation 50.4 fL (36.4-46.3); Red Blood Count 3.58 M/uL (3.93-5.22); White Blood Count 14.99 K/ul (4.8-10.8)
--- NOTE | 2022-06-15 18:30 | Electrocardiogram Report ---
Test Reason : Blood Pressure : / mmHG Vent. Rate : 088 BPM Atrial Rate : 088 BPM P-R Int : 190 ms QRS Dur : 132 ms QT Int : 426 ms P-R-T Axes : -15 254 061 degrees QTc Int : 515 ms Sinus rhythm with occasional Premature ventricular complexes Non-specific intra-ventricular conduction block Lateral infarct (cited on or before 14-JUN-2022) Abnormal ECG When compared with ECG of 15-JUN-2022 06:18, (unconfirmed) Premature ventricular complexes are now Present Confirmed by Theo Galicia ([id number]) on 06/15/2022 6:30:00 PM Referred By: REFERRED SELF Confirmed By:Corey Galicia
--- NOTE | 2022-06-15 18:31 | Electrocardiogram Report ---
Test Reason : Blood Pressure : / mmHG Vent. Rate : 087 BPM Atrial Rate : 087 BPM P-R Int : 182 ms QRS Dur : 132 ms QT Int : 408 ms P-R-T Axes : 003 238 049 degrees QTc Int : 490 ms Normal sinus rhythm Non-specific intra-ventricular conduction block Abnormal ECG When compared with ECG of 14-JUN-2022 02:10, No significant change was found Confirmed by Theo Galicia ([id number]) on 06/15/2022 6:30:59 PM Referred By: REFERRED SELF Confirmed By:Corey Galicia
[2022-06-15] MEDS ORDERED: COUGH DROP (SUGAR FREE) LOZ 24 LOZ/1 BOX BUCCAL ONE (20:00)
[2022-06-15] MEDS ORDERED: COUGH DROP (SUGAR FREE) LOZ 24 LOZ/1 BOX BUCCAL STA (20:02)
[2022-06-15] MEDS: VALSARTAN/SACUBITRIL 26/24MG TAB PO SCH (21:39)
[2022-06-15] MEDS: EZETIMIBE 10 MG TABLET PO SCH (21:40)
[2022-06-16 06:43] LABS: Albumin Level 2.9 gm/dl (3.4-5.0); BUN Creatinine Ratio 29.6 (10-20); Bilirubin,Total 0.9 mg/dl (0.2-1.0); Calcium 8.6 mg/dl (8.5-10.1); Creatinine Clr Calc Pharmacy 36.2 ml/min; Est GFR (African American) 38.8 ml/min; Est GFR (Non-African American) 33.5 ml/min; Globulin 2.9 gm/dl (2.5-4.0); Magnesium 1.8 mg/dl (1.7-2.4); Potassium 4.8 mmol/L (3.5-5.1); Total Protein 5.8 gm/dl (6.0-8.3)
[2022-06-16 06:46] LABS: Basophils # (auto) 0.01 K/uL (0-0.2); Basophils % (auto) 0.1 %; Hematocrit (blood only) 33.1 % (34.1-44.9); Hemoglobin 10.8 g/dl (12.0-16.0); Immature Granulocytes # (auto) 0.06 K/uL (0.00-0.02); Immature Granulocytes % (auto) 0.5 %; Lymphocytes # (auto) 1.51 K/uL (1.2-3.4); Lymphocytes % (auto) 13.2 %; Mean Corpuscular Hgb Conc 32.6 g/dL (32.0-36.0); Mean Corpuscular Volume 95.1 fL (80.0-100.0); Mean Platelet Volume 9.8 fL (9.4-12.3); Monocytes # (auto) 0.79 K/uL (0.24-0.82); Monocytes % (auto) 6.9 %; Neutrophils # (auto) 9.05 K/uL (1.4-6.5); Neutrophils % (auto) 79.3 %; Platelet Count 319 K/uL (130-400); RDW Coefficient of Variation 14.7 % (11.5-14.5); RDW Standard Deviation 51.3 fL (36.4-46.3); Red Blood Count 3.48 M/uL (3.93-5.22); White Blood Count 11.42 K/ul (4.8-10.8)
[2022-06-16 06:51] LABS: INR 1.4 (0.9-1.1); Partial Thromboplastin Ratio 1.2; Prothrombin Time 14.6 Seconds (9.0-12.0)
[2022-06-16] MEDS: CHOLECALCIFEROL 5,000 UNITS 125 MCG TAB PO SCH (11:27)
[2022-06-16] MEDS: PANTOprazole 40 MG TAB PO SCH (11:27)
[2022-06-16] MEDS: EMPAGLIFLOZIN 25 MG TAB PO SCH (11:27)
[2022-06-16] MEDS: carvediloL 3.125 MG TAB PO SCH (11:27)
[2022-06-16] MEDS: APIXABAN 5 MG TABLET PO SCH (11:27)
[2022-06-16] MEDS: FUROSEMIDE 20 MG TAB PO SCH (11:27)
--- NOTE | 2022-06-16 11:27 | Electrocardiogram Report ---
Test Reason : Blood Pressure : / mmHG Vent. Rate : 089 BPM Atrial Rate : 089 BPM P-R Int : 178 ms QRS Dur : 136 ms QT Int : 426 ms P-R-T Axes : 037 224 038 degrees QTc Int : 518 ms Normal sinus rhythm Non-specific intra-ventricular conduction block Possible Anterolateral infarct (cited on or before 15-JUN-2022) Abnormal ECG When compared with ECG of 15-JUN-2022 15:45, Premature ventricular complexes are no longer Present Confirmed by Theo Galicia ([id number]) on 06/16/2022 11:26:45 AM Referred By: REFERRED SELF Confirmed By:Corey Galicia
[2022-06-16] MEDS: VALSARTAN/SACUBITRIL 26/24MG TAB PO SCH (11:28)
[2022-06-16] MEDS: INSULIN ASPART PER UNIT SC SCH ×2 (12:26→12:39)
--- NOTE | 2022-06-16 13:12 | Discharge Summary ---
Date of Service June 16, 2022 Admission HPI Per Admitting Provider Maribel is a 67-year-old woman with a history of type 2 diabetes, HFrEF with cardiomyopathy s/p ICD on Entresto, Coreg, and Jardiance (EF=15-20%), CKD3, hypertension, and hyperlipidemia, who presents to the emergency room with cough and SOB x1 week. Pt. states she is unable to catch her breath. [place] [facility] [place]. Almost 2 weeks later, she presented to [facility] with SOB and orthopnea suggestive of an acute on chronic CHF exacerbation. At that visit, prior to d/c, she developed a persistent cough at that visit, though her SOB improved. Pt recalls refusing SQ Lovenox just prior to d/c, as she was tired of getting stuck. At home, her cough persisted abd became more frequent/constant, even at bedtime, affecting sleep. When her symptoms progressed to include SOB and increased dizziness, she came to the ED. In the ED, vitals were notable for BP of 75/49 and RR of 28 with labored breathing. O2 sats were 96% on RA. Labs were notable for WBC of 11.9, BNP of 3986, K+ of 5.2, Cr of 1.61, alk phos of 186, and a troponin of 18.5. CT chest with contrast (premedicated with IV methyprednisone and IV benadryl--iodine allergy) revealed "PEs in lobar and segmental arteries of right middle and right lower lobes, segmental/subsegmental arteries of right upper lobe, and segmental/subsegmental arteries of left lower lobe. Right lower lobe densities, probably pulmonary infarct. Small right pleural effusion. Equivocal right heart strain. RV/LV ratio less than 1.0 but left ventricle appears enlarged, and there is right atrial enlargement as well as contrast reflux into hepatic veins. Left chest ICD. Small pericardial effusion." The overnight hospitalist was consulted for admission at which point the patient was started on heparin with loading bolus. Admission Exam Per Admitting Provider General: No acute distress HEENT: PERRLA. Normal conjunctiva, anicteric sclera. Oropharynx normal. Respiratory: Normal respiratory effort, RLL crackles. Cardiovascular: RRR without murmurs, gallops, or rubs. No edema. GI: Soft abdomen with normal bowel sounds heard on auscultation. Nontender x4 quadrants Neuro: Alert and oriented x3. Principal Diagnosis Pulmonary embolism Discharge Exam Respiratory: normal respiratory effort, diminished lung sounds particularly in RLL but improving, faint bibasilar crackles Cardiovascular: RRR, no murmur, no edema Gastrointestinal (Abdomen): normal bowel sounds, soft, nontender, no hepatosplenomegaly Skin: Nonhealing depressed right upper quadrant incisional wound. Mild erythema around wound. No evidence of fluctuance. No tenderness to palpation. No drainage or active bleeding. Neurologic: deep tendon reflexes 2+ bilaterally Psychiatric: Affect: euthymic affect Discharge Data Allergies Allergy/AdvReac Type Severity Reaction Status Date / Time erythromycin base Allergy Severe blisters;red;itchy;pain;blisters Verified 06/14/22 02:19 in back throat iodine Allergy Severe throat Verified 06/14/22 02:19 blisters;skin blisters meperidine [From Demerol] Allergy Severe quit Verified 06/14/22 02:19 breathing adhesive Allergy Intermediate BLISTERS Verified 06/14/22 02:19 tetracycline Allergy Unknown TERRAMYCIN Verified 06/14/22 02:19 ALLERGY atorvastatin AdvReac Intermediate MUSCLE Verified 06/14/22 02:19 PAIN/ACHES, DIFFICULTY WALKING azithromycin AdvReac Intermediate Gastrointestinal Verified 06/14/22 02:19 Upset metformin AdvReac Intermediate Diarrhea Verified 06/14/22 02:19 rosuvastatin [From Crestor] AdvReac Intermediate Cramping Verified 06/14/22 02:19 of the Muscles Uovjanm-YGE-LrK Reductase AdvReac Intermediate MUSCLE Verified 06/14/22 02:19 Inhibitor PAIN/ACHES, [Mvvkdbx-Awy-Vgz Reductase DIFFICULTY Inhibitor] WALKING Consultations 06/14/22 04:43 ED Decision to Admit Stat 06/14/22 08:15 Consult Cardiology Routine 06/15/22 16:08 Consult General Surgery Routine Ordered Studies 06/14/22 02:14 CT angio chest PE protocol Stat 06/14/22 05:46 US venous doppler LE Stat Hospital Course (1) Acute pulmonary embolism: 67 y/o female with history to T2DM, HFrEF of 15-20% with cardiomyopathy s/p ICD on entresto, coreg, and Jardiance, CKD stage 3, HTN, HLD, and [place] [facility] [place] presented to the ED with persistent cough. Pt was admitted for PEs discovered on CT chest and was being treated with heparin. Acute pulmonary embolism -CT chest with contrast showed bilateral PEs -Recent (05/28/22) cholecystectomy in setting of refusing SQ heparin upon discharge, recent imobility, and complicated medical history are likely all contributory to development of multiple PEs -Echocardiogram showed no evidence of right heart failure -Venous doppler: was negative for venous thrombosis -Hypercoagulable w/u pending at time of discharge -Eliquis started this morning (06/15), 10 mg BID for 7 days, 5 mg BID for 10 days for at least 3 months Nonsustained ventricular tachycardia -Multiple episodes of short bursts of VT noted during stay (8, 9, 12 beat runs over 06/15-06/16) -ICD in place, also on beta ric therapy -Along with episode of brief L chest pain on 06/15- troponin and EKG reassuring -Case discussed with cardiology, she is stable for discharge with close outpatient f/u (2) CHF (congestive heart failure): Plan: -HFrEF s/p ICD. EF=15-20% -Echocardiogram showed normal right ventricular systolic function. Left ventricular systolic function severely reduced. Moderate mitral regurgitation. Mild to moderate tricuspid regurgitation. -BNP of 4537 on admission, 3986 on 06/14 -Troponin 18.5 on admission, increased to 27- no chest pain noted -On Entresto, Jardiance, Coreg, spironolactone, and furosemide * Continue medications on discharge (3) Wound dehiscence, surgical: Plan: -Post-cholecystectomy wound dehiscence -No evidence of drainage or infectious process -Wound care consult ordered- wound being packed, will need outpatient surgery/wound care f/u (4) CKD (chronic kidney disease), stage III: Plan: -Cr 1.61 on admission, baseline appears 1.4-1.5 -Cr 1.59 on discharge -F/u BMP 1 week after discharge (5) Hypotension: Plan: -Hypotensive on admission- pt chronically in 80s-90s/50s-60s -Continue home Coreg -Resumed Entresto, spironolactone, furosemide and Jardiance on discharge -Of note, Entresto restarted at low dose instead of pt's usual dose (6) Hyperkalemia: Plan: -K 5.2 on admission. -Currently, K 4.8 on day of discharge -Resumed Entresto, spironolactone, furosemide and Jardiance on discharge -Follow up BMP as outpatient 1 week after discharge (7) Diabetes mellitus type II, controlled: Plan: -Resumed Jardiance on discharge -Blood sugars acceptable during hospitalization (2) Wound dehiscence, surgical: Total Time Total Time Spent Total Time Spent (In Minutes): 30 Discharge Plan Discharge Items Patient Disposition: Home - Self-Care Reason For Visit: B/L PE'S Discharge Diagnosis: Pulmonary embolism Activity: Resume your previous activity Non-emergency contact: Primary Care Provider and [employer] Engineer Call non-emergency contact if: you have any medication questions and your symptoms worsen Follow-up/Referrals: [facility] [place] General Surgery [Provider Group] [facility] [place] Wound Care [Provider Group] Edgar Mejia MD [Physician] - 06/16/22 1:30 pm (CARDIOLOGY FOLLOWUP: june 16, 2022 @ 1:30) Theo Houston MD [Primary Care Provider] - 06/17/22 11:00 am (PCP follow up June 17, 2022 @ 11am) Diet: Carb Consistent or DM2 Addtl Attending Provider Instructions: You were admitted to the hospital for a pulmonary embolism, which is a blood clot that travels to the lungs from elsewhere in the body. Your blood clot likely formed shortly after your surgery. The postoperative period is at higher risk for clots to form. You were treated with blood thinning medications to break up the clot. You will continue to take blood thinning medication for the next 3 months. A discharge summary will be sent to your primary care physician to ensure continuity of care. Please bring this discharge summary with you to your next office appointment so that your provider can review it at that time. Follow-up appointments: We have requested follow ups with Dr. Mejia and Dr. Houtson on discharge. Ple ase call their offices to schedule a follow up if you don't hear from them by the end of the week. We have also requested a follow up with general surgery -Please follow up with your General Surgeon with [facility] as previously scheduled. -Regarding your surgical wound you should follow up at the wound care center for observation. Please call to make an appointment next week unless you already hav e one. Upon discharge you are instructed to clean and dry wound. Apply a slightly moistened piece of aquacel ag in wound bed, cover with optifoam dressing, and change every 3 days. -[facility]: Located at [address], [address]. [place] [address] [address][phone] Medications: Your medication list has been reviewed and reconciled upon discharge to ensure accuracy and continuity of care. An updated list of all your medications is included with your hospital discharge paperwork. Please review this list closely, and make note of any changes. We sent a new medication called Eliquis to the pharmacy. This is the blood thinner we discussed which will treat and prevent future blood clots. You will take Eliquis 10 mg (2 tablets, 5mg x 2) for 1 week and then 5 mg daily (1 tablet) daily for the next 3 months. You normally take Entresto 49-51 but given your lower blood pressures, we will send a script for low dose Entresto 24-26. Please take the low dose Entresto unt il your PCP or drug inspector says you can resume the usual dose of 49-51. Take your medications as instructed; do not skip a dose of your medicines. Make sure all of your doctors know every medicine you are taking (including ejyw-nvt-gnwdqwy medicines, vitamins, and supplements). Call your primary care provider before taking any new medicines (including ufxy-qfj-rdpeexx medicines, vitamins, and supplements), because some of these may interact with your current medications, or may make your symptoms worse. Tell your primary care provider if you cannot afford your medications. CONTACT YOUR PRIMARY CARE PROVIDER if you experience any of the following: Fever Shortness of breath Blood in cough Fatigue Difficulty following your treatment plan, or difficulty taking medications CALL 911 OR GO TO THE EMERGENCY DEPARTMENT if you experience any of the following: Sudden, severe abdominal pain or nausea/vomiting Severe chest pain, or chest pain that radiates (moves) to your jaw or arm Sudden, severe shortness of breath or difficulty breathing Thank you for allowing us to participate in your care. Pending Studies at Discharge: No Stand-Alone Forms: My [facility] Medications and DC Order Prescriptions: New Eliquis 5 mg (74 tabs) tablets,dose pack 5 mg PO BID Qty: 74 2RF Rx Instructions: 10 mg (2 tablets) twice a day until 06/22, starting on 06/23/22- please take 5 mg (1 tablet) twice a day Entresto 24-26 mg tablet 1 tab PO BID Qty: 20 1RF Continued (DME) lancets [Accu-Chek Softclix Lancets] Misc See Dose Instructions .ROUTE .MEDSUPPLY Qty: 100 3RF Dose Instruction: As directed Rx Instructions: Check daily and as needed (DME) Accu-Chek Guide test strips Strip See Dose Instructions .ROUTE .MEDSUPPLY Qty: 100 3RF Dose Instruction: As directed Rx Instructions: daily and as needed pantoprazole 40 mg tablet,delayed release (DR/EC) 40 mg PO DAILY Qty: 90 3RF empagliflozin 25 mg tablet 25 mg PO DAILY Qty: 90 3RF ezetimibe 10 mg tablet 10 mg PO PM Qty: 90 3RF carvedilol 3.125 mg tablet 3.125 mg PO BID Rx Instructions: must administer with a meal/food benzonatate 100 mg capsule 100 mg PO TID PRN (Reason: cough) Qty: 30 2RF cholecalciferol (vitamin D3) 5,000 unit capsule 5,000 units PO DAILY aspirin 81 mg Tablet,Delayed Release (Dr/Ec) 81 mg PO Q OTHER DAY acetaminophen 325 mg Tablet 650 mg PO Q4H PRN (Reason: pain) Qty: 30 0RF Rx Instructions: OTC omega-3 fatty acids 1,000 mg Capsule 1,000 mg PO QAM furosemide 40 mg Tablet 40 mg PO QAM 30 Days Qty: 30 0RF potassium chloride 20 mEq Tablet,Er Particles/Crystals 40 meq PO QAM 30 Days Qty: 60 0RF spironolactone 25 mg Tablet 25 mg PO QAM 30 Days Qty: 30 0RF Entresto 49-51 mg Tablet 1 tab PO BID 30 Days Qty: 60 0RF Discharge Orders: Discharge Order (Routine); Ordered 06/16/22 Ordered By: Rosa Brown Admission Data Admit Date/Time: 06/14/22 05:42 Attending Provider: Silvano Benitez Admit Provider: Jamie Felix Primary Care Provider: Theo Houston Other Providers: Chaparro Duarte ; Jamie Felix ; Roque Salguero Other Interventions: Discharge Summary Assessment (RN) Last Done: 06/16/22 14:13 Supervising Physician Co-Signing Physician Notes I have seen and examined patient. I agree with the hospital clinical course and above discharge summary as documented by medical records library professor. Resident Activity Tracking Resident Involvement: Resident Care Provided Care Provided: Adult Hospital Medicine
[2022-06-16 13:54] LABS: Troponin I High Sensitivity 24.9 pg/ml (0-14)
--- NOTE | 2022-06-16 14:29 | Communication Note ---
Date of Service: June 16, 2022 I was asked to see patient again today regarding her right lateral abdominal wound. She was evaluated by wound care this morning who cleaned the wound at bedside and noticed an additional exposed suture in the periphery. This was concealed by scabbing in the area yesterday. I re-evaluated the patient and was able to remove the remaining suture without issue. It was loose and did not seem to be holding any tension. Patient tolerated this well. She reports the wound pain feels better today than yesterday. Otherwise it appears unchanged. It was repacked with aquacel ag and covered with optifoam. I asked patient to follow up with her surgeon in [place] as previously scheduled. She does not need to follow up with us in clinic. In addition she was given wound care center information for them to monitor the wound should she not be able to make it in to see her surgeon in [place] physically.
[2022-06-19 06:47] LABS: Anti Cardiolipin Ab IgG <2.0 GPL-U/mL; Anti Cardiolipin Ab IgM <2.0 MPL-U/mL; Anti-Thrombin III Activity 83 % normal (80-135); B2 Glycoprotein IgG <2.0 U/mL (<20.0); B2 Glycoprotein IgM <2.0 U/mL (<20.0); PTT LA Screen 39 sec (<=40); Protein S Functional(Activity) 72 % normal (60-140)
[2022-06-21 22:22] LABS: Factor 5 Mutation NEGATIVE
== END 2022-06-16 14:43 | disposition home or self-care (01) | DRG 176 ==
LOC: ED 01:42 → EDINP 05:42 → SUATTDRO 05:42 → EDINP 08:16 → 4W 16:27

== ENCOUNTER 2022-07-06 09:16 | Observation (INO) ==
[2022-07-06 10:01] LABS: Basophils # (auto) 0.03 K/uL (0-0.2); Basophils % (auto) 0.3 %; Eosinophils # (auto) 0.01 K/uL (0-0.50); Eosinophils % (auto) 0.1 %; Hematocrit (blood only) 40.3 % (37.0-47.0); Hemoglobin 13.2 g/dl (12.0-16.0); Immature Granulocytes # (auto) 0.03 K/uL (0.01-0.20); Immature Granulocytes % (auto) 0.3 %; Lymphocytes # (auto) 1.45 K/uL (1.2-3.4); Lymphocytes % (auto) 16.3 %; Mean Corpuscular Hemoglobin 31.1 pg (25.0-34.0); Mean Corpuscular Hgb Conc 32.8 g/dL (32.0-36.0); Mean Corpuscular Volume 94.8 fL (80.0-100.0); Mean Platelet Volume 9.7 fL (9.4-12.4); Monocytes # (auto) 0.52 K/uL (0.11-0.59); Monocytes % (auto) 5.8 %; Neutrophils # (auto) 6.85 K/uL (1.40-6.50); Neutrophils % (auto) 77.2 %; Platelet Count 330 K/uL (130-400); RDW Coefficient of Variation 15.6 % (11.5-14.5); RDW Standard Deviation 54.7 fL (36.4-46.3); Red Blood Count 4.25 M/uL (4.20-5.40); White Blood Count 8.89 K/ul (4.8-10.8)
[2022-07-06 10:24] LABS: Bilirubin,Total 1.3 mg/dl (0.2-1.0); Calcium 9.4 mg/dl (8.5-10.1); Magnesium 2.2 mg/dl (1.7-2.4); Potassium 3.7 mmol/L (3.5-5.1)
[2022-07-06 10:28] LABS: Troponin I High Sensitivity 16.1 pg/ml (0-14)
[2022-07-06 10:30] LABS: Albumin Globulin Ratio 1.1 (0.9-2); BUN Creatinine Ratio 25.9 (10-20); Creatinine Clr Calc Pharmacy 41.4 ml/min; Est GFR (African American) 47.3 ml/min; Est GFR (Non-African American) 40.8 ml/min; Globulin 3.6 gm/dl (2.5-4.0); Total Protein 7.6 gm/dl (6.0-8.3)
--- NOTE | 2022-07-06 10:34 | XRay Report ---
XR chest 1V portable HISTORY: 67 years-old Female Chest pain, nonspecific acute chest pain COMPARISON: 06/14/2022 TECHNIQUE: AP view of the chest. FINDINGS: Cardiac silhouette is enlarged. Left subclavian pacer/AICD. Pulmonary vascular congestion with inters titial coarsening. No pneumothorax. Small pleural effusions with mild bibasilar consolidation. Degene rative changes of the shoulders and spine. IMPRESSION: 1. Cardiomegaly with pulmonary edema. 2. Small pleural effusions with mild bibasilar opacities suggestive of atelectasis. ACT 112: Negative or not required by law. The above report was generated using voice recognition software. It may contain grammatical, syntax o r spelling errors. Electronically signed by: Dick Franklin M.D. 07/06/2022 10:32 AM
[2022-07-06] MEDS ORDERED: FUROSEMIDE 40 MG/4 ML VIAL IV STA (10:40)
--- NOTE | 2022-07-06 11:34 | Emergency Department Note ---
Impression & Plan Acute on chronic HFrEF (heart failure with reduced ejection fraction), Pulmonary edema, Other coronavirus as the cause of diseases classified elsewhere, ICD (implantable cardioverter-defibrillator) in place ED Provider Note NAME: LANCE CALIX AGE: 67 SEX: F ARRIVES VIA: Walk-In INFORMANT: Patient ED PROVIDER(S): Joey Ardon MD CHIEF COMPLAINT: SOB PLAN: Disposition: Admit MEDICAL DECISION MAKING: The patient is a pleasant 67-year-old woman with a past medical history of idiopathic cardiomyopathy with EF of 15-20% status post AICD, history of PE diagnosed in May last month on Eliquis, CKD, hypertension, hyperlipidemia, who presents to the emergency department accompanied by her via walk-in for evaluation of acute onset worsening shortness of breath over the past 2 days where she reports having worsening difficulty breathing when lying flat than her baseline. She reports she gained approximately 2 pounds and has had mild incre ased swelling in her legs but did not feel as though she was necessarily retaining more fluid. She reports she has not been feeling well since her discharge in May and still has not been eating very well. She reports she has been taking her Eliquis daily as prescribed. She denies any fevers, productive cough, GI or symptoms. On arrival the patient is uncomfortable, moderately dyspneic with respiratory rate in the mid 30s with blood pressure 81/51 with O2 saturation 98% on room air. On exam the patient does have diminished breath sounds with underlying rales of bilateral lung mixon. She does appear hypervolemic with 1+ bilateral lower extremity edema. Limited bedside cardiac ultrasound was performed and there was no overt pericardial effusion. Note was made of pulmonary edema on lung ultrasound also seen on chest x-ray. EKG is without overt acute ischemia. Chest x-ray demonstrates pulmonary edema with small pleural effusion and nonspecific bibasilar opacities. WBC, H/H and platelets within normal limits. Chemistry without metabolic acidosis. Creatinine 1.3, similar to prior values in the setting of CKD. Electrolytes without significant abnormality. High-sensitivity troponin 16, nonspecific. BNP is greater than 4700 on higher end of patient's prior values. Procalcitonin is undetectable. TSH within normal limits. 40mg IV Lasix ordered for diuresis. Biofire was positive for Coronavirus HKU1, which may have played a role in the patient's decompensation. While patient does not have hypoxia given her work of breathing and respiratory rate on presentation in the setting of her cardiomyopathy with severely reduced EF and recent PEs the patient agrees with plan for admission for further management. Case was d/w Dr. Jones [facility] hospitalist who will evaluate the patient for admission. Triage Nursing notes reviewed and agree them. Prior/outside medical records reviewed Vital Signs: reviewed Differential diagnosis: Reactive airway disease, pneumonia, pneumothorax, COPD, CHF, infections, cardiac ischemia, pulmonary embolism, musculoskeletal, gastrointestinal, as well as other pathologies. ER treatment provided: See below. Diagnostics interpreted by me: ECG: Sinus rhythm with occasional PVCs, 85 bpm, no overt ST elevation or depression, QTc 492, QRS 124 Cardiac Monitoring: An order for continuous cardiac monitoring was placed and demonstrated Laboratory studies: See below Imaging studies: See below Consultation(s): Case was d/w Dr. Jones [facility] hospitalist who will evaluate the patient for admission. HPI: The patient is a pleasant 67-year-old woman with a past medical history of idiopathic cardiomyopathy with EF of 15-20% status post AICD, history of PE diag nosed in May last month on Eliquis, CKD, hypertension, hyperlipidemia, who presents to the emergency department accompanied by her via walk-in for evaluation of acute onset worsening shortness of breath over the past 2 days where she reports having worsening difficulty breathing when lying flat than her baseline. She reports she gained approximately 2 pounds and has had mild increased swelling in her legs but did not feel as though she was necessarily retaining more fluid. She reports she has not been feeling well since her discharge in May and still has not been eating very well. She reports she has been taking her Eliquis daily as prescribed. She denies any fevers, prod uctive cough, GI or symptoms. ROS: See above HPI for pertinent positives & negatives. A total of 10 systems reviewed and were otherwise negative. VITALS:See Below PHYSICAL EXAMINATION: GENERAL: Awake, alert, uncomfortable-appearing, in moderate respiratory distress HENT: Normocephalic, atraumatic. Oropharynx unremarkable. EYES: Normal conjunctiva. Sclera non-icteric. NECK: Supple. No nuchal rigidity. FROM. No JVD. RESPIRATORY: Diminished breath sounds with underlying rales in bilateral lung mixon. Moderate WOB with respiratory rate in the mid 30s. CARDIAC: Regular rate, normal rhythm. Extremities warm and well perfused. Pulses equal. ABDOMEN: Soft, non-distended. No tenderness to palpation. No rebound or gu arding. No masses. RECTAL: Deferred. MUSCULOSKELETAL: Chest examination reveals no tenderness. The back is symmetrical on inspection without obvious abnormality. There is no CVA tenderness to palpation. No joint edema. LOWER EXTREMITIES: Calves are equal size bilaterally and non-tender. 1+ BLE edema. No discoloration. NEURO: Normal sensorium. No sensory or motor deficits noted. SKIN: No rash or jaundice noted. ED COURSE: Critical Care: I have personally spent greater than 35 minutes of critical care time in the direct management of this patient. This includes bedside care, interpretation of diagnostic studies, and testing, discussion with consultants, patient, and family members, and other required patient management activities. This 35 minutes is in excess of all separately billable procedures. Joey Ardon MD Past Med/Surg History Medical History Acute pulmonary embolism (06/14/22) Allergic rhinitis Asymptomatic menopausal state Atopic dermatitis CKD (chronic kidney disease), stage III Dental abscess Diabetes mellitus type II, controlled NIDDM Diverticulosis of colon Eustachian tube dysfunction History of sigmoidoscopy Hyperlipidemia Hypertension IBS (irritable bowel syndrome) ICD (implantable cardioverter-defibrillator) in place Placed Feb 2015 > [employer] > last checked 03/23/21 with > placed for CHF Incidental pulmonary nodule, > 3mm and < 8mm Inflamed seborrheic keratosis Internal hemorrhoids Intertrigo Milia Notalgia paresthetica Obesity Osteopenia Sigmoid diverticulitis SK (seborrheic keratosis) Stage 3b chronic kidney disease Vitamin D deficiency Wart Surgical History History of appendectomy History of arthroscopy of right knee History of arthroscopy of right shoulder History of breast biopsy benign History of cardiac cath 10/2017 [facility] no stents History of carpal tunnel surgery History of Neuroplasty Decompression Median Nerve At Carpal Tunnel> right History of cholecystectomy (05/28/22) at [place] by Dr Ivey History of colonoscopy History of incision and drainage (05/14/22) infection floor of the mouth and subperiosteal plane # 30 area p Incision and Drainage, Tooth Extraction(Right) - Quinton Amezcua DMD History of repair of rotator cuff right History of vaginal hysterectomy Family History Mother Breast cancer Diabetes Grandmother Myocardial infarction Denies family history of Ovarian cancer Prostate cancer Colorectal cancer Social History Smoking Status: Never smoker Second Hand Exposure: No; Hx Alcohol Use: No Hx Substance Use: No Preferred Language: Syrian Communication Ability: Effective Visual Impairment: No Limitations Hearing Ability: Normal User Interface Artist Required: No Beliefs That Will Affect Care: None marital status: Current Living Situation: Significant Other current occupational status: retired Other Information That Helps Us Care for You: No Feels Safe at Home: Yes Childhood Exposure to Second-Hand Smoke: No caffeine: Yes during the past year weight has: remained stable Dental Care, Regularly: Yes Physical Activity Frequency: Does not Exercise Seatbelt Use: always Sunscreen Use: Yes Assistive Devices: Glasses Allergies Allergies Allergy/AdvReac Type Severity Reaction Status Date / Time erythromycin base Allergy Severe blisters;red;itchy;pain;blisters Verified 06/24/22 10:08 in back throat iodine Allergy Severe throat Verified 06/24/22 10:08 blisters;skin blisters meperidine [From Demerol] Allergy Severe quit Verified 06/24/22 10:08 breathing adhesive Allergy Intermediate BLISTERS Verified 06/24/22 10:08 tetracycline Allergy Unknown TERRAMYCIN Verified 06/24/22 10:08 ALLERGY atorvastatin AdvReac Intermediate MUSCLE Verified 06/24/22 10:08 PAIN/ACHES, DIFFICULTY WALKING azithromycin AdvReac Intermediate Gastrointestinal Verified 06/24/22 10:08 Upset metformin AdvReac Intermediate Diarrhea Verified 06/24/22 10:08 rosuvastatin [From Crestor] AdvReac Intermediate Cramping Verified 06/24/22 10:08 of the Muscles Pk[place]ak-XZY-FmB Reductase AdvReac Intermediate MUSCLE Verified 06/24/22 10:08 Inhibitor PAIN/ACHES, [Eqhxhmw-Vhr-Pxm Reductase DIFFICULTY Inhibitor] WALKING Home Meds Home Medications Medication Instructions Recorded Confirmed cholecalciferol (vitamin D3) 125 5,000 units PO DAILY 01/14/19 07/06/22 mcg (5,000 unit) capsule omega-3 fatty acids 1,000 mg 1,000 mg PO QAM 05/23/22 07/06/22 capsule carvedilol 3.125 mg tablet 3.125 mg PO QPM 06/17/22 07/06/22 furosemide 40 mg tablet 40 mg PO QDD 07/06/22 07/06/22 Previous Rx's Medication Instructions Recorded lancets (Accu-Chek Softclix #100 ea 11/26/19 Lancets) blood sugar diagnostic (Accu-Chek #100 ea 02/09/21 Guide test strips) pantoprazole 40 mg tablet,delayed 40 mg PO DAILY #90 tabs 09/21/21 release empagliflozin 25 mg tablet 25 mg PO DAILY #90 tabs 11/09/21 ezetimibe 10 mg tablet 10 mg PO PM #90 tabs 02/15/22 acetaminophen 325 mg tablet 650 mg PO Q4H PRN pain #30 tabs 05/14/22 benzonatate 100 mg capsule 100 mg PO TID PRN cough #30 caps 06/09/22 apixaban 5 mg (74 tabs) tablets in 5 mg PO BID #74 ea 06/16/22 a dose pack (Eliquis) sacubitril 24 mg-valsartan 26 mg 1 tab PO BID #20 tabs 06/16/22 tablet (Entresto) carvedilol 6.25 mg tablet 6.25 mg PO QAM #90 tabs 06/17/22 spironolactone 25 mg tablet 25 mg PO Q2D 30 days #90 tabs 06/17/22 Results & Data (ED) Vital Signs Vital Signs - 24 hr 07/06/22 09:18 07/06/22 09:35 07/06/22 10:01 Temperature 36.1 C L Temperature Source Temporal Artery Scan Pulse Rate 82 Pulse Rate [Apical] Respiratory Rate 36 H Respiratory Effort / Characteristics Non-Labored Spontaneous Short of Breath SOB on Exertion Respiratory Depth Normal Blood Pressure 81/51 L Blood Pressure [Left Arm] Blood Pressure Mean 61 Blood Pressure Mean [Left Arm] Blood Pressure Position [Left Arm] Pulse Oximetry 98 97 Oxygen Delivery Method Room Air Room Air Room Air Sepsis Recent Fever Within 48 Hours No Sepsis New/Unexplained Change in Mental Status N/A Sepsis Action Taken by Nursing Physician Notified 07/06/22 10:01 07/06/22 10:24 07/06/22 11:34 Temperature Temperature Source Pulse Rate Pulse Rate [Apical] 79 77 Respiratory Rate 20 24 Respiratory Effort / Characteristics Respiratory Depth Blood Pressure Blood Pressure [Left Arm] 90/64 L 93/65 L Blood Pressure Mean Blood Pressure Mean [Left Arm] 72 74 Blood Pressure Position [Left Arm] Lying Pulse Oximetry 95 96 93 Oxygen Delivery Method Room Air Room Air Room Air Sepsis Recent Fever Within 48 Hours Sepsis New/Unexplained Change in Mental Status Sepsis Action Taken by Nursing Laboratory Data Attestation: I reviewed the patient's lab results. 07/06/22 09:32 07/06/22 09:32 Lab Results 07/06/22 07/06/22 07/06/22 Range/Units 09:32 09:32 09:32 WBC (4.8-10.8) K/ul RBC (4.20-5.40) M/uL Hgb (12.0-16.0) g/dl Hct (37.0-47.0) % MCV (80.0-100.0) fL MCH (25.0-34.0) pg MCHC (32.0-36.0) g/dL RDW Std Deviation (36.4-46.3) fL RDW Coeff of Osman (11.5-14.5) % Plt Count (130-400) K/uL MPV (9.4-12.4) fL Immature Gran % (Auto) % Neut % (Auto) % Lymph % (Auto) % [place] % (Auto) % Eos % (Auto) % Baso % (Auto) % Neut # (Auto) (1.40-6.50) K/uL Lymph # (Auto) (1.2-3.4) K/uL [place] # (Auto) (0.11-0.59) K/uL Eos # (Auto) (0-0.50) K/uL Baso # (Auto) (0-0.2) K/uL Immature Gran # (Auto) (0.01-0.20) K/uL Sodium 138 (136-145) mmol/L Potassium 3.7 (3.5-5.1) mmol/L Chloride 99 (98-107) mmol/L Carbon Dioxide 30 (21-32) mmol/L Anion Gap 9 (3-11) BUN 35 H (6-23) mg/dl Creatinine 1.35 H (0.6-1.2) mg/dl Est Cr Clr Drug Dosing 41.4 ml/min Est GFR ( Amer) 47.3 ml/min Est GFR (Non-Af Amer) 40.8 ml/min BUN/Creatinine Ratio 25.9 H (10-20) Glucose 155 H (70-99(Fasting)) mg/dl Calcium 9.4 (8.5-10.1) mg/dl Phosphorus 4.0 (2.5-4.9) mg/dl Magnesium 2.2 (1.7-2.4) mg/dl Total Bilirubin 1.3 H (0.2-1.0) mg/dl AST 21 (13-39) U/L ALT 21 (7-52) U/L Alkaline Phosphatase 108 H (34-104) U/L Troponin I High Sens 16.1 H (0-14) pg/ml B-Natriuretic Peptide > 4700 H (0-100) pg/ml Total Protein 7.6 (6.0-8.3) gm/dl Albumin 4.0 (3.4-5.0) gm/dl Globulin 3.6 (2.5-4.0) gm/dl Albumin/Globulin Ratio 1.1 (0.9-2) Lipase 28 (11-82) U/L Procalcitonin (0-0.5) ng/ml TSH 3.700 (0.300-4.500) uIu/ml Adenovirus (PCR) (NotDetected) B. pertussis DNA (PCR) (NotDetected) B.parapertussis DNA PCR (NotDetected) C. pneumoniae DNA (PCR) (NotDetected) Coronavirus OC43 (PCR) (NotDetected) Coronavirus HKU1 (PCR) (NotDetected) Coronavirus 229E (PCR) (NotDetected) SARS-CoV-2 (PCR) (NotDetected) Coronavirus NL63 (PCR) (NotDetected) Human Metapneumovir PCR (NotDetected) Influenza Type A (PCR) (NotDetected) Influenza Type B (PCR) (NotDetected) M. pneumoniae (PCR) (NotDetected) Parainfluenza 1 (PCR) (NotDetected) Parainfluenza 2 (PCR) (NotDetected) Parainfluenza 3 (PCR) (NotDetected) Parainfluenza 4 (PCR) (NotDetected) RSV (PCR) (NotDetected) Entero/Rhino (PCR) (NotDetected) 07/06/22 07/06/22 07/06/22 Range/Units 09:32 09:32 09:53 WBC 8.89 (4.8-10.8) K/ul RBC 4.25 (4.20-5.40) M/uL Hgb 13.2 (12.0-16.0) g/dl Hct 40.3 (37.0-47.0) % MCV 94.8 (80.0-100.0) fL MCH 31.1 (25.0-34.0) pg MCHC 32.8 (32.0-36.0) g/dL RDW Std Deviation 54.7 H (36.4-46.3) fL RDW Coeff of Osman 15.6 H (11.5-14.5) % Plt Count 330 (130-400) K/uL MPV 9.7 (9.4-12.4) fL Immature Gran % (Auto) 0.3 % Neut % (Auto) 77.2 % Lymph % (Auto) 16.3 % [place] % (Auto) 5.8 % Eos % (Auto) 0.1 % Baso % (Auto) 0.3 % Neut # (Auto) 6.85 H (1.40-6.50) K/uL Lymph # (Auto) 1.45 (1.2-3.4) K/uL [place] # (Auto) 0.52 (0.11-0.59) K/uL Eos # (Auto) 0.01 (0-0.50) K/uL Baso # (Auto) 0.03 (0-0.2) K/uL Immature Gran # (Auto) 0.03 (0.01-0.20) K/uL Sodium (136-145) mmol/L Potassium (3.5-5.1) mmol/L Chloride (98-107) mmol/L Carbon Dioxide (21-32) mmol/L Anion Gap (3-11) BUN (6-23) mg/dl Creatinine (0.6-1.2) mg/dl Est Cr Clr Drug Dosing ml/min Est GFR ( Amer) ml/min Est GFR (Non-Af Amer) ml/min BUN/Creatinine Ratio (10-20) Glucose (70-99(Fasting)) mg/dl Calcium (8.5-10.1) mg/dl Phosphorus (2.5-4.9) mg/dl Magnesium (1.7-2.4) mg/dl Total Bilirubin (0.2-1.0) mg/dl AST (13-39) U/L ALT (7-52) U/L Alkaline Phosphatase (34-104) U/L Troponin I High Sens (0-14) pg/ml B-Natriuretic Peptide (0-100) pg/ml Total Protein (6.0-8.3) gm/dl Albumin (3.4-5.0) gm/dl Globulin (2.5-4.0) gm/dl Albumin/Globulin Ratio (0.9-2) Lipase (11-82) U/L Procalcitonin < 0.05 (0-0.5) ng/ml TSH (0.300-4.500) uIu/ml Adenovirus (PCR) Not Detected (NotDetected) B. pertussis DNA (PCR) Not Detected (NotDetected) B.parapertussis DNA PCR Not Detected (NotDetected) C. pneumoniae DNA (PCR) Not Detected (NotDetected) Coronavirus OC43 (PCR) Not Detected (NotDetected) Coronavirus HKU1 (PCR) DETECTED A* (NotDetected) Coronavirus 229E (PCR) Not Detected (NotDetected) SARS-CoV-2 (PCR) Not Detected (NotDetected) Coronavirus NL63 (PCR) Not Detected (NotDetected) Human Metapneumovir PCR Not Detected (NotDetected) Influenza Type A (PCR) Not Detected (NotDetected) Influenza Type B (PCR) Not Detected (NotDetected) M. pneumoniae (PCR) Not Detected (NotDetected) Parainfluenza 1 (PCR) Not Detected (NotDetected) Parainfluenza 2 (PCR) Not Detected (NotDetected) Parainfluenza 3 (PCR) Not Detected (NotDetected) Parainfluenza 4 (PCR) Not Detected (NotDetected) RSV (PCR) Not Detected (NotDetected) Entero/Rhino (PCR) Not Detected (NotDetected) Administered Medications Discontinued Medications Furosemide (Furosemide 40 Mg/4 Ml Vial) 40 mg IV NOW STA Stop: 07/06/22 10:41 Last Admin: 07/06/22 11:02 Dose: 40 mg Documented By: [facility] Furosemide (Furosemide 40 Mg/4 Ml Vial) 40 mg IV TODAY@1700 WALKER Stop: 07/06/22 17:01 Last Admin: 07/06/22 17:28 Dose: 40 mg Documented By: OAM Imaging Data Radiologist's Impression: Chest X-Ray 07/06/22 09:33 XR chest 1V portable HISTORY: 67 years-old Female Chest pain, nonspecific acute chest pain COMPARISON: 06/14/2022 TECHNIQUE: AP view of the chest. FINDINGS: Cardiac silhouette is enlarged. Left subclavian pacer/AICD. Pulmonary vascular congestion with interstitial coarsening. No pneumothorax. Small pleural eff usions with mild bibasilar consolidation. Degenerative changes of the shoulders and spine. IMPRESSION: 1. Cardiomegaly with pulmonary edema. 2. Small pleural effusions with mild bibasilar opacities suggestive of atelectasis. ACT 112: Negative or not required by law. The above report was generated using voice recognition software. It may contain grammatical, syntax or spelling errors. Electronically signed by: Dick Franklin M.D. 07/06/2022 10:32 AM Discharge Plan Visit Data Chief Complaint: Shortness of Breath/Dyspnea Stated Complaint: SOB ED Provider: Joey Ardon Discharge Problem: Acute on chronic HFrEF (heart failure with reduced ejection fraction), Pulmonary edema, Other coronavirus as the cause of diseases classified elsewhere, ICD (implantable cardioverter-defibrillator) in place Discharge Instructions Interventions: ED Discharge Assessment Last Done: 07/06/22 14:38
[2022-07-06 11:44] LABS: Adenovirus PCR Not Detected (NotDetected); Bordetella parapertussis PCR Not Detected (NotDetected); Bordetella pertussis PCR Not Detected (NotDetected); Chlamydia pneumoniae PCR Not Detected (NotDetected); Coronavirus 229E PCR Not Detected (NotDetected); Coronavirus CoV-2 (COVID19)PCR Not Detected (NotDetected); Coronavirus NL63 PCR Not Detected (NotDetected); Coronavirus OC43PCR Not Detected (NotDetected); Human Metapneumovirus PCR Not Detected (NotDetected); Influenza A PCR Not Detected (NotDetected); Influenza B PCR Not Detected (NotDetected); Mycoplasma pneumoniae PCR Not Detected (NotDetected); Parainfluenza Virus 1 PCR Not Detected (NotDetected); Parainfluenza Virus 2 PCR Not Detected (NotDetected); Parainfluenza Virus 3 PCR Not Detected (NotDetected); Parainfluenza Virus 4 PCR Not Detected (NotDetected); Respiratory Syncytial VirusPCR Not Detected (NotDetected); Rhinovirus/Enterovirus PCR Not Detected (NotDetected)
--- NOTE | 2022-07-06 11:50 | History & Physical Report ---
Date of Service July 06, 2022 Assessment & Plan (1) Acute on chronic HFrEF (heart failure with reduced ejection fraction): Plan: Suspect exacerbated by recent pulmonary embolism and viral infection Although she is not hypoxic she is having significant symptoms of orthopnea, PND, leg swelling, chest heaviness and shortness of breath especially on exertion. Currently taking Lasix 40 mg p.o. daily and spironolactone 25 mg every other day Lasix 40 mg IV given in ER, will give additional dose at 5 PM today and then continue Lasix 40 mg IV daily Increase spironolactone to 25 mg p.o. daily which should also help with her potassium < 4 Echocardiogram recently performed in May therefore not repeat this. Left ventricular ejection fraction 15 to 20%. Low-sodium, fluid restricted diet, daily weights and strict I's and O's Consult cardiology and heart failure clinic to determine when they are happy to manage this as an outpatient and patient to be discharged (2) Idiopathic cardiomyopathy: Plan: Continue Entresto and carvedilol (will reduce carvedilol dose back to 3.125 mg p.o. twice daily to allow more blood pressure for diuretics). Idiopathic diagnosis and cardiology notes. Patient reports cardiomyopathy being hereditary - will defer any further work-up for this to cardiology as presumably she has had this performed in the past. (3) Coronavirus infection: Plan: Recommend single room but does not need any specific isolation Likely had this last week and she is mostly recovered from it but may have contributed towards her acute heart failure as above (4) Pulmonary embolism: Plan: Diagnosed last admission. Continue apixaban 5 mg p.o. twice daily. (5) Diabetes mellitus type II, controlled: Plan: Hemoglobin A1c 7.1 in April. No need to repeat as within the last 3 months. Continue Jardiance 25 mg p.o. daily (6) Wound dehiscence, surgical: Plan: Status postacute cholecystectomy at outside hospital Consult wound care nurse. (7) Hyperlipidemia: Plan: Continue ezetimibe 10 mg p.o. every afternoon. Prior statin induced myopathy noted. Plan VTE prophylaxis - Eliquis Diet - heart healthy, low-sodium, fluid restrict to 1500 mL Disposition - observation status to PCU Admission and Anticipated Discharge Date Admission Date: July 06, 2022 History of Present Illness Chief Complaint: Shortness of breath Primary Care Provider: Theo Houston MD Maribel Noyola is a 67-year-old female with recent pulmonary embolism, nonischemic cardiomyopathy and chronic heart failure with reduced ejection fraction who presents to the ER with shortness of breath. She reports intermittent shortness of breath since her diagnosis of pulmonary embolism in May. However the last 2 days she has been progressively worse with significant orthopnea, paroxysmal nocturnal dyspnea and last night was unable to sleep until even in a recliner. Her weight is up 3 pounds in the last 3 days but she is not eating much so I was not sure whether this was fluid. Her legs are mildly more swollen than usual. She denies any palpitations. She is having some chest heaviness but no pain. She reports abdominal pain when coughing although her cough is mostly resolved. Last week she reports having a suspected viral illness with nasal congestion, sore throat, cough, sinus pain and headache. These symptoms have now resolved. In the emergency room she was noted to have significant work of breathing despite normal oxygen saturations. Initial blood pressure was 81/51 which the patient reports is not unusual for her. She does have dizziness especially on standing however this is chronic and no worse than usual and she has learned to live with it for many years. Chest x-ray and symptoms were concerning for acute on chronic congestive heart failure. She was given Lasix 40 mg IV and referred to medicine for admission ongoing management of congestive heart failure. After ED decision to admit her bio fire returned positive for coronavirus HKU1. Allergies Allergy/AdvReac Type Severity Reaction Status Date / Time erythromycin base Allergy Severe blisters;red;itchy;pain;blisters Verified 06/24/22 10:08 in back throat iodine Allergy Severe throat Verified 06/24/22 10:08 blisters;skin blisters meperidine [From Demerol] Allergy Severe quit Verified 06/24/22 10:08 breathing adhesive Allergy Intermediate BLISTERS Verified 06/24/22 10:08 tetracycline Allergy Unknown TERRAMYCIN Verified 06/24/22 10:08 ALLERGY atorvastatin AdvReac Intermediate MUSCLE Verified 06/24/22 10:08 PAIN/ACHES, DIFFICULTY WALKING azithromycin AdvReac Intermediate Gastrointestinal Verified 06/24/22 10:08 Upset metformin AdvReac Intermediate Diarrhea Verified 06/24/22 10:08 rosuvastatin [From Crestor] AdvReac Intermediate Cramping Verified 06/24/22 10:08 of the Muscles Ojgjmva-KGS-JwJ Reductase AdvReac Intermediate MUSCLE Verified 06/24/22 10:08 Inhibitor PAIN/ACHES, [Cgdrbxg-Tge-Mgq Reductase DIFFICULTY Inhibitor] WALKING Home Medications Medication Instructions Recorded Confirmed Type cholecalciferol (vitamin D3) 125 5,000 units PO DAILY 01/14/19 07/06/22 History mcg (5,000 unit) capsule lancets (Accu-Chek Softclix #100 ea 11/26/19 06/24/22 Rx Lancets) blood sugar diagnostic (Accu-Chek #100 ea 02/09/21 06/24/22 Rx Guide test strips) pantoprazole 40 mg tablet,delayed 40 mg PO DAILY #90 tabs 09/21/21 07/06/22 Rx release empagliflozin 25 mg tablet 25 mg PO DAILY #90 tabs 11/09/21 07/06/22 Rx ezetimibe 10 mg tablet 10 mg PO PM #90 tabs 02/15/22 07/06/22 Rx acetaminophen 325 mg tablet 650 mg PO Q4H PRN pain #30 tabs 05/14/22 07/06/22 Rx omega-3 fatty acids 1,000 mg 1,000 mg PO QAM 05/23/22 07/06/22 History capsule benzonatate 100 mg capsule 100 mg PO TID PRN cough #30 caps 06/09/22 07/06/22 Rx apixaban 5 mg (74 tabs) tablets in 5 mg PO BID #74 ea 06/16/22 07/06/22 Rx a dose pack (Eliquis) sacubitril 24 mg-valsartan 26 mg 1 tab PO BID #20 tabs 06/16/22 07/06/22 Rx tablet (Entresto) carvedilol 3.125 mg tablet 3.125 mg PO QPM 06/17/22 07/06/22 History carvedilol 6.25 mg tablet 6.25 mg PO QAM #90 tabs 06/17/22 07/06/22 Rx spironolactone 25 mg tablet 25 mg PO Q2D 30 days #90 tabs 06/17/22 07/06/22 Rx furosemide 40 mg tablet 40 mg PO QDD 07/06/22 07/06/22 History Past Med/Surg History Medical History Acute pulmonary embolism (06/14/22) Allergic rhinitis Asymptomatic menopausal state Atopic dermatitis CKD (chronic kidney disease), stage III Dental abscess Diabetes mellitus type II, controlled NIDDM Diverticulosis of colon Eustachian tube dysfunction History of sigmoidoscopy Hyperlipidemia Hypertension IBS (irritable bowel syndrome) ICD (implantable cardioverter-defibrillator) in place Placed Feb 2015 > [employer] > last checked 03/23/21 with > placed for CHF Incidental pulmonary nodule, > 3mm and < 8mm Inflamed seborrheic keratosis Internal hemorrhoids Intertrigo Milia Notalgia paresthetica Obesity Osteopenia Sigmoid diverticulitis SK (seborrheic keratosis) Stage 3b chronic kidney disease Vitamin D deficiency Wart Surgical History History of appendectomy History of arthroscopy of right knee History of arthroscopy of right shoulder History of breast biopsy benign History of cardiac cath 10/2017 [facility] no stents History of carpal tunnel surgery History of Neuroplasty Decompression Median Nerve At Carpal Tunnel> right History of cholecystectomy (05/28/22) at [facility] by Dr Ivey History of colonoscopy History of incision and drainage (05/14/22) infection floor of the mouth and subperiosteal plane # 30 area p Incision and Drainage, Tooth Extraction(Right) - Quinton Amezcua DMD History of repair of rotator cuff right History of vaginal hysterectomy Family History Mother Breast cancer Diabetes Grandmother Myocardial infarction Denies family history of Ovarian cancer Prostate cancer Colorectal cancer Social History Smoking Status: Never smoker Second Hand Exposure: No; Hx Alcohol Use: No Hx Substance Use: No Preferred Language: [place] Communication Ability: Effective Visual Impairment: No Limitations Hearing Ability: Normal Braille And Talking Books Clerk Required: No Beliefs That Will Affect Care: None marital status: Current Living Situation: Spouse current occupational status: retired Feels Safe at Home: Yes Childhood Exposure to Second-Hand Smoke: No caffeine: Yes during the past year weight has: remained stable Dental Care, Regularly: Yes Physical Activity Frequency: Does not Exercise Seatbelt Use: always Sunscreen Use: Yes Assistive Devices: None Review of Systems Review of Systems: All systems reviewed & are unremarkable except as noted in HPI & below Wound dehiscence from surgical incision for acute cholecystectomy patient reports is improving with current wound care guidelines Physical Exam Constitutional: WD/WN, vitals as above Eyes: + anicteric sclerae; normal pupil size Respiratory: + uses accessory muscles and able to speak in complete sentences; no labored breathing and expiratory phase not prolonged Auscultation: + diminished lung sounds (Bibasal); breath sounds present, no crackles, no rales, no rhonchi and no wheezes Cardiovascular: Rate/Rhythm: regular rate and regular rhythm (Very quiet heart sounds) Heart Sounds: no murmur Extremities: normal capillary refill and + pedal edema (1+ bilateral equal pitting); no calf tenderness Gastrointestinal (Abdomen): normal bowel sounds, soft, nontender, no hepatosplenomegaly Musculoskeletal: no cyanosis or clubbing, extremities motor strength 5/5 Skin: no rashes, warm and dry Neurologic: moves all extremities and awake; not confused Psychiatric: A+Ox3, euthymic affect Results & Data Results & Data ([facility]) Vital Signs (Past 12 Hours) Vital Signs Temp Pulse Pulse Resp BP BP Pulse Ox 07/06/22 11:34 93 07/06/22 10:24 77 24 93/65 L 96 07/06/22 10:01 79 20 90/64 L 95 07/06/22 10:01 97 07/06/22 09:35 07/06/22 09:18 36.1 C L 82 36 H 81/51 L 98 O2 Del Method 07/06/22 11:34 Room Air 07/06/22 10:24 Room Air 07/06/22 10:01 Room Air 07/06/22 10:01 Room Air 07/06/22 09:35 Room Air 07/06/22 09:18 Room Air Laboratory Results Abnormal lab results 07/06/22 07/06/22 07/06/22 Range/Units 09:32 09:32 09:32 RDW Std Deviation 54.7 H (36.4-46.3) fL RDW Coeff of Osman 15.6 H (11.5-14.5) % Neut # (Auto) 6.85 H (1.40-6.50) K/uL BUN 35 H (6-23) mg/dl Creatinine 1.35 H (0.6-1.2) mg/dl BUN/Creatinine Ratio 25.9 H (10-20) Glucose 155 H (70-99(Fasting)) mg/dl Total Bilirubin 1.3 H (0.2-1.0) mg/dl Alkaline Phosphatase 108 H (34-104) U/L Troponin I High Sens 16.1 H (0-14) pg/ml B-Natriuretic Peptide > 4700 H (0-100) pg/ml Diagnostic Findings XR chest 1V portable HISTORY: 67 years-old Female Chest pain, nonspecific acute chest pain COMPARISON: 06/14/2022 TECHNIQUE: AP view of the chest. FINDINGS: Cardiac silhouette is enlarged. Left subclavian pacer/AICD. Pulmonary vascular congestion with interstitial coarsening. No pneumothorax. Small pleural effusions with mild bibasilar consolidation. Degenerative changes of the shoul ders and spine. IMPRESSION: 1. Cardiomegaly with pulmonary edema. 2. Small pleural effusions with mild bibasilar opacities suggestive of atelectasis. Medications Administered ER medications given: Furosemide 40 mg IV ECG Indication: SOB/dyspnea Rate (beats per minute): 85 Rhythm: normal sinus Findings: + other (Nonspecific intraventricular conduction block) and + PVC Comparison ECG Date: from (June 16, 2022) Change: the following changes noted Code Status & VTE Plan Code Status Full VTE Prophylaxis Plan VTE Prophylaxis will be ordered: Yes PG Care Time/CCT Total # of Minutes Spent Total Time Spent with Patient: Total time spent is greater than 50% in coordination of care (as documented) at patient's floor/unit and/or counseling patient: Coding Level of Care Code 64335 INT INP/OBS CARE 3/75MIN Diagnoses Acute on chronic HFrEF (heart failure with reduced ejection fraction) I50.23 Idiopathic cardiomyopathy I42.8 Coronavirus infection B34.2 Pulmonary embolism I26.99 Diabetes mellitus type II, controlled E11.9 Diabetes mellitus custodial insulin use: without continuous churn buttermaker use Diabetes mellitus complication status: without complication Wound dehiscence, surgical T81.31XA Hyperlipidemia E78.5 (5) Diabetes mellitus type II, controlled Diabetes mellitus custodial insulin use: without continuous churn buttermaker use Diabetes mellitus complication status: without complication Qualified Code(s): E11.9 - Type 2 diabetes mellitus without complications
[2022-07-06 12:02] LABS: Coronavirus HKU1 PCR DETECTED (NotDetected)
[2022-07-06] MEDS ORDERED: ACETAMINOPHEN 325 MG TAB PO PRN (14:37)
[2022-07-06] MEDS ORDERED: ONDANSETRON INJ 2 MG/ML 2 ML VIAL IV PRN (14:37)
[2022-07-06] MEDS ORDERED: FUROSEMIDE 40 MG/4 ML VIAL IV SCH (17:00)
[2022-07-06] MEDS ORDERED: EZETIMIBE 10 MG TABLET PO SCH (21:00)
[2022-07-06] MEDS ORDERED: carvediloL 3.125 MG TAB PO SCH (21:00)
[2022-07-06] MEDS: APIXABAN 5 MG TABLET PO SCH (21:52)
[2022-07-06] MEDS: carvediloL 3.125 MG TAB PO SCH (21:53)
[2022-07-06] MEDS: VALSARTAN/SACUBITRIL 26/24MG TAB PO SCH (21:55)
--- NOTE | 2022-07-07 05:04 | Electrocardiogram Report ---
Test Reason : Blood Pressure : / mmHG Vent. Rate : 085 BPM Atrial Rate : 085 BPM P-R Int : 188 ms QRS Dur : 124 ms QT Int : 414 ms P-R-T Axes : 041 261 077 degrees QTc Int : 492 ms Sinus rhythm with occasional Premature ventricular complexes Anterior infarct Non-specific intra-ventricular conduction block Abnormal ECG When compared with ECG of 16-JUN-2022 06:18, Premature ventricular complexes are now Present Confirmed by Chaparro Duarte ([id number]) on 07/07/2022 5:03:56 AM Referred By: ED Confirmed By:Chaparro Duarte
[2022-07-07] MEDS ORDERED: PNEUMOCOCCAL Polysaccharide Vaccine 25mcg/0.5mL vial/Syr IM ONE (07:00)
[2022-07-07] MEDS: SPIRONOLACTONE 25 MG TAB PO SCH (07:44)
[2022-07-07] MEDS: APIXABAN 5 MG TABLET PO SCH ×2 (07:44→21:40)
[2022-07-07] MEDS: PANTOprazole 40 MG TAB PO SCH (07:44)
[2022-07-07] MEDS: VALSARTAN/SACUBITRIL 26/24MG TAB PO SCH ×2 (07:44→17:34)
[2022-07-07] MEDS: EMPAGLIFLOZIN 25 MG TAB PO SCH (07:45)
[2022-07-07] MEDS ORDERED: FUROSEMIDE 40 MG/4 ML VIAL IV ONE (07:47)
[2022-07-07] MEDS: FUROSEMIDE 40 MG/4 ML VIAL IV SCH (07:49)
[2022-07-07 08:44] LABS: BUN Creatinine Ratio 30.7 (10-20); Calcium 9.2 mg/dl (8.5-10.1); Creatinine Clr Calc Pharmacy 36.9 ml/min; Est GFR (African American) 41.6 ml/min; Est GFR (Non-African American) 35.9 ml/min; Magnesium 2.2 mg/dl (1.7-2.4); Potassium 3.6 mmol/L (3.5-5.1)
[2022-07-07] MEDS: CHOLECALCIFEROL 5,000 UNITS 125 MCG TAB PO SCH (09:03)
[2022-07-07] MEDS: OMEGA-3 (PURIFIED FISH OIL) 1 GM CAP PO SCH (09:03)
[2022-07-07] MEDS ORDERED: MoRPHine SULFATE 10 MG/0.5 ML UDP PO ONE (09:55)
[2022-07-07] MEDS ORDERED: BENZONATATE 100 MG CAPSULE PO ONE (14:28)
[2022-07-07] MEDS ORDERED: XOPENEX/ATROVENT 1.25mg/0.5MG NEB COMBO NEB ONE (14:28)
[2022-07-07] MEDS ORDERED: IPRATROPIUM BROMIDE NEB SOLN 0.02% 2.5 ML VIAL INH ONE (14:32)
[2022-07-07] MEDS ORDERED: LEVALBUTEROL 1.25MG/0.5ML NEB INH ONE (14:32)
--- NOTE | 2022-07-07 14:34 | Cardiology Consultation ---
Date of Consultation July 07, 2022 Assessment & Plan (1) Acute on chronic HFrEF (heart failure with reduced ejection fraction): (2) Idiopathic cardiomyopathy: (3) Moderate mitral regurgitation: (4) ICD (implantable cardioverter-defibrillator) in place: Plan ASSESSMENT/PLAN: 1. Acute on chronic heart failure with reduced EF: She appears hypervolemic. Has shown some improvement clinically with intravenous Lasix. Continue current regimen. Would try to achieve near 1 L negative fluid balance. Can also re- dose Lasix if needed. Low-sodium diet. Strict I&Os while hospitalized. Close heart failure program follow-up. Continue carvedilol and once further diurese, consider increasing to 6.25 mg twice daily as recently performed by Dr. Mejia in the outpatient setting (if tolerated). Would hold for systolic blood pressure less than 90 or symptomatic hypotension. She is tolerating mild hypotension. Continue carvedilol, Entresto, spironolactone, and Jardiance. Jardiance 10 mg once daily is sufficient from a cardiac standpoint. 2. Cardiomyopathy: Nonischemic. Continue therapy and titrate if tolerated medications are slowly being titrated in the outpatient setting by Dr. Mejia. She apparently has had orthostatic symptoms in the past (mild) but has tolerated higher doses than current and he is trying to further titrate. 3. Mitral regurgitation: Non severe when last evaluated. Follow as an outpatient. 4. ICD: She denies any ICD therapy. Follow with electrophysiology. 5. Disposition: Patient care discussed with Dr. Park the primary hospitalist service. I will be away from the hospital for the next several days. Dr. Joy or Cristy Salazar will continue her cardiology care tomorrow. Please call on- call foam rubber fabricator with questions or concerns. Thank you for allowing me to participate in the care of your patient. Please call for any other questions or concerns. Sincerely, Rony Duarte M.D. History of Present Illness Reason for Consultation: Acute on chronic HFrEF Requesting Physician: Ramesh Jones Attending Physician: Ramesh Park History of Present Illness Mrs. Noyola is a very pleasant 67-year-old female with a history significant for nonischemic cardiomyopathy, heart failure with reduced EF, type 2 diabetes, CKD, hypertension, dyslipidemia, and pulmonary emboli (diagnosed May 2022). She has ICD for primary prevention Her primary foam rubber fabricator is Dr. Mejia. She is also followed in the heart failure program and by electrophysiology. She has had the following studies/procedures: 1. Dual-chamber ICD 03/14/2014. 2. Cardiac cath 2018: No significant CAD. 3. Echo 10/27/2021 [facility]: Severely reduced LV systolic function. EF 15 to 20%. Moderately dilated LV. Severe global hypokinesis. Moderate MR. Mild left atrial dilation. 4. [place] [facility] [place] report, EF remained 15 to 20%. 5. Echo 06/14/2022 [facility]: Mildly dilated LV with severely reduced systolic function. EF 15-20%. Global hypokinesis. Septal dyskinesis. Biatrial dilation. Moderate MR. Mild to moderate TR. Mild pulmonary hypertension. She was admitted on 07/06/2022 with shortness of breath. She has been hospitalized multiple times in May of 2022, including cholecystitis, shor tness of breath after reduced heart failure regimen from [place]ole[place] [facility] [place] and then diagnosed with bilateral pulmonary emboli at the end of May. Last week, she had sore throat, headache, postnasal drip, cough, rhinorrhea and shortness of breath but no fever. Symptoms persisted for approximately 4 days and then for 1-2 days her shortness of breath improved. She then developed orthopnea, continued cough but nonproductive. Shortness of breath worsened. She noted a 3 lb weight gain in the past week with increased edema. She has occasional palpitations with coughing spells but otherwise denies chest discomfort, syncope, near-syncope, melena, hematochezia, or hematuria. She has been unable to sleep for most of the past 3 days secondary to shortness of breath she felt better sitting in a chair today. She admits that while here, she received intravenous diuretic and breathing has improved but still has orthopnea. Although listed differently, she has been taking carvedilol 6.25 mg twice daily and spironolactone 25 mg once daily based on recent visit with Dr. Mejia. Review of systems:As above. Review of systems otherwise negative/unremarkable. Family history:Father in a motor vehicle accident however 4 of his siblings from CHF. Social history:She denies tobacco or drug abuse. Rare alcohol. She lives at home with her . She has 2 adult children. She was unaccompanied in her hospital room. Allergies Allergy/AdvReac Type Severity Reaction Status Date / Time erythromycin base Allergy Severe blisters;red;itchy;pain;blisters Verified 06/24/22 10:08 in back throat iodine Allergy Severe throat Verified 06/24/22 10:08 blisters;skin blisters meperidine [From Demerol] Allergy Severe quit Verified 06/24/22 10:08 breathing adhesive Allergy Intermediate BLISTERS Verified 06/24/22 10:08 tetracycline Allergy Unknown TERRAMYCIN Verified 06/24/22 10:08 ALLERGY atorvastatin AdvReac Intermediate MUSCLE Verified 06/24/22 10:08 PAIN/ACHES, DIFFICULTY WALKING azithromycin AdvReac Intermediate Gastrointestinal Verified 06/24/22 10:08 Upset metformin AdvReac Intermediate Diarrhea Verified 06/24/22 10:08 rosuvastatin [From Crestor] AdvReac Intermediate Cramping Verified 06/24/22 10:08 of the Muscles [id number]-SSD-FhD Reductase AdvReac Intermediate MUSCLE Verified 06/24/22 10:08 Inhibitor PAIN/ACHES, [Rpdbnsq-Aps-Xvp Reductase DIFFICULTY Inhibitor] WALKING Home Medications Medication Instructions Recorded Confirmed Type cholecalciferol (vitamin D3) 125 5,000 units PO DAILY 01/14/19 07/06/22 History mcg (5,000 unit) capsule lancets (Accu-Chek Softclix #100 ea 11/26/19 07/06/22 Rx Lancets) blood sugar diagnostic (Accu-Chek #100 ea 02/09/21 07/06/22 Rx Guide test strips) pantoprazole 40 mg tablet,delayed 40 mg PO DAILY #90 tabs 09/21/21 07/06/22 Rx release empagliflozin 25 mg tablet 25 mg PO DAILY #90 tabs 11/09/21 07/06/22 Rx ezetimibe 10 mg tablet 10 mg PO PM #90 tabs 02/15/22 07/06/22 Rx acetaminophen 325 mg tablet 650 mg PO Q4H PRN pain #30 tabs 05/14/22 07/06/22 Rx omega-3 fatty acids 1,000 mg 1,000 mg PO QAM 05/23/22 07/06/22 History capsule benzonatate 100 mg capsule 100 mg PO TID PRN cough #30 caps 06/09/22 07/06/22 Rx apixaban 5 mg (74 tabs) tablets in 5 mg PO BID #74 ea 06/16/22 07/06/22 Rx a dose pack (Eliquis) sacubitril 24 mg-valsartan 26 mg 1 tab PO BID #20 tabs 06/16/22 07/06/22 Rx tablet (Entresto) carvedilol 3.125 mg tablet 3.125 mg PO QPM 06/17/22 07/06/22 History carvedilol 6.25 mg tablet 6.25 mg PO QAM #90 tabs 06/17/22 07/06/22 Rx spironolactone 25 mg tablet 25 mg PO Q2D 30 days #90 tabs 06/17/22 07/06/22 Rx furosemide 40 mg tablet 40 mg PO QDD 07/06/22 07/06/22 History Patient History Medical History (Updated 07/07/22 @ 14:52 by Chaparro Duarte MD) Acute pulmonary embolism (06/14/22) Allergic rhinitis Asymptomatic menopausal state Atopic dermatitis CKD (chronic kidney disease), stage III Dental abscess Diabetes mellitus type II, controlled NIDDM Diverticulosis of colon Eustachian tube dysfunction History of sigmoidoscopy Hyperlipidemia Hypertension IBS (irritable bowel syndrome) ICD (implantable cardioverter-defibrillator) in place Placed Feb 2015 > [facility] > last checked 03/23/21 with > placed for CHF Idiopathic cardiomyopathy Incidental pulmonary nodule, > 3mm and < 8mm Inflamed seborrheic keratosis Internal hemorrhoids Intertrigo Milia Moderate mitral regurgitation Notalgia paresthetica Obesity Osteopenia Sigmoid diverticulitis SK (seborrheic keratosis) Stage 3b chronic kidney disease Vitamin D deficiency Wart Surgical History History of appendectomy History of arthroscopy of right knee History of arthroscopy of right shoulder History of breast biopsy benign History of cardiac cath 10/2017 [facility] no stents History of carpal tunnel surgery History of Neuroplasty Decompression Median Nerve At Carpal Tunnel> right History of cholecystectomy (05/28/22) at [place] by Dr Ivey History of colonoscopy History of incision and drainage (05/14/22) infection floor of the mouth and subperiosteal plane # 30 area p Incision and Drainage, Tooth Extraction(Right) - Quinton Amezcua, DA History of repair of rotator cuff right History of vaginal hysterectomy Family History Mother Breast cancer Diabetes Grandmother Myocardial infarction Denies family history of Ovarian cancer Prostate cancer Colorectal cancer Social History Smoking Status: Never smoker Second Hand Exposure: No; Hx Alcohol Use: No Hx Substance Use: No Preferred Language: Chadian Communication Ability: Effective Visual Impairment: No Limitations Hearing Ability: Normal Associate Research Scientist Required: No Beliefs That Will Affect Care: None marital status: Current Living Situation: Significant Other current occupational status: retired Other Information That Helps Us Care for You: No Feels Safe at Home: Yes Childhood Exposure to Second-Hand Smoke: No caffeine: Yes during the past year weight has: remained stable Dental Care, Regularly: Yes Physical Activity Frequency: Does not Exercise Seatbelt Use: always Sunscreen Use: Yes Assistive Devices: None Physical Exam Physical Exam: Gen.: No acute distress. Alert and oriented. HEENT: Anicteric sclera. Neck: Mild JVD. Hepatic jugular reflux noted. No bruits. Normal carotid upstrokes bilaterally. Cardiac: PMI was nonpalpable. No ventricular heave. Regular. Normal S1-S2. No murmurs, rubs, or gallops. Pulmonary: Clear to auscultation bilaterally. Abdomen: Soft, nontender, nondistended, with normoactive bowel sounds. No bruits noted. Extremities: 2+ radial pulses bilaterally. 2+ posterior tibialis pulses bilaterally. Trace bilateral lower extremity edema. No cyanosis. Psychiatric: Affect appears appropriate. Results & Data ([facility]) Vital Signs (Past 12 Hours) Vital Signs Temp Pulse Pulse Pulse Resp BP BP 07/07/22 11:20 36.8 C 80 18 99/66 L 07/07/22 10:26 77 26 H 07/07/22 07:45 07/07/22 07:00 78 07/07/22 07:51 36.6 C 81 16 106/73 07/07/22 04:10 75 32 H 07/07/22 02:48 36.6 C 76 18 90/60 L Pulse Ox O2 Del Method 07/07/22 11:20 93 Room Air 07/07/22 10:26 96 Room Air 07/07/22 07:45 Room Air 07/07/22 07:00 07/07/22 07:51 94 Room Air 07/07/22 04:10 95 07/07/22 02:48 96 Room Air Intake & Output 07/05/22 07/06/22 07/07/22 07/08/22 06:59 06:59 06:59 06:59 Intake Total 800 / 800 360 / 360 Output Total 675 / 675 150 / 150 Balance 125 / 125 210 / 210 Weight 177 lb 4.026 oz 176 lb 2.389 oz Laboratory Results Laboratory Results - last 48 hr 07/06/22 07/06/22 07/06/22 09:32 09:32 09:32 WBC RBC Hgb Hct MCV MCH MCHC RDW Std Deviation RDW Coeff of Osman Plt Count MPV Immature Gran % (Auto) Neut % (Auto) Lymph % (Auto) [place] % (Auto) Eos % (Auto) Baso % (Auto) Neut # (Auto) Lymph # (Auto) [place] # (Auto) Eos # (Auto) Baso # (Auto) Immature Gran # (Auto) Sodium 138 Potassium 3.7 Chloride 99 Carbon Dioxide 30 Anion Gap 9 BUN 35 H Creatinine 1.35 H Est Cr Clr Drug Dosing 41.4 Est GFR ( Amer) 47.3 Est GFR (Non-Af Amer) 40.8 BUN/Creatinine Ratio 25.9 H Glucose 155 H Calcium 9.4 Phosphorus 4.0 Magnesium 2.2 Total Bilirubin 1.3 H AST 21 ALT 21 Alkaline Phosphatase 108 H Troponin I High Sens 16.1 H B-Natriuretic Peptide > 4700 H Total Protein 7.6 Albumin 4.0 Globulin 3.6 Albumin/Globulin Ratio 1.1 Lipase 28 Procalcitonin TSH 3.700 Adenovirus (PCR) B. pertussis DNA (PCR) B.parapertussis DNA PCR C. pneumoniae DNA (PCR) Coronavirus OC43 (PCR) Coronavirus HKU1 (PCR) Coronavirus 229E (PCR) SARS-CoV-2 (PCR) Coronavirus NL63 (PCR) Human Metapneumovir PCR Influenza Type A (PCR) Influenza Type B (PCR) M. pneumoniae (PCR) Parainfluenza 1 (PCR) Parainfluenza 2 (PCR) Parainfluenza 3 (PCR) Parainfluenza 4 (PCR) RSV (PCR) Entero/Rhino (PCR) 07/06/22 07/06/22 07/06/22 09:32 09:32 09:53 WBC 8.89 RBC 4.25 Hgb 13.2 Hct 40.3 MCV 94.8 MCH 31.1 MCHC 32.8 RDW Std Deviation 54.7 H RDW Coeff of Osman 15.6 H Plt Count 330 MPV 9.7 Immature Gran % (Auto) 0.3 Neut % (Auto) 77.2 Lymph % (Auto) 16.3 [place] % (Auto) 5.8 Eos % (Auto) 0.1 Baso % (Auto) 0.3 Neut # (Auto) 6.85 H Lymph # (Auto) 1.45 [place] # (Auto) 0.52 Eos # (Auto) 0.01 Baso # (Auto) 0.03 Immature Gran # (Auto) 0.03 Sodium Potassium Chloride Carbon Dioxide Anion Gap BUN Creatinine Est Cr Clr Drug Dosing Est GFR ( Amer) Est GFR (Non-Af Amer) BUN/Creatinine Ratio Glucose Calcium Phosphorus Magnesium Total Bilirubin AST ALT Alkaline Phosphatase Troponin I High Sens B-Natriuretic Peptide Total Protein Albumin Globulin Albumin/Globulin Ratio Lipase Procalcitonin < 0.05 TSH Adenovirus (PCR) Not Detected B. pertussis DNA (PCR) Not Detected B.parapertussis DNA PCR Not Detected C. pneumoniae DNA (PCR) Not Detected Coronavirus OC43 (PCR) Not Detected Coronavirus HKU1 (PCR) DETECTED A* Coronavirus 229E (PCR) Not Detected SARS-CoV-2 (PCR) Not Detected Coronavirus NL63 (PCR) Not Detected Human Metapneumovir PCR Not Detected Influenza Type A (PCR) Not Detected Influenza Type B (PCR) Not Detected M. pneumoniae (PCR) Not Detected Parainfluenza 1 (PCR) Not Detected Parainfluenza 2 (PCR) Not Detected Parainfluenza 3 (PCR) Not Detected Parainfluenza 4 (PCR) Not Detected RSV (PCR) Not Detected Entero/Rhino (PCR) Not Detected 07/07/22 07:44 WBC RBC Hgb Hct MCV MCH MCHC RDW Std Deviation RDW Coeff of Osman Plt Count MPV Immature Gran % (Auto) Neut % (Auto) Lymph % (Auto) [place] % (Auto) Eos % (Auto) Baso % (Auto) Neut # (Auto) Lymph # (Auto) [place] # (Auto) Eos # (Auto) Baso # (Auto) Immature Gran # (Auto) Sodium 137 Potassium 3.6 Chloride 98 Carbon Dioxide 32 Anion Gap 7 BUN 46 H Creatinine 1.50 H Est Cr Clr Drug Dosing 36.9 Est GFR ( Amer) 41.6 Est GFR (Non-Af Amer) 35.9 BUN/Creatinine Ratio 30.7 H Glucose 163 H Calcium 9.2 Phosphorus Magnesium 2.2 Total Bilirubin AST ALT Alkaline Phosphatase Troponin I High Sens B-Natriuretic Peptide Total Protein Albumin Globulin Albumin/Globulin Ratio Lipase Procalcitonin TSH Adenovirus (PCR) B. pertussis DNA (PCR) B.parapertussis DNA PCR C. pneumoniae DNA (PCR) Coronavirus OC43 (PCR) Coronavirus HKU1 (PCR) Coronavirus 229E (PCR) SARS-CoV-2 (PCR) Coronavirus NL63 (PCR) Human Metapneumovir PCR Influenza Type A (PCR) Influenza Type B (PCR) M. pneumoniae (PCR) Parainfluenza 1 (PCR) Parainfluenza 2 (PCR) Parainfluenza 3 (PCR) Parainfluenza 4 (PCR) RSV (PCR) Entero/Rhino (PCR) Diagnostic Findings Telemetry personally reviewed: Sinus rhythm with PVCs. Echo report from 06/14/2022 reviewed as noted above in HPI. ECG personally reviewed from 07/06/2022: Sinus rhythm with PVCs. Possible anterior infarct. IVCD. History and physical report reviewed. Outpatient cardiology visit by Dr. Mejia reviewed from 06/17/2022. Chest x-ray image personally reviewed from 07/06/2022: Prominent vascular congestion. No obvious infiltrate. Dual-chamber ICD. Radiology interpretation notable for pulmonary edema and small pleural effusions. Labs reviewed and notable for abnormal but stable renal function. BNP significantly elevated. Medications Administered Current Inpatient Medications Acetaminophen (Acetaminophen 325 Mg Tab) 650 mg PO Q4H PRN PRN Reason: Pain or Fever Stop: 08/05/22 14:36 Apixaban (Apixaban 5 Mg Tablet) 5 mg PO BID@0900,2200 [facility] Stop: 08/06/22 21:59 Benzonatate (Benzonatate 100 Mg Capsule) 100 mg PO TID@0900,1400,1700 [facility] Stop: 08/07/22 08:59 Carvedilol (Carvedilol 3.125 Mg Tab) 3.125 mg PO QAM [facility] Stop: 08/06/22 08:59 Last Admin: 07/06/22 21:53 Dose: 3.125 mg Carvedilol (Carvedilol 3.125 Mg Tab) 3.125 mg PO QPM@1700 [facility] Stop: 08/06/22 17:29 Last Admin: 07/07/22 17:35 Dose: Not Given Ezetimibe (Ezetimibe 10 Mg Tablet) 10 mg PO PM@1700 [facility] Stop: 08/06/22 17:29 Last Admin: 07/07/22 17:34 Dose: 10 mg Empagliflozin (Empagliflozin 25 Mg Tab) 25 mg PO DAILY [facility] Stop: 08/06/22 08:59 Last Admin: 07/07/22 07:45 Dose: 25 mg Fish Oil ([place]-3 (Purified Fish Oil) 1 Gm Cap) 1 gm PO QAM [facility] Stop: 08/06/22 08:59 Last Admin: 07/07/22 09:03 Dose: 1 gm Furosemide (Furosemide 40 Mg/4 Ml Vial) 40 mg IV QAM [facility] Stop: 08/06/22 08:59 Last Admin: 07/07/22 07:49 Dose: 40 mg Guaifenesin (Guaifenesin 600 Mg Tabcr) 600 mg PO Q12 [facility] Stop: 08/06/22 14:29 Last Admin: 07/07/22 15:48 Dose: 600 mg Hydrocodone Bit/Homatropine Methylb (Hydrocodone/Homatropine Syrup 5mg/1.5mg 5ml Udp) 5 ml PO Q6H PRN PRN Reason: Cough Stop: 07/21/22 17:45 Dexamethasone 6 mg/ Syringe 1.5 mls @ 1 mls/min IV Q24H [facility] Stop: 08/06/22 17:59 Last Admin: 07/07/22 17:44 Dose: 1 mls/min Ipratropium [place] (Ipratropium [place] Neb Soln 0.02% 2.5 Ml Vial) 0.5 mg INH Q6R [facility] Stop: 08/06/22 18:59 Levalbuterol HCl (Levalbuterol 1.25mg/0.5ml Neb) 1.25 mg INH Q6R [facility] Stop: 08/06/22 18:59 Lorazepam (Lorazepam 0.5 Mg Tab) 0.25 mg PO HS [facility] Stop: 08/06/22 20:59 Ondansetron HCl (Ondansetron Inj 2 Mg/Ml 2 Ml Vial) 4 mg IV Q6H PRN PRN Reason: Nausea Stop: 08/05/22 14:36 Pantoprazole Sodium (Pantoprazole 40 Mg Tab) 40 mg PO DAILY [facility] Stop: 08/06/22 08:59 Last Admin: 07/07/22 07:44 Dose: 40 mg Sacubitril/Valsartan (Valsartan/Sacubitril 26/24mg Tab) 1 tab PO BID@0900,1700 [facility] Stop: 08/06/22 17:29 Last Admin: 07/07/22 17:34 Dose: 1 tab Spironolactone (Spironolactone 25 Mg Tab) 25 mg PO DAILY [facility] Stop: 08/06/22 08:59 Last Admin: 07/07/22 07:44 Dose: 25 mg Vitamin D (Cholecalciferol 5,000 Units 125 Mcg Tab) 5,000 units PO QAM [facility] Stop: 08/06/22 08:59 Last Admin: 07/07/22 09:03 Dose: 5,000 units PG Care Time/CCT Total # of Minutes Spent Total Time Spent with Patient: Total time spent is greater than 50% in coordination of care (as documented) at patient's floor/unit and/or counseling patient: Coding Level of Care Code 22681 INT INP/OBS CARE 3/75MIN Medical Decision Making High Complexity Diagnoses Acute on chronic HFrEF (heart failure with reduced ejection fraction) I50.23 Idiopathic cardiomyopathy I42.8 Moderate mitral regurgitation I34.0 ICD (implantable cardioverter-defibrillator) in place Z95.810
[2022-07-07] MEDS: guaiFENesin 600 MG TABCR PO SCH ×2 (15:48→21:43)
[2022-07-07] MEDS ORDERED: APIXABAN 5 MG TABLET PO SCH (17:30)
[2022-07-07] MEDS ORDERED: EZETIMIBE 10 MG TABLET PO SCH (17:30)
[2022-07-07] MEDS ORDERED: carvediloL 3.125 MG TAB PO SCH (17:30)
[2022-07-07] MEDS ORDERED: HYDROcodone/HOMATROPINE SYRUP 5MG/1.5MG 5ML UDP PO PRN (17:46)
[2022-07-07] MEDS ORDERED: dexAMETHasone 6 MG in SYRINGE 0 ML IV SCH (18:00)
--- NOTE | 2022-07-07 18:34 | Hospitalist Progress Note ---
Date of Service July 07, 2022 Assessment & Plan (1) Acute on chronic HFrEF (heart failure with reduced ejection fraction): Plan: EF 15-20% on echo 05/2022. Appears mildly volume overloaded today; however, weight is below her typical dry weight, and Cr is slightly above baseline (today 1.5, usually about 1.4). Thus, I don't believe she has lots more volume to pull moving forward. Cont lasix 40mg IV daily. Appreciate cardiology consultation. BMP am. Cont aldactone. Cont BB. Cont Entresto. (2) Coronavirus infection: Plan: I do suspect that many of her pulmonary symptoms are from this viral process. Some of her cxr and exam findings may be due in part to viral pneumonia. Her cough has been severe and her pulmonary symptoms are very bothersome. She is not sleeping well. Gave a xopenex/atrovent neb this afternoon with some relief of symptoms. I re- examined her following the neb - bases with less crackles, airation improved following the neb. Thus, will continue these q6h. We discussed use of steroids - will trial them - dexamethasone 6mg IV daily. Add tessalon 100mg TID. Add hycodan 5cc q6h prn. Flutter valve. If her pulmonary symptoms worsen then consider repeat chest CT. (3) Idiopathic cardiomyopathy: Plan: With resulting severe systolic CHF as in #1 above. Appreciate cardiology consult. (4) Pulmonary embolism: Plan: 06/14/22 - diagnosed via CTA chest. Provoked - occurred several weeks post-op from her lap ketty. Continue apixaban 5 mg p.o. twice daily. At this point I do not think that the majority of her symptoms are related to her VTE. (5) Diabetes mellitus type II, controlled: Plan: Hemoglobin A1c 7.1 in April 2022. Continue Jardiance 25 mg p.o. daily. May be beneficial to check BSGs ac/hs and change diet to DM with steroids. May need insulin coverage. (6) Wound dehiscence, surgical: Plan: Status postacute cholecystectomy at [facility] in 05/[facility]. Wound care nurse consult for this. (7) Hyperlipidemia: Plan: Continue ezetimibe 10 mg p.o. every afternoon. Prior statin induced myopathy noted. Thus not on statin therapy. (8) Insomnia: Plan: schedule low-dose ativan 0.25mg HS tonight. (9) Greater trochanteric bursitis: Plan: right. s/p corticosteroid injection last week. (10) ICD (implantable cardioverter-defibrillator) in place: Plan: interrogation completed 07/06. no recent discharges. (11) Stage 3b chronic kidney disease: Plan: CrCl low 30s BMP in am Plan updated at bedside care d/w Dr Duarte Admission and Anticipated Discharge Date Admission Date: July 06, 2022 Subjective patient feels poorly states she cannot sleep and get comfortable has not slept decently for 4 nights attributes much of the insomnia to orthopnea and PND she had URI symptoms last week - nasal congestion, sore throat, cough the URI symptoms improved but then the chest symptoms worsened cough is mainly dry continues with NUR - can walk <25 feet and dyspnea starts appetite is fair at best weight today is less than her usual dry weight at bedside during the visit Review of Systems Review of Systems: gen - no fevers or chills; very tired, fatigued, lack of energy cv - chest tightness present, no pleuritic pain however; orthopnea, PND present; no edema pulm - cough, dyspnea on exertion and some dyspnea even at rest GI - no vomiting or nausea ; no diarrhea skin - ongoing small wound upper abdomen from lap ketty 05/2022; wound is healing psych - severe insomnia Physical Exam Physical Exam: gen - coughing; looks very tired neck - mild JVD mouth - MM slightly dry heart - RRR, s1 s2, no murmur lungs - fine b/l basilar rales; no wheeze; fair airation; no increased work of breathing abd - soft NT ND BS+ ext - trace edema, pulses 2+ b/l psych - a/o x 3 skin - RUQ wound/ulcer - <1cm, packing in place Results & Data Results & Data ([facility]) Vital Signs (Past 12 Hours) Vital Signs Temp Pulse Pulse Pulse Resp BP BP 07/07/22 17:33 92/58 L 07/07/22 17:31 76 96/65 L 07/07/22 15:58 36.3 C L 78 18 91/60 L 07/07/22 15:33 78 20 07/07/22 11:20 36.8 C 80 18 99/66 L 07/07/22 10:26 77 26 H 07/07/22 07:45 07/07/22 07:00 78 07/07/22 07:51 36.6 C 81 16 106/73 Pulse Ox O2 Del Method 07/07/22 17:33 07/07/22 17:31 97 Room Air 07/07/22 15:58 92 Room Air 07/07/22 15:33 94 Room Air 07/07/22 11:20 93 Room Air 07/07/22 10:26 96 Room Air 07/07/22 07:45 Room Air 07/07/22 07:00 07/07/22 07:51 94 Room Air Laboratory Results Laboratory Results - last 24 hr 07/07/22 07:44 Sodium 137 Potassium 3.6 Chloride 98 Carbon Dioxide 32 Anion Gap 7 BUN 46 H Creatinine 1.50 H Est Cr Clr Drug Dosing 36.9 Est GFR ( Amer) 41.6 Est GFR (Non-Af Amer) 35.9 BUN/Creatinine Ratio 30.7 H Glucose 163 H Calcium 9.2 Magnesium 2.2 PG Care Time/CCT Total # of Minutes Spent Total Time Spent with Patient: Total time spent is greater than 50% in coordination of care (as documented) at patient's floor/unit and/or counseling patient: Coding Level of Care Code 71459 SUB INP/OBS CARE 3/50MIN Diagnoses Acute on chronic HFrEF (heart failure with reduced ejection fraction) I50.23 Coronavirus infection B34.2 Idiopathic cardiomyopathy I42.8 Pulmonary embolism I26.99 Diabetes mellitus type II, controlled E11.9 Diabetes mellitus complication status: without complication Diabetes mellitus skilled nursing insulin use: without skilled nursing use Wound dehiscence, surgical T81.31XA Hyperlipidemia E78.5 Insomnia G47.00 Greater trochanteric bursitis M70.60 ICD (implantable cardioverter-defibrillator) in place Z95.810 Stage 3b chronic kidney disease N18.32 (5) Diabetes mellitus type II, controlled Diabetes mellitus complication status: without complication Diabetes mellitus termite inspector insulin use: without termite inspector use Qualified Code(s): E11.9 - Type 2 diabetes mellitus without complications
[2022-07-07] MEDS ORDERED: XOPENEX/ATROVENT 1.25mg/0.5MG NEB COMBO NEB SCH (19:00)
[2022-07-07] MEDS: LEVALBUTEROL 1.25MG/0.5ML NEB INH SCH (19:09)
[2022-07-07] MEDS: IPRATROPIUM BROMIDE NEB SOLN 0.02% 2.5 ML VIAL INH SCH (19:09)
[2022-07-07] MEDS ORDERED: BENZONATATE 100 MG CAPSULE PO SCH (21:00)
[2022-07-07] MEDS ORDERED: LORazepam 0.5 MG TAB PO SCH (21:00)
[2022-07-08] MEDS: IPRATROPIUM BROMIDE NEB SOLN 0.02% 2.5 ML VIAL INH SCH ×2 (01:35→07:11)
[2022-07-08] MEDS: LEVALBUTEROL 1.25MG/0.5ML NEB INH SCH ×2 (01:35→07:11)
[2022-07-08] MEDS ORDERED: CARBOHYDRATES FOR HYPOGLYCEMIA PO PRN (08:00)
[2022-07-08] MEDS ORDERED: DEXTROSE 50% 50 ML SYRINGE IV PRN (08:00)
[2022-07-08] MEDS ORDERED: GLUCAGON FOR INJ 1 MG VIAL IM PRN (08:00)
[2022-07-08] MEDS ORDERED: GLUCOSE 40% GEL 15 GM TUBE PO PRN (08:00)
[2022-07-08] MEDS ORDERED: GLUCOSE 10 TAB/TUBE PO PRN (08:00)
[2022-07-08 08:15] LABS: BUN Creatinine Ratio 31.8 (10-20); Creatinine Clr Calc Pharmacy 42.1 ml/min; Est GFR (African American) 48.6 ml/min; Est GFR (Non-African American) 41.9 ml/min; Magnesium 2.2 mg/dl (1.7-2.4); Potassium 4.2 mmol/L (3.5-5.1)
[2022-07-08] MEDS: guaiFENesin 600 MG TABCR PO SCH (08:41)
[2022-07-08] MEDS: CHOLECALCIFEROL 5,000 UNITS 125 MCG TAB PO SCH (08:42)
[2022-07-08] MEDS: EMPAGLIFLOZIN 25 MG TAB PO SCH (08:43)
[2022-07-08] MEDS: carvediloL 3.125 MG TAB PO SCH (08:43)
[2022-07-08] MEDS: PANTOprazole 40 MG TAB PO SCH (08:44)
[2022-07-08] MEDS: SPIRONOLACTONE 25 MG TAB PO SCH (08:44)
[2022-07-08] MEDS: OMEGA-3 (PURIFIED FISH OIL) 1 GM CAP PO SCH (08:44)
[2022-07-08] MEDS: VALSARTAN/SACUBITRIL 26/24MG TAB PO SCH (08:44)
[2022-07-08] MEDS: INSULIN ASPART PER UNIT SC SCH ×2 (08:45→12:19)
[2022-07-08] MEDS: FUROSEMIDE 40 MG/4 ML VIAL IV SCH (08:45)
[2022-07-08] MEDS ORDERED: LANTUS PER UNIT CHARGE SQ SCH (09:00)
[2022-07-08] MEDS ORDERED: BENZONATATE 100 MG CAPSULE PO SCH (09:00)
[2022-07-08] MEDS: APIXABAN 5 MG TABLET PO SCH (09:09)
--- NOTE | 2022-07-08 10:29 | Cardiology Progress Note ---
Date of Service July 08, 2022 Assessment & Plan (1) Acute on chronic HFrEF (heart failure with reduced ejection fraction): Plan: 2. Nonischemic cardiomyopathy 3. Mitral regurgitation 4. Coronavirus infection 5. Prior PE 6. Type 2 DM Patient feeling much improved today with steroids/symptomatic treatment for her cough/viral illness On exam today minimal residual congestion Renal function stable Seems to be back at recent baseline and from cardiac standpoint okay with discharge today. Has close follow-up scheduled with CHF clinic next week. Tolerating SBPs in the 80-90s. Continue GDMT with carvedilol, Entresto 2426, spironolactone QOD and Jardiance. Okay to discharge on Coreg 3.125 twice daily and can increase back to 6.25 in the morning as an outpatient Continue maintenance lasix 40mg daily. Continue Eliquis Admission and Anticipated Discharge Date Admission Date: July 06, 2022 Subjective Patient feeling much improved today. Cough significantly better. Up walking to bathroom without significant shortness of breath. No chest pain. Telemetry reviewedno events Review of Systems Review of Systems: All systems reviewed & are unremarkable except as noted in HPI & below Physical Exam Physical Exam: General: Comfortable, sitting up on edge of bed HEENT: Sclerae anicteric Lungs: Clear to auscultation bilaterally, no crackles or wheezes Cardiac: Regular rate and rhythm, no murmurs. Vascular: 2+ radial Abdomen: Soft, nontender Extremities: Well perfused, trivial right lower extremity edema Neuro: Nonfocal Psych: Alert orient x3, normal affect and mood Results & Data ([facility]) Vital Signs (Past 12 Hours) Vital Signs Temp Pulse Pulse Pulse Resp BP BP 07/08/22 10:00 07/08/22 08:42 74 07/08/22 07:20 07/08/22 07:30 97.7 F 74 18 91/55 L 07/08/22 05:02 74 87/45 L 07/08/22 03:00 98.8 F 72 18 87/50 L 07/08/22 01:35 88 20 07/08/22 00:40 97.9 F 77 16 94/57 L 07/08/22 00:00 98.6 F 72 16 88/42 L Pulse Ox O2 Del Method O2 Flow Rate 07/08/22 10:00 95 Room Air 07/08/22 08:42 07/08/22 07:20 Nasal Cannula 2 07/08/22 07:30 97 Nasal Cannula 2 07/08/22 05:02 95 Nasal Cannula 2 07/08/22 03:00 96 Room Air 07/08/22 01:35 92 Room Air 07/08/22 00:40 93 Room Air 07/08/22 00:00 93 Room Air PG Care Time/CCT Total # of Minutes Spent Total Time Spent with Patient: Total time spent is greater than 50% in coordination of care (as documented) at patient's floor/unit and/or counseling patient: Coding Level of Care Code 39622 SUB INP/OBS CARE 3/50MIN Diagnoses Acute on chronic HFrEF (heart failure with reduced ejection fraction) I50.23
--- NOTE | 2022-07-08 11:59 | Discharge Summary ---
Date of Service July 08, 2022 Admission HPI Per Admitting Provider Maribel Noyola is a 67-year-old female with recent pulmonary embolism, nonischemic cardiomyopathy and chronic heart failure with reduced ejection fraction who presents to the ER with shortness of breath. She reports intermittent shortness of breath since her diagnosis of pulmonary embolism in May. However the last 2 days she has been progressively worse with significant orthopnea, paroxysmal nocturnal dyspnea and last night was unable to sleep until even in a recliner. Her weight is up 3 pounds in the last 3 days but she is not eating much so I was not sure whether this was fluid. Her legs are mildly more swollen than usual. She denies any palpitations. She is having some chest heaviness but no pain. She reports abdominal pain when coughing although her cough is mostly resolved. Last week she reports having a suspected viral illness with nasal congestion, sore throat, cough, sinus pain and headache. These symptoms have now resolved. In the emergency room she was noted to have significant work of breathing despite normal oxygen saturations. Initial blood pressure was 81/51 which the patient reports is not unusual for her. She does have dizziness especially on standing however this is chronic and no worse than usual and she has learned to live with it for many years. Chest x-ray and symptoms were concerning for acute on chronic congestive heart failure. She was given Lasix 40 mg IV and referred to medicine for admission ongoing management of congestive heart failure. After ED decision to admit her bio fire returned positive for coronavirus HKU1. Discharge Exam gen - coughing; looks very tired neck - mild JVD mouth - MM slightly dry heart - RRR, s1 s2, no murmur lungs - fine b/l basilar rales; no wheeze; fair airation; no increased work of breathing abd - soft NT ND BS+ ext - trace edema, pulses 2+ b/l psych - a/o x 3 skin - RUQ wound/ulcer - <1cm, packing in place Discharge Data Allergies Allergy/AdvReac Type Severity Reaction Status Date / Time erythromycin base Allergy Severe blisters;red;itchy;pain;blisters Verified 06/24/22 10:08 in back throat iodine Allergy Severe throat Verified 06/24/22 10:08 blisters;skin blisters meperidine [From Demerol] Allergy Severe quit Verified 06/24/22 10:08 breathing adhesive Allergy Intermediate BLISTERS Verified 06/24/22 10:08 tetracycline Allergy Unknown TERRAMYCIN Verified 06/24/22 10:08 ALLERGY atorvastatin AdvReac Intermediate MUSCLE Verified 06/24/22 10:08 PAIN/ACHES, DIFFICULTY WALKING azithromycin AdvReac Intermediate Gastrointestinal Verified 06/24/22 10:08 Upset metformin AdvReac Intermediate Diarrhea Verified 06/24/22 10:08 rosuvastatin [From Crestor] AdvReac Intermediate Cramping Verified 06/24/22 10:08 of the Muscles Gblgzlg-[id number]-TgZ Reductase AdvReac Intermediate MUSCLE Verified 06/24/22 10:08 Inhibitor PAIN/ACHES, [Mozkwtd-Pnz-Pjk Reductase DIFFICULTY Inhibitor] WALKING Consultations 07/06/22 12:01 ED Decision to Admit Stat 07/06/22 14:37 Consult Cardiology Routine [facility] Referral Routine Hospital Course (1) Acute on chronic HFrEF (heart failure with reduced ejection fraction): EF 15-20% on echo 05/2022. Appears mildly volume overloaded today; however, weight is below her typical dry weight, and Cr is slightly above baseline (today 1.5, usually about 1.4). Thus, I don't believe she has lots more volume to pull moving forward. Cont lasix 40mg IV daily. Appreciate cardiology consultation. BMP am. Cont aldactone. Cont BB. Cont Entresto. (2) Coronavirus infection: I do suspect that many of her pulmonary symptoms are from this viral process. Some of her cxr and exam findings may be due in part to viral pneumonia. Her cough has been severe and her pulmonary symptoms are very bothersome. She is not sleeping well. Gave a xopenex/atrovent neb this afternoon with some relief of symptoms. I re- examined her following the neb - bases with less crackles, airation improved following the neb. Thus, will continue these q6h. We discussed use of steroids - will trial them - dexamethasone 6mg IV daily. Add tessalon 100mg TID. Add hycodan 5cc q6h prn. Flutter valve. If her pulmonary symptoms worsen then consider repeat chest CT. (3) Idiopathic cardiomyopathy: With resulting severe systolic CHF as in #1 above. Appreciate cardiology consult. (4) Pulmonary embolism: 06/14/22 - diagnosed via CTA chest. Provoked - occurred several weeks post-op from her lap ketty. Continue apixaban 5 mg p.o. twice daily. At this point I do not think that the majority of her symptoms are related to her VTE. (5) Diabetes mellitus type II, controlled: Hemoglobin A1c 7.1 in April 2022. Continue Jardiance 25 mg p.o. daily. May be beneficial to check BSGs ac/hs and change diet to DM with steroids. May need insulin coverage. (6) Wound dehiscence, surgical: Status postacute cholecystectomy at [facility] in 05/2022. Wound care nurse consult for this. (7) Hyperlipidemia: Continue ezetimibe 10 mg p.o. every afternoon. Prior statin induced myopathy noted. Thus not on statin therapy. (8) Insomnia: schedule low-dose ativan 0.25mg HS tonight. (9) Greater trochanteric bursitis: right. s/p corticosteroid injection last week. (10) ICD (implantable cardioverter-defibrillator) in place: interrogation completed 07/06. no recent discharges. (11) Stage 3b chronic kidney disease: CrCl low 30s BMP in am Plan updated at bedside care d/w Dr Duarte Discharge Plan Discharge Items Patient Disposition: Home - Self-Care Reason For Visit: Shortness of Breath Discharge Diagnosis: 1. Severe shortness of breath - improving; likely combination of Coronavirus infection (non-COVID) and Congestive Heart Failure 2. Coronavirus infection (non-COVID type) 3. Congestive heart failure 4. Insomnia - improved 5. Night-time oxygen desaturation - sleep study needed as soon as possible 6. Recent laparoscopic cholecystectomy with persistent wound on abdominal wall Activity: As commented below Activity Comment: gradually increase activities over the next 1-2 weeks as tolerated Non-emergency contact: Primary Care Provider and Quality Control Scientist Call non-emergency contact if: you have any medication questions, your symptoms worsen, you have a fever, your wound has increased redness, your wound has increased drainage and your wound pain has increased Follow-up/Referrals: Theo Houston MD [Primary Care Provider] - 07/15/22 3:00 pm () Cristy Salazar PA-C [Physician Truck Dispatcher] - 07/13/22 1:00 pm (keep appointment with Ms Salazar in the CHF clinic) Diet: Carb Consistent or DM2 and Heart Healthy Fluids: 1500ml (6 cups) Addtl Attending Provider Instructions: Mrs Noyola, You were hospitalized for difficulty breathing and having a hard time laying down in bed due to the breathing issues. Your chest x-ray suggested fluid overload in the lungs from your congestive heart failure. A respiratory panel was positive for "coronavirus" which is a common cold virus. In some cases it can cause significant bronchitis and viral pneumonia. This coronavirus is a NON-COVID type. At times "fluid" in the lungs from the heart can look the same as viral infection in the lungs. You were seen by [facility] who also felt you were retaining water in the lungs from the congestive heart failure. Therefore, you were given extra IV diuretic while here. After getting a good night's rest, receiving IV lasix, receiving IV steroids, performing some breathing treatments, etc your symptoms did improve while here. I suspect that your breathing difficulty was from a combination of the coronavirus infection as well as your congestive heart failure. Recommendations - 1. please finish a course of dexamethasone steroid. This is for your breathing related to the coronavirus infection. Start this today. It is a 5-day taper. Take with food. Know that the steroid will raise your blood sugars AND potentially cause fluid retention. Thus, please watch your blood sugars & diet carefully, and check your weight daily to ensure no fluid retention. 2. may use Xopenex inhaler - 2 puffs via spacer every 6 hours as needed for cough/wheeze/shortness of breath. See handout re: spacer device. 3. may increase your tessalon to 200mg (2 capsules) every 8 hours as needed for cough. I refilled this for you. 4. resume your furosemide TOMORROW on 07/09/22. resume your spironolactone TOMORROW on 07/09/22. 5. for sleep - may use lorazepam 0.25mg at bedtime as needed. Please do not drink alcohol if using this medication. Also, do not drive if using this medication. Long-term use of this medication can lead to dependence. 6. the symptoms of coronavirus infection typically last 1-2 weeks. The last symptom to resolve is usually the cough. Once you are improving/feeling better, and as long as the cough continues to improve, the contagiousness risk to others starts to drop considerably. 7. please speak to your podiatrist orthopedic or primary care provider about obtaining a sleep study. I am suspicious that your night-time low oxygen levels may be due to a form of sleep apnea. If you have sleep apnea it is important to treat it as it can worsen your congestive heart failure, make you chronically fatigued, etc. 8. continue your dressing changes to your abdominal wall wounds as previous. Follow-up - see separate section Return to [facility] if - * you have fevers over 100 degrees * you have worsening shortness of breath despite all of the above medications & recommendations * you have chest pains * you see blood in your spit or have pains with taking deep breaths * any other concerns It was our pleasure to care for you! Dr Park Pending Studies at Discharge: No Stand-Alone Forms: My [facility], Smoking Cessation Medications and DC Order Prescriptions: New levalbuterol tartrate [Xopenex HFA] 45 mcg/actuation HFA aerosol inhaler 2 inh inhalation Q6H PRN (Reason: shortness of breath/cough/wheeze) Qty: 15 0RF Rx Instructions: use with spacer device dexamethasone 2 mg tablet 2 mg PO .daily as directed Qty: 9 0RF Rx Instructions: start 07/08: 3 tabs day 1, 2 tabs days 2 & 3, 1 tab day 4 & 5. Take with food. (DME) Aerochamber Plus Flow-Vu Spacer See Rx Instructions .Route Qty: 1 0RF Rx Instructions: As directed with Xopenex inhaler lorazepam [Ativan] 0.5 mg tablet 0.25 mg PO HS PRN (Reason: sleep) Qty: 7 0RF Continued (DME) lancets [Accu-Chek Softclix Lancets] Misc See Dose Instructions .ROUTE .MEDSUPPLY Qty: 100 3RF Dose Instruction: As directed Rx Instructions: Check daily and as needed (DME) Accu-Chek Guide test strips Strip See Dose Instructions .ROUTE .MEDSUPPLY Qty: 100 3RF Dose Instruction: As directed Rx Instructions: daily and as needed pantoprazole 40 mg tablet,delayed release (DR/EC) 40 mg PO DAILY Qty: 90 3RF empagliflozin 25 mg tablet 25 mg PO DAILY Qty: 90 3RF ezetimibe 10 mg tablet 10 mg PO PM Qty: 90 3RF carvedilol 3.125 mg tablet 3.125 mg PO QPM Rx Instructions: must administer with a meal/food carvedilol 6.25 mg tablet 6.25 mg PO QAM Qty: 90 2RF Rx Instructions: must administer with a meal/food spironolactone 25 mg tablet 25 mg PO Q2D 30 Days Qty: 90 0RF Hold Instructions: Pt states the hospital told her to HOLD this ??? cholecalciferol (vitamin D3) 5,000 unit capsule 5,000 units PO DAILY acetaminophen 325 mg Tablet 650 mg PO Q4H PRN (Reason: pain) Qty: 30 0RF Rx Instructions: OTC Eliquis 5 mg (74 tabs) tablets,dose pack 5 mg PO BID Qty: 74 2RF Rx Instructions: 10 mg (2 tablets) twice a day until 06/22, starting on 06/23/22- please take 5 mg (1 tablet) twice a day Entresto 24-26 mg tablet 1 tab PO BID Qty: 20 1RF furosemide 40 mg tablet 40 mg PO QDD Rx Instructions: Adjusted per sliding scale regimen omega-3 fatty acids 1,000 mg Capsule 1,000 mg PO QAM Changed benzonatate 100 mg capsule 200 mg PO TID PRN (Reason: cough) Qty: 30 0RF Discharge Orders: Discharge Order (Routine); Ordered 07/08/22 Ordered By: Ramesh Park Admission Data Admit Date/Time: 07/06/22 11:42 Attending Provider: Ramesh Park Admit Provider: Ramesh Jones Primary Care Provider: Theo Houston Other Providers: Ramesh Jones ; Chaparro Duarte Other Interventions: Discharge Summary Assessment (RN) Last Done: 07/08/22 11:34 Coding Diagnoses Acute on chronic HFrEF (heart failure with reduced ejection fraction) I50.23 Coronavirus infection B34.2 Idiopathic cardiomyopathy I42.8 Pulmonary embolism I26.99 Diabetes mellitus type II, controlled E11.9 Diabetes mellitus mcc insulin use: without mcc use Diabetes mellitus complication status: without complication Wound dehiscence, surgical T81.31XA Hyperlipidemia E78.5 Insomnia G47.00 Greater trochanteric bursitis M70.60 ICD (implantable cardioverter-defibrillator) in place Z95.810 Stage 3b chronic kidney disease N18.32
== END 2022-07-08 12:34 | disposition home or self-care (01) ==
LOC: EDINP 09:16 → ED 09:16 → SUATTDRO 11:42 → 2N 19:53
DX: Z79.899 Other long term (current) drug therapy; E78.5 Hyperlipidemia, unspecified; Z95.810 Presence of automatic (implantable) cardiac defibrillator; T81.89XA Other complications of procedures, not elsewhere classified, initial encounter; G47.00 Insomnia, unspecified; I42.8 Other cardiomyopathies; I13.0 Hypertensive heart and chronic kidney disease with heart failure and stage 1 through stage 4 chronic kidney disease, or unspecified chronic kidney disease; Z88.8 Allergy status to other drugs, medicaments and biological substances; I34.0 Nonrheumatic mitral (valve) insufficiency; Z91.048 Other nonmedicinal substance allergy status; E11.22 Type 2 diabetes mellitus with diabetic chronic kidney disease; Y83.8 Other surgical procedures as the cause of abnormal reaction of the patient, or of later complication, without mention of misadventure at the time of the procedure; Z88.1 Allergy status to other antibiotic agents; M70.61 Trochanteric bursitis, right hip; N18.32 Chronic kidney disease, stage 3b; Z86.711 Personal history of pulmonary embolism; I50.23 Acute on chronic systolic (congestive) heart failure; B34.2 Coronavirus infection, unspecified; Z79.01 Long term (current) use of anticoagulants

== ENCOUNTER 2022-10-20 04:56 | Inpatient (IN) ==
--- NOTE | 2022-10-20 05:31 | Emergency Department Note ---
Impression & Plan Hypotension, CHF (congestive heart failure) Admit to the [facility] ED Provider Note NAME: LANCE CALIX AGE: 67 SEX: F ARRIVES VIA: Walk-In INFORMANT: Patient ED PROVIDER(S): Cherry Ruiz DO CHIEF COMPLAINT: Shortness of breath PLAN: Disposition: Admit to the [facility] Condition: Guarded MEDICAL DECISION MAKING: This is a 67-year-old female patient who presents to the emergency department with persistent shortness of breath and cough. The patient was seen by her PCP yesterday and underwent a chest x-ray and some blood work which was normal according to the patient. She has a past medical history of congestive heart failure and describes having a worsening cough overnight. Upon presentation today, the patient has a wet cough and rales on physical exam. Chest x-ray shows evidence of congestive heart failure. I compared this to the chest x-ray from yesterday and it appears unchanged. Although the patient appears to be in mild respiratory distress. O2 saturations are stable. However the patient is hypotensive. Laboratory studies reveal no leukocytosis and a stable H&H. BUN was 26 creatinine 1.67 which are baseline for the patient. Glucose was 156. Troponin is slightly elevated at 19.9. The patient explains that they had decreased her carvedilol dose and took her off the Entresto but she remains hypotensive. Unfortunately she is still fluid overloaded. [facility] and [facility] will evaluate for further management. Triage Nursing notes reviewed and agree with them. External records reviewed including previous admissions and outpatient visits. Vital Signs: reviewed and remarkable for hypotension Differential diagnosis: CHF, PE, pneumonia, STEMI, NSTEMI Diagnostics interpreted by me: ECG: Normal sinus rhythm at a rate of [address] segment elevation or signs of ischemia Cardiac Monitoring: Normal sinus rhythm at a rate of 86 Laboratory studies: See below Imaging studies: As per my independent interpretation Portable chest x-ray: Signs of congestive heart failure and cardiomegaly HPI: 67/F arrives for evaluation of shortness of breath. Patient became increasingly short of breath approximately 5 days ago. She was noted to have low blood pressure at that time and was taken off of her Entresto. She followed up with her PCP yesterday who performed a chest x-ray and some blood work which was unremarkable. They lowered her dose of carvedilol as her BP remains somewhat low. She became concerned because she had increasing shortness of breath tonight along with a worsening cough. PAST MEDICAL HISTORY:See Below PAST SURGICAL HISTORY:See Below FAMILY HISTORY:See Below SOCIAL HISTORY:See Below HOME MEDICATIONS: See list ALLERGIES: See list VITALS:See Below PHYSICAL EXAMINATION: HEENT: Head - normocephalic and atraumatic. Pupils are equal, round, and reactive to light. Extraocular eye muscles are intact, and sclera are anicteric. Nose - moist nasal mucosa without discharge. Mouth - moist buccal mucosa. Oropharynx is nonerythematous and there is no tonsillar exudate or edema noted. Neck: Supple; no cervical lymphadenopathy Heart: Regular rate and rhythm. There is a normal S1 and S2 with no murmurs, clicks, or gallops appreciated. Lungs: Diffuse rales with no wheezes, rales, or rhonchi. Abdomen: Soft, completely nontender, nondistended, with good bowel sounds. There are no palpable pulsatile masses or hepatosplenomegaly. There is no guarding, rigidity, or rebound noted. Extremities: 1+ pitting edema in both lower extremities. There are easily palpable peripheral pulses. Skin: Pale, warm and dry with good turgor and no rashes. ED COURSE: Times/Reassessments: 510: Patient was evaluated in room B6. A twelve-lead EKG was obtained as described above. An order was placed for continuous cardiac monitoring. Patient was in a normal sinus rhythm at a rate of 86. A portable chest x-ray was performed as described above. An IV lock was initiated and labs were drawn as above. Patient remained hypotensive while here in the emergency department. I discussed the case with the [facility] Hospitalist and they will evaluate for further management. Cherry Ruiz DO Past Med/Surg History Medical History Acute on chronic HFrEF (heart failure with reduced ejection fraction) Acute pulmonary embolism (06/14/22) Allergic rhinitis Asymptomatic menopausal state Atopic dermatitis Chronic kidney disease, stage 3b CKD (chronic kidney disease), stage III Coronavirus infection Dental abscess Diabetes Diabetes mellitus type II, controlled NIDDM Diverticulosis of colon Eustachian tube dysfunction Greater trochanteric bursitis History of diverticulitis History of sigmoidoscopy Hyperlipidemia Hypertension IBS (irritable bowel syndrome) ICD (implantable cardioverter-defibrillator) in place ICD (implantable cardioverter-defibrillator) in place Placed Feb 2015 > [employer] > last checked 03/23/21 with > placed for CHF Idiopathic cardiomyopathy Incidental pulmonary nodule, > 3mm and < 8mm Inflamed seborrheic keratosis Insomnia Internal hemorrhoids Intertrigo Milia Moderate mitral regurgitation Notalgia paresthetica Obesity Osteopenia Pulmonary embolism Sigmoid diverticulitis SK (seborrheic keratosis) Stage 3b chronic kidney disease Vitamin D deficiency Wart Wound dehiscence, surgical Surgical History History of appendectomy History of arthroscopy of right knee History of arthroscopy of right shoulder History of breast biopsy benign History of cardiac cath 10/2017 [facility] no stents History of carpal tunnel surgery History of Neuroplasty Decompression Median Nerve At Carpal Tunnel> right History of cholecystectomy (05/28/22) at [place] by Dr Ivey History of colonoscopy History of foot surgery 1972 History of incision and drainage (05/14/22) infection floor of the mouth and subperiosteal plane # 30 area p Incision and Drainage, Tooth Extraction(Right) - Quinton Amezcua DMD History of repair of rotator cuff right History of vaginal hysterectomy Family History Mother Breast cancer Diabetes Grandmother Myocardial infarction Other Heart disease No family history of adverse response to anesthesia No family history of bleeding disorder Denies family history of Ovarian cancer Prostate cancer Colorectal cancer Social History Smoking Status: Never smoker Second Hand Exposure: No; Do You Dip or Chew Tobacco: No; Hx Alcohol Use: No Hx Substance Use: No Preferred Language: [place] Citizen Communication Ability: Effective Visual Impairment: No Limitations Hearing Ability: Normal Magazine Publisher Required: No Beliefs That Will Affect Care: None marital status: Current Living Situation: Spouse current occupational status: retired Other Information That Helps Us Care for You: No Feels Safe at Home: Yes Childhood Exposure to Second-Hand Smoke: No Diet: low salt and regular caffeine: Yes during the past year weight has: remained stable Dental Care, Regularly: Yes Physical Activity Frequency: Does not Exercise Seatbelt Use: always Sunscreen Use: Yes Assistive Devices: None Allergies Allergies Allergy/AdvReac Type Severity Reaction Status Date / Time erythromycin base Allergy Severe blisters;red;itchy;pain;blisters Verified 10/20/22 11:29 in back throat iodine Allergy Severe throat Verified 10/20/22 11:29 blisters;skin blisters meperidine [From Demerol] Allergy Severe quit Verified 10/20/22 11:29 breathing adhesive Allergy Intermediate BLISTERS Verified 10/20/22 11:29 cinnamon Allergy Unknown Hives Verified 10/20/22 17:27 tetracycline Allergy Unknown TERRAMYCIN Verified 10/20/22 11:29 ALLERGY atorvastatin AdvReac Intermediate MUSCLE Verified 10/20/22 11:29 PAIN/ACHES, DIFFICULTY WALKING azithromycin AdvReac Intermediate Gastrointestinal Verified 10/20/22 11:29 Upset metformin AdvReac Intermediate Diarrhea Verified 10/20/22 11:29 rosuvastatin [From Crestor] AdvReac Intermediate Cramping Verified 10/20/22 11:29 of the Muscles Sfoujlp-PYV-RuR Reductase AdvReac Intermediate MUSCLE Verified 10/20/22 11:29 Inhibitor PAIN/ACHES, [Crirhfl-Hrv-Ppo Reductase DIFFICULTY Inhibitor] WALKING Home Meds Home Medications Medication Instructions Recorded Confirmed cholecalciferol (vitamin D3) 125 5,000 units PO DAILY 01/14/19 10/20/22 mcg (5,000 unit) capsule sacubitril 24 mg-valsartan 26 mg 1 tab PO .STOPPED ON 10/16/22 10/20/22 10/20/22 tablet (Entresto) Previous Rx's Medication Instructions Recorded empagliflozin 25 mg tablet 25 mg PO DAILY #90 tabs 11/09/21 ezetimibe 10 mg tablet 10 mg PO PM #90 tabs 02/15/22 acetaminophen 325 mg tablet 650 mg PO Q4H PRN pain #30 tabs 05/14/22 inhalational spacing device #1 ea 07/08/22 (Aerochamber Plus Flow-Vu) levalbuterol tartrate 45 2 inh inhalation Q6H PRN shortness 07/08/22 mcg/actuation aerosol inhaler of breath/cough/wheeze #15 grams (Xopenex HFA) spironolactone 25 mg tablet 25 mg PO DAILY #90 tabs 07/22/22 furosemide 40 mg tablet 40 mg PO DAILY #60 tabs 08/09/22 apixaban 5 mg tablet (Eliquis) 5 mg PO BID #180 tabs 08/25/22 blood sugar diagnostic (Accu-Chek #100 ea 09/07/22 Guide test strips) blood-glucose meter (Accu-Chek #1 ea 09/07/22 Guide Glucose Meter) lancets (Accu-Chek Softclix #100 ea 09/07/22 Lancets) potassium chloride 20 mEq 20 meq PO DAILY #30 tabs 10/04/22 tablet,extended release pantoprazole 40 mg tablet,delayed 40 mg PO DAILY #90 tabs 10/07/22 release carvedilol 6.25 mg tablet 3.125 mg PO BID #180 tabs 10/19/22 Results & Data (ED) Vital Signs Vital Signs - 24 hr 10/20/22 04:58 10/20/22 05:14 10/20/22 05:14 Temperature 36.1 C L Temperature Source Temporal Artery Scan Pulse Rate 84 Pulse Rate [Apical] 92 H Pulse Rate from SpO2 Sensor Pulse Rhythm [Apical] Regular Respiratory Rate 20 18 Respiratory Effort / Characteristics Non-Labored Spontaneous Respiratory Depth Normal Normal Normal Respiratory Pattern Regular Blood Pressure 104/63 Blood Pressure [Right Arm] 101/65 Blood Pressure Mean 76 Blood Pressure Mean [Right Arm] 77 Blood Pressure Position Sitting Pulse Oximetry 97 97 Oxygen Delivery Method Room Air Room Air Sepsis Recent Fever Within 48 Hours No Sepsis New/Unexplained Change in Mental Status N/A Sepsis Action Taken by Nursing No Action Required 10/20/22 05:19 Temperature Temperature Source Pulse Rate 84 Pulse Rate [Apical] Pulse Rate from SpO2 Sensor 86 Pulse Rhythm [Apical] Respiratory Rate 35 H Respiratory Effort / Characteristics Respiratory Depth Respiratory Pattern Blood Pressure 95/72 L Blood Pressure [Right Arm] Blood Pressure Mean 79 Blood Pressure Mean [Right Arm] Blood Pressure Position Pulse Oximetry 97 Oxygen Delivery Method Sepsis Recent Fever Within 48 Hours Sepsis New/Unexplained Change in Mental Status Sepsis Action Taken by Nursing Laboratory Data 10/21/22 07:25 10/21/22 07:25 Lab Results 10/20/22 10/20/22 10/20/22 Range/Units 05:20 05:20 05:20 WBC 9.64 (4.8-10.8) K/ul RBC 4.31 (4.20-5.40) M/uL Hgb 14.2 (12.0-16.0) g/dl Hct 41.9 (37.0-47.0) % MCV 97.2 (80.0-100.0) fL MCH 32.9 (25.0-34.0) pg MCHC 33.9 (32.0-36.0) g/dL RDW Std Deviation 46.5 H (36.4-46.3) fL RDW Coeff of Osman 13.0 (11.5-14.5) % Plt Count 281 (130-400) K/uL MPV 9.7 (9.4-12.4) fL Immature Gran % (Auto) 0.3 % Neut % (Auto) 72.6 % Lymph % (Auto) 20.2 % Yates % (Auto) 5.4 % Eos % (Auto) 1.0 % Baso % (Auto) 0.5 % Neut # (Auto) 6.99 H (1.40-6.50) K/uL Lymph # (Auto) 1.95 (1.2-3.4) K/uL Yates # (Auto) 0.52 (0.11-0.59) K/uL Eos # (Auto) 0.10 (0-0.50) K/uL Baso # (Auto) 0.05 (0-0.2) K/uL Immature Gran # (Auto) 0.03 (0.01-0.20) K/uL D-Dimer 420 (0-500) ug/L FEU Sodium 135 L (136-145) mmol/L Potassium 4.1 (3.5-5.1) mmol/L Chloride 100 (98-107) mmol/L Carbon Dioxide 24 (21-32) mmol/L Anion Gap 11 (3-11) BUN 26 H (6-23) mg/dl Creatinine 1.67 H (0.6-1.2) mg/dl Est Cr Clr Drug Dosing 32.6 ml/min Est GFR ( Amer) 36.6 ml/min Est GFR (Non-Af Amer) 31.6 ml/min BUN/Creatinine Ratio 15.6 (10-20) Glucose 156 H (70-99(Fasting)) mg/dl Calcium 9.4 (8.6-10.3) mg/dl Magnesium (1.7-2.4) mg/dl Total Bilirubin 1.3 H (0.2-1.0) mg/dl AST 19 (13-39) U/L ALT 22 (7-52) U/L Alkaline Phosphatase 82 (34-104) U/L Troponin I High Sens 19.9 H (0-14) pg/ml B-Natriuretic Peptide (0-100) pg/ml Total Protein 7.2 (6.0-8.3) gm/dl Albumin 4.1 (3.4-5.0) gm/dl Globulin 3.1 (2.5-4.0) gm/dl Albumin/Globulin Ratio 1.3 (0.9-2) Urine Color Urine Appearance (Clear) Urine pH (4.5-7.5) Ur Specific [place] (1.000-1.030) Urine Protein (Negative) Urine Glucose (UA) (Negative) Urine Ketones (Negative) Urine Blood (Negative) Urine Nitrite (Negative) Urine Bilirubin (Negative) Urine Urobilinogen (Negative) Ur Leukocyte Esterase (Negative) Urine WBC (Auto) (0-5) /hpf Urine RBC (Auto) (0-4) /hpf U Hyaline Cast (Auto) (0-5) /lpf U Epithel Cells (Auto) (0-5) /lpf Urine Bacteria (Auto) (Negative) SARS-CoV-2, RNA, NAAT (NEGATIVE) 10/20/22 10/20/22 10/20/22 Range/Units 05:20 05:20 05:22 WBC (4.8-10.8) K/ul RBC (4.20-5.40) M/uL Hgb (12.0-16.0) g/dl Hct (37.0-47.0) % MCV (80.0-100.0) fL MCH (25.0-34.0) pg MCHC (32.0-36.0) g/dL RDW Std Deviation (36.4-46.3) fL RDW Coeff of Osman (11.5-14.5) % Plt Count (130-400) K/uL MPV (9.4-12.4) fL Immature Gran % (Auto) % Neut % (Auto) % Lymph % (Auto) % Yates % (Auto) % Eos % (Auto) % Baso % (Auto) % Neut # (Auto) (1.40-6.50) K/uL Lymph # (Auto) (1.2-3.4) K/uL Yates # (Auto) (0.11-0.59) K/uL Eos # (Auto) (0-0.50) K/uL Baso # (Auto) (0-0.2) K/uL Immature Gran # (Auto) (0.01-0.20) K/uL D-Dimer (0-500) ug/L FEU Sodium (136-145) mmol/L Potassium (3.5-5.1) mmol/L Chloride (98-107) mmol/L Carbon Dioxide (21-32) mmol/L Anion Gap (3-11) BUN (6-23) mg/dl Creatinine (0.6-1.2) mg/dl Est Cr Clr Drug Dosing ml/min Est GFR ( Amer) ml/min Est GFR (Non-Af Amer) ml/min BUN/Creatinine Ratio (10-20) Glucose (70-99(Fasting)) mg/dl Calcium (8.6-10.3) mg/dl Magnesium 2.1 (1.7-2.4) mg/dl Total Bilirubin (0.2-1.0) mg/dl AST (13-39) U/L ALT (7-52) U/L Alkaline Phosphatase (34-104) U/L Troponin I High Sens (0-14) pg/ml B-Natriuretic Peptide > 4700 H (0-100) pg/ml Total Protein (6.0-8.3) gm/dl Albumin (3.4-5.0) gm/dl Globulin (2.5-4.0) gm/dl Albumin/Globulin Ratio (0.9-2) Urine Color Urine Appearance (Clear) Urine pH (4.5-7.5) Ur Specific [place] (1.000-1.030) Urine Protein (Negative) Urine Glucose (UA) (Negative) Urine Ketones (Negative) Urine Blood (Negative) Urine Nitrite (Negative) Urine Bilirubin (Negative) Urine Urobilinogen (Negative) Ur Leukocyte Esterase (Negative) Urine WBC (Auto) (0-5) /hpf Urine RBC (Auto) (0-4) /hpf U Hyaline Cast (Auto) (0-5) /lpf U Epithel Cells (Auto) (0-5) /lpf Urine Bacteria (Auto) (Negative) SARS-CoV-2, RNA, NAAT NEGATIVE (NEGATIVE) 10/20/22 Range/Units 06:43 WBC (4.8-10.8) K/ul RBC (4.20-5.40) M/uL Hgb (12.0-16.0) g/dl Hct (37.0-47.0) % MCV (80.0-100.0) fL MCH (25.0-34.0) pg MCHC (32.0-36.0) g/dL RDW Std Deviation (36.4-46.3) fL RDW Coeff of Osman (11.5-14.5) % Plt Count (130-400) K/uL MPV (9.4-12.4) fL Immature Gran % (Auto) % Neut % (Auto) % Lymph % (Auto) % Yates % (Auto) % Eos % (Auto) % Baso % (Auto) % Neut # (Auto) (1.40-6.50) K/uL Lymph # (Auto) (1.2-3.4) K/uL Yates # (Auto) (0.11-0.59) K/uL Eos # (Auto) (0-0.50) K/uL Baso # (Auto) (0-0.2) K/uL Immature Gran # (Auto) (0.01-0.20) K/uL D-Dimer (0-500) ug/L FEU Sodium (136-145) mmol/L Potassium (3.5-5.1) mmol/L Chloride (98-107) mmol/L Carbon Dioxide (21-32) mmol/L Anion Gap (3-11) BUN (6-23) mg/dl Creatinine (0.6-1.2) mg/dl Est Cr Clr Drug Dosing ml/min Est GFR ( Amer) ml/min Est GFR (Non-Af Amer) ml/min BUN/Creatinine Ratio (10-20) Glucose (70-99(Fasting)) mg/dl Calcium (8.6-10.3) mg/dl Magnesium (1.7-2.4) mg/dl Total Bilirubin (0.2-1.0) mg/dl AST (13-39) U/L ALT (7-52) U/L Alkaline Phosphatase (34-104) U/L Troponin I High Sens (0-14) pg/ml B-Natriuretic Peptide (0-100) pg/ml Total Protein (6.0-8.3) gm/dl Albumin (3.4-5.0) gm/dl Globulin (2.5-4.0) gm/dl Albumin/Globulin Ratio (0.9-2) Urine Color Yellow Urine Appearance Cloudy A (Clear) Urine pH 5.0 (4.5-7.5) Ur Specific [place] 1.016 (1.000-1.030) Urine Protein Trace H (Negative) Urine Glucose (UA) 3+ H (Negative) Urine Ketones Negative (Negative) Urine Blood Trace H (Negative) Urine Nitrite Negative (Negative) Urine Bilirubin Negative (Negative) Urine Urobilinogen Negative (Negative) Ur Leukocyte Esterase Negative (Negative) Urine WBC (Auto) 1-5 (0-5) /hpf Urine RBC (Auto) 0-4 (0-4) /hpf U Hyaline Cast (Auto) 1-5 (0-5) /lpf U Epithel Cells (Auto) >30 H (0-5) /lpf Urine Bacteria (Auto) Negative (Negative) SARS-CoV-2, RNA, NAAT (NEGATIVE) Administered Medications Apixaban (Apixaban 5 Mg Tablet) 5 mg PO BID COUNTS INCLUDE 234 BEDS AT THE [facility] Stop: 11/19/22 11:56 Last Admin: 10/21/22 08:36 Dose: 5 mg Documented By: Admin: 10/20/22 21:41 Dose: 5 mg Documented By: Admin: 10/20/22 12:42 Dose: 5 mg Documented By: ANGELINE Carvedilol (Carvedilol 3.125 Mg Tab) 3.125 mg PO BID COUNTS INCLUDE 234 BEDS AT THE [facility] Stop: 11/19/22 20:59 Last Admin: 10/20/22 21:41 Dose: 3.125 mg Documented By: ASHISH Furosemide (Furosemide 40 Mg Tab) 40 mg PO DAILY COUNTS INCLUDE 234 BEDS AT THE [facility] Stop: 11/19/22 11:56 Last Admin: 10/21/22 08:36 Dose: 40 mg Documented By: Admin: 10/20/22 12:48 Dose: 40 mg Documented By: AMSera Dobutamine HCl/Dextrose (Dobutamine / D5w) 500 mg in 250 mls @ 5.708 mls/hr IV .Q24H COUNTS INCLUDE 234 BEDS AT THE [facility]; Protocol Stop: 11/20/22 08:25 Last Admin: 10/21/22 08:35 Dose: 2.5 mcg/kg/min, 5.7 mls/hr Documented By: FANTASMA Co-signed By: RHIANNA Insulin Aspart (Insulin Aspart Per Unit Charge) 0 units SC ACHS COUNTS INCLUDE 234 BEDS AT THE [facility] Stop: 11/19/22 11:56 Last Admin: 10/21/22 08:35 Dose: 1 units Documented By: FANTASMA Co-signed By: RHIANNA Admin: 10/20/22 20:38 Dose: Not Given Documented By: Admin: 10/20/22 17:16 Dose: 5 units Documented By: ANGELINE Co-signed By: SUSSY Admin: 10/20/22 12:43 Dose: 2 units Documented By: AMW Co-signed By: YOHANNES Pantoprazole Sodium (Pantoprazole 40 Mg Tab) 40 mg PO DAILY COUNTS INCLUDE 234 BEDS AT THE [facility] Stop: 11/19/22 11:56 Last Admin: 10/21/22 08:36 Dose: 40 mg Documented By: Admin: 10/20/22 13:17 Dose: Not Given Documented By: ANGELINE Potassium Chloride (Potassium Chloride Crtab 20 Meq Tabcr) 20 meq PO DAILY COUNTS INCLUDE 234 BEDS AT THE [facility] Stop: 11/19/22 11:56 Last Admin: 10/21/22 08:37 Dose: 20 meq Documented By: Admin: 10/20/22 12:42 Dose: 20 meq Documented By: ANGELINE Spironolactone (Spironolactone 25 Mg Tab) 25 mg PO DAILY COUNTS INCLUDE 234 BEDS AT THE [facility] Stop: 11/19/22 11:56 Last Admin: 10/21/22 08:37 Dose: 25 mg Documented By: Admin: 10/20/22 12:42 Dose: 25 mg Documented By: ANGELINE Vitamin D (Cholecalciferol 5,000 Units 125 Mcg Tab) 5,000 units PO QAM COUNTS INCLUDE 234 BEDS AT THE [facility] Stop: 11/20/22 08:59 Last Admin: 10/21/22 08:36 Dose: 5,000 units Documented By: FANTASMA Discontinued Medications Furosemide (Furosemide 40 Mg/4 Ml Vial) 40 mg IV ONE ONE Stop: 10/20/22 17:01 Last Admin: 10/20/22 17:20 Dose: 40 mg Documented By: ANGELINE Insulin Glargine (Lantus Per Unit Charge) 10 units SQ BID WALKER Stop: 11/19/22 11:56 Last Admin: 10/20/22 12:43 Dose: 10 units Documented By: ANGELINE Co-signed By: YOHANNES Discharge Plan Visit Data Chief Complaint: Shortness of Breath/Dyspnea Stated Complaint: SOB,LOW BLOOD PRESSURE,CHF ED Provider: Cherry Ruiz Discharge Problem: Hypotension, CHF (congestive heart failure) Patient Disposition: Admitted As Inpatient Discharge Instructions Interventions: ED Discharge Assessment Last Done: 10/20/22 10:54 Hypotension Qualifiers: Hypotension type: unspecified hypotension type Qualified Code(s): I95.9 - Hypotension, unspecified
[2022-10-20 06:06] LABS: Basophils # (auto) 0.05 K/uL (0-0.2); Basophils % (auto) 0.5 %; Hematocrit (blood only) 41.9 % (37.0-47.0); Hemoglobin 14.2 g/dl (12.0-16.0); Immature Granulocytes # (auto) 0.03 K/uL (0.01-0.20); Immature Granulocytes % (auto) 0.3 %; Lymphocytes # (auto) 1.95 K/uL (1.2-3.4); Lymphocytes % (auto) 20.2 %; Mean Corpuscular Hemoglobin 32.9 pg (25.0-34.0); Mean Corpuscular Hgb Conc 33.9 g/dL (32.0-36.0); Mean Corpuscular Volume 97.2 fL (80.0-100.0); Mean Platelet Volume 9.7 fL (9.4-12.4); Monocytes # (auto) 0.52 K/uL (0.11-0.59); Monocytes % (auto) 5.4 %; Neutrophils # (auto) 6.99 K/uL (1.40-6.50); Neutrophils % (auto) 72.6 %; Platelet Count 281 K/uL (130-400); RDW Standard Deviation 46.5 fL (36.4-46.3); Red Blood Count 4.31 M/uL (4.20-5.40); White Blood Count 9.64 K/ul (4.8-10.8)
[2022-10-20 06:35] LABS: D Dimer 420 ug/L FEU (0-500)
[2022-10-20 06:49] LABS: Albumin Level 4.1 gm/dl (3.4-5.0); Bilirubin,Total 1.3 mg/dl (0.2-1.0); Calcium 9.4 mg/dl (8.6-10.3); Potassium 4.1 mmol/L (3.5-5.1)
[2022-10-20 06:53] LABS: Troponin I High Sensitivity 19.9 pg/ml (0-14)
[2022-10-20 06:55] LABS: Albumin Globulin Ratio 1.3 (0.9-2); BUN Creatinine Ratio 15.6 (10-20); Creatinine Clr Calc Pharmacy 32.6 ml/min; Est GFR (African American) 36.6 ml/min; Est GFR (Non-African American) 31.6 ml/min; Globulin 3.1 gm/dl (2.5-4.0); Total Protein 7.2 gm/dl (6.0-8.3)
[2022-10-20 06:55] LABS: Appearance Urine Cloudy (Clear); Bacteria Urine Automated Negative (Negative); Bilirubin Urine Negative (Negative); Blood Urine Trace (Negative); Color Urine Yellow; Epithelial Cell Urine Auto >30 /lpf (0-5); Glucose Urine UA 3+ (Negative); Ketones Urine Negative (Negative); Leukocyte Esterase Urine Negative (Negative); Nitrite Urine Negative (Negative); Protein Urine Trace (Negative); RBC Urine Automated 0-4 /hpf (0-4); Specific Gravity Urine 1.016 (1.000-1.030); Urobilinogen Urine Negative (Negative)
--- NOTE | 2022-10-20 07:23 | XRay Report ---
SINGLE VIEW CHEST CLINICAL HISTORY: Dyspnea.. FINDINGS: An AP, portable, upright chest radiograph is compared to study dated 10/19/2022 and correlat ed with chest CT dated 06/14/2022. A 2-lead cardiac AICD is unchanged in position and partially obscur es the left mid chest. The heart is enlarged noting atherosclerotic calcification of the thoracic aor ta. There is pulmonary vascular congestion and mild interstitial edema. There are small pleural effu sions with dependent consolidation. There is no pneumothorax. The skeletal structures are osteopenic. The bony thorax is grossly intact. IMPRESSION: 1. Cardiomegaly and AICD with evidence of congestive failure. This is unchanged from yesterday. 2. Small pleural effusions with dependent consolidation. ACT 112: Negative or not required by law. Electronically signed by: Hermann Salazar M.D. 10/20/2022 7:22 AM
--- NOTE | 2022-10-20 09:28 | History & Physical Report ---
Date of Service October 20, 2022 Assessment & Plan (1) Shortness of breath: Plan: Attending: Dr. Graay Impression: This is a 67-year-old female with idiopathic cardiomyopathy and significant decrease in ejection fraction of 15 to 20%. Patient does have history of supraventricular tachycardia and had a pacemaker/ICD placed in 2015. Patient states that she has been under the care of the heart failure clinic for the last 5 days due to increased shortness of breath. Medication has been modified and currently patient has been taken off Entresto and carvedilol has been reduced from 6.25 to 3.125 mg p.o. twice daily. Patient has been referred to [facility] in the past for evaluation for heart transplant but has not had evaluation as of this day. Her primary water/wastewater project manager is Dr. Mejia. I spoke to him this morning and he will be glad to see the patient in consult. Patient also follows with Cristy Salazar PA-C with the heart failure clinic. Patient recently had diagnosis of pulmonary embolism and is currently being anticoagulated with apixaban 5 mg p.o. twice daily. No signs or symptoms of acute pulmonary emboli at this time. Patient shortness of breath is most likely multifactorial butCertainly is contributed byChronic heart failure. Chest x-ray shows no evidence of infiltrate or consolidation. Patient does have interstitial fluid as well as small bilateral pleural effusions. Patient has not experienced any hypoxia and is currently 93% on room air Continue to monitorPulse oximetryPer vital sign protocol At this time no supplemental oxygen is needed but patient could be placed on nasal cannula as needed to maintain SaO2 greater than 90%. Patient is a lifetime non-smoker with no prior history of pulmonary disease including COPD, asthma, Pulmonary fibrosisOr other pulmonary disorder which could contributeTo shortness of breath (2) HFrEF (heart failure with reduced ejection fraction): Plan: Here with acute on chronic HFrEF Patient with idiopathic cardiomyopathy Recent echocardiogram with global hypokinesis as well as ejection fraction of 15 to 20% Internal cardiac defibrillator was placed in 2014. According the patient this is never shocked her for tachyarrhythmia Patient does report history of supraventricular tachycardia We will continue to monitor on telemetry Cardiology has been consulted and I spoke with Dr. Mejia personally. May need to consider transfer to [place] for evaluation for heart transplant appropriateness For cardiac medication management to cardiology at this time Continue with diuretics per home dose and monitor ins and outs (3) Chronic kidney disease, stage 3b: Plan: Creatinine currently 1.67 mg/Cory. Baseline is 1.4-1.5 Continue with home diuretics including furosemide and Aldactone and follow serial labs Patient does follow with nephrology. No indication for inpatient consult at this time (4) Diabetes: Plan: Hold all outpatient medications at this time and start with NovoLog sliding scale insulin. We will also use Lantus 10 units twice daily Check repeat hemoglobin A1c in the morning BSG ACHS (5) Sustained ventricular tachycardia: Plan: ICD is in place Monitor on telemetry (6) ICD (implantable cardioverter-defibrillator) in place: Plan: Placed in 2014 Cardiology has been consulted. We will defer to them on whether or not the ICD needs to be interrogated (7) GERD (gastroesophageal reflux disease): Plan: No complaints of esophageal reflux at this time Continue with pantoprazole Plan DVT prophylaxis: Continue with apixaban 5 mg p.o. twice daily. Ambulate as tolerated Case was discussed with Dr. Garay. Please refer to her addendum for further recommendations and corrections. History of Present Illness Chief Complaint: Shortness of breath Primary Care Provider: Theo Houston MD Attending: Dr. Garay This is a 67-year-old female with extensive history of heart failure with reduced ejection fraction of 15 to 20%. Patient is followed by the heart failure clinic. She has had 2 appointments this week and recently her medications were adjusted due to hypotension and orthostasis. Patient reports that she was unable to sleep all night and was told yesterday at her appointment with heart failure clinic that she continued to have symptoms to report to the emergency department. Patient arrived at approximately 530 this morning and complained of shortness of breath with some chronic left-sided chest pain which is consistent with usual. Patient has no new chest pain or crushing chest pain. She denies any diaphoresis. No radiating pain into the jaw shoulder or arm. Patient states that she did not take any of her medications this morning. However, she did take her usual medications yesterday including her furosemide and Aldactone. Coreg was reduced from 6.25 to 3.125 mg twice daily and Entresto was discontinued yesterday. This was done at the direction of the heart failure clinic. Patient reports that she has seen palliative care in the past. They "advised her to get her affairs in order". Patient is aware of the severity of her heart failure. She is currently awaiting evaluation at [place] for possible heart transplant. Patient follows with Dr. Mejia and cardiology as well as with Cristy Salazar PA-C in the heart failure clinic. Patient reports 6 admissions in the last 5 months. She most recently was found to have pulmonary embolism as well as recent coronavirus infection. Patient is currently anticoagulated with apixaban 5 mg p.o. twice daily. Patient currently denies any pleuritic chest pain, tachyarrhythmia, hemoptysis, fever, asymmetrical edema of the lower extremities. She reports compliance with her anticoagulation. Patient has no evidence of acute infection or sepsis. Currently she is saturating well on room air. Hemoglobin is adequate at 14.2 g/Cory Allergies Allergy/AdvReac Type Severity Reaction Status Date / Time erythromycin base Allergy Severe blisters;red;itchy;pain;blisters Verified 10/20/22 11:29 in back throat iodine Allergy Severe throat Verified 10/20/22 11:29 blisters;skin blisters meperidine [From Demerol] Allergy Severe quit Verified 10/20/22 11:29 breathing adhesive Allergy Intermediate BLISTERS Verified 10/20/22 11:29 cinnamon Allergy Unknown Hives Verified 10/20/22 17:27 tetracycline Allergy Unknown TERRAMYCIN Verified 10/20/22 11:29 ALLERGY atorvastatin AdvReac Intermediate MUSCLE Verified 10/20/22 11:29 PAIN/ACHES, DIFFICULTY WALKING azithromycin AdvReac Intermediate Gastrointestinal Verified 10/20/22 11:29 Upset metformin AdvReac Intermediate Diarrhea Verified 10/20/22 11:29 rosuvastatin [From Crestor] AdvReac Intermediate Cramping Verified 10/20/22 11:29 of the Muscles Fitzcqo-ECW-HiQ Reductase AdvReac Intermediate MUSCLE Verified 10/20/22 11:29 Inhibitor PAIN/ACHES, [Sqlrisy-Uko-Iea Reductase DIFFICULTY Inhibitor] WALKING Home Medications Medication Instructions Recorded Confirmed Type cholecalciferol (vitamin D3) 125 5,000 units PO DAILY 01/14/19 10/20/22 History mcg (5,000 unit) capsule empagliflozin 25 mg tablet 25 mg PO DAILY #90 tabs 11/09/21 10/20/22 Rx ezetimibe 10 mg tablet 10 mg PO PM #90 tabs 02/15/22 10/20/22 Rx acetaminophen 325 mg tablet 650 mg PO Q4H PRN pain #30 tabs 05/14/22 10/20/22 Rx inhalational spacing device #1 ea 07/08/22 10/20/22 Rx (Aerochamber Plus Flow-Vu) levalbuterol tartrate 45 2 inh inhalation Q6H PRN shortness 07/08/22 10/20/22 Rx mcg/actuation aerosol inhaler of breath/cough/wheeze #15 grams (Xopenex HFA) spironolactone 25 mg tablet 25 mg PO DAILY #90 tabs 07/22/22 10/20/22 Rx furosemide 40 mg tablet 40 mg PO DAILY #60 tabs 08/09/22 10/20/22 Rx apixaban 5 mg tablet (Eliquis) 5 mg PO BID #180 tabs 08/25/22 10/20/22 Rx blood sugar diagnostic (Accu-Chek #100 ea 09/07/22 10/20/22 Rx Guide test strips) blood-glucose meter (Accu-Chek #1 ea 09/07/22 10/20/22 Rx Guide Glucose Meter) lancets (Accu-Chek Softclix #100 ea 09/07/22 10/20/22 Rx Lancets) potassium chloride 20 mEq 20 meq PO DAILY #30 tabs 10/04/22 10/20/22 Rx tablet,extended release pantoprazole 40 mg tablet,delayed 40 mg PO DAILY #90 tabs 10/07/22 10/20/22 Rx release carvedilol 6.25 mg tablet 3.125 mg PO BID #180 tabs 10/19/22 10/20/22 Rx sacubitril 24 mg-valsartan 26 mg 1 tab PO .STOPPED ON 10/16/22 10/20/22 10/20/22 History tablet (Entresto) Past Med/Surg History Medical History Acute on chronic HFrEF (heart failure with reduced ejection fraction) Acute pulmonary embolism (06/14/22) Allergic rhinitis Asymptomatic menopausal state Atopic dermatitis Chronic kidney disease, stage 3b CKD (chronic kidney disease), stage III Coronavirus infection Dental abscess Diabetes Diabetes mellitus type II, controlled NIDDM Diverticulosis of colon Eustachian tube dysfunction Greater trochanteric bursitis History of diverticulitis History of sigmoidoscopy Hyperlipidemia Hypertension IBS (irritable bowel syndrome) ICD (implantable cardioverter-defibrillator) in place ICD (implantable cardioverter-defibrillator) in place Placed Feb 2015 > [employer] > last checked 03/23/21 with > placed for CHF Idiopathic cardiomyopathy Incidental pulmonary nodule, > 3mm and < 8mm Inflamed seborrheic keratosis Insomnia Internal hemorrhoids Intertrigo Milia Moderate mitral regurgitation Notalgia paresthetica Obesity Osteopenia Pulmonary embolism Sigmoid diverticulitis SK (seborrheic keratosis) Stage 3b chronic kidney disease Vitamin D deficiency Wart Wound dehiscence, surgical Surgical History History of appendectomy History of arthroscopy of right knee History of arthroscopy of right shoulder History of breast biopsy benign History of cardiac cath 10/2017 [facility] no stents History of carpal tunnel surgery History of Neuroplasty Decompression Median Nerve At Carpal Tunnel> right History of cholecystectomy (05/28/22) at [place] by Dr Ivey History of colonoscopy History of foot surgery 1972 History of incision and drainage (05/14/22) infection floor of the mouth and subperiosteal plane # 30 area p Incision and Drainage, Tooth Extraction(Right) - Quinton Amezcua, DMD History of repair of rotator cuff right History of vaginal hysterectomy Family History Mother Breast cancer Diabetes Grandmother Myocardial infarction Other Heart disease No family history of adverse response to anesthesia No family history of bleeding disorder Denies family history of Ovarian cancer Prostate cancer Colorectal cancer Social History Smoking Status: Never smoker Second Hand Exposure: No; Do You Dip or Chew Tobacco: No; Hx Alcohol Use: No Hx Substance Use: No Preferred Language: Gambian Communication Ability: Effective Visual Impairment: No Limitations Hearing Ability: Normal Quality Supervisor Required: No Beliefs That Will Affect Care: None marital status: Current Living Situation: Spouse current occupational status: retired Other Information That Helps Us Care for You: No Feels Safe at Home: Yes Childhood Exposure to Second-Hand Smoke: No Diet: low salt and regular caffeine: Yes during the past year weight has: remained stable Dental Care, Regularly: Yes Physical Activity Frequency: Does not Exercise Seatbelt Use: always Sunscreen Use: Yes Assistive Devices: None Review of Systems Review of Systems: A total of 10 systems was reviewed and is negative other than as listed in the HPI Physical Exam Physical Exam: GENERAL : No acute distress EYES: No icterus, gaze conjugate NOSE: No evidence of epistaxis MOUTH: No lesions or candidiasis NECK: Supple. Trachea is midline LUNGS: CTA B/L, no wheezes, rales or rhonchi HEART: Regular, rate controlled CHEST: ICD is palpable with no tenderness. No reproducible pain with palpation. No paradoxical chest wall movement ABDOMEN: Soft, NT, ND, BS Present EXTREMITIES: No LE edema, pedal pulses intact and equal bilaterally NEURO: A&OX3 Results & Data Results & Data Vital Signs (Past 12 Hours) Vital Signs Temp Pulse Pulse Resp BP BP Pulse Ox 10/20/22 08:25 85 16 112/75 95 10/20/22 07:24 10/20/22 06:30 81 33 H 91/57 L 95 10/20/22 06:00 88 22 90/67 L 96 10/20/22 05:32 98 10/20/22 05:19 84 35 H 95/72 L 97 10/20/22 05:14 92 H 18 101/65 97 10/20/22 04:58 36.1 C L 84 20 104/63 97 O2 Del Method 10/20/22 08:25 10/20/22 07:24 Room Air 10/20/22 06:30 10/20/22 06:00 10/20/22 05:32 Room Air 10/20/22 05:19 10/20/22 05:14 Room Air 10/20/22 04:58 Room Air Laboratory Results CBC, CMP, magnesium, BNP, troponin level, urinalysis, COVID-19 test all reviewed Critical Care Results & Data Vital Signs (Past 12 Hours) Vital Signs Temp Pulse Pulse Resp BP BP Pulse Ox 10/20/22 12:19 10/20/22 11:44 36.4 C L 89 20 94/67 L 95 10/20/22 08:25 85 16 112/75 95 10/20/22 07:24 10/20/22 06:30 81 33 H 91/57 L 95 10/20/22 06:00 88 22 90/67 L 96 10/20/22 05:32 98 10/20/22 05:19 84 35 H 95/72 L 97 10/20/22 05:14 92 H 18 101/65 97 10/20/22 04:58 36.1 C L 84 20 104/63 97 O2 Del Method 10/20/22 12:19 Room Air 10/20/22 11:44 Room Air 10/20/22 08:25 10/20/22 07:24 Room Air 10/20/22 06:30 10/20/22 06:00 10/20/22 05:32 Room Air 10/20/22 05:19 10/20/22 05:14 Room Air 10/20/22 04:58 Room Air Lab & Micro Results (Past 24 Hours) RBC 4.31 M/uL (4.20-5.40) 10/20/22 WBC 9.64 K/ul (4.8-10.8) 10/20/22 Hgb 14.2 g/dl (12.0-16.0) 10/20/22 Hct 41.9 % (37.0-47.0) 10/20/22 MCV 97.2 fL (80.0-100.0) 10/20/22 MCH 32.9 pg (25.0-34.0) 10/20/22 MCHC 33.9 g/dL (32.0-36.0) 10/20/22 RDW Standard Deviation 46.5 fL (36.4-46.3) H 10/20/22 RDW Coefficient of Variation 13.0 % (11.5-14.5) 10/20/22 Plt Count 281 K/uL (130-400) 10/20/22 MPV 9.7 fL (9.4-12.4) 10/20/22 Neutrophils (%) (Auto) 72.6 % 10/20/22 Lymphocytes (%) (Auto) 20.2 % 10/20/22 Monocytes # (Auto) 0.52 K/uL (0.11-0.59) 10/20/22 Eosinophils # (Auto) 0.10 K/uL (0-0.50) 10/20/22 Immature Granulocyte % (Auto) 0.3 % 10/20/22 Neutrophils # (Auto) 6.99 K/uL (1.40-6.50) H 10/20/22 Lymphocytes # (Auto) 1.95 K/uL (1.2-3.4) 10/20/22 Monocytes # (Auto) 0.52 K/uL (0.11-0.59) 10/20/22 Eosinophils # (Auto) 0.10 K/uL (0-0.50) 10/20/22 Basophils # (Auto) 0.05 K/uL (0-0.2) 10/20/22 Immature Granulocyte # (Auto) 0.03 K/uL (0.01-0.20) 3 Na 135 mmol/L (136-145) L 10/20/22 K 4.1 mmol/L (3.5-5.1) 10/20/22 Cl 100 mmol/L (98-107) 10/20/22 CO2 24 mmol/L (21-32) 10/20/22 Anion Gap 11 (3-11) 10/20/22 BUN 26 mg/dl (6-23) H 10/20/22 Creatinine 1.67 mg/dl (0.6-1.2) H 10/20/22 Estimated GFR ( Amer) 36.6 ml/min 10/20/22 Estimated GFR (Non-Af Amer) 31.6 ml/min 10/20/22 BUN/Creatinine Ratio 15.6 (10-20) 10/20/22 Glu 156 mg/dl (70-99(Fasting)) H 10/20/22 Ca 9.4 mg/dl (8.6-10.3) 10/20/22 Total Bilirubin 1.3 mg/dl (0.2-1.0) H 10/20/22 AST 19 U/L (13-39) 10/20/22 ALT 22 U/L (7-52) 10/20/22 Alkaline Phosphatase 82 U/L (34-104) 10/20/22 TP 7.2 gm/dl (6.0-8.3) 10/20/22 Albumin 4.1 gm/dl (3.4-5.0) 10/20/22 Globulin 3.1 gm/dl (2.5-4.0) 10/20/22 Albumin/Globulin Ratio 1.3 (0.9-2) 10/20/22 Mg 2.1 mg/dl (1.7-2.4) 10/20/22 05:20 Calcium Level 9.4 mg/dl (8.6-10.3) 10/20/22 05:20 Diagnostic Findings (Past 24 Hours) Chest X-Ray 10/20/22 05:22 SINGLE VIEW CHEST CLINICAL HISTORY: Dyspnea.. FINDINGS: An AP, portable, upright chest radiograph is compared to study dated 10/19/2022 and correlated with chest CT dated 06/14/2022. A 2-lead cardiac AICD is unchanged in position and partially obscures the left mid chest. The heart is enlarged noting atherosclerotic calcification of the thoracic aorta. There is pulmonary vascular congestion and mild interstitial edema. There are small pleural effusions with dependent consolidation. There is no pneumothorax. The skeletal structures are osteopenic. The bony thorax is grossly intact. IMPRESSION: 1. Cardiomegaly and AICD with evidence of congestive failure. This is unchanged from yesterday. 2. Small pleural effusions with dependent consolidation. ACT 112: Negative or not required by law. Electronically signed by: Hermann Salazar M.D. 10/20/2022 7:22 AM RT Ventilator Mngmt (Last Documented) Ventilator Ordered Settings Respiratory Rate 20 10/20/22 11:44 Ventilator - PT Measurements Respiratory Rate 20 Code Status & VTE Plan VTE Prophylaxis Plan VTE Prophylaxis will be ordered: Yes Supervising Physician Co-Signing Physician Notes JACOB Supervision Note: I personally saw and examined the patient. I verified all alejandra points and agree with JACOB Ruelas with the following exceptions and/or additions: S-this patient is a 67-year-old female who presents with worsening lightheadedness, orthopnea, shortness of breath. She has recently had her Entresto discontinued and carvedilol dose lowered due to ongoing hypotension and orthostasis. Denies any weight gain or significant lower extremity edema. Is in process of pursuing evaluation for cardiac transplant. Seen in the ER today and noted to be mildly hypotensive, with significantly elevated BNP, evidence of pulmonary edema and cardiomegaly on chest x-ray, mildly elevated troponin, mildly elevated creatinine. I discussed her care with cardiology after admission She is with a low output state for her heart failure and needs inotrope therapy History and ROS reviewed otherwise as above O- Vitals reviewed Gen: AAOx3, NAD HEENT: Anicteric sclerae, EOMI CV: RRR no mgr nl S1S2, positive JVD Pulm: Positive bibasilar crackles, otherwise clear Abd: +BS soft NT ND no masses or hernias Ext: Trace pitting edema legs bilaterally, 2+ DP pulses Skin: No rashes, warm/dry Neuro: Full strength throughout Labs, Rads, and ECG reviewed [id number]-old female with acute on chronic HFrEF, end-stage, with hypotension and orthostasis Give 1 dose IV Lasix 40 Mg x1 now as per cardiology recommendations Continue other home medications as noted Plan to transfer to the ICU for dobutamine drip and titration in the morning- defer on doing it tonight given propensity for dysrhythmias and would be better during the day unless she decompensates overnight Discussed care with cardiology and nocturnal freight receiver nurse practitioner Given that she is only on metformin at home, does not need such high doses of insulin-discontinued Lantus but will continue NovoLog supplemental insulin, check hemoglobin A1c in the morning PG Care Time/CCT Total # of Minutes Spent Total Time Spent with Patient: Total time spent is greater than 50% in coordination of care (as documented) at patient's floor/unit and/or counseling patient: Coding Level of Care Code 96119 INT INP/OBS CARE 3/75MIN Diagnoses Shortness of breath R06.02 HFrEF (heart failure with reduced ejection fraction) I50.20 Chronic kidney disease, stage 3b N18.32 Diabetes E11.9 Sustained ventricular tachycardia I47.2 ICD (implantable cardioverter-defibrillator) in place Z95.810 GERD (gastroesophageal reflux disease) K21.9 Time Spent (min) 60
--- NOTE | 2022-10-20 11:43 | Electrocardiogram Report ---
Test Reason : Blood Pressure : / mmHG Vent. Rate : 088 BPM Atrial Rate : 088 BPM P-R Int : 182 ms QRS Dur : 140 ms QT Int : 428 ms P-R-T Axes : 081 253 057 degrees QTc Int : 517 ms Normal sinus rhythm Non-specific intra-ventricular conduction block Possible Old Anterolateral infarct (cited on or before 15-JUN-2022) Abnormal ECG When compared with ECG of 06-JUL-2022 09:27, Premature ventricular complexes are no longer Present QRS duration has increased Confirmed by Edgar Mejia ([id number]) on 10/20/2022 11:42:58 AM Referred By: REFERRED SELF Confirmed By:Edgar Mejia
[2022-10-20] MEDS ORDERED: DEXTROSE 50% 50 ML SYRINGE IV PRN (11:57)
[2022-10-20] MEDS ORDERED: GLUCOSE 40% GEL 15 GM TUBE PO PRN (11:57)
[2022-10-20] MEDS ORDERED: ACETAMINOPHEN 325 MG TAB PO PRN (11:57)
[2022-10-20] MEDS ORDERED: GLUCAGON FOR INJ 1 MG VIAL SQ PRN (11:57)
[2022-10-20] MEDS ORDERED: LANTUS PER UNIT CHARGE SQ SCH (11:57)
[2022-10-20] MEDS ORDERED: MAGNESIUM HYDROXIDE SUSP 30 ML UDC PO PRN (11:57)
[2022-10-20] MEDS ORDERED: CARBOHYDRATES FOR HYPOGLYCEMIA PO PRN (11:57)
[2022-10-20] MEDS ORDERED: POLYETHYLENE (MIRALAX) 17 GM PACK PO PRN (11:57)
[2022-10-20] MEDS ORDERED: GLUCOSE 10 TAB/TUBE PO PRN (11:57)
[2022-10-20] MEDS: POTASSIUM CHLORIDE CRTAB 20 MEQ TABCR PO SCH (12:42)
[2022-10-20] MEDS: SPIRONOLACTONE 25 MG TAB PO SCH (12:42)
[2022-10-20] MEDS: APIXABAN 5 MG TABLET PO SCH ×2 (12:42→21:41)
[2022-10-20] MEDS: INSULIN ASPART PER UNIT CHARGE SC SCH ×3 (12:43→20:38)
[2022-10-20] MEDS: FUROSEMIDE 40 MG TAB PO SCH (12:48)
[2022-10-20] MEDS: PANTOprazole 40 MG TAB PO SCH (13:17)
--- NOTE | 2022-10-20 16:36 | Cardiology Consultation ---
Date of Consultation October 20, 2022 Assessment & Plan (1) Low output heart failure: (2) Non-ischemic cardiomyopathy: (3) ICD (implantable cardioverter-defibrillator) in place: (4) Chronic kidney disease, stage 3b: Plan 67-year-old woman with longstanding severe nonischemic cardiomyopathy which had been fairly well compensated until recently. She is prone to chronic hypotension and vasoactive medications often had to be titrated down and off before being reinitiated at a later time. She has been off an SHAW inhibitor or ARB for some time and recently had Entresto discontinued. Her BP continues in the mildly hypotensive range but her orthostatic symptoms markedly improved off Entresto. Her weight has been stable and she has not had any recent ankle edema, on exam she has only minimally hypervolemic by neck veins but on chest x-ray and lung exam she has significant pulmonary edema/congestion. These findings are most consistent with low output heart failure. Suspect very limited room for volume unloading, could give a dose of furosemide 40 mg IV and closely monitor exam, weight, and renal function. Would favor intravenous inotrope for symptomatic relief, given her pharmacologic rachel today regarding inotropic infusions this would best be initially accomplished in the intensive care unit. Rather than start late in the day, would recommend moving to intensive care unit and initiating intravenous dobutamine tomorrow at 2.5 mcg/kg/min with upward titration as tolerated to a goal of 5-10 mcg/kg/min if hemodynamics remain favorable and she has no significant dysrhythmias. I did discuss with the patient that there is no mortality benefit and may be a mortality risk with dobutamine, however significant symptomatic relief which can endure beyond the period of intravenous infusion is often achieved. Will speak with tertiary care center ([facility]) regarding advanced cardiomyopathy/end-stage heart failure options, including potential left ventricular assist device or transplantation (I believe eligibility can be up to age 70). If she improves, follow-up at [facility] could be as outpatient, if she does not may consider transfer, if this is an option. History of Present Illness Reason for Consultation: HfRef Requesting Physician: Mali Garay MD Attending Physician: Mali Garay MD History of Present Illness 67-year-old woman with idiopathic cardiomyopathy (EF 15-20% on recent echo, cath 2018 showed no significant coronary disease only luminal irregularities), status post Medtronic ICD/dual chamber pacemaker, and chronic borderline hypotension who is followed routinely by Kay Salazar PA-C in heart failure clinic (last seen yesterday) now admitted with progressive dyspnea on minimal exertion and now with any activity at all. In addition to her cardiac issues, she has a history of diabetes (on insulin), chronic renal insufficiency (baseline creatinine 1.41.5), cholecystitis (recent cholecystectomy), and a recent pulmonary embolism (on apixaban). Her left ventricular systolic function has been at least moderately reduced for over a decade, however it has worsened over the past 4 years (EF 20-25% in 2019, most recently in the 15% range). She has been on guideline directed therapy with carvedilol, Entresto, spironolactone, and at one point was on an SHAW inhibitor. Due to chronic hypotension and orthostatic symptoms her SHAW inhibitor was discontinued sometime ago, more recently her Entresto was stopped due to standing systolic blood pressure less than 90 mmHg and marked orthostatic lightheadedness. Current diuretic regimen is 40 mg furosemide daily, she has not noted any recent weight change. About a month ago she had significant ankle edema, but none recently. She has chronic orthopnea and recently has had borderline paroxysmal nocturnal dyspnea. She not had chest discomfort, subjective palpitations, presyncope, or syncope. No subjective ICD shocks. At the time of my evaluation, she was reasonably comfortable at rest, but became dyspneic with any activity at all. Allergies Allergy/AdvReac Type Severity Reaction Status Date / Time erythromycin base Allergy Severe blisters;red;itchy;pain;blisters Verified 10/20/22 11:29 in back throat iodine Allergy Severe throat Verified 10/20/22 11:29 blisters;skin blisters meperidine [From Demerol] Allergy Severe quit Verified 10/20/22 11:29 breathing adhesive Allergy Intermediate BLISTERS Verified 10/20/22 11:29 tetracycline Allergy Unknown TERRAMYCIN Verified 10/20/22 11:29 ALLERGY atorvastatin AdvReac Intermediate MUSCLE Verified 10/20/22 11:29 PAIN/ACHES, DIFFICULTY WALKING azithromycin AdvReac Intermediate Gastrointestinal Verified 10/20/22 11:29 Upset metformin AdvReac Intermediate Diarrhea Verified 10/20/22 11:29 rosuvastatin [From Crestor] AdvReac Intermediate Cramping Verified 10/20/22 11:29 of the Muscles Jzcipda-WCA-DzC Reductase AdvReac Intermediate MUSCLE Verified 10/20/22 11:29 Inhibitor PAIN/ACHES, [Sswdgrv-Ypt-Wfi Reductase DIFFICULTY Inhibitor] WALKING Home Medications Medication Instructions Recorded Confirmed Type cholecalciferol (vitamin D3) 125 5,000 units PO DAILY 01/14/19 10/20/22 History mcg (5,000 unit) capsule empagliflozin 25 mg tablet 25 mg PO DAILY #90 tabs 11/09/21 10/20/22 Rx ezetimibe 10 mg tablet 10 mg PO PM #90 tabs 02/15/22 10/20/22 Rx acetaminophen 325 mg tablet 650 mg PO Q4H PRN pain #30 tabs 05/14/22 10/20/22 Rx inhalational spacing device #1 ea 07/08/22 10/20/22 Rx (Aerochamber Plus Flow-Vu) levalbuterol tartrate 45 2 inh inhalation Q6H PRN shortness 07/08/22 10/20/22 Rx mcg/actuation aerosol inhaler of breath/cough/wheeze #15 grams (Xopenex HFA) spironolactone 25 mg tablet 25 mg PO DAILY #90 tabs 07/22/22 10/20/22 Rx furosemide 40 mg tablet 40 mg PO DAILY #60 tabs 08/09/22 10/20/22 Rx apixaban 5 mg tablet (Eliquis) 5 mg PO BID #180 tabs 08/25/22 10/20/22 Rx blood sugar diagnostic (Accu-Chek #100 ea 09/07/22 10/20/22 Rx Guide test strips) blood-glucose meter (Accu-Chek #1 ea 09/07/22 10/20/22 Rx Guide Glucose Meter) lancets (Accu-Chek Softclix #100 ea 09/07/22 10/20/22 Rx Lancets) potassium chloride 20 mEq 20 meq PO DAILY #30 tabs 10/04/22 10/20/22 Rx tablet,extended release pantoprazole 40 mg tablet,delayed 40 mg PO DAILY #90 tabs 10/07/22 10/20/22 Rx release carvedilol 6.25 mg tablet 3.125 mg PO BID #180 tabs 10/19/22 10/20/22 Rx sacubitril 24 mg-valsartan 26 mg 1 tab PO .STOPPED ON 10/16/22 10/20/22 10/20/22 History tablet (Entresto) Patient History Medical History Acute on chronic HFrEF (heart failure with reduced ejection fraction) Acute pulmonary embolism (06/14/22) Allergic rhinitis Asymptomatic menopausal state Atopic dermatitis Chronic kidney disease, stage 3b CKD (chronic kidney disease), stage III Coronavirus infection Dental abscess Diabetes Diabetes mellitus type II, controlled NIDDM Diverticulosis of colon Eustachian tube dysfunction Greater trochanteric bursitis History of diverticulitis History of sigmoidoscopy Hyperlipidemia Hypertension IBS (irritable bowel syndrome) ICD (implantable cardioverter-defibrillator) in place ICD (implantable cardioverter-defibrillator) in place Placed Feb 2015 > [employer] > last checked 03/23/21 with > placed for CHF Idiopathic cardiomyopathy Incidental pulmonary nodule, > 3mm and < 8mm Inflamed seborrheic keratosis Insomnia Internal hemorrhoids Intertrigo Milia Moderate mitral regurgitation Notalgia paresthetica Obesity Osteopenia Pulmonary embolism Sigmoid diverticulitis SK (seborrheic keratosis) Stage 3b chronic kidney disease Vitamin D deficiency Wart Wound dehiscence, surgical Surgical History History of appendectomy History of arthroscopy of right knee History of arthroscopy of right shoulder History of breast biopsy benign History of cardiac cath 10/2017 [facility] no stents History of carpal tunnel surgery History of Neuroplasty Decompression Median Nerve At Carpal Tunnel> right History of cholecystectomy (05/28/22) at [facility] by Dr Ivey History of colonoscopy History of foot surgery 1972 History of incision and drainage (05/14/22) infection floor of the mouth and subperiosteal plane # 30 area p Incision and Drainage, Tooth Extraction(Right) - Quinton Amezcua DMD History of repair of rotator cuff right History of vaginal hysterectomy Family History Mother Breast cancer Diabetes Grandmother Myocardial infarction Other Heart disease No family history of adverse response to anesthesia No family history of bleeding disorder Denies family history of Ovarian cancer Prostate cancer Colorectal cancer Social History Smoking Status: Never smoker Second Hand Exposure: No; Do You Dip or Chew Tobacco: No; Hx Alcohol Use: No Hx Substance Use: No Preferred Language: Gibraltarian Communication Ability: Effective Visual Impairment: No Limitations Hearing Ability: Normal Washer And Crusher Tender Required: No Beliefs That Will Affect Care: None marital status: Current Living Situation: Spouse current occupational status: retired Other Information That Helps Us Care for You: No Feels Safe at Home: Yes Childhood Exposure to Second-Hand Smoke: No Diet: low salt and regular caffeine: Yes during the past year weight has: remained stable Dental Care, Regularly: Yes Physical Activity Frequency: Does not Exercise Seatbelt Use: always Sunscreen Use: Yes Assistive Devices: None Physical Exam Physical Exam: Appears mildly uncomfortable but not distressed currently. Her weight has been unchanged during various medical encounters over the past 3 months. BP 98/65 mmHg reclining in bed. Pulse 84 bpm and regular. Skin without generalized lesions. HEENT unremarkable. Neck: jugular venous pulse just above the clavicle at 90. No carotid bruits. Lungs: Faint crackles mcfp up both lungs, no wheezing or accessory muscle use. Cardiac: Regular rhythm normal S1 and S2, no murmur, rub or obvious gallop. Abdomen: Nontender. Extremities: No significant pretibial edema, pulses intact. Neurologic: Normal affect and conversation. Nonfocal. Results & Data Laboratory Results Sodium 135, potassium 4.1, BUN 26, creatinine 1.67. BNP greater than 4700. Troponin 19.9 and 21.8. Diagnostic Findings ECG shows sinus rhythm with nonspecific intraventricular conduction delay (140 ms QRS duration), poor R wave progression suggesting possible old anterolateral infarct. Compared with 07/06/2022 ECG, PVCs no longer present, QRS has increased. Chest x-ray shows cardiomegaly with ICD and evidence of congestive heart failure, small pleural effusions with dependent consolidation. Unchanged from film yesterday. Echocardiogram May 2022 showed EF 15 to 20% with mildly dilated left ventricle with severe global hypokinesis and septal dyskinesis, moderate mitral regurgitation, mild to moderate tricuspid regurgitation with moderate pulmonary hypertension, normal IVC. PG Care Time/CCT Total # of Minutes Spent Total Time Spent with Patient: Total time spent is greater than 50% in coordination of care (as documented) at patient's floor/unit and/or counseling patient: Coding Level of Care Code 69674 IN/OBS CONSULT LVL 4,60M Diagnoses Low output heart failure I50.9 Non-ischemic cardiomyopathy I42.8 ICD (implantable cardioverter-defibrillator) in place Z95.810 Chronic kidney disease, stage 3b N18.32
[2022-10-20] MEDS ORDERED: FUROSEMIDE 40 MG/4 ML VIAL IV ONE (17:00)
[2022-10-20] MEDS: carvediloL 3.125 MG TAB PO SCH (21:41)
[2022-10-21 08:12] LABS: Mean Corpuscular Hemoglobin 33.1 pg (25.0-34.0); Mean Corpuscular Hgb Conc 33.3 g/dL (32.0-36.0); Mean Corpuscular Volume 99.2 fL (80.0-100.0); Mean Platelet Volume 9.5 fL (9.4-12.4); Platelet Count 259 K/uL (130-400); Red Blood Count 3.93 M/uL (4.20-5.40); White Blood Count 8.72 K/ul (4.8-10.8)
[2022-10-21 08:25] LABS: Estimated Average Glucose 163 mg/dl; Hemoglobin A1C 7.3 % (4.5-5.6)
[2022-10-21] MEDS ORDERED: STAT IV Infusion **Titration per Protocol STA (08:26)
[2022-10-21 08:31] LABS: Albumin Globulin Ratio 1.4 (0.9-2); Albumin Level 3.8 gm/dl (3.4-5.0); BUN Creatinine Ratio 16.9 (10-20); Bilirubin,Total 2.1 mg/dl (0.2-1.0); Calcium 9.3 mg/dl (8.6-10.3); Creatinine Clr Calc Pharmacy 30.5 ml/min; Est GFR (African American) 34.1 ml/min; Est GFR (Non-African American) 29.4 ml/min; Globulin 2.7 gm/dl (2.5-4.0); Magnesium 1.9 mg/dl (1.7-2.4); Potassium 4.1 mmol/L (3.5-5.1); Total Protein 6.5 gm/dl (6.0-8.3)
[2022-10-21] MEDS: INSULIN ASPART PER UNIT CHARGE SC SCH ×4 (08:35→20:03)
[2022-10-21] MEDS: DOBUTamine / D5W 500 MG/250 ML BAG IV SCH (08:35)
[2022-10-21] MEDS: FUROSEMIDE 40 MG TAB PO SCH (08:36)
[2022-10-21] MEDS: CHOLECALCIFEROL 5,000 UNITS 125 MCG TAB PO SCH (08:36)
[2022-10-21] MEDS: PANTOprazole 40 MG TAB PO SCH (08:36)
[2022-10-21] MEDS: APIXABAN 5 MG TABLET PO SCH ×2 (08:36→20:03)
[2022-10-21] MEDS: SPIRONOLACTONE 25 MG TAB PO SCH (08:37)
[2022-10-21] MEDS: POTASSIUM CHLORIDE CRTAB 20 MEQ TABCR PO SCH (08:37)
--- NOTE | 2022-10-21 09:03 | Critical Care Consultation ---
Date of Consultation October 21, 2022 Assessment & Plan (1) CHF (congestive heart failure): (2) ICD (implantable cardioverter-defibrillator) in place: (3) Early satiety: (4) GERD (gastroesophageal reflux disease): (5) Chronic kidney disease, stage 3b: (6) HFrEF (heart failure with reduced ejection fraction): Plan Chest x-ray 10/20/2022 personally reviewed: Portable film, good inspiratory effort, increased cardiac silhouette with AICD in place, mild blunting of the left costophrenic angle, minimal increase vascular markings --Shortness of breath Likely secondary to systolic CHF BNP greater than 4200 COVID-19 NAAT negative Patient is saturating well on room air Her main issue is exertional shortness of breath --Idiopathic systolic CHF EF 15-20% On Coreg, spironolactone, Jardiance at home --CKD Monitor BUNs/creatinine Avoid nephrotoxic medication --History of pulmonary emboli Diagnosed 05/2022 On apixaban --History of SVT and V. tach S/p AICD --Diabetes Continue with ICU hypoglycemia protocol --GERD Continue with pantoprazole --Dyslipidemia on Zetia --Prophylaxis VTE: Apixaban GI: Pantoprazole Lines: Peripheral Diet: Cardiac Plan: Strict in and out Continue with diuretics to keep the patient negative balance Dobutamine will be started as per recommendation from cardiology. Patient is saturating 94% on room air, she is not in any respiratory distress, no lower extremity edema. Given the patient is on dobutamine we would not be able to give any beta-blockers Inotropes and end-stage CHF were not in fulminant heart failure is usually a bridge to permanent measures left ventricular assist ultimately heart transplant She will benefit from CPAP/BiPAP nightly and as needed shortness of breath Incentive spirometry Case was discussed with Dr. Graay I have personally spent 45 minutes of critical care time in the direct management of this patient. This is a life/limb threatening event. This includes time spent evaluating patient, direct bedside care, chart review, placing orders, interpretation of diagnostic studies, discussion with consultants, patient, and family members, as well as other required patient management activities. This time is exclusive of all separately billable procedures, and teaching time and separate from and in addition to any other critical care service time. Please note the above document was generated using voice recognition software. It may contain grammatical, syntax or spelling errors. History of Present Illness Attending Physician: Mali Garay MD History of Present Illness 67-year-old female was admitted to hospital for shortness of breath Past medical history: Idiopathic cardiomyopathy with EF 15-20%, CKD, diabetes, GERD She was transferred to the ICU for starting of inotropes Patient has been following up with outpatient cardiology clinic she was complaining worsening shortness of breath At the time of examination patient was on dobutamine 2.5 mcg, her systolic blood pressure was in the high 100s, MAP in the high 70s to low 80s. Was not in any respiratory distress. Saturation 94-95% on room air Did complain of mild nausea but no vomiting No abdominal pain, no dizziness, no headache. She stated that shortness of breath has improved since coming to the hospital. 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 Allergies Allergy/AdvReac Type Severity Reaction Status Date / Time erythromycin base Allergy Severe blisters;red;itchy;pain;blisters Verified 10/20/22 11:29 in back throat iodine Allergy Severe throat Verified 10/20/22 11:29 blisters;skin blisters meperidine [From Demerol] Allergy Severe quit Verified 10/20/22 11:29 breathing adhesive Allergy Intermediate BLISTERS Verified 10/20/22 11:29 cinnamon Allergy Unknown Hives Verified 10/20/22 17:27 tetracycline Allergy Unknown TERRAMYCIN Verified 10/20/22 11:29 ALLERGY atorvastatin AdvReac Intermediate MUSCLE Verified 10/20/22 11:29 PAIN/ACHES, DIFFICULTY WALKING azithromycin AdvReac Intermediate Gastrointestinal Verified 10/20/22 11:29 Upset metformin AdvReac Intermediate Diarrhea Verified 10/20/22 11:29 rosuvastatin [From Crestor] AdvReac Intermediate Cramping Verified 10/20/22 11:29 of the Muscles Thluinq-LIB-GyE Reductase AdvReac Intermediate MUSCLE Verified 10/20/22 11:29 Inhibitor PAIN/ACHES, [Vbqrqvs-Kwl-Htf Reductase DIFFICULTY Inhibitor] WALKING Home Medications Medication Instructions Recorded Confirmed Type cholecalciferol (vitamin D3) 125 5,000 units PO DAILY 01/14/19 10/20/22 History mcg (5,000 unit) capsule empagliflozin 25 mg tablet 25 mg PO DAILY #90 tabs 11/09/21 10/20/22 Rx ezetimibe 10 mg tablet 10 mg PO PM #90 tabs 02/15/22 10/20/22 Rx acetaminophen 325 mg tablet 650 mg PO Q4H PRN pain #30 tabs 05/14/22 10/20/22 Rx inhalational spacing device #1 ea 07/08/22 10/20/22 Rx (Aerochamber Plus Flow-Vu) levalbuterol tartrate 45 2 inh inhalation Q6H PRN shortness 07/08/22 10/20/22 Rx mcg/actuation aerosol inhaler of breath/cough/wheeze #15 grams (Xopenex HFA) spironolactone 25 mg tablet 25 mg PO DAILY #90 tabs 07/22/22 10/20/22 Rx furosemide 40 mg tablet 40 mg PO DAILY #60 tabs 08/09/22 10/20/22 Rx apixaban 5 mg tablet (Eliquis) 5 mg PO BID #180 tabs 08/25/22 10/20/22 Rx blood sugar diagnostic (Accu-Chek #100 ea 09/07/22 10/20/22 Rx Guide test strips) blood-glucose meter (Accu-Chek #1 ea 09/07/22 10/20/22 Rx Guide Glucose Meter) lancets (Accu-Chek Softclix #100 ea 09/07/22 10/20/22 Rx Lancets) potassium chloride 20 mEq 20 meq PO DAILY #30 tabs 10/04/22 10/20/22 Rx tablet,extended release pantoprazole 40 mg tablet,delayed 40 mg PO DAILY #90 tabs 10/07/22 10/20/22 Rx release carvedilol 6.25 mg tablet 3.125 mg PO BID #180 tabs 10/19/22 10/20/22 Rx sacubitril 24 mg-valsartan 26 mg 1 tab PO .STOPPED ON 10/16/22 10/20/22 10/20/22 History tablet (Entresto) Patient History Medical History Acute on chronic HFrEF (heart failure with reduced ejection fraction) Acute pulmonary embolism (06/14/22) Allergic rhinitis Asymptomatic menopausal state Atopic dermatitis Chronic kidney disease, stage 3b CKD (chronic kidney disease), stage III Coronavirus infection Dental abscess Diabetes Diabetes mellitus type II, controlled NIDDM Diverticulosis of colon Eustachian tube dysfunction Greater trochanteric bursitis History of diverticulitis History of sigmoidoscopy Hyperlipidemia Hypertension IBS (irritable bowel syndrome) ICD (implantable cardioverter-defibrillator) in place ICD (implantable cardioverter-defibrillator) in place Placed Feb 2015 > [employer] > last checked 03/23/21 with > placed for CHF Idiopathic cardiomyopathy Incidental pulmonary nodule, > 3mm and < 8mm Inflamed seborrheic keratosis Insomnia Internal hemorrhoids Intertrigo Milia Moderate mitral regurgitation Notalgia paresthetica Obesity Osteopenia Pulmonary embolism Sigmoid diverticulitis SK (seborrheic keratosis) Stage 3b chronic kidney disease Vitamin D deficiency Wart Wound dehiscence, surgical Surgical History History of appendectomy History of arthroscopy of right knee History of arthroscopy of right shoulder History of breast biopsy benign History of cardiac cath 10/2017 [facility] no stents History of carpal tunnel surgery History of Neuroplasty Decompression Median Nerve At Carpal Tunnel> right History of cholecystectomy (05/28/22) at [facility] by Dr Ivey History of colonoscopy History of foot surgery 1972 History of incision and drainage (05/14/22) infection floor of the mouth and subperiosteal plane # 30 area p Incision and Drainage, Tooth Extraction(Right) - Quinton Amezcua, DMD History of repair of rotator cuff right History of vaginal hysterectomy Family History Mother Breast cancer Diabetes Grandmother Myocardial infarction Other Heart disease No family history of adverse response to anesthesia No family history of bleeding disorder Denies family history of Ovarian cancer Prostate cancer Colorectal cancer Social History Smoking Status: Never smoker Second Hand Exposure: No; Do You Dip or Chew Tobacco: No; Hx Alcohol Use: No Hx Substance Use: No Preferred Language: Turkish Communication Ability: Effective Visual Impairment: No Limitations Hearing Ability: Normal Service Delivery Manager Required: No Beliefs That Will Affect Care: None marital status: Current Living Situation: Spouse current occupational status: retired Other Information That Helps Us Care for You: No Feels Safe at Home: Yes Childhood Exposure to Second-Hand Smoke: No Diet: low salt and regular caffeine: Yes during the past year weight has: remained stable Dental Care, Regularly: Yes Physical Activity Frequency: Does not Exercise Seatbelt Use: always Sunscreen Use: Yes Assistive Devices: None Review of Systems Review of Systems: All systems reviewed & are unremarkable except as noted in HPI & below Physical Exam Physical Exam: Constitutional: No acute distress HEENT: EOMI, PERRLA Respiratory system: Good air entry bilaterally, no wheeze, no rhonchi, 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 bilateral lower lobes CVS: S1-S2 positive, no murmurs or gallops, accentuated P2, AICD in place Abdomen: Soft, nontender, nondistended, positive bowel sounds x4 Extremities: +2 pulses bilaterally radialis/ dorsalis pedis, no cyanosis, no edema Neuro: Awake alert oriented x3 Psych: Normal mood and affect G/U: No Waters Skin: no rashes, warm and dry Lymphatic: no cervical or axillary lymphadenopathy Results & Data Results & Data Vital Signs (Past 12 Hours) Vital Signs Temp Pulse Pulse Resp BP BP Pulse Ox 10/21/22 07:28 36.5 C 85 18 98/64 L 93 10/20/22 22:00 96 H 10/21/22 03:49 36.5 C 92 H 18 94/60 L 93 10/20/22 21:00 10/20/22 23:00 35.8 C L 89 16 102/70 93 O2 Del Method 10/21/22 07:28 Room Air 10/20/22 22:00 10/21/22 03:49 Room Air 10/20/22 21:00 Room Air 10/20/22 23:00 Room Air Laboratory Results 10/21/22 07:25 10/21/22 07:25 Coding Level of Care Code 02033 CRITICAL CARE 1ST 30-74M Diagnoses CHF (congestive heart failure) I50.9 ICD (implantable cardioverter-defibrillator) in place Z95.810 Early satiety R68.81 GERD (gastroesophageal reflux disease) K21.9 Chronic kidney disease, stage 3b N18.32 HFrEF (heart failure with reduced ejection fraction) I50.20 Time Spent (min) 45
[2022-10-21] MEDS: EMPAGLIFLOZIN 25 MG TAB PO SCH (09:05)
[2022-10-21] MEDS: carvediloL 3.125 MG TAB PO SCH (09:05)
--- NOTE | 2022-10-21 15:13 | Cardiology Progress Note ---
Date of Service October 21, 2022 Assessment & Plan (1) Low output heart failure: (2) Non-ischemic cardiomyopathy: (3) ICD (implantable cardioverter-defibrillator) in place: (4) Chronic kidney disease, stage 3b: Plan 67-year-old woman with longstanding severe nonischemic cardiomyopathy in low output heart failure. Hemodynamics are reasonable on low-dose dobutamine, but given borderline tachycardia and sporadic ventricular ectopy will not titrate upward immediately. Hope to see some symptomatic response overnight, if not and heart rate/rhythm allow would increase dobutamine to 5 mcg/kg/min tomorrow. Carvedilol held while on dobutamine. Appears only minimally hypervolemic, would continue furosemide 40 mg p.o. daily, hopefully improved cardiac output with inotropic infusion will result in further diuresis. Will speak with tertiary care center ([facility]) regarding advanced cardiomyopathy/end-stage heart failure options, including left ventricular assist device or transplantation. Admission and Anticipated Discharge Date Admission Date: October 20, 2022 Subjective No real change in status overnight, slept slightly better. Modest diuresis (-500 mL). Weight down 2 pounds (bed scale). Still with dyspnea with minor exertion, comfortable at rest. No chest pain, palpitations, or lightheadedness. Telemetry shows sinus/mild sinus tachycardia with sporadic but noncomplex ventricular ectopy. Physical Exam Physical Exam: Appears reasonably comfortable currently. SBP mostly 90-110 mmHg range Pulse 90-100 bpm Skin without generalized lesions. HEENT unremarkable. Neck: jugular venous pulse just above the clavicle at 90. No carotid bruits. Lungs: Faint crackles lung bases, no wheezing or accessory muscle use. Cardiac: Regular borderline tachycardic rhythm normal S1 and S2, no murmur, rub or obvious gallop. Abdomen: Nontender. Extremities: No significant pretibial edema, pulses intact. Neurologic: Normal affect and conversation. Nonfocal. Results & Data Laboratory Results Normal electrolytes, BUN 30, creatinine 1.77. PG Care Time/CCT Total # of Minutes Spent Total Time Spent with Patient: Total time spent is greater than 50% in coordination of care (as documented) at patient's floor/unit and/or counseling patient: Coding Level of Care Code 03356 SUB INP/OBS CARE 3/50MIN Diagnoses Low output heart failure I50.9 Non-ischemic cardiomyopathy I42.8 ICD (implantable cardioverter-defibrillator) in place Z95.810 Chronic kidney disease, stage 3b N18.32
[2022-10-21] MEDS ORDERED: MAGNESIUM SULFATE / D5W 1 GM/100 ML BAG IV ONE (18:45)
[2022-10-21] MEDS: EZETIMIBE 10 MG TABLET PO SCH (20:03)
[2022-10-22] MEDS: DOBUTamine / D5W 500 MG/250 ML BAG IV SCH (05:45)
[2022-10-22 05:59] LABS: Albumin Globulin Ratio 1.4 (0.9-2); Albumin Level 3.4 gm/dl (3.4-5.0); BUN Creatinine Ratio 19.5 (10-20); Bilirubin,Total 1.8 mg/dl (0.2-1.0); Calcium 8.9 mg/dl (8.6-10.3); Creatinine Clr Calc Pharmacy 36.2 ml/min; Est GFR (Non-African American) 36.2 ml/min; Globulin 2.4 gm/dl (2.5-4.0); Magnesium 2.2 mg/dl (1.7-2.4); Phosphorus 4.4 mg/dl (2.5-4.9); Potassium 3.6 mmol/L (3.5-5.1); Total Protein 5.8 gm/dl (6.0-8.3)
[2022-10-22 06:17] LABS: Hematocrit (blood only) 35.1 % (37.0-47.0); Hemoglobin 11.8 g/dl (12.0-16.0); Mean Corpuscular Hemoglobin 32.7 pg (25.0-34.0); Mean Corpuscular Hgb Conc 33.6 g/dL (32.0-36.0); Mean Corpuscular Volume 97.2 fL (80.0-100.0); Mean Platelet Volume 9.2 fL (9.4-12.4); Platelet Count 208 K/uL (130-400); RDW Coefficient of Variation 13.2 % (11.5-14.5); RDW Standard Deviation 46.3 fL (36.4-46.3); Red Blood Count 3.61 M/uL (4.20-5.40)
[2022-10-22] MEDS ORDERED: POTASSIUM CHLORIDE CRTAB 20 MEQ TABCR PO STA ×2 (06:45→07:41)
[2022-10-22] MEDS: INSULIN ASPART PER UNIT CHARGE SC SCH ×4 (07:35→20:31)
[2022-10-22] MEDS: CHOLECALCIFEROL 5,000 UNITS 125 MCG TAB PO SCH (07:38)
[2022-10-22] MEDS: APIXABAN 5 MG TABLET PO SCH ×2 (07:38→20:16)
--- NOTE | 2022-10-22 07:38 | Hospitalist Progress Note ---
Date of Service October 21, 2022 Assessment & Plan (1) Shortness of breath: Plan: This is a 67-year-old female with nonischemic cardiomyopathy and significant decrease in ejection fraction of 15 to 20%. Patient does have history of supraventricular tachycardia and had a pacemaker/ICD placed in 2014. Patient states that she has been under the care of the heart failure clinic for the last 5 days due to increased shortness of breath. Medication has been sohail fied and currently patient has been taken off Entresto and carvedilol has been reduced from 6.25 to 3.125 mg p.o. twice daily. Patient has been referred to [facility] in the past for evaluation for heart transplant but has not had evaluation as of this day. Patient recently had diagnosis of pulmonary embolism and is currently being anticoagulated with apixaban 5 mg p.o. twice daily. No signs or symptoms of acute pulmonary emboli at this time. Acute on chronic HFrEF CXR shows no evidence of infiltrate or consolidation. Patient does have interstitial fluid as well as small bilateral pleural effusions. Patient has not experienced any hypoxia but with orthopnea and dyspnea on exertion Treat for CHF as below (2) HFrEF (heart failure with reduced ejection fraction): Plan: Here with acute on chronic HFrEF Patient with nonischemic cardiomyopathy Recent echocardiogram with global hypokinesis as well as ejection fraction of 15 to 20% Internal cardiac defibrillator was placed in 2014. According the patient this is never shocked her for tachyarrhythmia Patient does report history of supraventricular tachycardia We will continue to monitor on telemetry Starting dobutamine drip today-monitor for arrhythmias, urine output. She is already feeling better Daily weights, low-sodium diet Appreciate cardiology consultation Continue home carvedilol at lower dose, Jardiance, spironolactone, furosemide Entresto is on hold for hypotension (3) Chronic kidney disease, stage 3b: Plan: Creatinine Baseline is 1.4-1.5 Continue with home diuretics including furosemide and Aldactone and follow serial labs Patient does follow with nephrology. No indication for inpatient consult at this time Creatinine stable today at 1.7 (4) Diabetes: Plan: No need for Lantus, continue insulin supplemental scale Continue home Jardiance Hemoglobin A1c well controlled at 7.3% BSG ACHS (5) Sustained ventricular tachycardia: Plan: ICD is in place, none noted on telemetry here Monitor on telemetry (6) ICD (implantable cardioverter-defibrillator) in place: Plan: Placed in 2014 Cardiology has been consulted. We will defer to them on whether or not the ICD needs to be interrogated (7) GERD (gastroesophageal reflux disease): Plan: No complaints of esophageal reflux at this time Continue with pantoprazole Plan DVT prophylaxis: Continue with apixaban 5 mg p.o. twice daily. Disposition-transferred to ICU for dobutamine drip titration Admission and Anticipated Discharge Date Admission Date: October 20, 2022 Subjective Patient feeling much better today. No shortness of breath. No chest pain Telemetry with few PVC couplets, otherwise sinus rhythm Discussed case with cardiology Physical Exam Constitutional: WD/WN, vitals as above Neck: trachea midline, no thyromegaly Respiratory: normal respiratory effort; no cough Auscultation: + crackles (Bibasilar); no rhonchi and no wheezes Cardiovascular: RRR, no murmur, no edema Chest (Breasts): Chest: normal inspection of chest Gastrointestinal (Abdomen): normal bowel sounds, soft, nontender, no hepatosplenomegaly Musculoskeletal: Extremities: extremities normal to inspection; no cyanosis and no clubbing Skin: no rashes, warm and dry Neurologic: moves all extremities and awake; no focal motor deficits Psychiatric: A+Ox3, euthymic affect Lymphatic: no lymphedema Results & Data Results & Data Vital Signs (Past 12 Hours) Vital Signs Temp Pulse Resp BP Pulse Ox O2 Del Method O2 Flow Rate 10/22/22 06:30 93 H 20 90 10/22/22 06:30 101/65 10/22/22 06:15 100 H 23 88 L 10/22/22 06:15 97/60 L 10/22/22 06:00 88 26 H 90 10/22/22 06:00 103/68 10/22/22 05:45 100 H 23 88 L 10/22/22 05:45 103/66 10/22/22 05:37 104 H 24 93 10/22/22 05:15 88 21 98 10/22/22 05:15 106/70 10/22/22 05:00 88 21 96 10/22/22 05:00 94/52 L 10/22/22 04:45 82 20 96 10/22/22 04:45 103/59 L 10/22/22 04:30 88 20 95 10/22/22 04:30 101/54 L 10/22/22 04:15 97 H 19 95 10/22/22 04:00 84 20 95 10/22/22 04:00 111/60 10/22/22 03:45 84 22 95 10/22/22 03:45 106/60 10/22/22 03:30 90 20 95 10/22/22 03:30 102/61 10/22/22 03:15 89 22 96 10/22/22 03:15 99/59 L 10/22/22 03:00 89 18 95 10/22/22 03:00 107/66 10/22/22 02:45 93 H 19 97 10/22/22 02:45 109/66 10/22/22 02:30 93 H 20 98 10/22/22 02:30 102/71 10/22/22 03:05 36.6 C 10/22/22 02:15 88 24 96 10/22/22 02:15 111/64 10/22/22 02:00 91 H 20 91 10/22/22 02:00 105/63 10/22/22 01:45 97 H 21 91 10/22/22 01:45 104/66 10/22/22 01:40 97 H 21 10/22/22 01:40 103/72 10/22/22 01:30 99 H 18 92 10/22/22 01:15 98 H 24 92 10/22/22 01:05 100 H 17 91 10/22/22 00:45 94 H 20 90 10/22/22 00:30 98 H 21 91 10/22/22 00:15 95 H 22 91 10/22/22 00:00 100 H 23 89 L 10/22/22 00:00 112/71 10/21/22 23:45 27 H 92 10/21/22 23:30 101 H 29 H 93 10/21/22 23:15 100 H 20 93 10/21/22 23:00 100 H 29 H 89 L 10/21/22 23:00 112/71 10/22/22 02:12 Nasal Cannula 2 10/21/22 22:45 103 H 24 91 10/21/22 22:30 92 H 23 92 10/21/22 22:15 96 H 26 H 92 10/21/22 22:03 100 H 23 91 10/21/22 22:03 113/66 10/21/22 22:02 119 H 16 10/21/22 21:45 98 H 32 H 94 10/21/22 21:30 93 H 20 94 10/21/22 21:15 92 H 26 H 93 10/21/22 21:00 95 H 25 H 93 10/21/22 21:00 99/72 L 10/21/22 20:45 95 H 25 H 91 10/21/22 20:30 89 24 90 10/21/22 20:15 97 H 27 H 91 10/21/22 20:00 95 H 25 H 92 10/21/22 20:00 108/66 10/21/22 19:45 94 H 27 H 93 10/22/22 00:03 100 H 10/21/22 23:23 36.7 C Laboratory Results CBC, BMP, magnesium level, hemoglobin A1c all reviewed PG Care Time/CCT Total # of Minutes Spent Total Time Spent with Patient: Total time spent is greater than 50% in coordination of care (as documented) at patient's floor/unit and/or counseling patient: Coding Level of Care Code 83130 SUB INP/OBS CARE 3/50MIN Diagnoses Shortness of breath R06.02 HFrEF (heart failure with reduced ejection fraction) I50.20 Chronic kidney disease, stage 3b N18.32 Diabetes E11.9 Sustained ventricular tachycardia I47.2 ICD (implantable cardioverter-defibrillator) in place Z95.810 GERD (gastroesophageal reflux disease) K21.9
[2022-10-22] MEDS: FUROSEMIDE 40 MG TAB PO SCH (07:40)
[2022-10-22] MEDS: PANTOprazole 40 MG TAB PO SCH (07:40)
[2022-10-22] MEDS: EMPAGLIFLOZIN 25 MG TAB PO SCH (07:41)
[2022-10-22] MEDS: SPIRONOLACTONE 25 MG TAB PO SCH (07:41)
[2022-10-22] MEDS: POTASSIUM CHLORIDE CRTAB 20 MEQ TABCR PO SCH (07:41)
--- NOTE | 2022-10-22 08:13 | Critical Care Progress Note ---
Date of Service October 22, 2022 Assessment & Plan (1) CHF (congestive heart failure): (2) ICD (implantable cardioverter-defibrillator) in place: (3) Early satiety: (4) GERD (gastroesophageal reflux disease): (5) Chronic kidney disease, stage 3b: (6) HFrEF (heart failure with reduced ejection fraction): Plan Chest x-ray 10/20/2022 personally reviewed: Portable film, good inspiratory effort, increased cardiac silhouette with AICD in place, mild blunting of the left costophrenic angle, minimal increase vascular markings --Shortness of breath Likely secondary to systolic CHF BNP greater than 4200 COVID-19 NAAT negative Patient is saturating well on room air Her main issue is exertional shortness of breath --Idiopathic systolic CHF EF 15-20% On Coreg, spironolactone, Jardiance at home --CKD Monitor BUNs/creatinine Avoid nephrotoxic medication --History of pulmonary emboli Diagnosed 05/2022 On apixaban --History of SVT and V. tach S/p AICD --Diabetes Continue with ICU hypoglycemia protocol --GERD Continue with pantoprazole --Dyslipidemia on Zetia --Prophylaxis VTE: Apixaban GI: Pantoprazole Lines: Peripheral Diet: Cardiac Plan: In/out: -947, urine output 1850 Give an additional dose of 20 mEq of potassium Continue with Lasix BiPAP/CPAP nightly and as needed shortness of breath Continue with incentive spirometry Cardiology is planning to get in touch with lizette regarding plan of care going forward. Will consider titrating off dobutamine later today after discussing with cardiology I have personally spent 33 minutes of critical care time in the direct management of this patient. This is a life/limb threatening event. This includes time spent evaluating patient, direct bedside care, chart review, placing orders, interpretation of diagnostic studies, discussion with consultants, patient, and family members, as well as other required patient management activities. This time is exclusive of all separately billable procedures, and teaching time and separate from and in addition to any other critical care service time. Please note the above document was generated using voice recognition software. It may contain grammatical, syntax or spelling errors. Admission and Anticipated Discharge Date Admission Date: October 20, 2022 Subjective Patient seen and examined at bedside. No acute distress, no adverse events overnight Patient was on 5 dobutamine. Patient's map was in the 70s with saturation 94- 95% on room air She states that she is feeling much better Shortness of breath is improved. Denies any headache, no nausea, no vomiting Fair appetite No dizziness Review of Systems Review of Systems: All systems reviewed & are unremarkable except as noted in Subjective Physical Exam Physical Exam: Constitutional: No acute distress HEENT: EOMI, PERRLA Respiratory system: Good air entry bilaterally, no wheeze, no rhonchi, positive crackles bilateral lower lobes more on the left CVS: S1-S2 positive, no murmurs or gallops, accentuated P2, AICD in place Abdomen: Soft, nontender, nondistended, positive bowel sounds x4 Extremities: +2 pulses bilaterally radialis/ dorsalis pedis, no cyanosis, no edema Neuro: Awake alert oriented x3 Psych: Normal mood and affect G/U: No Waters Skin: no rashes, warm and dry Lymphatic: no cervical or axillary lymphadenopathy Results & Data Results & Data Vital Signs (Past 12 Hours) Vital Signs Temp Pulse Resp BP Pulse Ox O2 Del Method O2 Flow Rate 10/22/22 07:57 36.6 C 10/22/22 06:30 93 H 20 90 10/22/22 06:30 101/65 10/22/22 06:15 100 H 23 88 L 10/22/22 06:15 97/60 L 10/22/22 06:00 88 26 H 90 10/22/22 06:00 103/68 10/22/22 05:45 100 H 23 88 L 10/22/22 05:45 103/66 10/22/22 05:37 104 H 24 93 10/22/22 05:15 88 21 98 10/22/22 05:15 106/70 10/22/22 05:00 88 21 96 10/22/22 05:00 94/52 L 10/22/22 04:45 82 20 96 10/22/22 04:45 103/59 L 10/22/22 04:30 88 20 95 10/22/22 04:30 101/54 L 10/22/22 04:15 97 H 19 95 10/22/22 04:00 84 20 95 10/22/22 04:00 111/60 10/22/22 03:45 84 22 95 10/22/22 03:45 106/60 10/22/22 03:30 90 20 95 10/22/22 03:30 102/61 10/22/22 03:15 89 22 96 10/22/22 03:15 99/59 L 10/22/22 03:00 89 18 95 10/22/22 03:00 107/66 10/22/22 02:45 93 H 19 97 10/22/22 02:45 109/66 10/22/22 02:30 93 H 20 98 10/22/22 02:30 102/71 10/22/22 03:05 36.6 C 10/22/22 02:15 88 24 96 10/22/22 02:15 111/64 10/22/22 02:00 91 H 20 91 10/22/22 02:00 105/63 10/22/22 01:45 97 H 21 91 10/22/22 01:45 104/66 10/22/22 01:40 97 H 21 10/22/22 01:40 103/72 10/22/22 01:30 99 H 18 92 10/22/22 01:15 98 H 24 92 10/22/22 01:05 100 H 17 91 10/22/22 00:45 94 H 20 90 10/22/22 00:30 98 H 21 91 10/22/22 00:15 95 H 22 91 10/22/22 00:00 100 H 23 89 L 10/22/22 00:00 112/71 10/21/22 23:45 27 H 92 10/21/22 23:30 101 H 29 H 93 10/21/22 23:15 100 H 20 93 10/21/22 23:00 100 H 29 H 89 L 10/21/22 23:00 112/71 10/22/22 02:12 Nasal Cannula 2 10/21/22 22:45 103 H 24 91 10/21/22 22:30 92 H 23 92 10/21/22 22:15 96 H 26 H 92 10/21/22 22:03 100 H 23 91 10/21/22 22:03 113/66 10/21/22 22:02 119 H 16 10/21/22 21:45 98 H 32 H 94 10/21/22 21:30 93 H 20 94 10/21/22 21:15 92 H 26 H 93 10/21/22 21:00 95 H 25 H 93 10/21/22 21:00 99/72 L 10/21/22 20:45 95 H 25 H 91 10/21/22 20:30 89 24 90 10/21/22 20:15 97 H 27 H 91 10/22/22 00:03 100 H 10/21/22 23:23 36.7 C Laboratory Results 10/22/22 05:24 10/22/22 05:24 Coding Level of Care Code 30301 CRITICAL CARE 1ST 30-74M Diagnoses CHF (congestive heart failure) I50.9 ICD (implantable cardioverter-defibrillator) in place Z95.810 Early satiety R68.81 GERD (gastroesophageal reflux disease) K21.9 Chronic kidney disease, stage 3b N18.32 HFrEF (heart failure with reduced ejection fraction) I50.20 Time Spent (min) 33
--- NOTE | 2022-10-22 08:32 | Electrocardiogram Report ---
Test Reason : Blood Pressure : / mmHG Vent. Rate : 103 BPM Atrial Rate : 103 BPM P-R Int : 168 ms QRS Dur : 144 ms QT Int : 396 ms P-R-T Axes : 010 -74 050 degrees QTc Int : 518 ms Sinus tachycardia with occasional Premature ventricular complexes Left axis deviation Non-specific intra-ventricular conduction block Possible Old Anterolateral infarct (cited on or before 15-JUN-2022) Abnormal ECG When compared with ECG of 20-OCT-2022 05:10, Premature ventricular complexes are now Present HR has increased by 15 bpm Confirmed by Edgar Mejia ([id number]) on 10/22/2022 8:31:57 AM Referred By: REFERRED SELF Confirmed By:Edgar Mejia
--- NOTE | 2022-10-22 12:05 | Cardiology Progress Note ---
Date of Service October 22, 2022 Assessment & Plan (1) Low output heart failure: (2) Non-ischemic cardiomyopathy: (3) ICD (implantable cardioverter-defibrillator) in place: (4) Chronic kidney disease, stage 3b: Plan Responding well to dobutamine infusion, no complications. Hemodynamics favorable. Appears euvolemic currently. Continue dobutamine at current dose throughout today, will reassess later today to determine whether she could be discharged this evening or should stay until tomorrow morning. Will arrange for follow-up at tertiary care center ([facility]) for further evaluation regarding advanced cardiomyopathy/end-stage heart failure options, including left ventricular assist device or transplantation. Admission and Anticipated Discharge Date Admission Date: October 20, 2022 Subjective She slept better than she has in some time and is feeling good this morning. Denies dyspnea, chest discomfort, or any other complaints. No complications on dobutamine low-dose infusion (2.5 mcg/kg/min), heart rate borderline tachycardic with occasional ventricular couplets but no ventricular tachycardia. Input/output -1 L. Weight down 1 pound. Physical Exam Physical Exam: Appears comfortable currently. SBP 90-110 mmHg range Pulse 90-100 bpm Skin without generalized lesions. HEENT unremarkable. Neck: jugular venous pulse just above the clavicle at 90. No carotid bruits. Lungs: clear, no wheezing or accessory muscle use. Cardiac: Regular rhythm, normal S1 and S2, no murmur, rub or obvious gallop. Abdomen: Nontender. Extremities: No significant pretibial edema, pulses intact. Neurologic: Normal affect and conversation. Nonfocal. Results & Data Laboratory Results Normal electrolytes, BUN 29, creatinine 1.49 (down from 1.77 yesterday) PG Care Time/CCT Total # of Minutes Spent Total Time Spent with Patient: Total time spent is greater than 50% in coordination of care (as documented) at patient's floor/unit and/or counseling patient: Coding Level of Care Code 80662 SUB INP/OBS CARE 3/50MIN Diagnoses Low output heart failure I50.9 Non-ischemic cardiomyopathy I42.8 ICD (implantable cardioverter-defibrillator) in place Z95.810 Chronic kidney disease, stage 3b N18.32
--- NOTE | 2022-10-22 16:37 | Hospitalist Progress Note ---
Date of Service October 22, 2022 Assessment & Plan (1) Shortness of breath: Plan: This is a 67-year-old female with nonischemic cardiomyopathy and significant decrease in ejection fraction of 15 to 20%. Patient does have history of supraventricular tachycardia and had a pacemaker/ICD placed in 2014. Patient states that she has been under the care of the heart failure clinic for the last 5 days due to increased shortness of breath. Medication has been sohail fied and currently patient has been taken off Entresto and carvedilol has been reduced from 6.25 to 3.125 mg p.o. twice daily. Patient has been referred to in the past for evaluation for heart transplant but has not had evaluation yet. Patient recently had diagnosis of pulmonary embolism and is currently being anticoagulated with apixaban 5 mg p.o. twice daily. No signs or symptoms of acute pulmonary emboli at this time. Acute on chronic HFrEF CXR shows no evidence of infiltrate or consolidation. Patient does have interstitial fluid as well as small bilateral pleural effusions. Patient has not experienced any hypoxia except now here at nighttime while sleeping goes to 80% -with orthopnea and dyspnea on exertion both now improving after 2 days of dobutamine gtt Treat for CHF as below (2) HFrEF (heart failure with reduced ejection fraction): Plan: Here with acute on chronic HFrEF Patient with nonischemic cardiomyopathy Recent echocardiogram with global hypokinesis as well as ejection fraction of 15 to 20% ICD placed in 2015. According the patient this is never shocked her for ta chyarrhythmia Patient does report history of supraventricular tachycardia We will continue to monitor on telemetry Was on dobutamine drip x 2 days and had great UOP, is much improved with her orthopnea and NUR. Able to ambulate now without difficulty-dc dobutamine now Daily weights, low-sodium diet Appreciate cardiology consultation restart home carvedilol now that she is off dobutamine, continue Jardiance, spironolactone, furosemide Entresto is on hold for hypotension Overnight POx test tonight and plan to dc to home tomorrow (3) Chronic kidney disease, stage 3b: Plan: Creatinine Baseline is 1.4-1.5 Continue with home diuretics including furosemide and Aldactone and follow serial labs Patient does follow with nephrology. No indication for inpatient consult at this time Creatinine improved today at 1.4 (4) Diabetes: Plan: No need for Lantus, continue insulin supplemental scale Continue home Jardiance Hemoglobin A1c well controlled at 7.3% BSG ACHS (5) Sustained ventricular tachycardia: Plan: ICD is in place, none noted on telemetry here Monitor on telemetry (6) ICD (implantable cardioverter-defibrillator) in place: Plan: Placed in 2014 Cardiology has been consulted. We will defer to them on whether or not the ICD needs to be interrogated (7) GERD (gastroesophageal reflux disease): Plan: No complaints of esophageal reflux at this time Continue with pantoprazole (8) Nocturnal hypoxia: Plan: overnight POx while here drops to 80% with sleeping Plan DVT prophylaxis: Continue with apixaban 5 mg p.o. twice daily. Disposition-downgrade from ICU to PCU, discharge tomorrow Admission and Anticipated Discharge Date Admission Date: October 20, 2022 Subjective Feeling much better today. I watched her ambulate several times around the ICU and she did not have any dyspnea. No chest pain. Does have hypoxia at nighttime here down to 80%. She has been told in the past she has hypoxia at nighttime. Tele with NSR, no significant arrhythmias Discussed her care with Cardiology Physical Exam Constitutional: WD/WN, vitals as above Neck: trachea midline, no thyromegaly Respiratory: normal respiratory effort; no cough Auscultation: + crackles (Bibasilar,very minimal,improved); no rhonchi and no wheezes Cardiovascular: RRR, no murmur, no edema Chest (Breasts): Chest: normal inspection of chest Gastrointestinal (Abdomen): normal bowel sounds, soft, nontender, no hepatosplenomegaly Musculoskeletal: Extremities: extremities normal to inspection; no cyanosis and no clubbing Skin: no rashes, warm and dry Neurologic: moves all extremities and awake; no focal motor deficits Psychiatric: A+Ox3, euthymic affect Lymphatic: no lymphedema Results & Data Results & Data Vital Signs (Past 12 Hours) Vital Signs Temp Pulse Resp BP Pulse Ox O2 Del Method O2 Flow Rate 10/22/22 15:20 98 H 10/22/22 14:30 107 H 20 93 Room Air 10/22/22 14:00 120 H 35 H 93 Room Air 10/22/22 14:00 95/58 L 10/22/22 13:31 108 H 18 90 Room Air 10/22/22 13:00 103 H 22 94 Room Air 10/22/22 13:00 104/57 L 10/22/22 12:40 94/65 L 10/22/22 12:40 135 H 30 H 90 Room Air 10/22/22 12:30 100 H 20 93 Room Air 10/22/22 12:00 122 H 22 94 Room Air 10/22/22 11:30 105 H 14 92 Room Air 10/22/22 11:00 100 H 14 94 Room Air 10/22/22 11:00 98/65 L 10/22/22 10:00 97 H 19 96 Nasal Cannula 2 10/22/22 10:00 106/65 10/22/22 09:30 95 H 20 97 Nasal Cannula 2 10/22/22 09:00 97 H 19 92 Room Air 10/22/22 09:00 99/58 L 10/22/22 08:30 100 H 18 92 Room Air 10/22/22 08:30 93/64 L 10/22/22 08:00 97 H 16 93 Room Air 10/22/22 08:00 102/68 10/22/22 07:30 105 H 23 91 Room Air 10/22/22 07:30 110/69 10/22/22 07:15 91 H 23 93 Room Air 10/22/22 07:15 108/69 10/22/22 07:00 107 H 19 10/22/22 07:00 88/62 L 10/22/22 08:44 99 H 10/22/22 08:01 Room Air 10/22/22 07:57 36.6 C 10/22/22 06:30 93 H 20 90 10/22/22 06:30 101/65 10/22/22 06:15 100 H 23 88 L 10/22/22 06:15 97/60 L 10/22/22 06:00 88 26 H 90 10/22/22 06:00 103/68 0623 05:45 100 H 23 88 L 10/22/22 05:45 103/66 10/22/22 05:37 104 H 24 93 10/22/22 05:15 88 21 98 10/22/22 05:15 106/70 10/22/22 05:00 88 21 96 10/22/22 05:00 94/52 L 10/22/22 04:45 82 20 96 10/22/22 04:45 103/59 L 10/22/22 04:30 88 20 95 10/22/22 04:30 101/54 L Laboratory Results CMP, mag, phos reviewed CBC reviewed PG Care Time/CCT Total # of Minutes Spent Total Time Spent with Patient: Total time spent is greater than 50% in coordination of care (as documented) at patient's floor/unit and/or counseling patient: Coding Level of Care Code 22480 SUB INP/OBS CARE 3/50MIN Diagnoses Shortness of breath R06.02 HFrEF (heart failure with reduced ejection fraction) I50.20 Chronic kidney disease, stage 3b N18.32 Diabetes E11.9 Sustained ventricular tachycardia I47.2 ICD (implantable cardioverter-defibrillator) in place Z95.810 GERD (gastroesophageal reflux disease) K21.9 Nocturnal hypoxia G47.34
[2022-10-22] MEDS: EZETIMIBE 10 MG TABLET PO SCH (20:16)
[2022-10-22] MEDS: carvediloL 3.125 MG TAB PO SCH (20:16)
[2022-10-23 05:44] LABS: Albumin Globulin Ratio 1.3 (0.9-2); Albumin Level 3.6 gm/dl (3.4-5.0); BUN Creatinine Ratio 19.4 (10-20); Bilirubin,Total 2.2 mg/dl (0.2-1.0); Calcium 9.3 mg/dl (8.6-10.3); Creatinine Clr Calc Pharmacy 37.4 ml/min; Est GFR (African American) 43.7 ml/min; Est GFR (Non-African American) 37.7 ml/min; Globulin 2.8 gm/dl (2.5-4.0); Magnesium 2.2 mg/dl (1.7-2.4); Phosphorus 4.1 mg/dl (2.5-4.9); Potassium 4.1 mmol/L (3.5-5.1); Total Protein 6.4 gm/dl (6.0-8.3)
[2022-10-23 05:46] LABS: Hematocrit (blood only) 37.9 % (37.0-47.0); Hemoglobin 12.8 g/dl (12.0-16.0); Mean Corpuscular Hemoglobin 32.9 pg (25.0-34.0); Mean Corpuscular Hgb Conc 33.8 g/dL (32.0-36.0); Mean Corpuscular Volume 97.4 fL (80.0-100.0); Mean Platelet Volume 9.4 fL (9.4-12.4); Platelet Count 243 K/uL (130-400); RDW Coefficient of Variation 13.2 % (11.5-14.5); RDW Standard Deviation 47.1 fL (36.4-46.3); Red Blood Count 3.89 M/uL (4.20-5.40); White Blood Count 8.89 K/ul (4.8-10.8)
[2022-10-23] MEDS ORDERED: PROMETHAZINE HCL 25 MG/20 ML UDP PO PRN (07:50)
[2022-10-23] MEDS ORDERED: PROMETHAZINE HCL 12.5 MG/10 ML UDP PO PRN (08:02)
[2022-10-23] MEDS: INSULIN ASPART PER UNIT CHARGE SC SCH ×2 (08:58→11:56)
[2022-10-23] MEDS: APIXABAN 5 MG TABLET PO SCH (09:01)
[2022-10-23] MEDS: CHOLECALCIFEROL 5,000 UNITS 125 MCG TAB PO SCH (09:01)
[2022-10-23] MEDS: FUROSEMIDE 40 MG TAB PO SCH (09:02)
[2022-10-23] MEDS: EMPAGLIFLOZIN 25 MG TAB PO SCH (09:02)
[2022-10-23] MEDS: SPIRONOLACTONE 25 MG TAB PO SCH (09:02)
[2022-10-23] MEDS: carvediloL 3.125 MG TAB PO SCH (09:03)
[2022-10-23] MEDS: PANTOprazole 40 MG TAB PO SCH (09:03)
[2022-10-23] MEDS: POTASSIUM CHLORIDE CRTAB 20 MEQ TABCR PO SCH (09:06)
--- NOTE | 2022-10-23 15:58 | Cardiology Progress Note ---
Date of Service October 23, 2022 Assessment & Plan (1) Low output heart failure: (2) Non-ischemic cardiomyopathy: (3) ICD (implantable cardioverter-defibrillator) in place: (4) Chronic kidney disease, stage 3b: Plan Responding well to dobutamine infusion, no complications. Hemodynamics favorable. Appears euvolemic currently. Continue dobutamine at current dose throughout today, will reassess later today to determine whether she could be discharged this evening or should stay until tomorrow morning. Will arrange for follow-up at tertiary care center ([facility]) for further evaluation regarding advanced cardiomyopathy/end-stage heart failure options, including left ventricular assist device or transplantation. Admission and Anticipated Discharge Date Admission Date: October 20, 2022 Results & Data Vital Signs (Past 12 Hours) Vital Signs Temp Pulse Pulse Pulse Resp BP BP 10/23/22 14:00 98 H 19 10/23/22 14:00 94/73 L 10/23/22 13:03 100 H 10/23/22 14:20 36.8 C 89 19 112/72 10/23/22 12:01 95/68 L 10/23/22 11:00 92 H 19 10/23/22 11:00 92/61 L 10/23/22 10:00 96 H 20 10/23/22 10:00 101/73 10/23/22 09:37 93 H 25 H 10/23/22 09:37 97/63 L 10/23/22 09:00 89 10/23/22 09:00 106/69 10/23/22 08:00 111 H 10/23/22 08:00 109/72 10/23/22 07:00 88 21 10/23/22 07:00 90/61 L 10/23/22 10:22 92 H 10/23/22 08:30 10/23/22 05:31 36.8 C 89 24 112/72 10/23/22 04:37 104 H BP Pulse Ox Pulse Ox O2 Del Method O2 Del Method O2 Flow Rate 10/23/22 14:00 10/23/22 14:00 10/23/22 13:03 94 Room Air 10/23/22 14:20 102/70 97 10/23/22 12:01 10/23/22 11:00 97 Room Air 10/23/22 11:00 10/23/22 10:00 95 Room Air 10/23/22 10:00 10/23/22 09:37 10/23/22 09:37 10/23/22 09:00 98 Room Air 10/23/22 09:00 10/23/22 08:00 10/23/22 08:00 10/23/22 07:00 96 Room Air 10/23/22 07:00 10/23/22 10:22 10/23/22 08:30 Room Air 10/23/22 05:31 97 Nasal Cannula 2 10/23/22 04:37 96 Room Air PG Care Time/CCT Total # of Minutes Spent Total Time Spent with Patient: Total time spent is greater than 50% in coordination of care (as documented) at patient's floor/unit and/or counseling patient: Coding Level of Care Code 42184 SUB INP/OBS CARE 2MIN Diagnoses Low output heart failure I50.9 Non-ischemic cardiomyopathy I42.8 ICD (implantable cardioverter-defibrillator) in place Z95.810 Chronic kidney disease, stage 3b N18.32
--- NOTE | 2022-10-23 16:03 | Discharge Summary ---
Discharge Summary Date of Service October 23, 2022 Admission HPI Per Admitting Provider Attending: Dr. Garay This is a 67-year-old female with extensive history of heart failure with reduced ejection fraction of 15 to 20%. Patient is followed by the heart failure clinic. She has had 2 appointments this week and recently her medications were adjusted due to hypotension and orthostasis. Patient reports that she was unable to sleep all night and was told yesterday at her appointment with heart failure clinic that she continued to have symptoms to report to the emergency department. Patient arrived at approximately 530 this morning and complained of shortness of breath with some chronic left-sided chest pain which is consistent with usual. Patient has no new chest pain or crushing chest pain. She denies any diaphoresis. No radiating pain into the jaw shoulder or arm. Patient states that she did not take any of her medications this morning. However, she did take her usual medications yesterday including her furosemide and Aldactone. Coreg was reduced from 6.25 to 3.125 mg twice daily and Entresto was discontinued yesterday. This was done at the direction of the heart failure clinic. Patient reports that she has seen palliative care in the past. They "advised her to get her affairs in order". Patient is aware of the severity of her heart failure. She is currently awaiting evaluation at [facility] for possible heart tra nsplant. Patient follows with Dr. Mejia and cardiology as well as with Cristy Salazar PA-C in the heart failure clinic. Patient reports 6 admissions in the last 5 months. She most recently was found to have pulmonary embolism as well as recent coronavirus infection. Patient is currently anticoagulated with apixaban 5 mg p.o. twice daily. Patient currently denies any pleuritic chest pain, tachyarrhythmia, hemoptysis, fever, asymmetrical edema of the lower extremities. She reports compliance with her anticoagulation. Patient has no evidence of acute infection or sepsis. Currently she is saturating well on room air. Hemoglobin is adequate at 14.2 g/Cory Principal Dx & Hospital Course #1 = Principal Diagnosis (1) Shortness of breath: This is a 67-year-old female with nonischemic cardiomyopathy and significant decrease in ejection fraction of 15 to 20%. Patient does have history of supraventricular tachycardia and had a pacemaker/ICD placed in 2014. Patient states that she has been under the care of the heart failure clinic for the last 5 days due to increased shortness of breath. Medication has been modified and currently patient has been taken off Entresto and carvedilol has been reduced from 6.25 to 3.125 mg p.o. twice daily. Patient has been referred to [facility] in the past for evaluation for heart transplant but has not had evaluation yet. Patient recently had diagnosis of pulmonary embolism and is currently being anticoagulated with apixaban 5 mg p.o. twice daily. No signs or symptoms of acute pulmonary emboli at this time. Acute on chronic HFrEF CXR shows no evidence of infiltrate or consolidation. Patient does have interstitial fluid as well as small bilateral pleural effusions. Patient has not experienced any hypoxia except now here at nighttime while sleeping goes to 80% -with orthopnea and dyspnea on exertion both now improving after 2 days of dobutamine gtt, but worsened again off dobutamine, yet not as bad as upon admission Treat for CHF as below (2) HFrEF (heart failure with reduced ejection fraction): Here with acute on chronic HFrEF Patient with nonischemic cardiomyopathy Recent echocardiogram with global hypokinesis as well as ejection fraction of 15 to 20% ICD placed in 2014. According the patient this is never shocked her for tachyarrhythmia Was on dobutamine drip x 2 days and had great UOP, is much improved with her orthopnea and NUR. Able to ambulate now without difficulty-dcd dobutamine and did have worsening of symptoms but not as bad as upon admission Daily weights-down 1.5kg at time of discharge, continue low-sodium diet, fluid restriction Appreciate cardiology consultation continue home carvedilol, Jardiance, spironolactone, furosemide at home doses Entresto is on hold for hypotension Overnight POx test shows need home O2 2LNC qhs -f/u with Cardio in office as planned on nd has referral in place to [facility] for advanced HF therapy eval (3) Chronic kidney disease, stage 3b: Creatinine Baseline is 1.4-1.5 Continue with home diuretics including furosemide and Aldactone and follow serial labs Patient does follow with nephrology. No indication for inpatient consult at this time Creatinine improved and stable at 1.4 (4) Diabetes: No need for Lantus, continue insulin supplemental scale Continue home Jardiance Hemoglobin A1c well controlled at 7.3% (5) Sustained ventricular tachycardia: ICD is in place, had a few short runs of NSVT (6) ICD (implantable cardioverter-defibrillator) in place: Placed in 2014 (7) GERD (gastroesophageal reflux disease): with hiatal hernia and undergoing w/u for gastroparesis with GI currently Continue with pantoprazole and can increase to bid if needed (8) Nocturnal hypoxia: overnight POx while here reveals POx<89% for 49 minutes total arranged home O2 2LNC qhs Plan DVT prophylaxis: Continue with apixaban 5 mg p.o. twice daily. Disposition-dc to home today, high risk for readmission for CHF Discharge Exam Constitutional WD/WN, vitals as above Neck trachea midline, no thyromegaly Respiratory normal respiratory effort; no cough Auscultation: no crackles, no rhonchi and no wheezes Cardiovascular RRR, no murmur, no edema Chest (Breasts) Chest: normal inspection of chest Gastrointestinal (Abdomen) normal bowel sounds, soft, nontender, no hepatosplenomegaly Musculoskeletal Extremities: extremities normal to inspection; no cyanosis and no clubbing Skin no rashes, warm and dry Neurologic moves all extremities and awake; no focal motor deficits Psychiatric A+Ox3, euthymic affect Lymphatic no lymphedema Updated Medication List Medication Instructions Recorded Confirmed Type cholecalciferol (vitamin D3) 125 5,000 units PO DAILY 01/14/19 10/20/22 History mcg (5,000 unit) capsule empagliflozin 25 mg tablet 25 mg PO DAILY #90 tabs 11/09/21 10/20/22 Rx ezetimibe 10 mg tablet 10 mg PO PM #90 tabs 02/15/22 10/20/22 Rx acetaminophen 325 mg tablet 650 mg PO Q4H PRN pain #30 tabs 05/14/22 10/20/22 Rx inhalational spacing device #1 ea 07/08/22 10/20/22 Rx (Aerochamber Plus Flow-Vu) levalbuterol tartrate 45 2 inh inhalation Q6H PRN shortness 07/08/22 10/20/22 Rx mcg/actuation aerosol inhaler of breath/cough/wheeze #15 grams (Xopenex HFA) spironolactone 25 mg tablet 25 mg PO DAILY #90 tabs 07/22/22 10/20/22 Rx furosemide 40 mg tablet 40 mg PO DAILY #60 tabs 08/09/22 10/20/22 Rx apixaban 5 mg tablet (Eliquis) 5 mg PO BID #180 tabs 08/25/22 10/20/22 Rx blood sugar diagnostic (Accu-Chek #100 ea 09/07/22 10/20/22 Rx Guide test strips) blood-glucose meter (Accu-Chek #1 ea 09/07/22 10/20/22 Rx Guide Glucose Meter) lancets (Accu-Chek Softclix #100 ea 09/07/22 10/20/22 Rx Lancets) potassium chloride 20 mEq 20 meq PO DAILY #30 tabs 10/04/22 10/20/22 Rx tablet,extended release pantoprazole 40 mg tablet,delayed 40 mg PO DAILY #90 tabs 10/07/22 10/20/22 Rx release carvedilol 6.25 mg tablet 3.125 mg PO BID #180 tabs 10/19/22 10/20/22 Rx Hospital Stay Data Consultations 10/20/22 07:26 ED Decision to Admit Stat 10/20/22 11:57 Consult Cardiology Routine 10/21/22 08:26 Consult Watch [employer] Routine Pending Results Patient Have Any Pending Studies at Discharge: No Discharge Instructions Given to Patient (Per Discharging Provider) You were admitted for heart failure and given a drip through the IV of dobutamine for 2 days which did help you feel better initially. Please continue your usual medications. Keep your follow up with Dr. Mejia as planned for Tuesday. He has referred you to [facility] for advanced heart failure therapies evaluation. You will need to wear 2L of oxygen via the nasal cannula every night when you sleep and also with any naps. Call your Primary Care doctor if any of the following symptoms or problems start or get worse: * Shortness of breath or difficulty breathing * Wake up at night short of breath * Chest pain * Cough * Swelling of your hands, feet, or legs * More fatigued or tired with your normal activity * Palpitations - sudden fast heart beats WEIGHT * Weigh yourself every morning after using the bathroom. * Use the same scale. * Wear the same amount of clothing. * Write your weight down on a chart. * Call your Primary Care doctor if you gain more than 2-3 pounds in 1-2 days. MEDICATIONS * Use this discharge instruction sheet for medication instructions. * Take your medications at the time your doctor ordered. * Do not skip a dose of your medicines. * If you miss a dose of medicine, take it as soon as possible, but DO NOT DOUBLE A DOSE. * Read your medicine information when you get home. * Know all of the side effects of your medicine. If in doubt, ask your pharmacist * Call your Primary Care doctor's office if you have any side effects. * Be sure all of your doctors know what medicine and herbs you take (including cold, flu, and herbal medicine). Take the following with you to your follow-up doctor appointments: * Weight Chart * Medication List * List of questions Do not drink excessive alcohol, beer or wine. Total Time Total Time Spent Total Time Spent (In Minutes): 40 min Total Time Includes: Examination of the Patient, Discharge Planning, Medication Reconciliation, Communication With Other Providers (Cardiology) and Other ([facility] Professional) Coding Level of Care Code 25986 INP/OBS DISCH >30 MIN Diagnoses Shortness of breath R06.02 HFrEF (heart failure with reduced ejection fraction) I50.20 Chronic kidney disease, stage 3b N18.32 Diabetes E11.9 Sustained ventricular tachycardia I47.2 ICD (implantable cardioverter-defibrillator) in place Z95.810 GERD (gastroesophageal reflux disease) K21.9 Nocturnal hypoxia G47.34
== END 2022-10-23 16:33 | disposition home or self-care (01) | DRG 291 ==
LOC: ED 04:56 → 2S 09:26 → 1E 10-21 08:13
DX: Z88.8 Allergy status to other drugs, medicaments and biological substances; I47.20 Ventricular tachycardia, unspecified; I13.0 Hypertensive heart and chronic kidney disease with heart failure and stage 1 through stage 4 chronic kidney disease, or unspecified chronic kidney disease; Z79.899 Other long term (current) drug therapy; R68.81 Early satiety; Z79.82 Long term (current) use of aspirin; Z88.1 Allergy status to other antibiotic agents; G47.34 Idiopathic sleep related nonobstructive alveolar hypoventilation; N18.32 Chronic kidney disease, stage 3b; Z79.84 Long term (current) use of oral hypoglycemic drugs; K21.9 Gastro-esophageal reflux disease without esophagitis; Z95.810 Presence of automatic (implantable) cardiac defibrillator; Z91.048 Other nonmedicinal substance allergy status; E11.9 Type 2 diabetes mellitus without complications; I50.23 Acute on chronic systolic (congestive) heart failure; I42.8 Other cardiomyopathies

== ENCOUNTER 2022-10-26 11:12 | Inpatient (IN) ==
[2022-10-26] MEDS ORDERED: SODIUM CHLORIDE 0.9% 500 ML IV ONE (12:23)
[2022-10-26] MEDS ORDERED: PROMETHAZINE 25 MG/51 ML BAG IV STA (13:00)
[2022-10-26] MEDS ORDERED: FAMOTIDINE 20MG IV PUSH 20 MG/5 ML SYR IV STA (13:00)
[2022-10-26] MEDS ORDERED: diphenhydrAMINE 50 MG/ML VIAL IV STA (13:00)
--- NOTE | 2022-10-26 13:01 | Emergency Department Note ---
Impression & Plan Intractable nausea and vomiting, HFrEF (heart failure with reduced ejection fraction), Chronic hypotension, Chronic kidney disease, stage 3b, GERD (gastroesophageal reflux disease), Elevated LFTs ED Provider Note NAME: LANCE CALIX AGE: 67 SEX: F ARRIVES VIA: Walk-In INFORMANT: Patient ED PROVIDER(S): Joey Ardon MD CHIEF COMPLAINT: n/v, referred. PLAN: Disposition: Admit MEDICAL DECISION MAKING: The patient is a pleasant 67-year-old woman with a past medical history of CHF with EF of 15-20% who presents to the emergency department from home via walk-in accompanied by her for evaluation of worsening nausea and vomiting last night where she reports she has been unable to keep anything down and even her protein drink will come up. The patient reports that she developed symptoms when she was in the hospital from 10/20-10/23 where she was treated for worsening shortness of breath due to her CHF. She reports her leg swelling has remained improved and denies chest pain or shortness of breath. She reports loose stool. She denies fever or urinary symptoms. On arrival the patient is uncomfortable but no acute distress, afebrile blood pressure 90s/60s similar to her prior values with O2 saturation 99% on room air. She appears euvolemic to slightly dry. She has mild epigastric discomfort without discrete tenderness. Chest x-ray demonstrates cardiomegaly with mild pulmonary edema and small bilateral pleural effusions which appear to have treated increased in size since 531. WBC, H/H and platelets within normal limits. Chemistry without metabolic acidosis. Creatinine 1.7, increased from discharge however within prior range values in the setting of CKD. LFTs are elevated with total bilirubin 3.5, direct bilirubin 0.8 and AST, ALT and alk phos 177, 2 6 7 and alk phos 116, respectively. High-sensitivity troponin is 20.8 similar to recent values. Nonspecific. Lipase not elevated. UA is normal without convincing evidence of infection. CT of the abdomen pelvis was performed and was negative for acute infectious or inflammatory findings within the abdomen pelvis. Note is made of small pleural effusions, small pelvic ascites. Heart is enlarged in the setting of the patient's known CHF without pericardial effusion on CT. Of note, the patient was treated initially with gentle IV fluid given she appears clinically dry with poor oral intake over the past 24 hours, IV Pepcid, Phenergan and additionally 12.5 mg of IV diphenhydramine. Following CT was notified by RN that the patient was feeling short of breath and restless which may have been related to the IV diphenhydramine as well as lying supine for CT though her O2 saturation remained 98% on room air. She was given 0.5 mg IV Ati van with subsequent improvement in her symptoms. Findings reviewed with the patient and her at the bedside. They did agree with plan for admission for further management of her nausea and vomiting with newly elevated LFTs. Case was discussed with Rosamaria Barry [facility] [place] [facility], with Dr. Jones [facility] [place] hospital[place] who will evaluate the patient for admission. Triage Nursing notes reviewed and agree them. Prior/outside medical records reviewed Vital Signs: reviewed Differential diagnosis: Gastroenteritis, food borne illness, infections, appendicitis, diverticulitis, inflammatory bowel disease, obstruction, GI bleed, biliary pathology, volvulus, as well as other pathologies. ER treatment provided: See below. Diagnostics interpreted by me: ECG: Normal sinus rhythm, 91 bpm, no ectopy, nonspecific T wave abnormality,, QTc 519, QRS 124. No overt ST elevation or depression Cardiac Monitoring: An order for continuous cardiac monitoring was placed and demonstrated Laboratory studies: See below Imaging studies: See below Consultation(s): Case was discussed with Rosamaria Barry [facility] [place] [facility], with Dr. Jones [facility] [place] hospitalist who will evaluate the patient for admission. HPI: The patient is a pleasant 67-year-old woman with a past medical history of CHF with EF of 15-20% who presents to the emergency department from home via walk-in accompanied by her for evaluation of worsening nausea and vomiting last night where she reports she has been unable to keep anything down and even her protein drink will come up. The patient reports that she developed symptoms when she was in the hospital from 10/20-10/23 where she was treated for worsening shortness of breath due to her CHF. She reports her leg swelling has remained improved and denies chest pain or shortness of breath. She reports loose stool. She denies urinary symptoms. ROS: See above HPI for pertinent positives & negatives. A total of 10 systems reviewed and were otherwise negative. VITALS:See Below PHYSICAL EXAMINATION: GENERAL: Awake, alert, uncomfortable-appearing, in no distress HENT: Normocephalic, atraumatic. Oropharynx with dry mucous membranes and otherwise unremarkable. EYES: Normal conjunctiva. Sclera non-icteric. NECK: Supple. No nuchal rigidity. FROM. No JVD. RESPIRATORY: Clear to auscultation. CARDIAC: Regular rate, normal rhythm. Extremities warm and well perfused. Pulses equal. ABDOMEN: Soft, non-distended. Mild epigastric discomfort without discrete tenderness to palpation. No rebound or guarding. No masses. RECTAL: Deferred. MUSCULOSKELETAL: Chest examination reveals no tenderness. The back is symmetrical on inspection without obvious abnormality. There is no CVA tenderness to palpation. No joint edema. LOWER EXTREMITIES: Calves are equal size bilaterally and non-tender. No edema. No discoloration. NEURO: Normal sensorium. No sensory or motor deficits noted. SKIN: No rash or jaundice noted. Joey Ardon MD Past Med/Surg History Medical History Acute on chronic HFrEF (heart failure with reduced ejection fraction) Acute pulmonary embolism (06/14/22) Allergic rhinitis Asymptomatic menopausal state Atopic dermatitis Chronic kidney disease, stage 3b CKD (chronic kidney disease), stage III Coronavirus infection Dental abscess Diabetes Diabetes mellitus type II, controlled NIDDM Diverticulosis of colon Eustachian tube dysfunction Greater trochanteric bursitis History of diverticulitis History of sigmoidoscopy Hyperlipidemia Hypertension IBS (irritable bowel syndrome) ICD (implantable cardioverter-defibrillator) in place ICD (implantable cardioverter-defibrillator) in place Placed Feb 2015 > YAMAP > last checked 03/23/21 with > placed for CHF Idiopathic cardiomyopathy Incidental pulmonary nodule, > 3mm and < 8mm Inflamed seborrheic keratosis Insomnia Internal hemorrhoids Intertrigo Milia Moderate mitral regurgitation Notalgia paresthetica Obesity Osteopenia Pulmonary embolism (05/2022) Sigmoid diverticulitis SK (seborrheic keratosis) Stage 3b chronic kidney disease Vitamin D deficiency Wart Wound dehiscence, surgical Surgical History History of appendectomy History of arthroscopy of right knee History of arthroscopy of right shoulder History of breast biopsy benign History of cardiac cath 10/2017 [facility] no stents History of carpal tunnel surgery History of Neuroplasty Decompression Median Nerve At Carpal Tunnel> right History of cholecystectomy (05/28/22) at [facility] by Dr Ivey History of colonoscopy History of foot surgery 1972 History of incision and drainage (05/14/22) infection floor of the mouth and subperiosteal plane # 30 area p Incision and Drainage, Tooth Extraction(Right) - Quinton Amezcua, DMD History of repair of rotator cuff right History of vaginal hysterectomy Family History Mother Breast cancer Diabetes Grandmother Myocardial infarction Other Heart disease No family history of adverse response to anesthesia No family history of bleeding disorder Denies family history of Ovarian cancer Prostate cancer Colorectal cancer Social History Smoking Status: Never smoker Second Hand Exposure: No; Do You Dip or Chew Tobacco: No; Hx Alcohol Use: No Hx Substance Use: No Preferred Language: Amharic Communication Ability: Effective Visual Impairment: No Limitations Hearing Ability: Normal Pharmacy Cashier Required: No Beliefs That Will Affect Care: None marital status: Current Living Situation: Spouse current occupational status: retired Feels Safe at Home: Yes Childhood Exposure to Second-Hand Smoke: No Diet: low salt and regular caffeine: Yes during the past year weight has: remained stable Dental Care, Regularly: Yes Physical Activity Frequency: Does not Exercise Seatbelt Use: always Sunscreen Use: Yes Assistive Devices: Oxygen - at Night Allergies Allergies Allergy/AdvReac Type Severity Reaction Status Date / Time erythromycin base Allergy Severe blisters;red;itchy;pain;blisters Verified 10/26/22 15:36 in back throat iodine Allergy Severe throat Verified 10/26/22 15:36 blisters;skin blisters meperidine [From Demerol] Allergy Severe quit Verified 10/26/22 15:36 breathing adhesive Allergy Intermediate BLISTERS Verified 10/26/22 15:36 cinnamon Allergy Intermediate Hives Verified 10/26/22 15:37 tetracycline Allergy Unknown TERRAMYCIN Verified 10/26/22 15:36 ALLERGY atorvastatin AdvReac Intermediate MUSCLE Verified 10/26/22 15:36 PAIN/ACHES, DIFFICULTY WALKING azithromycin AdvReac Intermediate Gastrointestinal Verified 10/26/22 15:36 Upset metformin AdvReac Intermediate Diarrhea Verified 10/26/22 15:36 rosuvastatin [From Crestor] AdvReac Intermediate Cramping Verified 10/26/22 15:36 of the Muscles Aqpigun-GOH-TtI Reductase AdvReac Intermediate MUSCLE Verified 10/26/22 15:36 Inhibitor PAIN/ACHES, [Kpmzdci-Ubl-Ovy Reductase DIFFICULTY Inhibitor] WALKING Home Meds Home Medications Medication Instructions Recorded Confirmed cholecalciferol (vitamin D3) 125 5,000 units PO DAILY 01/14/19 10/26/22 mcg (5,000 unit) capsule spironolactone 25 mg tablet 25 mg PO QPM 10/26/22 10/26/22 Previous Rx's Medication Instructions Recorded empagliflozin 25 mg tablet 25 mg PO DAILY #90 tabs 11/09/21 ezetimibe 10 mg tablet 10 mg PO PM #90 tabs 02/15/22 acetaminophen 325 mg tablet 650 mg PO Q4H PRN pain #30 tabs 05/14/22 inhalational spacing device #1 ea 07/08/22 (Aerochamber Plus Flow-Vu) levalbuterol tartrate 45 2 inh inhalation Q6H PRN shortness 07/08/22 mcg/actuation aerosol inhaler of breath/cough/wheeze #15 grams (Xopenex HFA) furosemide 40 mg tablet 40 mg PO DAILY #60 tabs 08/09/22 apixaban 5 mg tablet (Eliquis) 5 mg PO BID #180 tabs 08/25/22 blood sugar diagnostic (Accu-Chek #100 ea 09/07/22 Guide test strips) blood-glucose meter (Accu-Chek #1 ea 09/07/22 Guide Glucose Meter) lancets (Accu-Chek Softclix #100 ea 09/07/22 Lancets) potassium chloride 20 mEq 20 meq PO DAILY #30 tabs 10/04/22 tablet,extended release pantoprazole 40 mg tablet,delayed 40 mg PO DAILY #90 tabs 10/07/22 release carvedilol 6.25 mg tablet 3.125 mg PO BID #180 tabs 10/19/22 Results & Data (ED) Vital Signs Vital Signs - 24 hr 10/26/22 11:17 10/26/22 12:32 10/26/22 13:02 Temperature 36.5 C Temperature Source Temporal Artery Scan Pulse Rate 90 93 H Pulse Rate [Left Finger] Respiratory Rate 18 Respiratory Effort / Characteristics Non-Labored Spontaneous Respiratory Depth Normal Respiratory Pattern Regular Blood Pressure 97/65 L Blood Pressure [Left Arm] Blood Pressure Mean 75 Blood Pressure Mean [Left Arm] Blood Pressure Position Sitting Pulse Oximetry 99 Oxygen Delivery Method Room Air Room Air Sepsis Recent Fever Within 48 Hours No Sepsis New/Unexplained Change in Mental Status N/A Sepsis Action Taken by Nursing No Action Required 10/26/22 14:12 10/26/22 14:38 Temperature Temperature Source Pulse Rate Pulse Rate [Left Finger] 98 H 104 H Respiratory Rate 30 H 20 Respiratory Effort / Characteristics Non-Labored Respiratory Depth Respiratory Pattern Blood Pressure Blood Pressure [Left Arm] 97/67 L 99/67 L Blood Pressure Mean Blood Pressure Mean [Left Arm] 77 77 Blood Pressure Position Pulse Oximetry 98 98 Oxygen Delivery Method Sepsis Recent Fever Within 48 Hours Sepsis New/Unexplained Change in Mental Status Sepsis Action Taken by Nursing Laboratory Data Attestation: I reviewed the patient's lab results. 10/26/22 13:01 10/26/22 13:00 Lab Results 10/26/22 10/26/22 10/26/22 Range/Units 13:00 13:01 13:02 WBC 10.68 (4.8-10.8) K/ul RBC 4.19 L (4.20-5.40) M/uL Hgb 13.8 (12.0-16.0) g/dl Hct 41.0 (37.0-47.0) % MCV 97.9 (80.0-100.0) fL MCH 32.9 (25.0-34.0) pg MCHC 33.7 (32.0-36.0) g/dL RDW Std Deviation 46.6 H (36.4-46.3) fL RDW Coeff of Osman 13.3 (11.5-14.5) % Plt Count 257 (130-400) K/uL MPV 9.9 (9.4-12.4) fL Immature Gran % (Auto) 0.4 % Neut % (Auto) 79.1 % Lymph % (Auto) 12.8 % [place] % (Auto) 6.6 % Eos % (Auto) 0.6 % Baso % (Auto) 0.5 % Neut # (Auto) 8.45 H (1.40-6.50) K/uL Lymph # (Auto) 1.37 (1.2-3.4) K/uL [place] # (Auto) 0.71 H (0.11-0.59) K/uL Eos # (Auto) 0.06 (0-0.50) K/uL Baso # (Auto) 0.05 (0-0.2) K/uL Immature Gran # (Auto) 0.04 (0.01-0.20) K/uL PT 16.7 H (9.0-12.0) Seconds INR 1.6 H (0.9-1.1) APTT 28.3 (21.0-31.0) Seconds PTT Ratio 1.0 Sodium 134 L (136-145) mmol/L Potassium 3.9 (3.5-5.1) mmol/L Chloride 97 L (98-107) mmol/L Carbon Dioxide 24 (21-32) mmol/L Anion Gap 13 H (3-11) BUN 46 H (6-23) mg/dl Creatinine 1.74 H (0.6-1.2) mg/dl Est Cr Clr Drug Dosing Not Reportable Est GFR ( Amer) 34.8 ml/min Est GFR (Non-Af Amer) 30.0 ml/min BUN/Creatinine Ratio 26.4 H (10-20) Glucose 116 H (70-99(Fasting)) mg/dl Calcium 9.7 (8.6-10.3) mg/dl Magnesium 2.3 (1.7-2.4) mg/dl Total Bilirubin 3.5 H (0.2-1.0) mg/dl Direct Bilirubin 0.8 H (0-0.2) mg/dl AST 177 H (13-39) U/L ALT 267 H (7-52) U/L Alkaline Phosphatase 116 H (34-104) U/L Troponin I High Sens 20.8 H (0-14) pg/ml Total Protein 6.8 (6.0-8.3) gm/dl Albumin 4.0 (3.4-5.0) gm/dl Globulin 2.8 (2.5-4.0) gm/dl Albumin/Globulin Ratio 1.4 (0.9-2) Lipase 67 (11-82) U/L Urine Color Urine Appearance (Clear) Urine pH (4.5-7.5) Ur Specific [place] (1.000-1.030) Urine Protein (Negative) Urine Glucose (UA) (Negative) Urine Ketones (Negative) Urine Blood (Negative) Urine Nitrite (Negative) Urine Bilirubin (Negative) Urine Urobilinogen (Negative) Ur Leukocyte Esterase (Negative) Urine WBC (Auto) (0-5) /hpf Urine RBC (Auto) (0-4) /hpf U Hyaline Cast (Auto) (0-5) /lpf U Epithel Cells (Auto) (0-5) /lpf Urine Bacteria (Auto) (Negative) Adenovirus (PCR) (NotDetected) B. pertussis DNA (PCR) (NotDetected) B.parapertussis DNA PCR (NotDetected) C. pneumoniae DNA (PCR) (NotDetected) Coronavirus OC43 (PCR) (NotDetected) Coronavirus HKU1 (PCR) (NotDetected) Coronavirus 229E (PCR) (NotDetected) SARS-CoV-2 (PCR) (NotDetected) Coronavirus NL63 (PCR) (NotDetected) Human Metapneumovir PCR (NotDetected) Influenza Type A (PCR) (NotDetected) Influenza Type B (PCR) (NotDetected) M. pneumoniae (PCR) (NotDetected) Parainfluenza 1 (PCR) (NotDetected) Parainfluenza 2 (PCR) (NotDetected) Parainfluenza 3 (PCR) (NotDetected) Parainfluenza 4 (PCR) (NotDetected) RSV (PCR) (NotDetected) Entero/Rhino (PCR) (NotDetected) 10/26/22 10/26/22 Range/Units 13:20 14:57 WBC (4.8-10.8) K/ul RBC (4.20-5.40) M/uL Hgb (12.0-16.0) g/dl Hct (37.0-47.0) % MCV (80.0-100.0) fL MCH (25.0-34.0) pg MCHC (32.0-36.0) g/dL RDW Std Deviation (36.4-46.3) fL RDW Coeff of Osman (11.5-14.5) % Plt Count (130-400) K/uL MPV (9.4-12.4) fL Immature Gran % (Auto) % Neut % (Auto) % Lymph % (Auto) % [place] % (Auto) % Eos % (Auto) % Baso % (Auto) % Neut # (Auto) (1.40-6.50) K/uL Lymph # (Auto) (1.2-3.4) K/uL [place] # (Auto) (0.11-0.59) K/uL Eos # (Auto) (0-0.50) K/uL Baso # (Auto) (0-0.2) K/uL Immature Gran # (Auto) (0.01-0.20) K/uL PT (9.0-12.0) Seconds INR (0.9-1.1) APTT (21.0-31.0) Seconds PTT Ratio Sodium (136-145) mmol/L Potassium (3.5-5.1) mmol/L Chloride (98-107) mmol/L Carbon Dioxide (21-32) mmol/L Anion Gap (3-11) BUN (6-23) mg/dl Creatinine (0.6-1.2) mg/dl Est Cr Clr Drug Dosing Est GFR ( Amer) ml/min Est GFR (Non-Af Amer) ml/min BUN/Creatinine Ratio (10-20) Glucose (70-99(Fasting)) mg/dl Calcium (8.6-10.3) mg/dl Magnesium (1.7-2.4) mg/dl Total Bilirubin (0.2-1.0) mg/dl Direct Bilirubin (0-0.2) mg/dl AST (13-39) U/L ALT (7-52) U/L Alkaline Phosphatase (34-104) U/L Troponin I High Sens (0-14) pg/ml Total Protein (6.0-8.3) gm/dl Albumin (3.4-5.0) gm/dl Globulin (2.5-4.0) gm/dl Albumin/Globulin Ratio (0.9-2) Lipase (11-82) U/L Urine Color Dark Yellow Urine Appearance Cloudy A (Clear) Urine pH 5.0 (4.5-7.5) Ur Specific [place] 1.021 (1.000-1.030) Urine Protein 1+ H (Negative) Urine Glucose (UA) 2+ H (Negative) Urine Ketones Trace H (Negative) Urine Blood Negative (Negative) Urine Nitrite Negative (Negative) Urine Bilirubin 1+ H (Negative) Urine Urobilinogen Negative (Negative) Ur Leukocyte Esterase Negative (Negative) Urine WBC (Auto) 1-5 (0-5) /hpf Urine RBC (Auto) 0-4 (0-4) /hpf U Hyaline Cast (Auto) 10-30 H (0-5) /lpf U Epithel Cells (Auto) >30 H (0-5) /lpf Urine Bacteria (Auto) Negative (Negative) Adenovirus (PCR) Not Detected (NotDetected) B. pertussis DNA (PCR) Not Detected (NotDetected) B.parapertussis DNA PCR Not Detected (NotDetected) C. pneumoniae DNA (PCR) Not Detected (NotDetected) Coronavirus OC43 (PCR) Not Detected (NotDetected) Coronavirus HKU1 (PCR) Not Detected (NotDetected) Coronavirus 229E (PCR) Not Detected (NotDetected) SARS-CoV-2 (PCR) Not Detected (NotDetected) Coronavirus NL63 (PCR) Not Detected (NotDetected) Human Metapneumovir PCR Not Detected (NotDetected) Influenza Type A (PCR) Not Detected (NotDetected) Influenza Type B (PCR) Not Detected (NotDetected) M. pneumoniae (PCR) Not Detected (NotDetected) Parainfluenza 1 (PCR) Not Detected (NotDetected) Parainfluenza 2 (PCR) Not Detected (NotDetected) Parainfluenza 3 (PCR) Not Detected (NotDetected) Parainfluenza 4 (PCR) Not Detected (NotDetected) RSV (PCR) Not Detected (NotDetected) Entero/Rhino (PCR) Not Detected (NotDetected) Administered Medications Carvedilol (Carvedilol 3.125 Mg Tab) 3.125 mg PO BID WALKER Stop: 11/25/22 20:59 Last Admin: 10/26/22 22:25 Dose: Not Given Documented By: MDB Heparin Sodium/Dextrose (Heparin Sodium/Dextrose) 25,000 units in 500 mls @ 22 mls/hr IV .[id number] WALKER; Protocol Stop: 11/25/22 16:29 Last Titration: 10/26/22 19:11 Dose: 1,100 units/hr, 22 mls/hr Documented By: [facility] Co-signed By: ABBY Admin: 10/26/22 18:39 Dose: 1,100 units/hr, 22 mls/hr Documented By: ABBY Co-signed By: YOHANNES Pantoprazole Sodium 40 mg/ (Syringe) 10 mls @ 5 mls/min IV BID WALKER Stop: 11/25/22 20:59 Last Admin: 10/26/22 22:33 Dose: 5 mls/min Documented By: [facility] Sodium Chloride (Nss) 500 mls @ 80 mls/hr IV .Q6H15M [facility] Stop: 10/27/22 00:06 Last Admin: 10/26/22 20:38 Dose: 80 mls/hr Documented By: [facility] Insulin Aspart (Insulin Aspart Per Unit Charge) 0 units SC ACHS [facility] Stop: 11/25/22 18:14 Last Admin: 10/26/22 20:15 Dose: Not Given Documented By: Admin: 10/26/22 18:46 Dose: Not Given Documented By: ABBY Discontinued Medications Diphenhydramine HCl (Diphenhydramine 50 Mg/Ml Vial) 12.5 mg IV NOW STA Stop: 10/26/22 13:01 Last Admin: 10/26/22 13:35 Dose: 12.5 mg Documented By: DARELL Famotidine (Famotidine 20mg/5ml Iv Push) Confirm Administered Dose 20 mg IV .STK-MED ONE Stop: 10/26/22 16:24 Last Admin: 10/26/22 16:26 Dose: 20 mg Documented By: SHELLY Heparin Sodium/Dextrose (Heparin Iv Adult Wt-Based Standard *No* Bolus Protocol) 1 each IV ONE STA; Protocol Stop: 10/26/22 16:07 Last Admin: 10/26/22 18:39 Dose: Not Given Documented By: ABBY Heparin Sodium/Dextrose (Heparin 54750 Unit/500 Ml D5w) Confirm Administered Dose 25,000 units IV .STK-MED ONE Stop: 10/26/22 18:12 Last Admin: 10/26/22 18:37 Dose: Not Given Documented By: ABBY Sodium Chloride (Nss) 500 mls @ 999 mls/hr IV .Q31M ONE Stop: 10/26/22 12:53 Last Admin: 10/26/22 13:35 Dose: Not Given Documented By: DARELL Famotidine (Pepcid 20mg Iv Push) 20 mg in 5 mls @ 2.5 mls/min IV NOW STA Stop: 10/26/22 13:01 Last Admin: 10/26/22 13:35 Dose: 2.5 mls/min Documented By: DARELL Promethazine HCl (Phenergan) 25 mg in 51 mls @ 204 mls/hr IV NOW STA Stop: 10/26/22 13:14 Last Infusion: 10/26/22 13:50 Dose: 0 mls/hr Documented By: Admin: 10/26/22 13:35 Dose: 204 mls/hr Documented By: DARELL Sodium Chloride (Nss) 500 mls @ 80 mls/hr IV .Q6H15M WALKER Stop: 11/25/22 13:14 Last Infusion: 10/26/22 17:37 Dose: 0 mls/hr Documented By: Admin: 10/26/22 13:15 Dose: 80 mls/hr Documented By: SHELLY Pantoprazole Sodium 40 mg/ (Syringe) 10 mls @ 5 mls/min IV NOW ONE Stop: 10/26/22 17:53 Last Admin: 10/26/22 18:40 Dose: 5 mls/min Documented By: ABBY Lorazepam (Lorazepam 2 Mg/1 Ml Vial) 0.5 mg IV NOW STA Stop: 10/26/22 14:19 Last Admin: 10/26/22 14:28 Dose: 0.5 mg Documented By: SHELLY Lorazepam (Lorazepam 2 Mg/1 Ml Vial) 1 mg IV NOW STA Stop: 10/26/22 16:19 Last Admin: 10/26/22 16:26 Dose: 1 mg Documented By: SHELLY Imaging Data Radiologist's Impression: Abdomen/Pelvis CT 10/26/22 12:59 CT SCAN OF THE ABDOMEN AND PELVIS WITHOUT IV CONTRAST CLINICAL HISTORY: Generalized abdominal pain. Nausea and vomiting. COMPARISON STUDY: Abdominal CT dated 05/23/2022. TECHNIQUE: CT scan of the abdomen and pelvis is performed from the lung bases to the proximal femora. Images are reviewed in the axial, sagittal, and coronal planes. IV contrast was not administered for this examination. Note that the examination is suboptimal without oral and IV contrast. A dose lowering te chnique was utilized adhering to the principles of ALARA. CT DOSE: 1410.88 mGy.cm FINDINGS: Lung bases: The heart is enlarged and without pericardial effusion. Pacemaker leads are in place. There are right larger than left pleural effusions with dependent atelectasis. Liver: The unenhanced liver is normal in size, contour, and attenuation. There is no intrahepatic biliary ductal dilatation. Gallbladder: Surgically absent noting clips in the gallbladder fossa. Spleen: Normal in size and attenuation. Pancreas: The unenhanced pancreas is mildly atrophic and grossly unremarkable. Adrenal glands: Unremarkable. Kidneys: The unenhanced kidneys demonstrate mild cortical atrophy and are without hydronephrosis. There is a punctate nonobstructing right renal calculus. No left renal calculi are identified and no ureteral stone is seen. There is no evidence of contour deforming renal mass lesion. Abdominal vasculature: The abdominal aorta is normal in course and caliber. Bowel: There is mild colonic diverticulosis without CT evidence of acute diverticulitis. No bowel obstruction is seen. The appendix is not identified and reported surgically absent. Peritoneum: No intraperitoneal free air the seen. There is a small volume of pelvic ascites. There is a fat-containing umbilical hernia. Lymphadenopathy: None. Pelvic viscera: The bladder is decompressed and could not be evaluated. The uterus is surgically absent. No adnexal lesion is seen. Skeletal structures: The skeletal structures are osteopenic. There is mild lumbosacral spondylosis No lytic or blastic lesions are seen. IMPRESSION: 1. No acute infectious or inflammatory findings are identified in the abdomen or pelvis. 2. Cardiomegaly and small pleural effusions. 3. Small volume pelvic ascites. 4. Punctate nonobstructing right renal calculus. 5. Colonic diverticulosis without CT evidence of acute diverticulitis. 6. Additional findings as above. ACT 112: Negative or not required by law. Electronically signed by: Hermann Salazar M.D. 10/26/2022 1:41 PM Chest X-Ray 10/26/22 13:01 XR chest 1V portable CLINICAL HISTORY: abd pain, n/v TECHNIQUE: Single frontal radiograph of the chest was obtained. Comparison: Comparison is made to chest radiograph 10/20/2022 FINDINGS: Pacemaker defibrillator is seen. Cardiomegaly is noted. Prominence and cep halization of the vasculature is seen. Small bilateral pleural effusions are seen. IMPRESSION: Cardiomegaly and mild pulmonary edema. Small bilateral pleural effusions which are increased from prior exam. ACT 112: Negative or not required by law. Electronically signed by: Inderjit Frank M.D. 10/26/2022 1:43 PM Liver Ultrasound 10/26/22 15:12 ABDOMINAL ULTRASOUND, RIGHT UPPER QUADRANT HISTORY: elevated lft, s/p cholecystectomy. COMPARISON: CT 10/26/2022 FINDINGS: Pancreas: The pancreas is obscured by bowel gas. Liver: Unremarkable. Gallbladder: Cholecystectomy. CBD: 0.6 and ureter. Right kidney: Mild cortical thinning. No hydronephrosis. Right pleural effusion. IMPRESSION: 1. Unremarkable exam status post cholecystectomy. 2. Right pleural effusion redemonstrated. ACT 112: Negative or not required by law. Electronically signed by: Dick Franklin M.D. 10/26/2022 4:02 PM Discharge Plan Visit Data Chief Complaint: GI Assessment Stated Complaint: GI ISSUES, REF FROM DR GUERRERO Provider: Joey Ardon Discharge Problem: Intractable nausea and vomiting, HFrEF (heart failure with reduced ejection fraction), Chronic hypotension, Chronic kidney disease, stage 3b, GERD (gastroesophageal reflux disease), Elevated LFTs Patient Disposition: Admitted As Inpatient Discharge Instructions Interventions: ED Discharge Assessment Last Done: 10/26/22 17:32
[2022-10-26] MEDS: SODIUM CHLORIDE 0.9% 500 ML IV SCH ×2 (13:15→14:29)
[2022-10-26 13:23] LABS: Basophils # (auto) 0.05 K/uL (0-0.2); Basophils % (auto) 0.5 %; Eosinophils # (auto) 0.06 K/uL (0-0.50); Eosinophils % (auto) 0.6 %; Hemoglobin 13.8 g/dl (12.0-16.0); Immature Granulocytes # (auto) 0.04 K/uL (0.01-0.20); Immature Granulocytes % (auto) 0.4 %; Lymphocytes # (auto) 1.37 K/uL (1.2-3.4); Lymphocytes % (auto) 12.8 %; Mean Corpuscular Hemoglobin 32.9 pg (25.0-34.0); Mean Corpuscular Hgb Conc 33.7 g/dL (32.0-36.0); Mean Corpuscular Volume 97.9 fL (80.0-100.0); Mean Platelet Volume 9.9 fL (9.4-12.4); Monocytes # (auto) 0.71 K/uL (0.11-0.59); Monocytes % (auto) 6.6 %; Neutrophils # (auto) 8.45 K/uL (1.40-6.50); Neutrophils % (auto) 79.1 %; Platelet Count 257 K/uL (130-400); RDW Coefficient of Variation 13.3 % (11.5-14.5); RDW Standard Deviation 46.6 fL (36.4-46.3); Red Blood Count 4.19 M/uL (4.20-5.40); White Blood Count 10.68 K/ul (4.8-10.8)
[2022-10-26 13:34] LABS: Alanine Aminotransferase 267 U/L (7-52); Albumin Globulin Ratio 1.4 (0.9-2); Alkaline Phosphatase 116 U/L (34-104); Anion Gap 13 (3-11); Aspartate Aminotransferase 177 U/L (13-39); BUN Creatinine Ratio 26.4 (10-20); Bilirubin Direct 0.8 mg/dl (0-0.2); Bilirubin,Total 3.5 mg/dl (0.2-1.0); Blood Urea Nitrogen 46 mg/dl (6-23); Calcium 9.7 mg/dl (8.6-10.3); Carbon Dioxide 24 mmol/L (21-32); Chloride 97 mmol/L (98-107); Est GFR (African American) 34.8 ml/min; Globulin 2.8 gm/dl (2.5-4.0); Glucose 116 mg/dl (70-99(Fasting)); Lipase 67 U/L (11-82); Magnesium 2.3 mg/dl (1.7-2.4); Potassium 3.9 mmol/L (3.5-5.1); Sodium 134 mmol/L (136-145); Total Protein 6.8 gm/dl (6.0-8.3)
[2022-10-26 13:40] LABS: Appearance Urine Cloudy (Clear); Bacteria Urine Automated Negative (Negative); Blood Urine Negative (Negative); Color Urine Dark Yellow; Epithelial Cell Urine Auto >30 /lpf (0-5); Glucose Urine UA 2+ (Negative); Ketones Urine Trace (Negative); Leukocyte Esterase Urine Negative (Negative); Nitrite Urine Negative (Negative); Protein Urine 1+ (Negative); RBC Urine Automated 0-4 /hpf (0-4); Specific Gravity Urine 1.021 (1.000-1.030); Urobilinogen Urine Negative (Negative)
[2022-10-26 13:41] LABS: Troponin I High Sensitivity 20.8 pg/ml (0-14)
--- NOTE | 2022-10-26 13:42 | CT Scan Report ---
CT SCAN OF THE ABDOMEN AND PELVIS WITHOUT IV CONTRAST CLINICAL HISTORY: Generalized abdominal pain. Nausea and vomiting. COMPARISON STUDY: Abdominal CT dated 05/23/2022. TECHNIQUE: CT scan of the abdomen and pelvis is performed from the lung bases to the proximal femora. Images are reviewed in the axial, sagittal, and coronal planes. IV contrast was not administered for this examination. Note that the examination is suboptimal without oral and IV contrast. A dose lower ing technique was utilized adhering to the principles of ALARA. CT DOSE: 1410.88 mGy.cm FINDINGS: Lung bases: The heart is enlarged and without pericardial effusion. Pacemaker leads are in place. The re are right larger than left pleural effusions with dependent atelectasis. Liver: The unenhanced liver is normal in size, contour, and attenuation. There is no intrahepatic [place] ductal dilatation. Gallbladder: Surgically absent noting clips in the gallbladder fossa. Spleen: Normal in size and attenuation. Pancreas: The unenhanced pancreas is mildly atrophic and grossly unremarkable. Adrenal glands: Unremarkable. Kidneys: The unenhanced kidneys demonstrate mild cortical atrophy and are without hydronephrosis. The re is a punctate nonobstructing right renal calculus. No left renal calculi are identified and no ure teral stone is seen. There is no evidence of contour deforming renal mass lesion. Abdominal vasculature: The abdominal aorta is normal in course and caliber. Bowel: There is mild colonic diverticulosis without CT evidence of acute diverticulitis. No bowel obs truction is seen. The appendix is not identified and reported surgically absent. Peritoneum: No intraperitoneal free air the seen. There is a small volume of pelvic ascites. There is a fat-containing umbilical hernia. Lymphadenopathy: None. Pelvic viscera: The bladder is decompressed and could not be evaluated. The uterus is surgically abse nt. No adnexal lesion is seen. Skeletal structures: The skeletal structures are osteopenic. There is mild lumbosacral spondylosis No lytic or blastic lesions are seen. IMPRESSION: 1. No acute infectious or inflammatory findings are identified in the abdomen or pelvis. 2. Cardiomegaly and small pleural effusions. 3. Small volume pelvic ascites. 4. Punctate nonobstructing right renal calculus. 5. Colonic diverticulosis without CT evidence of acute diverticulitis. 6. Additional findings as above. ACT 112: Negative or not required by law. Electronically signed by: Hermann Salazar M.D. 10/26/2022 1:41 PM
--- NOTE | 2022-10-26 13:44 | XRay Report ---
XR chest 1V portable CLINICAL HISTORY: abd pain, n/v TECHNIQUE: Single frontal radiograph of the chest was obtained. Comparison: Comparison is made to chest radiograph 10/20/2022 FINDINGS: Pacemaker defibrillator is seen. Cardiomegaly is noted. Prominence and cephalization of the vasculatu re is seen. Small bilateral pleural effusions are seen. IMPRESSION: Cardiomegaly and mild pulmonary edema. Small bilateral pleural effusions which are increased from be or exam. ACT 112: Negative or not required by law. Electronically signed by: Inderjit Frank M.D. 10/26/2022 1:43 PM
[2022-10-26 13:49] LABS: Bilirubin Urine 1+ (Negative)
[2022-10-26] MEDS ORDERED: LORazepam 2 MG/1 ML VIAL IV STA ×2 (14:18→16:18)
--- NOTE | 2022-10-26 15:20 | History & Physical Report ---
Date of Service October 26, 2022 Assessment & Plan (1) Nausea & vomiting: Plan: intractable nausea/vomiting since discharge from hospital last week for acute CHF exacerbation on dobutamine gtt LFTs elevation on admission -- TB 3.5, DB 0.8, AST 177, ALT 267, ALP 116. -Hx LA Grade B esophagitis on EGD in past March [address] Padilla and on eliquis 5mg BID for remote diagnosis of PEs s/p cholecystectomy at [facility] Dr Mata given high risk/cardiomyopathy w/ low EF ?biliary obstruction given elevated LFTs, esophagitis vs gastroparesis (reports being worked up for such) vs viral illness vs other RUQ US obtained -- no CBD dilation, unremarkable exam s/p ketty. Lipase wnl Admit PCU w/ telemetry Biofire pending Cards consult for pre-op clearance Gentle IVF hydration for dehydration on exam (CXR mild edema/unchanged and stable on room air-- wt down from last admission) - 500cc NS @ 80cc/hr ordered in ER and will continue additional 500cc after @80cc/hr. - Can re-eval for additional IVF as needed but wanting to avoid overload Protonix 40mg IV BID, first dose now Antiemetics/pain control prn Stool PCR/cdiff given reports diarrhea and complaints while in hospital last admission as well GI consulted -- rec barium swallow however messaged about intractable n/v -- ordered if able to tolerate, but otherwise NPO at midnight and hopefully able to perform EGD in AM Clear liquids as tolerated for now NPO at midnight Monitor labs on repeat Heparin gtt adult no bolus ordered given unable to tolerate/keep PO down in setting PEs diagnosed following her GB removal earlier this year (note she does have elevated homocysteine level on prior labs Jun 14) Patient would be high risk for endoscopy given recent dobutamine use but cardiology sent for eval. Cardiology consulted for clearance (2) Dysphagia: Plan: GI on consult as above, NPO at midnight possible scope speech consulted as well give issues w/ boost as well aspiration precautions (3) GERD (gastroesophageal reflux disease): Plan: Hx LA Grade B esophagitis on EGD in past March [address] Padilla protonix IV increased to BID while PO intake poor/intolerant/concerns esophagtis vs PUD -- on once daily protonix at home GI consulted as above (4) CKD (chronic kidney disease), stage III: Plan: acute on chronic, elevation in BUN/Cr felt 2nd to n/v/dehydration renal dose meds/avoid nephrotoxic agents holding spironolactone 25mg daily, furosemide 40mg PO daily given such Monitor BMP on repeat (5) HFrEF (heart failure with reduced ejection fraction): Plan: chronic HFrEF Patient with nonischemic cardiomyopathy Recent echocardiogram with global hypokinesis as well as ejection fraction of 15 to 20% ICD placed in 2014. According the patient this is never shocked her for tachyarrhythmia Prior dobutamine gtt w/ great UOP last week w/ improvement in orthopnea and NUR Monitor weights/I&O Not overloaded at present, dehydrated as above. cautious use IVF/holding diuretics. Ordered additoinal 500cc @ 80cc/hr once completed 500cc in ER Monitor on repeat exam Cards consulted as above Did speak w/ Dr Mejia and he has been in touch with Dr Biggs at [facility] and they will be getting her into their advanced heart failure clinic within the next 2 weeks (6) Cardiomyopathy: Plan: see above (7) Hypotension: Plan: BPs appear around baseline, no lightheaded/dizziness Improving w/ IVF, cautious use as above (8) ICD (implantable cardioverter-defibrillator) in place: Plan: for sustained hx SVT (9) Pulmonary embolism: Plan: noted -- on eliquis 5mg BID -- given ongoing n/v, heparin adult no bolus while inpatient and can transition back when able to tolerate PO Unable to use Lovenox unfortunately due to renal function (10) Nocturnal hypoxia: Plan: O2 Hs (11) Diabetes: Plan: A1c 7.3 on most recent check. On Jardiance 25mg daily holding home Jardiance, BSG AC/HS with sliding scale insulin while inpatient POC glu most recently 101 May need to consider adding D5 to IVF pending PO intake DM diet Monitor BSGs (12) Elevated LFTs: Plan: s/p cholecystectomy earlier this year LFTs elevated with TB 3.5/DB 0.8. AST 177, ALT 267, ALP 116. BPs low side, no granular casts on UA. ?shock liver from low BPs at home Lipase wnl Unable to perform MRCP due to pacemaker/not compatible \RUQ US ordered for eval -- nothing acute noted No overt RUQ pain on exam but has some epigastric/umbilical discomfort in setting remote CCY GI on consult as above Monitor LFTs on repeat History of Present Illness Chief Complaint: intractable n/v Primary Care Provider: Theo Houston MD 67yo female with PMHx significant for nonischemic cardiomyopathy, chronic heart failure with reduced ejection fraction (EF 15-20%), recent pulmonary embolism (diagnosed in May following ketty w/ Dr Mata at [facility]- transferred there given perioperative risks), CKD III, DM II, SVT (s/p ICD), GERD presented after recent admission for acute CHF exacerbation and on dobutamine gtt with Entresto on hold for hypotension and discharged with oxygen at night. Presents today with intractable nausea/vomiting. Reports had been being worked up for gastroparesis as outpatient with GI. Having some diarrhea, abdominal pain generalized but more umbilical/epigastric in nature. Last EGD/c-scope w/ Case March 2021 -- EGD noting LA Grade B reflux esophagitis. Lipase wnl. Was seen by Dr Mejia this morning and reporting with long standing hx hiatal hernia/prior esophagitis and PUD, prior to initiating she had had reflux which worsened and because severe and develops some degree of dysphagia. Unable to keep medication down/unable to swallow pills and only had a few bites over the past day or two. She reports she had sensation of pills getting stuck or even if they do go down she ends up vomiting them back up. She notes she had been trying to drink boost and has been vomiting this up as well. She notes she had syumptoms like this during last week hospital stay but that they weren't this bad. Typically on Protonix once daily at home. Last emesis here in hospital on arrival, ongoing nausea/bloating. No coffee ground emesis She is very dehydrated -- wanting ice chips for dry lips -- provided. Would like a madeleine octavia. Discussed can try some clears as able to tolerate/gentle IVF to prevent overload and NPO at midnight for hopeful endoscopy tomorrow. She is very anxious in room, hard to get to sit still -- notes adverse reaction/excitement to Benadryl and she got a dose in ER. Got dose of IV Ativan which took edge off but not very effective and will repeat 1mg dose and monitor response. She has been able to lay flat without increased shortness of breath at present and her breathing has been better in the past however typically NUR. Dr Mejia has reached out to [facility] and their advance heart failure clinic will be reaching out to her in the next 1-2 weeks to get her follow up. Does have some right sided lower back pain, negative CVA tenderness on exam. Urine does not appear infected, however imaging does note punctate nonobstructing right renal calculi ER Course: NSS @80cc/hr x 500cc. Pepcid IVP, Phenergan 25mg IV, Benadryl 12.5mg, lorazepam 0.5mg IV x 1.. CXR: cardiomegaly w/ mild pulmonary edema. small b/l effusion unchanged from prior exam -- on room air, 98% CTAP: punctate nonobstructing right renal calculi, colonic diverticulosis w/o acute diverticulitis. cardiomegaly w/ small effusions. no acute infectious/inflammatory findings. small amt pelvic ascites. Labs: WBC 10.6k w/ L shift. Na 134, Chl 97. BUN/Cr 46/1.74 LFTs elevated -- TB 3.5, DB 0.8, AST 177, ALT 267, ALP 116. Trop 20.8 (similar to prior admissions) Orders pending for stool PCR/cdiff testing when sample available. Allergies Allergy/AdvReac Type Severity Reaction Status Date / Time erythromycin base Allergy Severe blisters;red;itchy;pain;blisters Verified 10/26/22 15:36 in back throat iodine Allergy Severe throat Verified 10/26/22 15:36 blisters;skin blisters meperidine [From Demerol] Allergy Severe quit Verified 10/26/22 15:36 breathing adhesive Allergy Intermediate BLISTERS Verified 10/26/22 15:36 cinnamon Allergy Intermediate Hives Verified 10/26/22 15:37 tetracycline Allergy Unknown TERRAMYCIN Verified 10/26/22 15:36 ALLERGY atorvastatin AdvReac Intermediate MUSCLE Verified 10/26/22 15:36 PAIN/ACHES, DIFFICULTY WALKING azithromycin AdvReac Intermediate Gastrointestinal Verified 10/26/22 15:36 Upset metformin AdvReac Intermediate Diarrhea Verified 10/26/22 15:36 rosuvastatin [From Crestor] AdvReac Intermediate Cramping Verified 10/26/22 15:36 of the Muscles Eaujizg-TZP-UpD Reductase AdvReac Intermediate MUSCLE Verified 10/26/22 15:36 Inhibitor PAIN/ACHES, [Ghegyyi-Zui-Fke Reductase DIFFICULTY Inhibitor] WALKING Home Medications Medication Instructions Recorded Confirmed Type cholecalciferol (vitamin D3) 125 5,000 units PO DAILY 01/14/19 10/26/22 History mcg (5,000 unit) capsule empagliflozin 25 mg tablet 25 mg PO DAILY #90 tabs 11/09/21 10/26/22 Rx ezetimibe 10 mg tablet 10 mg PO PM #90 tabs 02/15/22 10/26/22 Rx acetaminophen 325 mg tablet 650 mg PO Q4H PRN pain #30 tabs 05/14/22 10/26/22 Rx inhalational spacing device #1 ea 07/08/22 10/26/22 Rx (Aerochamber Plus Flow-Vu) levalbuterol tartrate 45 2 inh inhalation Q6H PRN shortness 07/08/22 10/26/22 Rx mcg/actuation aerosol inhaler of breath/cough/wheeze #15 grams (Xopenex HFA) furosemide 40 mg tablet 40 mg PO DAILY #60 tabs 08/09/22 10/26/22 Rx apixaban 5 mg tablet (Eliquis) 5 mg PO BID #180 tabs 08/25/22 10/26/22 Rx blood sugar diagnostic (Accu-Chek #100 ea 09/07/22 10/26/22 Rx Guide test strips) blood-glucose meter (Accu-Chek #1 ea 09/07/22 10/26/22 Rx Guide Glucose Meter) lancets (Accu-Chek Softclix #100 ea 09/07/22 10/26/22 Rx Lancets) potassium chloride 20 mEq 20 meq PO DAILY #30 tabs 10/04/22 10/26/22 Rx tablet,extended release pantoprazole 40 mg tablet,delayed 40 mg PO DAILY #90 tabs 10/07/22 10/26/22 Rx release carvedilol 6.25 mg tablet 3.125 mg PO BID #180 tabs 10/19/22 10/26/22 Rx spironolactone 25 mg tablet 25 mg PO QPM 10/26/22 10/26/22 History Past Med/Surg History Medical History Acute on chronic HFrEF (heart failure with reduced ejection fraction) Acute pulmonary embolism (06/14/22) Allergic rhinitis Asymptomatic menopausal state Atopic dermatitis Chronic kidney disease, stage 3b CKD (chronic kidney disease), stage III Coronavirus infection Dental abscess Diabetes Diabetes mellitus type II, controlled NIDDM Diverticulosis of colon Eustachian tube dysfunction Greater trochanteric bursitis History of diverticulitis History of sigmoidoscopy Hyperlipidemia Hypertension IBS (irritable bowel syndrome) ICD (implantable cardioverter-defibrillator) in place ICD (implantable cardioverter-defibrillator) in place Placed Feb 2015 > [employer] > last checked 03/23/21 with > placed for CHF Idiopathic cardiomyopathy Incidental pulmonary nodule, > 3mm and < 8mm Inflamed seborrheic keratosis Insomnia Internal hemorrhoids Intertrigo Milia Moderate mitral regurgitation Notalgia paresthetica Obesity Osteopenia Pulmonary embolism (05/2022) Sigmoid diverticulitis SK (seborrheic keratosis) Stage 3b chronic kidney disease Vitamin D deficiency Wart Wound dehiscence, surgical Surgical History History of appendectomy History of arthroscopy of right knee History of arthroscopy of right shoulder History of breast biopsy benign History of cardiac cath 10/2017 [facility] no stents History of carpal tunnel surgery History of Neuroplasty Decompression Median Nerve At Carpal Tunnel> right History of cholecystectomy (05/28/22) at [facility] by Dr Ivey History of colonoscopy History of foot surgery 1972 History of incision and drainage (05/14/22) infection floor of the mouth and subperiosteal plane # 30 area p Incision and Drainage, Tooth Extraction(Right) - Quinton Amezcua, DMD History of repair of rotator cuff right History of vaginal hysterectomy Family History Mother Breast cancer Diabetes Grandmother Myocardial infarction Other Heart disease No family history of adverse response to anesthesia No family history of bleeding disorder Denies family history of Ovarian cancer Prostate cancer Colorectal cancer Social History Smoking Status: Never smoker Second Hand Exposure: No; Do You Dip or Chew Tobacco: No; Hx Alcohol Use: No Hx Substance Use: No Preferred Language: Ukrainian Communication Ability: Effective Visual Impairment: No Limitations Hearing Ability: Normal Chief Engineer'S Helper Required: No Beliefs That Will Affect Care: None marital status: Current Living Situation: Spouse current occupational status: retired Feels Safe at Home: Yes Childhood Exposure to Second-Hand Smoke: No Diet: low salt and regular caffeine: Yes during the past year weight has: remained stable Dental Care, Regularly: Yes Physical Activity Frequency: Does not Exercise Seatbelt Use: always Sunscreen Use: Yes Assistive Devices: Oxygen - at Night Review of Systems Review of Systems: All systems reviewed & are unremarkable except as noted in HPI & below Physical Exam 2 Physical Exam: General: chronically ill appearing, at bedside, mildly uncomfortable/ anxious appearing HEENT: head normocephalic, atraumatic, mm DRY, trachea midline Resp; diminished in the bases, no w/c, on room air CV: regaulr rhythm, slightly tachy but improved (rates 90-100s), S1/S2, pretibial edema/calves nontender GI: +BS, slightly distended but soft , mild-mod tenderness to palpation umbilical/epigastric region, without rigidity/guarding : no cisneros MSK/Neuro: no focal deficit, no slurred speech, follows commands, strength equal bilaterally Psych: AOx3, anxious appearing since Benadryl administration Results & Data Results & Data Vital Signs (Past 12 Hours) Vital Signs Temp Pulse Pulse Resp BP BP Pulse Ox 10/26/22 14:38 104 H 20 99/67 L 98 10/26/22 14:12 98 H 30 H 97/67 L 98 10/26/22 13:02 10/26/22 12:32 93 H 10/26/22 11:17 36.5 C 90 18 97/65 L 99 O2 Del Method 10/26/22 14:38 10/26/22 14:12 10/26/22 13:02 Room Air 10/26/22 12:32 10/26/22 11:17 Room Air Laboratory Results 10/26/22 10/26/22 10/26/22 Range/Units 14:57 13:20 13:01 WBC 10.68 (4.8-10.8) K/ul RBC 4.19 L (4.20-5.40) M/uL Hgb 13.8 (12.0-16.0) g/dl Hct 41.0 (37.0-47.0) % MCV 97.9 (80.0-100.0) fL MCH 32.9 (25.0-34.0) pg MCHC 33.7 (32.0-36.0) g/dL RDW Std Deviation 46.6 H (36.4-46.3) fL RDW Coeff of [place] 13.3 (11.5-14.5) % Plt Count 257 (130-400) K/uL MPV 9.9 (9.4-12.4) fL Immature Gran % (Auto) 0.4 % Neut % (Auto) 79.1 % Lymph % (Auto) 12.8 % [place] % (Auto) 6.6 % Eos % (Auto) 0.6 % Baso % (Auto) 0.5 % Neut # (Auto) 8.45 H (1.40-6.50) K/uL Lymph # (Auto) 1.37 (1.2-3.4) K/uL [place] # (Auto) 0.71 H (0.11-0.59) K/uL Eos # (Auto) 0.06 (0-0.50) K/uL Baso # (Auto) 0.05 (0-0.2) K/uL Immature Gran # (Auto) 0.04 (0.01-0.20) K/uL Sodium (136-145) mmol/L Potassium (3.5-5.1) mmol/L Chloride (98-107) mmol/L Carbon Dioxide (21-32) mmol/L Anion Gap (3-11) BUN (6-23) mg/dl Creatinine (0.6-1.2) mg/dl Est Cr Clr Drug Dosing Est GFR ( Amer) ml/min Est GFR (Non-Af Amer) ml/min BUN/Creatinine Ratio (10-20) Glucose (70-99(Fasting)) mg/dl Calcium (8.6-10.3) mg/dl Magnesium (1.7-2.4) mg/dl Total Bilirubin (0.2-1.0) mg/dl Direct Bilirubin (0-0.2) mg/dl AST (13-39) U/L ALT (7-52) U/L Alkaline Phosphatase (34-104) U/L Troponin I High Sens (0-14) pg/ml Total Protein (6.0-8.3) gm/dl Albumin (3.4-5.0) gm/dl Globulin (2.5-4.0) gm/dl Albumin/Globulin Ratio (0.9-2) Lipase (11-82) U/L Urine Color Dark Yellow Urine Appearance Cloudy A (Clear) Urine pH 5.0 (4.5-7.5) Ur Specific [place] 1.021 (1.000-1.030) Urine Protein 1+ H (Negative) Urine Glucose (UA) 2+ H (Negative) Urine Ketones Trace H (Negative) Urine Blood Negative (Negative) Urine Nitrite Negative (Negative) Urine Bilirubin 1+ H (Negative) Urine Urobilinogen Negative (Negative) Ur Leukocyte Esterase Negative (Negative) Urine WBC (Auto) 1-5 (0-5) /hpf Urine RBC (Auto) 0-4 (0-4) /hpf U Hyaline Cast (Auto) 10-30 H (0-5) /lpf U Epithel Cells (Auto) >30 H (0-5) /lpf Urine Bacteria (Auto) Negative (Negative) Adenovirus (PCR) Pending B. pertussis DNA (PCR) Pending B.parapertussis DNA PCR Pending C. pneumoniae DNA (PCR) Pending Coronavirus OC43 (PCR) Pending Coronavirus HKU1 (PCR) Pending Coronavirus 229E (PCR) Pending SARS-CoV-2 (PCR) Pending Coronavirus NL63 (PCR) Pending Human Metapneumovir PCR Pending Influenza Type B (PCR) Pending M. pneumoniae (PCR) Pending Parainfluenza 1 (PCR) Pending Parainfluenza 2 (PCR) Pending Parainfluenza 3 (PCR) Pending Parainfluenza 4 (PCR) Pending RSV (PCR) Pending Entero/Rhino (PCR) Pending 10/26/22 Range/Units 13:00 WBC (4.8-10.8) K/ul RBC (4.20-5.40) M/uL Hgb (12.0-16.0) g/dl Hct (37.0-47.0) % MCV (80.0-100.0) fL MCH (25.0-34.0) pg MCHC (32.0-36.0) g/dL RDW Std Deviation (36.4-46.3) fL RDW Coeff of [place] (11.5-14.5) % Plt Count (130-400) K/uL MPV (9.4-12.4) fL Immature Gran % (Auto) % Neut % (Auto) % Lymph % (Auto) % [place] % (Auto) % Eos % (Auto) % Baso % (Auto) % Neut # (Auto) (1.40-6.50) K/uL Lymph # (Auto) (1.2-3.4) K/uL [place] # (Auto) (0.11-0.59) K/uL Eos # (Auto) (0-0.50) K/uL Baso # (Auto) (0-0.2) K/uL Immature Gran # (Auto) (0.01-0.20) K/uL Sodium 134 L (136-145) mmol/L Potassium 3.9 (3.5-5.1) mmol/L Chloride 97 L (98-107) mmol/L Carbon Dioxide 24 (21-32) mmol/L Anion Gap 13 H (3-11) BUN 46 H (6-23) mg/dl Creatinine 1.74 H (0.6-1.2) mg/dl Est Cr Clr Drug Dosing Not Reportable Est GFR ( Amer) 34.8 ml/min Est GFR (Non-Af Amer) 30.0 ml/min BUN/Creatinine Ratio 26.4 H (10-20) Glucose 116 H (70-99(Fasting)) mg/dl Calcium 9.7 (8.6-10.3) mg/dl Magnesium 2.3 (1.7-2.4) mg/dl Total Bilirubin 3.5 H (0.2-1.0) mg/dl Direct Bilirubin 0.8 H (0-0.2) mg/dl AST 177 H (13-39) U/L ALT 267 H (7-52) U/L Alkaline Phosphatase 116 H (34-104) U/L Troponin I High Sens 20.8 H (0-14) pg/ml Total Protein 6.8 (6.0-8.3) gm/dl Albumin 4.0 (3.4-5.0) gm/dl Globulin 2.8 (2.5-4.0) gm/dl Albumin/Globulin Ratio 1.4 (0.9-2) Lipase 67 (11-82) U/L Urine Color Urine Appearance (Clear) Urine pH (4.5-7.5) Ur Specific [place] (1.000-1.030) Urine Protein (Negative) Urine Glucose (UA) (Negative) Urine Ketones (Negative) Urine Blood (Negative) Urine Nitrite (Negative) Urine Bilirubin (Negative) Urine Urobilinogen (Negative) Ur Leukocyte Esterase (Negative) Urine WBC (Auto) (0-5) /hpf Urine RBC (Auto) (0-4) /hpf U Hyaline Cast (Auto) (0-5) /lpf U Epithel Cells (Auto) (0-5) /lpf Urine Bacteria (Auto) (Negative) Adenovirus (PCR) B. pertussis DNA (PCR) B.parapertussis DNA PCR C. pneumoniae DNA (PCR) Coronavirus OC43 (PCR) Coronavirus HKU1 (PCR) Coronavirus 229E (PCR) SARS-CoV-2 (PCR) Coronavirus NL63 (PCR) Human Metapneumovir PCR Influenza Type B (PCR) M. pneumoniae (PCR) Parainfluenza 1 (PCR) Parainfluenza 2 (PCR) Parainfluenza 3 (PCR) Parainfluenza 4 (PCR) RSV (PCR) Entero/Rhino (PCR) Diagnostic Findings Abdomen/Pelvis CT 10/26/22 12:59 CT SCAN OF THE ABDOMEN AND PELVIS WITHOUT IV CONTRAST CLINICAL HISTORY: Generalized abdominal pain. Nausea and vomiting. COMPARISON STUDY: Abdominal CT dated 05/23/2022. TECHNIQUE: CT scan of the abdomen and pelvis is performed from the lung bases to the proximal femora. Images are reviewed in the axial, sagittal, and coronal planes. IV contrast was not administered for this examination. Note that the examination is suboptimal without oral and IV contrast. A dose lowering technique was utilized adhering to the principles of ALARA. CT DOSE: 1410.88 mGy.cm FINDINGS: Lung bases: The heart is enlarged and without pericardial effusion. Pacemaker leads are in place. There are right larger than left pleural effusions with dependent atelectasis. Liver: The unenhanced liver is normal in size, contour, and attenuation. There is no intrahepatic biliary ductal dilatation. Gallbladder: Surgically absent noting clips in the gallbladder fossa. Spleen: Normal in size and attenuation. Pancreas: The unenhanced pancreas is mildly atrophic and grossly unremarkable. Adrenal glands: Unremarkable. Kidneys: The unenhanced kidneys demonstrate mild cortical atrophy and are without hydronephrosis. There is a punctate nonobstructing right renal calculus. No left renal calculi are identified and no ureteral stone is seen. There is no evidence of contour deforming renal mass lesion. Abdominal vasculature: The abdominal aorta is normal in course and caliber. Bowel: There is mild colonic diverticulosis without CT evidence of acute diverticulitis. No bowel obstruction is seen. The appendix is not identified and reported surgically absent. Peritoneum: No intraperitoneal free air the seen. There is a small volume of pelvic ascites. There is a fat-containing umbilical hernia. Lymphadenopathy: None. Pelvic viscera: The bladder is decompressed and could not be evaluated. The uterus is surgically absent. No adnexal lesion is seen. Skeletal structures: The skeletal structures are osteopenic. There is mild lumbosacral spondylosis No lytic or blastic lesions are seen. IMPRESSION: 1. No acute infectious or inflammatory findings are identified in the abdomen or pelvis. 2. Cardiomegaly and small pleural effusions. 3. Small volume pelvic ascites. 4. Punctate nonobstructing right renal calculus. 5. Colonic diverticulosis without CT evidence of acute diverticulitis. 6. Additional findings as above. ACT 112: Negative or not required by law. Electronically signed by: Hermann Salazar M.D. 10/26/2022 1:41 PM Chest X-Ray 10/26/22 13:01 XR chest 1V portable CLINICAL HISTORY: abd pain, n/v TECHNIQUE: Single frontal radiograph of the chest was obtained. Comparison: Comparison is made to chest radiograph 10/20/2022 FINDINGS: Pacemaker defibrillator is seen. Cardiomegaly is noted. Prominence and cephalization of the vasculature is seen. Small bilateral pleural effusions are seen. IMPRESSION: Cardiomegaly and mild pulmonary edema. Small bilateral pleural effusions which are increased from prior exam. ACT 112: Negative or not required by law. Electronically signed by: Inderjit Frank M.D. 10/26/2022 1:43 PM Supervising Physician Co-Signing Physician Notes I personally saw and examined the patient. I verified all alejandra points and agree with Rosamaria Barry PA-C with the following exceptions and/or additions: 67 year old female presents to the ER with worsening nausea and vomiting following recent admission for acute CHF requiring dobutamine infusion. Sent in by cardiology for consideration of EGD by gastroenterology. O/E A&Ox3, in distress from diphenhydramine causing skin crawling sensation, HS quiet, RRR, no murmurs, Chest CTAB, Abdo SNT A/P Nausea and vomiting - CT A/P on October 26 without acute etiology. Consult GI for consideration of EGD. Consult cardiology to clear pre-operatively given severe cardiomyopathy. Switch anticoagulation to IV heparin as unable to take oral at this time and can be discontinued for EGD. PG Care Time/CCT Total # of Minutes Spent Total Time Spent with Patient: Total time spent is greater than 50% in coordination of care (as documented) at patient's floor/unit and/or counseling patient: Coding Level of Care Code 31264 INT INP/OBS CARE 3/75MIN Diagnoses Nausea & vomiting R11.2 Dysphagia R13.10 GERD (gastroesophageal reflux disease) K21.9 CKD (chronic kidney disease), stage III N18.30 HFrEF (heart failure with reduced ejection fraction) I50.20 Cardiomyopathy I42.9 Hypotension I95.9 Hypotension type: unspecified hypotension type ICD (implantable cardioverter-defibrillator) in place Z95.810 Pulmonary embolism I26.99 Nocturnal hypoxia G47.34 Diabetes E11.9 Elevated LFTs R79.89 (7) Hypotension Hypotension type: unspecified hypotension type Qualified Code(s): I95.9 - Hypotension, unspecified
--- NOTE | 2022-10-26 16:03 | Ultrasound Report ---
ABDOMINAL ULTRASOUND, RIGHT UPPER QUADRANT HISTORY: elevated lft, s/p cholecystectomy. COMPARISON: CT 10/26/2022 FINDINGS: Pancreas: The pancreas is obscured by bowel gas. Liver: Unremarkable. Gallbladder: Cholecystectomy. CBD: 0.6 and ureter. Right kidney: Mild cortical thinning. No hydronephrosis. Right pleural effusion. IMPRESSION: 1. Unremarkable exam status post cholecystectomy. 2. Right pleural effusion redemonstrated. ACT 112: Negative or not required by law. Electronically signed by: Dick Franklin M.D. 10/26/2022 4:02 PM
[2022-10-26] MEDS ORDERED: Heparin IV Adult Wt-Based Standard *NO* Bolus Protocol IV STA (16:06)
[2022-10-26] MEDS ORDERED: FAMOTIDINE 20MG/5ML IV PUSH IV ONE (16:23)
[2022-10-26 16:33] LABS: Adenovirus PCR Not Detected (NotDetected); Bordetella parapertussis PCR Not Detected (NotDetected); Bordetella pertussis PCR Not Detected (NotDetected); Chlamydia pneumoniae PCR Not Detected (NotDetected); Coronavirus 229E PCR Not Detected (NotDetected); Coronavirus CoV-2 (COVID19)PCR Not Detected (NotDetected); Coronavirus HKU1 PCR Not Detected (NotDetected); Coronavirus NL63 PCR Not Detected (NotDetected); Coronavirus OC43PCR Not Detected (NotDetected); Human Metapneumovirus PCR Not Detected (NotDetected); Influenza A PCR Not Detected (NotDetected); Influenza B PCR Not Detected (NotDetected); Mycoplasma pneumoniae PCR Not Detected (NotDetected); Parainfluenza Virus 1 PCR Not Detected (NotDetected); Parainfluenza Virus 2 PCR Not Detected (NotDetected); Parainfluenza Virus 3 PCR Not Detected (NotDetected); Parainfluenza Virus 4 PCR Not Detected (NotDetected); Respiratory Syncytial VirusPCR Not Detected (NotDetected); Rhinovirus/Enterovirus PCR Not Detected (NotDetected)
[2022-10-26 16:59] LABS: INR 1.6 (0.9-1.1); Partial Thromboplastin Time 28.3 Seconds (21.0-31.0); Prothrombin Time 16.7 Seconds (9.0-12.0)
[2022-10-26] MEDS ORDERED: ONDANSETRON INJ 2 MG/ML 2 ML VIAL IV PRN (17:52)
[2022-10-26] MEDS ORDERED: LEVALBUTEROL TARTRATE 15 GM HFA.AER.AD INH PRN (17:52)
[2022-10-26] MEDS ORDERED: GLUCOSE 10 TAB/TUBE PO PRN (17:52)
[2022-10-26] MEDS ORDERED: CARBOHYDRATES FOR HYPOGLYCEMIA PO PRN (17:52)
[2022-10-26] MEDS ORDERED: PANTOprazole 40 MG in SYRINGE 0 ML IV ONE (17:52)
[2022-10-26] MEDS ORDERED: GLUCAGON FOR INJ 1 MG VIAL SQ PRN (17:52)
[2022-10-26] MEDS ORDERED: GLUCOSE 40% GEL 15 GM TUBE PO PRN (17:52)
[2022-10-26] MEDS ORDERED: DEXTROSE 50% 50 ML SYRINGE IV PRN (17:52)
[2022-10-26] MEDS ORDERED: METOCLOPRAMIDE HCL INJ 5 MG/ML 2 ML VIAL IV PRN (17:52)
[2022-10-26] MEDS ORDERED: SODIUM CHLORIDE 0.9% 500 ML IV SCH (17:52)
[2022-10-26] MEDS ORDERED: HEPARIN 25000 UNIT/500 ML D5W IV ONE (18:11)
[2022-10-26] MEDS: HEPARIN SODIUM/DEXTROSE 25,000 UNITS/500 ML BAG IV SCH (18:39)
[2022-10-26] MEDS: INSULIN ASPART PER UNIT CHARGE SC SCH ×2 (18:46→20:15)
[2022-10-26] MEDS: carvediloL 3.125 MG TAB PO SCH (22:25)
[2022-10-26] MEDS: PANTOprazole 40 MG in SYRINGE 0 ML IV SCH (22:33)
[2022-10-27 01:42] LABS: Partial Thromboplastin Ratio 2.2
[2022-10-27 01:44] LABS: Partial Thromboplastin Time 61.4 Seconds (21.0-31.0)
[2022-10-27 06:01] LABS: Basophils # (auto) 0.03 K/uL (0-0.2); Basophils % (auto) 0.3 %; Eosinophils # (auto) 0.01 K/uL (0-0.50); Eosinophils % (auto) 0.1 %; Hematocrit (blood only) 34.2 % (37.0-47.0); Hemoglobin 11.6 g/dl (12.0-16.0); Immature Granulocytes # (auto) 0.03 K/uL (0.01-0.20); Immature Granulocytes % (auto) 0.3 %; Lymphocytes # (auto) 1.27 K/uL (1.2-3.4); Lymphocytes % (auto) 13.2 %; Mean Corpuscular Hemoglobin 32.8 pg (25.0-34.0); Mean Corpuscular Hgb Conc 33.9 g/dL (32.0-36.0); Mean Corpuscular Volume 96.6 fL (80.0-100.0); Mean Platelet Volume 9.9 fL (9.4-12.4); Monocytes # (auto) 0.66 K/uL (0.11-0.59); Monocytes % (auto) 6.9 %; Neutrophils % (auto) 79.2 %; Platelet Count 210 K/uL (130-400); RDW Coefficient of Variation 13.6 % (11.5-14.5); RDW Standard Deviation 47.4 fL (36.4-46.3); Red Blood Count 3.54 M/uL (4.20-5.40)
[2022-10-27 06:28] LABS: Albumin Level 3.2 gm/dl (3.4-5.0); BUN Creatinine Ratio 24.5 (10-20); Bilirubin Direct 1.2 mg/dl (0-0.2); Bilirubin,Total 3.3 mg/dl (0.2-1.0); Calcium 8.7 mg/dl (8.6-10.3); Creatinine Clr Calc Pharmacy 25.1 ml/min; Est GFR (African American) 26.8 ml/min; Est GFR (Non-African American) 23.1 ml/min; Magnesium 2.1 mg/dl (1.7-2.4); Potassium 3.9 mmol/L (3.5-5.1); Total Protein 5.3 gm/dl (6.0-8.3)
[2022-10-27 06:44] LABS: Partial Thromboplastin Ratio 3.8
[2022-10-27 06:48] LABS: Partial Thromboplastin Time 108.2 Seconds (21.0-31.0)
--- NOTE | 2022-10-27 09:06 | Cardiology Consultation ---
Date of Consultation October 27, 2022 Assessment & Plan (1) HFrEF (heart failure with reduced ejection fraction): (2) NSVT (nonsustained ventricular tachycardia): (3) ICD (implantable cardioverter-defibrillator) in place: (4) Cardiomyopathy: (5) CKD (chronic kidney disease), stage III: (6) Elevated LFTs: (7) Nausea & vomiting: Plan ASSESSMENT/PLAN: 1. Chronic heart failure with reduced EF: She does not appear hypervolemic and given no significant oral intake, may be a bit hypovolemic. Labs suggest azotemia. Can be cautious with maintenance IV fluid with small increments and reassess. Hold Lasix while not tolerating p.o. Hold spironolactone given worsening renal function. Had been on low-dose Entresto in the past but this was held after recent hospitalization and given renal function, would hold for now. Continue low-dose carvedilol. Has been referred as an outpatient to [facility] for consideration of mechanical heart failure therapies. Cannot exclude worsening renal function and transaminase abnormalities from low output failure, but given other GI complaints with difficulty swallowing, low output failure less likely currently. We will continue to reassess. 2. Nonischemic cardiomyopathy: ICD in place. Medical therapy as above. Follows with electrophysiology for ICD. 3. Nonsustained ventricular tachycardia: Brief episodes here and had been noted on most recent ICD interrogation with ATP on 1 occasion. Continue beta-ric. 4. CKD: Worsening renal function as above. 5. Elevated transaminase levels/nausea/vomiting/difficult swallowing: GI consultation. Possible EGD. 6. Preoperative cardiac assessment: Elevated cardiac risk given her chronic heart failure with reduced EF, nonischemic cardiomyopathy, and recent hospital stay where she was treated with inotropic therapy for low output failure. Be very cautious with fluid administration. Monitor for arrhythmia. Discussed with Selena CRANDALL. 7. Disposition: Plan discussed with Dr. Park of the primary hospitalist service. Cardiology will continue to follow. On discharge, follow-up with Dr. Mejia. Highly complex medical issues. Thank you for allowing me to participate in the care of your patient. Please call for any other questions or concerns. Sincerely, Rony Duarte M.D. History of Present Illness Reason for Consultation: Preoperative cardiac assessment Requesting Physician: Rosamaria Barry PA-C Attending Physician: Ramesh Park MD History of Present Illness Mrs. Noyola is a very pleasant 67-year-old female with a history significant for nonischemic cardiomyopathy, heart failure with reduced EF, type 2 diabetes, CKD, hypertension, dyslipidemia, and pulmonary emboli (diagnosed May 2022). She has ICD for primary prevention and has noted nonsustained ventricular tachycardia treated with ATP (September 2022 interrogation). Her primary offset assistant press operator is Dr. Mejia. She follows in the heart failure program. She has had the following studies/procedures: 1. Dual-chamber ICD 03/14/2014. 2. Cardiac cath 2017: No significant CAD. 3. Echo 10/27/2021 [facility]: Severely reduced LV systolic function. EF 15 to 20%. Moderately dilated LV. Severe global hypokinesis. Moderate MR. Mild left atrial dilation. 4. Echo 05/28/2022 [facility]: Per patient report, EF remained 15 to 20%. 5. Echo 06/14/2022 [facility]: Mildly dilated LV with severely reduced systolic function. EF 15-20%. Global hypokinesis. Septal dyskinesis. Biatrial d ilation. Moderate MR. Mild to moderate TR. Mild pulmonary hypertension. She was admitted on 10/26/22 due to nausea, vomiting, and unable to swallow. She was hospitalized last week from 10/20/2022 until discharge on 10/23/2022 where she was treated with inotropic therapy (dobutamine) under the care of Dr. Mejia. According to records, she had been experiencing dyspnea on exertion and orthopnea and had significant urine output on inotropic therapy for 2 days and felt better from a heart failure standpoint upon discharge. She admits that she was having difficulty swallowing and was experiencing pain in her throat and dry heaves when she left the hospital but the symptoms worsened while at home. While trying to consume boost, she was unable to swallow it fully, only to vomit after it felt as though it was stuck in her throat. When able to swallow fully, she would experience epigastric discomfort. She felt dehydrated upon presentation as she was unable to tolerate p.o. She was given fluid cautiously upon presentation and tolerated it well. She denies orthopnea and has chronic and stable dyspnea on exertion. She denies chest pain, syncope, near syncope, palpitations, edema, or bleeding. Ever since cholecystectomy earlier this year, she has been unable to tolerate more aggressive medical therapy in regards to her heart failure regimen. She was seen in the office on 10/26/[address] Mejia and he has referred her to [facility] for LVAD/transplant evaluation. Review of systems:As above. Review of systems otherwise negative/unremarkable. Family history:Father in a motor vehicle accident however 3 paternal uncles with cardiomyopathy. Social history:She denies tobacco or drug abuse. Rare alcohol. She lives at home with her . She has 2 adult children. She was unaccompanied in her hospital room. Allergies Allergy/AdvReac Type Severity Reaction Status Date / Time erythromycin base Allergy Severe blisters;red;itchy;pain;blisters Verified 10/26/22 15:36 in back throat iodine Allergy Severe throat Verified 10/26/22 15:36 blisters;skin blisters meperidine [From Demerol] Allergy Severe quit Verified 10/26/22 15:36 breathing adhesive Allergy Intermediate BLISTERS Verified 10/26/22 15:36 cinnamon Allergy Intermediate Hives Verified 10/26/22 15:37 tetracycline Allergy Unknown TERRAMYCIN Verified 10/26/22 15:36 ALLERGY atorvastatin AdvReac Intermediate MUSCLE Verified 10/26/22 15:36 PAIN/ACHES, DIFFICULTY WALKING azithromycin AdvReac Intermediate Gastrointestinal Verified 10/26/22 15:36 Upset metformin AdvReac Intermediate Diarrhea Verified 10/26/22 15:36 rosuvastatin [From Crestor] AdvReac Intermediate Cramping Verified 10/26/22 15:36 of the Muscles Tposfzh-CHT-WdF Reductase AdvReac Intermediate MUSCLE Verified 10/26/22 15:36 Inhibitor PAIN/ACHES, [Somhjwm-Ksn-Bfw Reductase DIFFICULTY Inhibitor] WALKING Home Medications Medication Instructions Recorded Confirmed Type cholecalciferol (vitamin D3) 125 5,000 units PO DAILY 01/14/19 10/26/22 History mcg (5,000 unit) capsule empagliflozin 25 mg tablet 25 mg PO DAILY #90 tabs 11/09/21 10/26/22 Rx ezetimibe 10 mg tablet 10 mg PO PM #90 tabs 02/15/22 10/26/22 Rx acetaminophen 325 mg tablet 650 mg PO Q4H PRN pain #30 tabs 05/14/22 10/26/22 Rx inhalational spacing device #1 ea 07/08/22 10/26/22 Rx (Aerochamber Plus Flow-Vu) levalbuterol tartrate 45 2 inh inhalation Q6H PRN shortness 07/08/22 10/26/22 Rx mcg/actuation aerosol inhaler of breath/cough/wheeze #15 grams (Xopenex HFA) furosemide 40 mg tablet 40 mg PO DAILY #60 tabs 08/09/22 10/26/22 Rx apixaban 5 mg tablet (Eliquis) 5 mg PO BID #180 tabs 08/25/22 10/26/22 Rx blood sugar diagnostic (Accu-Chek #100 ea 09/07/22 10/26/22 Rx Guide test strips) blood-glucose meter (Accu-Chek #1 ea 09/07/22 10/26/22 Rx Guide Glucose Meter) lancets (Accu-Chek Softclix #100 ea 09/07/22 10/26/22 Rx Lancets) potassium chloride 20 mEq 20 meq PO DAILY #30 tabs 10/04/22 10/26/22 Rx tablet,extended release pantoprazole 40 mg tablet,delayed 40 mg PO DAILY #90 tabs 10/07/22 10/26/22 Rx release carvedilol 6.25 mg tablet 3.125 mg PO BID #180 tabs 10/19/22 10/26/22 Rx spironolactone 25 mg tablet 25 mg PO QPM 10/26/22 10/26/22 History Patient History Medical History Acute on chronic HFrEF (heart failure with reduced ejection fraction) Acute pulmonary embolism (06/14/22) Allergic rhinitis Asymptomatic menopausal state Atopic dermatitis Chronic kidney disease, stage 3b CKD (chronic kidney disease), stage III Coronavirus infection Dental abscess Diabetes Diabetes mellitus type II, controlled NIDDM Diverticulosis of colon Eustachian tube dysfunction Greater trochanteric bursitis History of diverticulitis History of sigmoidoscopy Hyperlipidemia Hypertension IBS (irritable bowel syndrome) ICD (implantable cardioverter-defibrillator) in place ICD (implantable cardioverter-defibrillator) in place Placed Feb 2015 > [employer] > last checked 03/23/21 with > placed for CHF Idiopathic cardiomyopathy Incidental pulmonary nodule, > 3mm and < 8mm Inflamed seborrheic keratosis Insomnia Internal hemorrhoids Intertrigo Milia Moderate mitral regurgitation Notalgia paresthetica Obesity Osteopenia Pulmonary embolism (05/2022) Sigmoid diverticulitis SK (seborrheic keratosis) Stage 3b chronic kidney disease Vitamin D deficiency Wart Wound dehiscence, surgical Surgical History History of appendectomy History of arthroscopy of right knee History of arthroscopy of right shoulder History of breast biopsy benign History of cardiac cath 10/2017 [facility] no stents History of carpal tunnel surgery History of Neuroplasty Decompression Median Nerve At Carpal Tunnel> right History of cholecystectomy (05/28/22) at [place] by Dr Ivey History of colonoscopy History of foot surgery 1972 History of incision and drainage (05/14/22) infection floor of the mouth and subperiosteal plane # 30 area p Incision and Drainage, Tooth Extraction(Right) - Quinton Amezcua, DMD History of repair of rotator cuff right History of vaginal hysterectomy Family History Mother Breast cancer Diabetes Grandmother Myocardial infarction Other Heart disease No family history of adverse response to anesthesia No family history of bleeding disorder Denies family history of Ovarian cancer Prostate cancer Colorectal cancer Social History Smoking Status: Never smoker Second Hand Exposure: No; Do You Dip or Chew Tobacco: No; Hx Alcohol Use: No Hx Substance Use: No Preferred Language: Kenyan Communication Ability: Effective Visual Impairment: No Limitations Hearing Ability: Normal Support Merchandiser Required: No Beliefs That Will Affect Care: None marital status: Current Living Situation: Spouse current occupational status: retired Feels Safe at Home: Yes Childhood Exposure to Second-Hand Smoke: No Diet: low salt and regular caffeine: Yes during the past year weight has: remained stable Dental Care, Regularly: Yes Physical Activity Frequency: Does not Exercise Seatbelt Use: always Sunscreen Use: Yes Assistive Devices: Cane Physical Exam Physical Exam: Gen.: No acute distress. Alert and oriented. HEENT: Anicteric sclera. Neck: No JVD. No bruits. Normal carotid upstrokes bilaterally. Cardiac: No ventricular heave. Regular. Normal S1-S2. S3. 1/6 systolic ejection murmur. Pulmonary: Faint basilar rales, but otherwise clear to auscultation bilaterally without wheezes, rales, or rhonchi. Abdomen: Soft, nontender, nondistended, with normoactive bowel sounds. No bruits noted. Extremities: 2+ radial pulses bilaterally. 2+ posterior tibialis pulses bilaterally. No edema or cyanosis. Psychiatric: Affect appears appropriate. Results & Data Vital Signs (Past 12 Hours) Vital Signs Temp Pulse Pulse Resp BP BP Pulse Ox 10/27/22 07:23 36.6 C 83 16 95/67 L 94 10/27/22 00:00 81 10/27/22 02:44 36.5 C 82 16 86/57 L 99 10/26/22 23:00 36.5 C 84 20 95/57 L 97 10/26/22 21:20 93/65 L O2 Del Method O2 Flow Rate 10/27/22 07:23 Room Air 10/27/22 00:00 10/27/22 02:44 Nasal Cannula 2 10/26/22 23:00 Nasal Cannula 2 10/26/22 21:20 Intake & Output 10/25/22 10/26/22 10/27/22 10/28/22 06:59 06:59 06:59 06:59 Intake Total 1819.767 / 1819.767 0 / 0 Balance 1819.767 / 1819.767 0 / 0 Weight 168 lb 3.403 oz Laboratory Results Laboratory Results - last 24 hr 10/26/22 10/26/22 10/26/22 13:00 13:01 13:02 WBC 10.68 RBC 4.19 L Hgb 13.8 Hct 41.0 MCV 97.9 MCH 32.9 MCHC 33.7 RDW Std Deviation 46.6 H RDW Coeff of Osman 13.3 Plt Count 257 MPV 9.9 Immature Gran % (Auto) 0.4 Neut % (Auto) 79.1 Lymph % (Auto) 12.8 [place] % (Auto) 6.6 Eos % (Auto) 0.6 Baso % (Auto) 0.5 Neut # (Auto) 8.45 H Lymph # (Auto) 1.37 [place] # (Auto) 0.71 H Eos # (Auto) 0.06 Baso # (Auto) 0.05 Immature Gran # (Auto) 0.04 PT 16.7 H INR 1.6 H APTT 28.3 PTT Ratio 1.0 Sodium 134 L Potassium 3.9 Chloride 97 L Carbon Dioxide 24 Anion Gap 13 H BUN 46 H Creatinine 1.74 H Est Cr Clr Drug Dosing Not Reportable Est GFR ( Amer) 34.8 Est GFR (Non-Af Amer) 30.0 BUN/Creatinine Ratio 26.4 H Glucose 116 H POC Glucose Calcium 9.7 Magnesium 2.3 Total Bilirubin 3.5 H Direct Bilirubin 0.8 H AST 177 H ALT 267 H Alkaline Phosphatase 116 H Troponin I High Sens 20.8 H Total Protein 6.8 Albumin 4.0 Globulin 2.8 Albumin/Globulin Ratio 1.4 Lipase 67 Urine Color Urine Appearance Urine pH Ur Specific [place] Urine Protein Urine Glucose (UA) Urine Ketones Urine Blood Urine Nitrite Urine Bilirubin Urine Urobilinogen Ur Leukocyte Esterase Urine WBC (Auto) Urine RBC (Auto) U Hyaline Cast (Auto) U Epithel Cells (Auto) Urine Bacteria (Auto) Adenovirus (PCR) B. pertussis DNA (PCR) B.parapertussis DNA PCR C. pneumoniae DNA (PCR) Coronavirus OC43 (PCR) Coronavirus HKU1 (PCR) Coronavirus 229E (PCR) SARS-CoV-2 (PCR) Coronavirus NL63 (PCR) Human Metapneumovir PCR Influenza Type A (PCR) Influenza Type B (PCR) M. pneumoniae (PCR) Parainfluenza 1 (PCR) Parainfluenza 2 (PCR) Parainfluenza 3 (PCR) Parainfluenza 4 (PCR) RSV (PCR) Entero/Rhino (PCR) 10/26/22 10/26/22 10/26/22 13:20 14:57 19:35 WBC RBC Hgb Hct MCV MCH MCHC RDW Std Deviation RDW Coeff of Osman Plt Count MPV Immature Gran % (Auto) Neut % (Auto) Lymph % (Auto) [place] % (Auto) Eos % (Auto) Baso % (Auto) Neut # (Auto) Lymph # (Auto) [place] # (Auto) Eos # (Auto) Baso # (Auto) Immature Gran # (Auto) PT INR APTT PTT Ratio Sodium Potassium Chloride Carbon Dioxide Anion Gap BUN Creatinine Est Cr Clr Drug Dosing Est GFR ( Amer) Est GFR (Non-Af Amer) BUN/Creatinine Ratio Glucose POC Glucose Calcium Magnesium Total Bilirubin Direct Bilirubin AST ALT Alkaline Phosphatase Troponin I High Sens 27.7 H Total Protein Albumin Globulin Albumin/Globulin Ratio Lipase Urine Color Dark Yellow Urine Appearance Cloudy A Urine pH 5.0 Ur Specific [place] 1.021 Urine Protein 1+ H Urine Glucose (UA) 2+ H Urine Ketones Trace H Urine Blood Negative Urine Nitrite Negative Urine Bilirubin 1+ H Urine Urobilinogen Negative Ur Leukocyte Esterase Negative Urine WBC (Auto) 1-5 Urine RBC (Auto) 0-4 U Hyaline Cast (Auto) 10-30 H U Epithel Cells (Auto) >30 H Urine Bacteria (Auto) Negative Adenovirus (PCR) Not Detected B. pertussis DNA (PCR) Not Detected B.parapertussis DNA PCR Not Detected C. pneumoniae DNA (PCR) Not Detected Coronavirus OC43 (PCR) Not Detected Coronavirus HKU1 (PCR) Not Detected Coronavirus 229E (PCR) Not Detected SARS-CoV-2 (PCR) Not Detected Coronavirus NL63 (PCR) Not Detected Human Metapneumovir PCR Not Detected Influenza Type A (PCR) Not Detected Influenza Type B (PCR) Not Detected M. pneumoniae (PCR) Not Detected Parainfluenza 1 (PCR) Not Detected Parainfluenza 2 (PCR) Not Detected Parainfluenza 3 (PCR) Not Detected Parainfluenza 4 (PCR) Not Detected RSV (PCR) Not Detected Entero/Rhino (PCR) Not Detected 10/26/22 10/27/22 10/27/22 20:08 00:38 05:46 WBC 9.60 RBC 3.54 L Hgb 11.6 L Hct 34.2 L MCV 96.6 MCH 32.8 MCHC 33.9 RDW Std Deviation 47.4 H RDW Coeff of Osman 13.6 Plt Count 210 MPV 9.9 Immature Gran % (Auto) 0.3 Neut % (Auto) 79.2 Lymph % (Auto) 13.2 [place] % (Auto) 6.9 Eos % (Auto) 0.1 Baso % (Auto) 0.3 Neut # (Auto) 7.60 H Lymph # (Auto) 1.27 [place] # (Auto) 0.66 H Eos # (Auto) 0.01 Baso # (Auto) 0.03 Immature Gran # (Auto) 0.03 PT INR APTT 61.4 H* PTT Ratio 2.2 Sodium Potassium Chloride Carbon Dioxide Anion Gap BUN Creatinine Est Cr Clr Drug Dosing Est GFR ( Amer) Est GFR (Non-Af Amer) BUN/Creatinine Ratio Glucose POC Glucose 143 H Calcium Magnesium Total Bilirubin Direct Bilirubin AST ALT Alkaline Phosphatase Troponin I High Sens Total Protein Albumin Globulin Albumin/Globulin Ratio Lipase Urine Color Urine Appearance Urine pH Ur Specific [place] Urine Protein Urine Glucose (UA) Urine Ketones Urine Blood Urine Nitrite Urine Bilirubin Urine Urobilinogen Ur Leukocyte Esterase Urine WBC (Auto) Urine RBC (Auto) U Hyaline Cast (Auto) U Epithel Cells (Auto) Urine Bacteria (Auto) Adenovirus (PCR) B. pertussis DNA (PCR) B.parapertussis DNA PCR C. pneumoniae DNA (PCR) Coronavirus OC43 (PCR) Coronavirus HKU1 (PCR) Coronavirus 229E (PCR) SARS-CoV-2 (PCR) Coronavirus NL63 (PCR) Human Metapneumovir PCR Influenza Type A (PCR) Influenza Type B (PCR) M. pneumoniae (PCR) Parainfluenza 1 (PCR) Parainfluenza 2 (PCR) Parainfluenza 3 (PCR) Parainfluenza 4 (PCR) RSV (PCR) Entero/Rhino (PCR) 10/27/22 10/27/22 10/27/22 05:46 05:46 07:17 WBC RBC Hgb Hct MCV MCH MCHC RDW Std Deviation RDW Coeff of Osman Plt Count MPV Immature Gran % (Auto) Neut % (Auto) Lymph % (Auto) [place] % (Auto) Eos % (Auto) Baso % (Auto) Neut # (Auto) Lymph # (Auto) [place] # (Auto) Eos # (Auto) Baso # (Auto) Immature Gran # (Auto) PT INR APTT 108.2 H* PTT Ratio 3.8 Sodium 133 L Potassium 3.9 Chloride 100 Carbon Dioxide 23 Anion Gap 10 BUN 53 H Creatinine 2.16 H D Est Cr Clr Drug Dosing 25.1 Est GFR ( Amer) 26.8 Est GFR (Non-Af Amer) 23.1 BUN/Creatinine Ratio 24.5 H Glucose 123 H POC Glucose 103 H Calcium 8.7 Magnesium 2.1 Total Bilirubin 3.3 H Direct Bilirubin 1.2 H AST 634 H ALT 641 H Alkaline Phosphatase 111 H Troponin I High Sens Total Protein 5.3 L D Albumin 3.2 L Globulin Albumin/Globulin Ratio Lipase Urine Color Urine Appearance Urine pH Ur Specific [place] Urine Protein Urine Glucose (UA) Urine Ketones Urine Blood Urine Nitrite Urine Bilirubin Urine Urobilinogen Ur Leukocyte Esterase Urine WBC (Auto) Urine RBC (Auto) U Hyaline Cast (Auto) U Epithel Cells (Auto) Urine Bacteria (Auto) Adenovirus (PCR) B. pertussis DNA (PCR) B.parapertussis DNA PCR C. pneumoniae DNA (PCR) Coronavirus OC43 (PCR) Coronavirus HKU1 (PCR) Coronavirus 229E (PCR) SARS-CoV-2 (PCR) Coronavirus NL63 (PCR) Human Metapneumovir PCR Influenza Type A (PCR) Influenza Type B (PCR) M. pneumoniae (PCR) Parainfluenza 1 (PCR) Parainfluenza 2 (PCR) Parainfluenza 3 (PCR) Parainfluenza 4 (PCR) RSV (PCR) Entero/Rhino (PCR) Diagnostic Findings Telemetry personally reviewed: Sinus rhythm with nonsustained ventricular tachycardia of 5 beats at 5:25 AM and 8 beats at 7:08 AM on 10/27/2022. Outpatient cardiology note and history and physical report reviewed. ECG personally reviewed 10/26/2022: Sinus rhythm 91 bpm. Anterior infarct. Labs reviewed from 10/27/2022 and notable for mild anemia, worsening renal function with azotemic appearance, worsening transaminase levels. High- sensitivity troponin during this hospital stay is mildly elevated which appears to be a chronic finding. Liver ultrasound 10/26/2022: Right pleural effusion. Unremarkable liver exam per radiology. CT abdomen/pelvis without IV contrast: No acute infectious or inflammatory findings. Cardiomegaly and small pleural effusions. Small volume pelvic ascites. Nonobstructing right renal calculus. Colonic diverticulosis. Chest x-ray 10/26/2022: Prominence and cephalization of pulmonary vasculature with small bilateral pleural effusions. Medications Administered Current Inpatient Medications Carvedilol (Carvedilol 3.125 Mg Tab) 3.125 mg PO BID WALKER Stop: 11/25/22 20:59 Last Admin: 10/26/22 22:25 Dose: Not Given Dextrose (Dextrose 50% 50 Ml Syringe) 25 - 50 ml IV UD PRN; Protocol PRN Reason: Hypoglycemia Protocol Stop: 11/25/22 17:51 Glucagon (Glucagon For Inj 1 Mg Vial) 1 mg SQ UD PRN; Protocol PRN Reason: Hypoglycemia Protocol Stop: 11/25/22 17:51 Glucose (Glucose 10 Tab/Tube) 4 - 8 tab PO UD PRN; Protocol PRN Reason: Hypoglycemia Treatment Stop: 11/25/22 17:51 Glucose (Glucose 40% Gel 15 Gm Tube) 15 - 30 gm PO UD PRN; Protocol PRN Reason: Hypoglycemia Protocol Stop: 11/25/22 17:51 Heparin Sodium/Dextrose (Heparin Sodium/Dextrose) 25,000 units in 500 mls @ 18 mls/hr IV .Q24H WALKER; Protocol Stop: 11/25/22 16:29 Last Titration: 10/27/22 07:52 Dose: 900 units/hr, 18 mls/hr Pantoprazole Sodium 40 mg/ (Syringe) 10 mls @ 5 mls/min IV BID WALKER Stop: 11/25/22 20:59 Last Admin: 10/26/22 22:33 Dose: 5 mls/min Insulin Aspart (Insulin Aspart Per Unit Charge) 0 units SC ACHS WALKER Stop: 11/25/22 18:14 Last Admin: 10/26/22 20:15 Dose: Not Given Levalbuterol HCl (Levalbuterol Tartrate 15 Gm Hfa.Aer.Ad) 2 puffs INH Q6H PRN PRN Reason: shortness of breath/cough/wheeze Stop: 11/25/22 17:51 Metoclopramide HCl (Metoclopramide Hcl Inj 5 Mg/Ml 2 Ml Vial) 10 mg IV Q6H PRN PRN Reason: Nausea Stop: 11/25/22 17:51 Miscellaneous (Carbohydrates For Hypoglycemia ) 15 - 30 gm PO UD PRN PRN Reason: Hypoglycemia Protocol Stop: 11/25/22 17:51 Ondansetron HCl (Ondansetron Inj 2 Mg/Ml 2 Ml Vial) 4 mg IV Q6H PRN PRN Reason: Nausea Stop: 11/25/22 17:51 PG Care Time/CCT Total # of Minutes Spent Total Time Spent with Patient: Total time spent is greater than 50% in coordination of care (as documented) at patient's floor/unit and/or counseling patient: Coding Level of Care Code 82745 INT INP/OBS CARE 3/75MIN Diagnoses HFrEF (heart failure with reduced ejection fraction) I50.20 NSVT (nonsustained ventricular tachycardia) I47.2 ICD (implantable cardioverter-defibrillator) in place Z95.810 Cardiomyopathy I42.9 CKD (chronic kidney disease), stage III N18.30 Elevated LFTs R79.89 Nausea & vomiting R11.2
[2022-10-27] MEDS: PANTOprazole 40 MG in SYRINGE 0 ML IV SCH ×2 (09:30→20:16)
[2022-10-27] MEDS: carvediloL 3.125 MG TAB PO SCH ×2 (09:30→21:20)
[2022-10-27] MEDS: INSULIN ASPART PER UNIT CHARGE SC SCH ×4 (09:44→20:09)
--- NOTE | 2022-10-27 10:33 | Gastrointestinal Consultation ---
Date of Consultation October 27, 2022 Assessment & Plan (1) GERD (gastroesophageal reflux disease): (2) Intractable nausea and vomiting: (3) Dysphagia: (4) Early satiety: (5) Elevated LFTs: Plan Patient ideally would undergo a MRCP today for further evaluation of sx and abnormal liver panel given recent cholecystectomy. Unfortunately due to ICD, she is not a candidate for MRI. Cardiology clearance is being obtained. Will discuss if possibly an EGD/EUS would be more beneficial in evaluating her global GI issues as she is higher risk for anesthesia with cardiac risk factors and would want to minimize her need for sedation. Recommend continuing NPO for now. Continue Pantoprazole 40 mg IV BID and antiemetics as prescribed. Will advise further upon discussion with Charlie CRANDALL. Addendum @1301: Spoke with Charlie CRANDALL. Due to lack of biliary coverage, if worsened liver, panel patient would require transfer. Otherwise EUS can be performed outpt. Will plan for EGD with Dr. Madera tomorrow. Thank you for allowing us to participate in the care of this patient. If you have any questions or concerns, please do not hesitate to contact us. History of Present Illness Reason for Consultation: N/V, Elevated liver enzymes, s/p ketty Requesting Physician: Rosamaria Barry PA-C Attending Physician: Ramesh Park MD History of Present Illness Patient is a 67 y.o. female with a history of idiopathic cardiomyopathy and CHF status post ICD placement who was recently hospitalized with low output heart failure for which she received a dobutamine infusion, now with nausea and vomiting and poor oral intake which has been ongoing for the past week. She also reports a new onset of dysphagia to solids only which has been persisting since this admission. Currently, the patient endorses vomiting even with liquids. +epigastric pain. Laboratory testing on admission demonstrated an elevated BUN and creatinine which was felt possibly related to poor intake and dehydration. Liver panel reviewed demonstrated a TB of 3.3, DB 1.2, AST 634, ALT 641, and ALP 111. CT a/p and liver ultrasound were unremarkable s/p cholecystectomy (performed at [facility] in May of this year due to cholelithiasis and cholecystitis). Cardiology consultation has been requested for possible EGD given her GI alarm symptoms. Discussed with Dr. Duarte. Cardiac clearance is being given for invasive GI work up. Of note, she was recently evaluated by Dr. Padilla in the office a few weeks ago. She was reporting epigastric pain and early satiety at that time as well. He recommended adding H2RA in addition to PPI and consideration of GES. Allergies Allergy/AdvReac Type Severity Reaction Status Date / Time erythromycin base Allergy Severe blisters;red;itchy;pain;blisters Verified 10/26/22 15:36 in back throat iodine Allergy Severe throat Verified 10/26/22 15:36 blisters;skin blisters meperidine [From Demerol] Allergy Severe quit Verified 10/26/22 15:36 breathing adhesive Allergy Intermediate BLISTERS Verified 10/26/22 15:36 cinnamon Allergy Intermediate Hives Verified 10/26/22 15:37 tetracycline Allergy Unknown TERRAMYCIN Verified 10/26/22 15:36 ALLERGY atorvastatin AdvReac Intermediate MUSCLE Verified 10/26/22 15:36 PAIN/ACHES, DIFFICULTY WALKING azithromycin AdvReac Intermediate Gastrointestinal Verified 10/26/22 15:36 Upset metformin AdvReac Intermediate Diarrhea Verified 10/26/22 15:36 rosuvastatin [From Crestor] AdvReac Intermediate Cramping Verified 10/26/22 15:36 of the Muscles Ipcwhgj-LTV-HiD Reductase AdvReac Intermediate MUSCLE Verified 10/26/22 15:36 Inhibitor PAIN/ACHES, [Mesnpsc-Hcf-Hzz Reductase DIFFICULTY Inhibitor] WALKING Home Medications Medication Instructions Recorded Confirmed Type cholecalciferol (vitamin D3) 125 5,000 units PO DAILY 01/14/19 10/26/22 History mcg (5,000 unit) capsule empagliflozin 25 mg tablet 25 mg PO DAILY #90 tabs 11/09/21 10/26/22 Rx ezetimibe 10 mg tablet 10 mg PO PM #90 tabs 02/15/22 10/26/22 Rx acetaminophen 325 mg tablet 650 mg PO Q4H PRN pain #30 tabs 05/14/22 10/26/22 Rx inhalational spacing device #1 ea 07/08/22 10/26/22 Rx (Aerochamber Plus Flow-Vu) levalbuterol tartrate 45 2 inh inhalation Q6H PRN shortness 07/08/22 10/26/22 Rx mcg/actuation aerosol inhaler of breath/cough/wheeze #15 grams (Xopenex HFA) furosemide 40 mg tablet 40 mg PO DAILY #60 tabs 08/09/22 10/26/22 Rx apixaban 5 mg tablet (Eliquis) 5 mg PO BID #180 tabs 08/25/22 10/26/22 Rx blood sugar diagnostic (Accu-Chek #100 ea 09/07/22 10/26/22 Rx Guide test strips) blood-glucose meter (Accu-Chek #1 ea 09/07/22 10/26/22 Rx Guide Glucose Meter) lancets (Accu-Chek Softclix #100 ea 09/07/22 10/26/22 Rx Lancets) potassium chloride 20 mEq 20 meq PO DAILY #30 tabs 10/04/22 10/26/22 Rx tablet,extended release pantoprazole 40 mg tablet,delayed 40 mg PO DAILY #90 tabs 10/07/22 10/26/22 Rx release carvedilol 6.25 mg tablet 3.125 mg PO BID #180 tabs 10/19/22 10/26/22 Rx spironolactone 25 mg tablet 25 mg PO QPM 10/26/22 10/26/22 History Patient History Medical History Acute on chronic HFrEF (heart failure with reduced ejection fraction) Acute pulmonary embolism (06/14/22) Allergic rhinitis Asymptomatic menopausal state Atopic dermatitis Chronic kidney disease, stage 3b CKD (chronic kidney disease), stage III Coronavirus infection Dental abscess Diabetes Diabetes mellitus type II, controlled NIDDM Diverticulosis of colon Eustachian tube dysfunction Greater trochanteric bursitis History of diverticulitis History of sigmoidoscopy Hyperlipidemia Hypertension IBS (irritable bowel syndrome) ICD (implantable cardioverter-defibrillator) in place ICD (implantable cardioverter-defibrillator) in place Placed Feb 2015 > [employer] > last checked 03/23/21 with > placed for CHF Idiopathic cardiomyopathy Incidental pulmonary nodule, > 3mm and < 8mm Inflamed seborrheic keratosis Insomnia Internal hemorrhoids Intertrigo Milia Moderate mitral regurgitation Notalgia paresthetica Obesity Osteopenia Pulmonary embolism (05/2022) Sigmoid diverticulitis SK (seborrheic keratosis) Stage 3b chronic kidney disease Vitamin D deficiency Wart Wound dehiscence, surgical Surgical History History of appendectomy History of arthroscopy of right knee History of arthroscopy of right shoulder History of breast biopsy benign History of cardiac cath 10/2017 [facility] no stents History of carpal tunnel surgery History of Neuroplasty Decompression Median Nerve At Carpal Tunnel> right History of cholecystectomy (05/28/22) at [place] by Dr Ivey History of colonoscopy History of foot surgery 1972 History of incision and drainage (05/14/22) infection floor of the mouth and subperiosteal plane # 30 area p Incision and Drainage, Tooth Extraction(Right) - Quinton Amezcua, DMD History of repair of rotator cuff right History of vaginal hysterectomy Family History Mother Breast cancer Diabetes Grandmother Myocardial infarction Other Heart disease No family history of adverse response to anesthesia No family history of bleeding disorder Denies family history of Ovarian cancer Prostate cancer Colorectal cancer Social History Smoking Status: Never smoker Second Hand Exposure: No; Do You Dip or Chew Tobacco: No; Hx Alcohol Use: No Hx Substance Use: No Preferred Language: Vietnamese Communication Ability: Effective Visual Impairment: No Limitations Hearing Ability: Normal Course Developer Required: No Beliefs That Will Affect Care: None marital status: Current Living Situation: Spouse current occupational status: retired Feels Safe at Home: Yes Childhood Exposure to Second-Hand Smoke: No Diet: low salt and regular caffeine: Yes during the past year weight has: remained stable Dental Care, Regularly: Yes Physical Activity Frequency: Does not Exercise Seatbelt Use: always Sunscreen Use: Yes Assistive Devices: Cane Review of Systems Constitutional: as per Subjective / HPI Respiratory: as per Subjective / HPI Cardiovascular: no chest pain and no palpitations Gastrointestinal: as per Subjective / HPI Physical Exam Constitutional: WD/WN, vitals as above Respiratory: normal respiratory effort, lungs clear to auscultation Cardiovascular: Rate/Rhythm: regular rate and regular rhythm Gastrointestinal (Abdomen): Inspection/Auscultation: abdomen normal to inspection and normal bowel sounds Percussion/Palpation: + abdomen tender (epigastric); no guarding and abdomen not rigid Psychiatric: A+Ox3, euthymic affect Results & Data Vital Signs (Past 12 Hours) Vital Signs Temp Pulse Pulse Resp BP BP Pulse Ox 10/27/22 07:23 36.6 C 83 16 95/67 L 94 10/27/22 00:00 81 10/27/22 02:44 36.5 C 82 16 86/57 L 99 10/26/22 23:00 36.5 C 84 20 95/57 L 97 O2 Del Method O2 Flow Rate 10/27/22 07:23 Room Air 10/27/22 00:00 10/27/22 02:44 Nasal Cannula 2 10/26/22 23:00 Nasal Cannula 2 PG Care Time/CCT Total # of Minutes Spent Total Time Spent with Patient: Total time spent is greater than 50% in coordination of care (as documented) at patient's floor/unit and/or counseling patient: Coding Level of Care Code 13456 INT INP/OBS CARE 375MIN Diagnoses GERD (gastroesophageal reflux disease) K21.9 Intractable nausea and vomiting R11.2 Dysphagia R13.10 Early satiety R68.81 Elevated LFTs R79.89
--- NOTE | 2022-10-27 15:33 | Fluoroscopy Report ---
FL barium swallow CLINICAL HISTORY: intractable n/v TECHNIQUE: The patient was observed drinking thick and thin barium under fluoroscopic observation in both the upright and recumbent positions. Total fluoroscopy time: 15 seconds Ka,r: 11.1 mGy COMPARISON: None available at the time of this dictation. FINDINGS: The patient had no problem initiating the swallowing mechanism. There was no evidence of aspiration. Normal peristalsis was seen throughout the esophagus. There was no evidence of strictures, filling defects, or outpouchings. Contrast flowed readily from t he esophagus into the stomach. No hiatal hernia was identified. There was no evidence of gastroesopha geal reflux. Exam is limited due to patient toleration. Pillwas not administered. IMPRESSION: Highly limited exam without acute abnormality. ACT 112: Negative or not required by law. Electronically signed by: Inderjit Frank M.D. 10/27/2022 3:32 PM
[2022-10-27 15:45] LABS: Partial Thromboplastin Ratio 2.2
[2022-10-27] MEDS: HEPARIN SODIUM/DEXTROSE 25,000 UNITS/500 ML BAG IV SCH (16:29)
[2022-10-27 18:38] LABS: BUN Creatinine Ratio 25.9 (10-20); Calcium 9.1 mg/dl (8.6-10.3); Creatinine Clr Calc Pharmacy 24.2 ml/min; Est GFR (African American) 25.6 ml/min; Est GFR (Non-African American) 22.1 ml/min
[2022-10-27 18:57] LABS: Albumin Globulin Ratio 1.5 (0.9-2); Albumin Level 3.5 gm/dl (3.4-5.0); Globulin 2.4 gm/dl (2.5-4.0); Total Protein 5.9 gm/dl (6.0-8.3)
[2022-10-27] MEDS ORDERED: STAT IV Infusion **Titration per Protocol STA (19:42)
[2022-10-27] MEDS ORDERED: DOBUTamine / D5W 500 MG/250 ML BAG IV SCH (19:45)
--- NOTE | 2022-10-27 22:02 | Critical Care Consultation ---
Date of Consultation October 27, 2022 Assessment & Plan (1) Acute decompensated heart failure: Reason Critically Ill: 67-year-old female with acute decompensated heart failure and ejection fraction of 15 to 20%, now presents to the ICU as transfer for worsening kidney and liver function and need for dobutamine drip. Patient has been accepted to [facility] for work-up for transplant/LVAD. Neuro - [facility] ICU: Negative Cardiac - Acute on chronic decompensated heart failure with reduced EF Patient with last [place] with EF 15 to 20% and history of nonischemic cardiomyopathy. She recently had admission where she required dobutamine drip. She is now experiencing multisystem organ dysfunction and was transferred to ICU again for dobutamine drip. Patient is now awaiting transfer to [facility] for potential work-up of LVAD versus transplant. She does have an ICD in place. She does have history of nonsustained V. tach, however beta-ric is currently being held. We will proceed with continuous monitor on telemetry and monitoring in ICU awaiting transfer. Respiratory - Respiratory insufficiencyno significant pulmonary disease although patient was discharged home with home oxygen at bedtime. She is currently maintaining oxygen saturations on room air. She does have history of pulmonary embolism from May 2022, will for which she is anticoagulated. This has been converted to heparin drip for now. No indication for diuresis at this time. We will proceed with oxygen as needed. Continuous monitoring pulse ox. GI - Transaminitislikely related to hepatopulmonary syndrome versus cholecystitis. Patient did have cholecystectomy at [facility] in May, And normally follows with GI at [place]. She was seen by gastroenterology here at [facility] and there was plan to undergo EGD tomorrow, although patient is now transferring. Patient is not candidate for MRCP due to ICD. Patient now starting on dobutamine drip. Will trend LFTs for now. RENAL/LYTES - AKIpatient with CKD stage III's and worsening KARLA with creatinine now elevated at 2.24. Patient is making little urine and suspect this is related to heart failure. We will start on dobutamine drip. Avoid nephrotoxins and renally adjust medications. Careful with fluid resuscitation as patient does have heart failure with reduced EF. Continue to monitor BMPs routinely. Hold diuresis for now. - Strict I's and O's ENDO - DM type II Continue with NovoLog. ICU hyperglycemic protocol HEME - H&H stable, monitor routine CBCs ID - No indication for infectious process at this time. LINES/IV ACCESS - Left IJ DVT PROPHYLAXIS - SCDs, heparin drip I have personally spent 50 minutes of critical care time in the direct managemen t of this patient. This is a life/limb threatening event. This includes time spent evaluating patient, direct bedside care, chart review, placing orders, interpretation of diagnostic studies, discussion with consultants, patient, and family members, as well as other required patient management activities. This time is exclusive of all separately billable procedures, and teaching time and separate from and in addition to any other critical care service time. Thank you for allowing us to participate in the care of this patient. Please refer to my attending physician's documentation for any further recommendations. (2) Elevated LFTs: (3) KARLA (acute kidney injury): (4) GERD (gastroesophageal reflux disease): (5) Cardiomyopathy: (6) Nausea & vomiting: (7) ICD (implantable cardioverter-defibrillator) in place: (8) Hyperlipidemia: (9) Diabetes: (10) Cholecystitis: History of Present Illness Attending Physician: Ramesh Park MD History of Present Illness Patient is a 67-year-old female with past medical history of nonischemic cardiomyopathy with reduced EF (15 to 20%), PE (May/2022), CKD stage III, DM type II, SVT (s/p ICD), GERD. Patient also had a recent admission to the ICU where she was on dobutamine drip and was discharged home with oxygen at night. Patient presented to the hospital yesterday afternoon with nausea/vomiting and complaints of diarrhea and abdominal pain. Patient was found to have increasing liver enzymes and worsening kidney function. Patient was also evaluated by gastroenterology and plan for EGD tomorrow and , But she is now being transferred to ICU for dobutamine drip. Primary team did speak with programming instructor at [facility], and they have excepted the patient for transfer for eval for transplant/LVAD. At the time of the arrival to the ICU the patient is alert and oriented. She complains of nausea. She denies dizziness but does say that she gets lightheaded while standing. She also reports shortness of breath when she lays flat and intermittent palpitations. She denies any congestion, cough, recent fevers, chest pain, Swelling in hands or feet. She does report some abdominal pain which is now resided. Patient did have limited peripheral access on arrival to the ICU and she was consented for central line. She now has left IJ. Allergies Allergy/AdvReac Type Severity Reaction Status Date / Time erythromycin base Allergy Severe blisters;red;itchy;pain;blisters Verified 10/26/22 15:36 in back throat iodine Allergy Severe throat Verified 10/26/22 15:36 blisters;skin blisters meperidine [From Demerol] Allergy Severe quit Verified 10/26/22 15:36 breathing adhesive Allergy Intermediate BLISTERS Verified 10/26/22 15:36 cinnamon Allergy Intermediate Hives Verified 10/26/22 15:37 tetracycline Allergy Unknown TERRAMYCIN Verified 10/26/22 15:36 ALLERGY atorvastatin AdvReac Intermediate MUSCLE Verified 10/26/22 15:36 PAIN/ACHES, DIFFICULTY WALKING azithromycin AdvReac Intermediate Gastrointestinal Verified 10/26/22 15:36 Upset metformin AdvReac Intermediate Diarrhea Verified 10/26/22 15:36 rosuvastatin [From Crestor] AdvReac Intermediate Cramping Verified 10/26/22 15:36 of the Muscles Mlvdlft-PHJ-IvV Reductase AdvReac Intermediate MUSCLE Verified 10/26/22 15:36 Inhibitor PAIN/ACHES, [Dczhcbp-Ysx-Zte Reductase DIFFICULTY Inhibitor] WALKING Home Medications Medication Instructions Recorded Confirmed Type cholecalciferol (vitamin D3) 125 5,000 units PO DAILY 01/14/19 10/26/22 History mcg (5,000 unit) capsule empagliflozin 25 mg tablet 25 mg PO DAILY #90 tabs 11/09/21 10/26/22 Rx ezetimibe 10 mg tablet 10 mg PO PM #90 tabs 02/15/22 10/26/22 Rx acetaminophen 325 mg tablet 650 mg PO Q4H PRN pain #30 tabs 05/14/22 10/26/22 Rx inhalational spacing device #1 ea 07/08/22 10/26/22 Rx (Aerochamber Plus Flow-Vu) levalbuterol tartrate 45 2 inh inhalation Q6H PRN shortness 07/08/22 10/26/22 Rx mcg/actuation aerosol inhaler of breath/cough/wheeze #15 grams (Xopenex HFA) furosemide 40 mg tablet 40 mg PO DAILY #60 tabs 08/09/22 10/26/22 Rx apixaban 5 mg tablet (Eliquis) 5 mg PO BID #180 tabs 08/25/22 10/26/22 Rx blood sugar diagnostic (Accu-Chek #100 ea 09/07/22 10/26/22 Rx Guide test strips) blood-glucose meter (Accu-Chek #1 ea 09/07/22 10/26/22 Rx Guide Glucose Meter) lancets (Accu-Chek Softclix #100 ea 09/07/22 10/26/22 Rx Lancets) potassium chloride 20 mEq 20 meq PO DAILY #30 tabs 10/04/22 10/26/22 Rx tablet,extended release pantoprazole 40 mg tablet,delayed 40 mg PO DAILY #90 tabs 10/07/22 10/26/22 Rx release carvedilol 6.25 mg tablet 3.125 mg PO BID #180 tabs 10/19/22 10/26/22 Rx spironolactone 25 mg tablet 25 mg PO QPM 10/26/22 10/26/22 History Patient History Medical History Acute on chronic HFrEF (heart failure with reduced ejection fraction) Acute pulmonary embolism (06/14/22) Allergic rhinitis Asymptomatic menopausal state Atopic dermatitis Chronic kidney disease, stage 3b CKD (chronic kidney disease), stage III Coronavirus infection Dental abscess Diabetes Diabetes mellitus type II, controlled NIDDM Diverticulosis of colon Eustachian tube dysfunction Greater trochanteric bursitis History of diverticulitis History of sigmoidoscopy Hyperlipidemia Hypertension IBS (irritable bowel syndrome) ICD (implantable cardioverter-defibrillator) in place ICD (implantable cardioverter-defibrillator) in place Placed Feb 2015 > [employer] > last checked 03/23/21 with > placed for CHF Idiopathic cardiomyopathy Incidental pulmonary nodule, > 3mm and < 8mm Inflamed seborrheic keratosis Insomnia Internal hemorrhoids Intertrigo Milia Moderate mitral regurgitation Notalgia paresthetica Obesity Osteopenia Pulmonary embolism (05/2022) Sigmoid diverticulitis SK (seborrheic keratosis) Stage 3b chronic kidney disease Vitamin D deficiency Wart Wound dehiscence, surgical Surgical History History of appendectomy History of arthroscopy of right knee History of arthroscopy of right shoulder History of breast biopsy benign History of cardiac cath 10/2017 [facility] no stents History of carpal tunnel surgery History of Neuroplasty Decompression Median Nerve At Carpal Tunnel> right History of cholecystectomy (05/28/22) at [place] by Dr Ivey History of colonoscopy History of foot surgery 1972 History of incision and drainage (05/14/22) infection floor of the mouth and subperiosteal plane # 30 area p Incision and Drainage, Tooth Extraction(Right) - Quinton Amezcua, DMD History of repair of rotator cuff right History of vaginal hysterectomy Family History Mother Breast cancer Diabetes Grandmother Myocardial infarction Other Heart disease No family history of adverse response to anesthesia No family history of bleeding disorder Denies family history of Ovarian cancer Prostate cancer Colorectal cancer Social History Smoking Status: Never smoker Second Hand Exposure: No; Do You Dip or Chew Tobacco: No; Hx Alcohol Use: No Hx Substance Use: No Preferred Language: Chilean Communication Ability: Effective Visual Impairment: No Limitations Hearing Ability: Normal Building Operator Required: No Beliefs That Will Affect Care: None marital status: Current Living Situation: Spouse current occupational status: retired Feels Safe at Home: Yes Childhood Exposure to Second-Hand Smoke: No Diet: low salt and regular caffeine: Yes during the past year weight has: remained stable Dental Care, Regularly: Yes Physical Activity Frequency: Does not Exercise Seatbelt Use: always Sunscreen Use: Yes Assistive Devices: Cane Review of Systems Review of Systems: All systems reviewed & are unremarkable except as noted in HPI & below Physical Exam Constitutional: WD/WN, vitals as above cooperative and comfortable; no acute distress Eyes: PERRL, conjunctivae normal, anicteric sclerae ENMT: external ear and nose normal, oropharynx normal Neck: trachea midline, no thyromegaly Respiratory: normal respiratory effort, lungs clear to auscultation Cardiovascular: Rate/Rhythm: regular rate and regular rhythm Heart Sounds: + murmur Vessels: + JVD Extremities: no edema Gastrointestinal (Abdomen): normal bowel sounds, soft, nontender, no hepatosplenomegaly Musculoskeletal: no cyanosis or clubbing, extremities motor strength 5/5 Skin: no rashes, warm and dry Neurologic: PERRL, EOMI, accommodation nl, no face palsy, no dysarthria Psychiatric: A+Ox3, euthymic affect Results & Data Results & Data Vital Signs (Past 12 Hours) Vital Signs Temp Pulse Pulse Resp BP Pulse Ox Pulse Ox 10/27/22 19:00 36.7 C 88 20 95/67 L 92 10/27/22 17:52 94 10/27/22 13:02 94 10/27/22 17:42 78 10/27/22 15:47 36.5 C 85 19 97/66 L 94 10/27/22 12:44 77 10/27/22 12:38 10/27/22 11:37 36.6 C 77 18 94/62 L 97 O2 Del Method O2 Del Method O2 Flow Rate 10/27/22 19:00 Room Air 10/27/22 17:52 Room Air 10/27/22 13:02 Room Air 10/27/22 17:42 10/27/22 15:47 Room Air 10/27/22 12:44 10/27/22 12:38 Room Air, Nasal Cannula 2 10/27/22 11:37 Room Air Coding Level of Care Code 93625 CRITICAL CARE 1ST 30-74M Diagnoses Acute decompensated heart failure I50.9 Elevated LFTs R79.89 KARLA (acute kidney injury) N17.9 GERD (gastroesophageal reflux disease) K21.9 Cardiomyopathy I42.9 Nausea & vomiting R11.2 ICD (implantable cardioverter-defibrillator) in place Z95.810 Hyperlipidemia E78.5 Diabetes E11.9 Cholecystitis K81.9
--- NOTE | 2022-10-27 22:02 | Procedure Note ---
Procedure Note Date of Service October 27, 2022 Note INTERNAL JUGULAR CENTRAL LINE PROCEDURE NOTE: Procedure: Internal Jugular Central Line Placement Attending: Dr. lewis Provider: APRIL Leal Indication: Central Drug Administration, Poor Venous Access, Multiple Lab Draws Necessary, etc. Anesthesia: Lidocaine 1% Consent was signed and placed on the chart prior to procedure. Indication, risks, and benefits were explained at length. A time-out was completed verifying correct patient, procedure, site, positioning, and implants(s) or special equipment if applicable. Patients Left Neck was cleansed and draped in the typical sterile fashion using Chloraprep. The Internal Jugular Vein and Carotid Artery were identified using ultrasound. The superficial tissue was anesthetized using 3 mL of 1% lidocaine without epinephrine under direct visualization with the ultrasound. After adequate anesthetization was achieved, the Internal Jugular vein was cannulated under direct ultrasound guidance using an introducer needle on a syringe. Good venous blood return was maintained prior to removal of syringe from introducer needle. Using Seldinger Technique, a guide wire was advanced through the introducer needle without resistance. The introducer needle was removed and ultrasound images were obtained of the guide wire within the Internal Jugular Vein and saved to the patients medical record. A small incision was made in penetrating fashion at the guide wire insertion site utilizing an 11 blade scalpel. The dilator was advanced to the vessel without resistance. The dilator was exchanged for the triple lumen catheter which was advanced into the vessel without resistance. The guide wire was removed intact from the catheter without issue. Claves were placed on each catheter tip with confirmation of good blood flow from each lumen. Each port was easily flushed with sterile saline. The catheter was placed at 18 cm and sutured in place. BioPatch was applied to the catheter and a sterile Tegaderm dressing was applied over the catheter with careful attention to sterility. Patient tolerated procedure well. No immediate complications were met. Post procedure x-ray was completed, placement was appropriate and no pneumothorax was noted. Images obtained are saved for permanent record Procedural Ultrasound Guidance: Procedure Date: 10/27/2022 Indication: Central venous catheter insertion Attending: Dr. Lewis Provider: APRIL Leal Artery AND Vein visualized: Yes Compressible Vein: Yes Guidewire or Short Catheter seen in vein prior to dilation: Yes Line confirmed in Vein with ultrasound: Yes Images obtained are saved for permanent record. Coding CPT Codes Tubes, Drains, and Vasc Access - Tubes, Drains, and Vasc Access: [id number] Insertion Of Non-tunneled Catheter Age 6 Yrs> ([id number]) Tubes, Drains, and Vasc Access - Tubes, Drains, and Vasc Access: [id number] Ultrasound Guidance For Vascular ([id number]) [facility] [place] Procedure Codes (Charges) Tubes, Drains, and Vasc Access Procedure 1: Tubes, Drains, and Vasc Access: [id number] Insertion Of Non-tunneled Catheter Age 6 Yrs> Procedure 2: Tubes, Drains, and Vasc Access: [id number] Ultrasound Guidance For Vascular
--- NOTE | 2022-10-27 22:47 | Hospitalist Progress Note ---
Date of Service October 27, 2022 Assessment & Plan (1) Low output heart failure: Plan: Patient was admitted from 10/20 to 10/23 for decompensated systolic CHF / low- output heart failure. She was hospitalized in the ICU and required dobutamine for several days with improved volume status and improved creatinine (down to 1.4). GUY f/u was arranged with [facility] cardiology clinic to discuss advanced therapies for her severe systolic CHF. After hospital d/c on 10/23 she had nausea with emesis for several days along with poor PO intake and some loose stool. She was readmitted yesterday on 10/26. She has evidence of KARLA with hyaline casts on u/a along with acute liver injury. Perfusion on examination is poor. Her renal function and LFTs continue to worsen throughout the day today. All of the above is due to her low-flow state from her severe systolic CHF. She likely had a component of volume depletion as well at time of ER presentation and did receive some IV fluid for such. She has received about 1 to 1.5 Liters of crystalloid since admission; additional fluids will be deferred. I spoke several times today with Dr Duarte from [facility]. Given her worsening clinical status, labs, etc we discussed reinstitution of dobutamine starting at 2.5mcg/kg/min with titration as tolerated to augment cardiac output. She will be transferred to the ICU for dobutamine, central line placement, and supportive care. Concurrently with ICU transfer I called [facility] and spoke with Dr Brandy Viveros (ICU attending) and Dr Hermann Austin, cardiology. We discussed Ms Noyola's case in detail and Dr Viveros accepted her in transfer to the ICU at [facility]. (2) HFrEF (heart failure with reduced ejection fraction): Plan: acute on chronic HFrEF known nonischemic cardiomyopathy with EF 15-20% ICD placed in 2015 see #1 above hold coreg once dobutamine is begun Entresto is on hold as well as PO lasix & aldactone holding empagliflozin (3) Cardiomyopathy: Plan: see above nonischemic (4) KARLA (acute kidney injury): Plan: creatinine at time of hospital discharge on 10/23/22 was 1.4 was 1.7 at time of this admission, climbing to 2.1 this am and now 2.2 she has mild acidosis on BMP pre-renal due to #1 and likely a small component of intravascular volume depletion as well instituting dobutamine hopefully renal perfusion will improve with such serial BMPs (5) Elevated LFTs: Plan: s/p cholecystectomy earlier this year at [facility] LFTs elevated with TB 3.5/DB 0.8. AST 177, ALT 267, ALP 116 at time of this admission LFTs continue to worsen today Lipase wnl Suspect acute liver injury due to #1 above Unable to perform MRCP due to pacemaker/not compatible RUQ u/s without acute findings Could consider acute hepatitis profile to be complete but again likely that this is due to #1 above Did have elevated LFTs during prior admission likely from right sided CHF & hepatic congestion serial LFTs follow INR if any change in mental status --> check ammonia level (6) Nausea & vomiting: Plan: intractable nausea/emesis since 10/23 hospital discharge etiology? gastritis/esophagitis? due to #1 and poor gut perfusion? due to acute hepatitis/liver injury? infectious? other? N/V have improved since admission Clears as tolerated today cont PPI IV (7) Dysphagia: Plan: GI & speech therapy consults appreciated was to have EGD tomorrow to r/o stricture, esophagitis, etc however, in light of #1, patient to be transferred and EGD will be deferred barium swallow results noted cont PPI IV (8) GERD (gastroesophageal reflux disease): Plan: Hx LA Grade B esophagitis on EGD in past March [address] Rodriguez Case cont IV PPI twice daily See above in #7 (9) CKD (chronic kidney disease), stage III: Plan: baseline creatinine about 1.4 to 1.6 now with KARLA see above serial BMPs (10) Hypotension: Plan: SBPs are typically 90s to low 100s but she is dizzy and lightheaded hypotension is 2nd to #1 above holding PO lasix/aldactone/Entresto will hold coreg once dobutamine drip is started (11) ICD (implantable cardioverter-defibrillator) in place: Plan: no shocks delivered at any time recently NSVT seen on telemetry while here but no other dysrhythmia otherwise (12) Pulmonary embolism: Plan: 05/2022 has been on Eliquis since given the rising creatinine and potential need for procedures Eliquis is on hold in [place] remains on heparin drip - standard dosing (13) Nocturnal hypoxia: Plan: during previous admission nocturnal O2 study showed need for night-time O2 continue such (14) Diabetes: Plan: most recent Hba1c 7.3% jardiance is on hold cont novolog loose sliding scale (15) Hyponatremia: Plan: 2nd to KARLA and acute/chronic CHF serial labs Plan care d/w Dr Duarte, [facility], multiple times today care d/w Rey Augustin, scheduling manager care d/w Dr Brandy Viveros & Dr Hermann Austin - [facility] ICU & cardiology respectively VERY complex care coordination today transferring to ICU critical care time ~80 minutes including institution of inotropic therapy, discussion of care with above providers, extensive chart review, review of labs and imaging, etc. again Dr Viveros has accepted patient in transfer to [facility] ICU for ongoing care patient made aware of transfer to ICU here and ultimate transfer to [place] when bed is available Admission and Anticipated Discharge Date Admission Date: October 26, 2022 Subjective saw patient this afternoon she was resting in bed she was on a conference call with her work she reported ongoing dizziness and lightheadedness with standing she feels weak continues to have difficulty swallowing no further nausea/emesis no dyspnea at rest no chest pain tele overnight - several runs of NSVT care was d/w Dr Duarte multiple times today Review of Systems Review of Systems: gen - no fevers or chills HENT/mouth - MM still dry cv - no chest pain, no orthopnea today pulm - no cough GI - no diarrhea today Physical Exam Physical Exam: gen - looks weak, ill but no acute distress neck - no JVD mouth - MM slightly dry; lips appear cyanotic heart - RRR, s1 s2, 1/6 MELLY LSB lungs - mild, fine/dry b/l basilar rales, no wheeze, no increased work of breathing abd - soft NT ND BS+; liver edge palpable ext - cool to touch but pulses 1-2+ b/l psych - a/o x 3 skin - appears ashen/pale Results & Data Results & Data Vital Signs (Past 12 Hours) Vital Signs Temp Pulse Pulse Resp BP BP Pulse Ox 10/27/22 22:15 90 24 97 10/27/22 22:00 84 27 H 98 10/27/22 21:47 100/62 10/27/22 21:47 87 22 98 10/27/22 21:45 87 25 H 99 10/27/22 21:30 84 23 99 10/27/22 21:15 88 25 H 96 10/27/22 21:00 88 33 H 88 L 10/27/22 20:47 88 29 H 94 10/27/22 20:47 101/69 10/27/22 20:45 87 26 H 95 10/27/22 22:00 10/27/22 22:00 36.3 C L 10/27/22 19:00 36.7 C 88 20 95/67 L 92 10/27/22 17:52 10/27/22 13:02 10/27/22 17:42 78 10/27/22 15:47 36.5 C 85 19 97/66 L 94 10/27/22 12:44 77 10/27/22 12:38 10/27/22 11:37 36.6 C 77 18 94/62 L 97 Pulse Ox O2 Del Method O2 Del Method O2 Flow Rate 10/27/22 22:15 Nasal Cannula 2 10/27/22 22:00 10/27/22 21:47 10/27/22 21:47 10/27/22 21:45 10/27/22 21:30 10/27/22 21:15 10/27/22 21:00 10/27/22 20:47 10/27/22 20:47 10/27/22 20:45 10/27/22 22:00 Nasal Cannula 2 10/27/22 22:00 10/27/22 19:00 Room Air 10/27/22 17:52 94 Room Air 10/27/22 13:02 94 Room Air 10/27/22 17:42 10/27/22 15:47 Room Air 10/27/22 12:44 10/27/22 12:38 Room Air, Nasal Cannula 2 10/27/22 11:37 Room Air Laboratory Results Laboratory Results - last 24 hr 10/27/22 10/27/22 10/27/22 00:38 05:46 05:46 WBC 9.60 RBC 3.54 L Hgb 11.6 L Hct 34.2 L MCV 96.6 MCH 32.8 MCHC 33.9 RDW Std Deviation 47.4 H RDW Coeff of Osman 13.6 Plt Count 210 MPV 9.9 Immature Gran % (Auto) 0.3 Neut % (Auto) 79.2 Lymph % (Auto) 13.2 [place] % (Auto) 6.9 Eos % (Auto) 0.1 Baso % (Auto) 0.3 Neut # (Auto) 7.60 H Lymph # (Auto) 1.27 [place] # (Auto) 0.66 H Eos # (Auto) 0.01 Baso # (Auto) 0.03 Immature Gran # (Auto) 0.03 APTT 61.4 H* PTT Ratio 2.2 Sodium 133 L Potassium 3.9 Chloride 100 Carbon Dioxide 23 Anion Gap 10 BUN 53 H Creatinine 2.16 H D Est Cr Clr Drug Dosing 25.1 Est GFR ( Amer) 26.8 Est GFR (Non-Af Amer) 23.1 BUN/Creatinine Ratio 24.5 H Glucose 123 H POC Glucose Calcium 8.7 Magnesium 2.1 Total Bilirubin 3.3 H Direct Bilirubin 1.2 H AST 634 H ALT 641 H Alkaline Phosphatase 111 H Total Protein 5.3 L D Albumin 3.2 L Globulin Albumin/Globulin Ratio 10/27/22 10/27/22 10/27/22 05:46 07:17 11:24 WBC RBC Hgb Hct MCV MCH MCHC RDW Std Deviation RDW Coeff of Osman Plt Count MPV Immature Gran % (Auto) Neut % (Auto) Lymph % (Auto) [place] % (Auto) Eos % (Auto) Baso % (Auto) Neut # (Auto) Lymph # (Auto) [place] # (Auto) Eos # (Auto) Baso # (Auto) Immature Gran # (Auto) APTT 108.2 H* PTT Ratio 3.8 Sodium Potassium Chloride Carbon Dioxide Anion Gap BUN Creatinine Est Cr Clr Drug Dosing Est GFR ( Amer) Est GFR (Non-Af Amer) BUN/Creatinine Ratio Glucose POC Glucose 103 H 110 H Calcium Magnesium Total Bilirubin Direct Bilirubin AST ALT Alkaline Phosphatase Total Protein Albumin Globulin Albumin/Globulin Ratio 10/27/22 10/27/22 10/27/22 14:49 16:24 18:10 WBC RBC Hgb Hct MCV MCH MCHC RDW Std Deviation RDW Coeff of Osman Plt Count MPV Immature Gran % (Auto) Neut % (Auto) Lymph % (Auto) [place] % (Auto) Eos % (Auto) Baso % (Auto) Neut # (Auto) Lymph # (Auto) [place] # (Auto) Eos # (Auto) Baso # (Auto) Immature Gran # (Auto) APTT 61.0 H* PTT Ratio 2.2 Sodium 133 L Potassium 4.0 Chloride 97 L Carbon Dioxide 21 Anion Gap 15 H BUN 58 H Creatinine 2.24 H Est Cr Clr Drug Dosing 24.2 Est GFR ( Amer) 25.6 Est GFR (Non-Af Amer) 22.1 BUN/Creatinine Ratio 25.9 H Glucose 152 H POC Glucose 117 H Calcium 9.1 Magnesium Total Bilirubin 4.0 H Direct Bilirubin AST 544 H ALT 742 H Alkaline Phosphatase 132 H Total Protein 5.9 L Albumin 3.5 Globulin 2.4 L Albumin/Globulin Ratio 1.5 10/27/22 20:06 WBC RBC Hgb Hct MCV MCH MCHC RDW Std Deviation RDW Coeff of Osman Plt Count MPV Immature Gran % (Auto) Neut % (Auto) Lymph % (Auto) [place] % (Auto) Eos % (Auto) Baso % (Auto) Neut # (Auto) Lymph # (Auto) [place] # (Auto) Eos # (Auto) Baso # (Auto) Immature Gran # (Auto) APTT PTT Ratio Sodium Potassium Chloride Carbon Dioxide Anion Gap BUN Creatinine Est Cr Clr Drug Dosing Est GFR ( Amer) Est GFR (Non-Af Amer) BUN/Creatinine Ratio Glucose POC Glucose 127 H Calcium Magnesium Total Bilirubin Direct Bilirubin AST ALT Alkaline Phosphatase Total Protein Albumin Globulin Albumin/Globulin Ratio Diagnostic Findings Barium Swallow X-Ray 10/27/22 17:52 FL barium swallow CLINICAL HISTORY: intractable n/v TECHNIQUE: The patient was observed drinking thick and thin barium under fluoroscopic observation in both the upright and recumbent positions. Total fluoroscopy time: 15 seconds Ka,r: 11.1 mGy COMPARISON: None available at the time of this dictation. FINDINGS: The patient had no problem initiating the swallowing mechanism. There was no evidence of aspiration. Normal peristalsis was seen throughout the esophagus. There was no evidence of strictures, filling defects, or outpouchings. Contrast flowed readily from the esophagus into the stomach. No hiatal hernia was identified. There was no evidence of gastroesophageal reflux. Exam is limited due to patient toleration. Pillwas not administered. IMPRESSION: Highly limited exam without acute abnormality. ACT 112: Negative or not required by law. Electronically signed by: Inderjit Frank M.D. 10/27/2022 3:32 PM PG Care Time/CCT Total # of Minutes Spent Total Time Spent with Patient: Total time spent is greater than 50% in coordination of care (as documented) at patient's floor/unit and/or counseling patient: Critical Care Time: Yes Total Critical Care Time: 80 Coding Level of Care Code None Diagnoses Low output heart failure I50.9 HFrEF (heart failure with reduced ejection fraction) I50.20 Cardiomyopathy I42.9 KARLA (acute kidney injury) N17.9 Elevated LFTs R79.89 Nausea & vomiting R11.2 Dysphagia R13.10 GERD (gastroesophageal reflux disease) K21.9 CKD (chronic kidney disease), stage III N18.30 Hypotension I95.9 Hypotension type: unspecified hypotension type ICD (implantable cardioverter-defibrillator) in place Z95.810 Pulmonary embolism I26.99 Nocturnal hypoxia G47.34 Diabetes E11.9 Hyponatremia E87.1 Additional Codes Critical Care Time - Critical Care Time: Yes ([id number]) (10) Hypotension Hypotension type: unspecified hypotension type Qualified Code(s): I95.9 - Hypotension, unspecified
--- NOTE | 2022-10-27 23:37 | XRay Report ---
SINGLE VIEW CHEST CLINICAL HISTORY: Central venous catheter placement. FINDINGS: 2 AP, portable, upright chest radiographs are compared to study dated 10/26/2022. A left inte rnal jugular central venous catheter has been placed. The tip projects over the SVC. A 2-lead cardiac AICD is unchanged in position. This partially obscures the left mid chest. The heart is enlarged not ing atherosclerotic calcification of the thoracic aorta. There is pulmonary vascular congestion with evidence of interstitial edema. There are layering pleural effusions with dependent consolidation. No pneumothorax is seen. The skeletal structures are osteopenic. The bony thorax is grossly intact. Deg enerative change is noted in the right shoulder. IMPRESSION: 1. A left internal jugular central venous catheter has been placed as above. No pneumothorax is seen post procedure. 2. Cardiomegaly and AICD with evidence of congestive failure and pulmonary edema. 3. Layering pleural effusions with dependent consolidation. ACT 112: Negative or not required by law. Electronically signed by: Hermann Salazar M.D. 10/27/2022 11:35 PM
--- NOTE | 2022-10-28 05:52 | Electrocardiogram Report ---
Test Reason : Blood Pressure : / mmHG Vent. Rate : 091 BPM Atrial Rate : 091 BPM P-R Int : 200 ms QRS Dur : 124 ms QT Int : 422 ms P-R-T Axes : 056 181 -06 degrees QTc Int : 519 ms Normal sinus rhythm Anterior infarct Non-specific intra-ventricular conduction block Abnormal ECG When compared with ECG of 22-OCT-2022 05:40, QRS duration has decreased Confirmed by Chaparro Duarte ([id number]) on 10/28/2022 5:52:04 AM Referred By: Confirmed By:Chaparro Duarte
--- NOTE | 2022-11-05 19:41 | Discharge Summary ---
Date of Service date of admission - October 26, 2022 date of discharge - October 28, 2022 Admission HPI Per Admitting Provider 67yo female with PMHx significant for nonischemic cardiomyopathy, chronic heart failure with reduced ejection fraction (EF 15-20%), recent pulmonary embolism (diagnosed in May following ketty w/ Dr Mata at [facility]- transferred there given perioperative risks), CKD III, DM II, SVT (s/p ICD), GERD presented after recent admission for acute CHF exacerbation and on dobutamine gtt with Entresto on hold for hypotension and discharged with oxygen at night. Presents today with intractable nausea/vomiting. Reports had been being worked up for gastroparesis as outpatient with GI. Having some diarrhea, abdominal pain generalized but more umbilical/epigastric in nature. Last EGD/c-scope w/ Case March 2021 -- EGD noting LA Grade B reflux esophagitis. Lipase wnl. Was seen by Dr Mejia this morning and reporting with long standing hx hiatal hernia/prior esophagitis and PUD, prior to initiating she had had reflux which worsened and because severe and develops some degree of dysphagia. Unable to keep medication down/unable to swallow pills and only had a few bites over the past day or two. She reports she had sensation of pills getting stuck or even if they do go down she ends up vomiting them back up. She notes she had been trying to drink boost and has been vomiting this up as well. She notes she had syumptoms like this during last week hospital stay but that they weren't this bad. Typically on Protonix once daily at home. Last emesis here in hospital on arrival, ongoing nausea/bloating. No coffee ground emesis She is very dehydrated -- wanting ice chips for dry lips -- provided. Would like a madeleine octavia. Discussed can try some clears as able to tolerate/gentle IVF to prevent overload and NPO at midnight for hopeful endoscopy tomorrow. She is very anxious in room, hard to get to sit still -- notes adverse reaction/excitement to Benadryl and she got a dose in ER. Got dose of IV Ativan which took edge off but not very effective and will repeat 1mg dose and monitor response. She has been able to lay flat without increased shortness of breath at present and her breathing has been better in the past however typically NUR. Dr Mejia has reached out to [facility] and their advance heart failure clinic will be reaching out to her in the next 1-2 weeks to get her follow up. Does have some right sided lower back pain, negative CVA tenderness on exam. Urine does not appear infected, however imaging does note punctate nonobstructing right renal calculi ER Course: NSS @80cc/hr x 500cc. Pepcid IVP, Phenergan 25mg IV, Benadryl 12.5mg, lorazepam 0.5mg IV x 1.. CXR: cardiomegaly w/ mild pulmonary edema. small b/l effusion unchanged from prior exam -- on room air, 98% CTAP: punctate nonobstructing right renal calculi, colonic diverticulosis w/o acute diverticulitis. cardiomegaly w/ small effusions. no acute infectious/inflammatory findings. small amt pelvic ascites. Labs: WBC 10.6k w/ L shift. Na 134, Chl 97. BUN/Cr 46/1.74 LFTs elevated -- TB 3.5, DB 0.8, AST 177, ALT 267, ALP 116. Trop 20.8 (similar to prior admissions) Orders pending for stool PCR/cdiff testing when sample available. Principal Diagnosis Low-output, severe systolic congestive heart failure Discharge Exam gen - looks weak and ill but no acute distress neck - no JVD sitting upright 90 degrees in bed mouth - MM slightly dry; lips appear cyanotic heart - RRR, s1 s2, 1/6 MELLY LSB lungs - mild, fine/dry b/l basilar rales, no wheeze, no increased work of breathing abd - soft NT ND BS+; liver edge palpable ext - cool to touch but pulses 1-2+ b/l, no edema psych - a/o x 3 skin - appears ashen/pale Discharge Data Allergies Allergy/AdvReac Type Severity Reaction Status Date / Time erythromycin base Allergy Severe blisters;red;itchy;pain;blisters Verified 10/26/22 15:36 in back throat iodine Allergy Severe throat Verified 10/26/22 15:36 blisters;skin blisters meperidine [From Demerol] Allergy Severe quit Verified 10/26/22 15:36 breathing adhesive Allergy Intermediate BLISTERS Verified 10/26/22 15:36 cinnamon Allergy Intermediate Hives Verified 10/26/22 15:37 tetracycline Allergy Unknown TERRAMYCIN Verified 10/26/22 15:36 ALLERGY atorvastatin AdvReac Intermediate MUSCLE Verified 10/26/22 15:36 PAIN/ACHES, DIFFICULTY WALKING azithromycin AdvReac Intermediate Gastrointestinal Verified 10/26/22 15:36 Upset metformin AdvReac Intermediate Diarrhea Verified 10/26/22 15:36 rosuvastatin [From Crestor] AdvReac Intermediate Cramping Verified 10/26/22 15:36 of the Muscles Kdjamgo-GQI-NpB Reductase AdvReac Intermediate MUSCLE Verified 10/26/22 15:36 Inhibitor PAIN/ACHES, [Urgsmtd-Sru-Xuo Reductase DIFFICULTY Inhibitor] WALKING Consultations [facility] Gastroenterology [facility] Cardiology [facility] Procedures Performed 1. Left IJ central line Ordered Studies Abdomen/Pelvis CT 10/26/22 12:59 CT SCAN OF THE ABDOMEN AND PELVIS WITHOUT IV CONTRAST CLINICAL HISTORY: Generalized abdominal pain. Nausea and vomiting. COMPARISON STUDY: Abdominal CT dated 05/23/2022. TECHNIQUE: CT scan of the abdomen and pelvis is performed from the lung bases to the proximal femora. Images are reviewed in the axial, sagittal, and coronal planes. IV contrast was not administered for this examination. Note that the examination is suboptimal without oral and IV contrast. A dose lowering technique was utilized adhering to the principles of ALARA. CT DOSE: 1410.88 mGy.cm FINDINGS: Lung bases: The heart is enlarged and without pericardial effusion. Pacemaker leads are in place. There are right larger than left pleural effusions with dependent atelectasis. Liver: The unenhanced liver is normal in size, contour, and attenuation. There is no intrahepatic biliary ductal dilatation. Gallbladder: Surgically absent noting clips in the gallbladder fossa. Spleen: Normal in size and attenuation. Pancreas: The unenhanced pancreas is mildly atrophic and grossly unremarkable. Adrenal glands: Unremarkable. Kidneys: The unenhanced kidneys demonstrate mild cortical atrophy and are without hydronephrosis. There is a punctate nonobstructing right renal calculus. No left renal calculi are identified and no ureteral stone is seen. There is no evidence of contour deforming renal mass lesion. Abdominal vasculature: The abdominal aorta is normal in course and caliber. Bowel: There is mild colonic diverticulosis without CT evidence of acute diverticulitis. No bowel obstruction is seen. The appendix is not identified and reported surgically absent. Peritoneum: No intraperitoneal free air the seen. There is a small volume of pelvic ascites. There is a fat-containing umbilical hernia. Lymphadenopathy: None. Pelvic viscera: The bladder is decompressed and could not be evaluated. The uterus is surgically absent. No adnexal lesion is seen. Skeletal structures: The skeletal structures are osteopenic. There is mild lumbosacral spondylosis No lytic or blastic lesions are seen. IMPRESSION: 1. No acute infectious or inflammatory findings are identified in the abdomen or pelvis. 2. Cardiomegaly and small pleural effusions. 3. Small volume pelvic ascites. 4. Punctate nonobstructing right renal calculus. 5. Colonic diverticulosis without CT evidence of acute diverticulitis. 6. Additional findings as above. ACT 112: Negative or not required by law. Electronically signed by: Hermann Salazar M.D. 10/26/2022 1:41 PM Chest X-Ray 10/26/22 13:01 XR chest 1V portable CLINICAL HISTORY: abd pain, n/v TECHNIQUE: Single frontal radiograph of the chest was obtained. Comparison: Comparison is made to chest radiograph 10/20/2022 FINDINGS: Pacemaker defibrillator is seen. Cardiomegaly is noted. Prominence and cephalization of the vasculature is seen. Small bilateral pleural effusions are seen. IMPRESSION: Cardiomegaly and mild pulmonary edema. Small bilateral pleural effusions which are increased from prior exam. ACT 112: Negative or not required by law. Electronically signed by: Inderjit Frank M.D. 10/26/2022 1:43 PM Liver Ultrasound 10/26/22 15:12 ABDOMINAL ULTRASOUND, RIGHT UPPER QUADRANT HISTORY: elevated lft, s/p cholecystectomy. COMPARISON: CT 10/26/2022 FINDINGS: Pancreas: The pancreas is obscured by bowel gas. Liver: Unremarkable. Gallbladder: Cholecystectomy. CBD: 0.6 and ureter. Right kidney: Mild cortical thinning. No hydronephrosis. Right pleural effusion. IMPRESSION: 1. Unremarkable exam status post cholecystectomy. 2. Right pleural effusion redemonstrated. ACT 112: Negative or not required by law. Electronically signed by: Dick Franklin M.D. 10/26/2022 4:02 PM Barium Swallow X-Ray 10/27/22 17:52 FL barium swallow CLINICAL HISTORY: intractable n/v TECHNIQUE: The patient was observed drinking thick and thin barium under fluoroscopic observation in both the upright and recumbent positions. Total fluoroscopy time: 15 seconds Ka,r: 11.1 mGy COMPARISON: None available at the time of this dictation. FINDINGS: The patient had no problem initiating the swallowing mechanism. There was no evidence of aspiration. Normal peristalsis was seen throughout the esophagus. There was no evidence of strictures, filling defects, or outpouchings. Contrast flowed readily from the esophagus into the stomach. No hiatal hernia was identified. There was no evidence of gastroesophageal reflux. Exam is limited due to patient toleration. Pillwas not administered. IMPRESSION: Highly limited exam without acute abnormality. ACT 112: Negative or not required by law. Electronically signed by: Inderjit Frank M.D. 10/27/2022 3:32 PM Chest X-Ray 10/27/22 21:48 SINGLE VIEW CHEST CLINICAL HISTORY: Central venous catheter placement. FINDINGS: 2 AP, portable, upright chest radiographs are compared to study dated 10/26/2022. A left internal jugular central venous catheter has been placed. The tip projects over the SVC. A 2-lead cardiac AICD is unchanged in position. This partially obscures the left mid chest. The heart is enlarged noting atherosclerotic calcification of the thoracic aorta. There is pulmonary vascular congestion with evidence of interstitial edema. There are layering pleural effusions with dependent consolidation. No pneumothorax is seen. The skeletal structures are osteopenic. The bony thorax is grossly intact. Degenerative change is noted in the right shoulder. IMPRESSION: 1. A left internal jugular central venous catheter has been placed as above. No pneumothorax is seen post procedure. 2. Cardiomegaly and AICD with evidence of congestive failure and pulmonary edema. 3. Layering pleural effusions with dependent consolidation. ACT 112: Negative or not required by law. Electronically signed by: Hermann Salazar M.D. 10/27/2022 11:35 PM Hospital Course (1) Low output heart failure: Patient was admitted from 10/20 to 10/23 at [facility] for decompensated systolic CHF / low-output congestive heart failure. She was hospitalized in the ICU and required dobutamine for several days with improved volume status and improved creatinine (down to 1.4 from peak of 1.7). GUY f/u was arranged with [facility] cardiology clinic to discuss advanced therapies for her severe systolic CHF. After hospital d/c on 10/23 she had nausea with emesis for several days along with poor PO intake and some loose stool. She was readmitted to [facility] on 10[facility]26. She had evidence of KARLA with hyaline casts on u/a along with acute liver injury. Perfusion on examination was poor. Her renal function and LFTs were high, and they continued to worsen throughout her brief stay. She likely had a component of volume depletion at time of ER presentation and did receive some IV fluid for such. She received in total about 1 to 1.5 Liters of crystalloid early in her stay but it was promptly discontinued once her intravascular space was felt to be repleted. She was seen in consult by Dr Chaparro Duarte from [facility] Cardiology. Given her worsening clinical status, worsening labs, etc we reinstituted dobutamine infusion and admitted her to the ICU on hospital day #2. Central line was placed. Concurrently with ICU transfer [facility] was contacted and we spoke with Dr Brandy Viveros (ICU attending) and Dr Hermann Austin, cardiology. We discussed Ms Noyola's case in detail and Dr Viveros accepted her in transfer to the ICU at [facility]. (2) HFrEF (heart failure with reduced ejection fraction): acute on chronic HFrEF known nonischemic cardiomyopathy with EF 15-20% ICD placed in 2014 see #1 above coreg was held given the usage of dobutamine infusion additionally, Entresto, empagliflozin, lasix and aldactone were all placed on hold transferring to [facility] ICU for consideration of additional therapies for her advanced systolic CHF (3) Cardiomyopathy: see above nonischemic (4) KARLA (acute kidney injury): creatinine at time of hospital discharge on 10/23/22 was 1.4 was 1.7 at time of this admission, climbing to 2.2 prior to transfer to [place] she had mild acidosis on BMP pre-renal in nature due to #1 and likely a tiny component of intravascular volume depletion at the time of ER presentation instituted dobutamine with the hopes of improving renal perfusion (5) Elevated LFTs: s/p cholecystectomy 2022 at [facility] LFTs elevated with TB 3.5/DB 0.8. AST 177, ALT 267, ALP 116 at time of this admission LFTs continued to worsen while here Lipase was wnl Suspect acute liver injury due to #1 above Unable to perform MRCP due to an incompatible ICD/pacemaker device RUQ u/s without acute findings Could consider acute hepatitis profile to be complete but again likely that this was due to #1 above Did have elevated LFTs during prior admission also likely from #1 above INR was 1.6 during the visit (6) Nausea & vomiting: intractable nausea/emesis since 10/23 hospital discharge etiology? due to #1 and poor gut perfusion? gastritis/esophagitis? due to acute hepatitis/liver injury? infectious? other? nausea/emesis did improve while here with supportive care & IV PPI (7) Dysphagia: seen by GI & speech therapy while here underwent barium swallow while here with results noted above cont PPI IV (8) GERD (gastroesophageal reflux disease): Hx LA Grade B esophagitis on EGD in past March [address] Rodriguez Case cont IV PPI twice daily See above in #7 (9) CKD (chronic kidney disease), stage III: baseline creatinine about 1.4 to 1.6 now with KARLA see above (10) Hypotension: SBPs are typically 90s to low 100s but she was quite symptomatic with dizziness and lightheadedness hypotension was 2nd to #1 above held PO lasix/aldactone/Entresto/coreg (11) ICD (implantable cardioverter-defibrillator) in place: no shocks delivered at any time recently NSVT seen on telemetry while here but no other dysrhythmia otherwise (12) Pulmonary embolism: 05/2022 has been on Eliquis since given the rising creatinine and potential need for procedures Eliquis was placed on hold in [place] of Eliquis was initiated on heparin drip (13) Nocturnal hypoxia: during previous admission nocturnal O2 study showed need for night-time O2 continue such (14) Diabetes: most recent Hba1c 7.3% (15) Hyponatremia: 2nd to KARLA and acute/chronic CHF level was 133 at discharge Plan I would like to thank Dr Brandy Viveros & Dr Hermann Austin - [facility] ICU & cardiology respectively - for accepting Mrs Noyola in transfer to [facility] for ongoing care Total Time Total Time Spent Total Time Spent (In Minutes): 15 Discharge Plan Discharge Items Patient Disposition: Transfer Acute Care Hospital Reason For Visit: INTRACTABLE N/V, ELEVATED LFTS Discharge Diagnosis: severe CHF Activity: Per Instructions section Non-emergency contact: Primary Care Provider and Roll Forger Call non-emergency contact if: your symptoms worsen Follow-up/Referrals: Theo Houston MD [Primary Care Provider] - Diet: Regular Addtl Attending Provider Instructions: (1) Low output heart failure: Plan: Patient was admitted from 10/20 to 10/23 for decompensated systolic CHF / low- output heart failure. She was hospitalized in the ICU and required dobutamine for several days with improved volume status and improved creatinine (down to 1.4). GUY f/u was arranged with [facility] cardiology clinic to discuss advanced therapies for her severe systolic CHF. After hospital d/c on 10/23 she had nausea with emesis for several days along with poor PO intake and some loose stool. She was readmitted yesterday on 10/26. She has evidence of KARLA with hyaline casts on u/a along with acute liver injury. Perfusion on examination is poor. Her renal function and LFTs continue to worsen throughout the day today. All of the above is due to her low-flow state from her severe systolic CHF. She likely had a component of volume depletion as well at time of ER presentation and did receive some IV fluid for such. She has received about 1 to 1.5 Liters of crystalloid since admission; additional fluids will be deferred. I spoke several times today with Dr Duarte from [facility] Cardiology. Given her worsening clinical status, labs, etc we discussed reinstitution of dobutamine starting at 2.5mcg/kg/min with titration as tolerated to augment cardiac output. She will be transferred to the ICU for dobutamine, central line placement, and supportive care. Concurrently with ICU transfer I called [facility] and spoke with Dr Brandy Viveros (ICU attending) and Dr Hermann Austin, cardiology. We discussed Ms Noyola's case in detail and Dr Viveros accepted her in transfer to the ICU at [facility]. (2) HFrEF (heart failure with reduced ejection fraction): Plan: acute on chronic HFrEF known nonischemic cardiomyopathy with EF 15-20% ICD placed in 2014 see #1 above hold coreg once dobutamine is begun Entresto is on hold as well as PO lasix & aldactone holding empagliflozin (3) Cardiomyopathy: Plan: see above nonischemic (4) KARLA (acute kidney injury): Plan: creatinine at time of hospital discharge on 10/23/22 was 1.4 was 1.7 at time of this admission, climbing to 2.1 this am and now 2.2 she has mild acidosis on BMP pre-renal due to #1 and likely a small component of intravascular volume depletion as well instituting dobutamine hopefully renal perfusion will improve with such serial BMPs (5) Elevated LFTs: Plan: s/p cholecystectomy earlier this year at [facility] LFTs elevated with TB 3.5/DB 0.8. AST 177, ALT 267, ALP 116 at time of this admission LFTs continue to worsen today Lipase wnl Suspect acute liver injury due to #1 above Unable to perform MRCP due to pacemaker/not compatible RUQ u/s without acute findings Could consider acute hepatitis profile to be complete but again likely that this is due to #1 above Did have elevated LFTs during prior admission likely from right sided CHF & hepa tic congestion serial LFTs follow INR if any change in mental status --> check ammonia level (6) Nausea & vomiting: Plan: intractable nausea/emesis since 10/23 hospital discharge etiology? gastritis/esophagitis? due to #1 and poor gut perfusion? due to acute hepatitis/liver injury? infectious? other? N/V have improved since admission Clears as tolerated today cont PPI IV (7) Dysphagia: Plan: GI & speech therapy consults appreciated was to have EGD tomorrow to r/o stricture, esophagitis, etc however, in light of #1, patient to be transferred and EGD will be deferred barium swallow results noted cont PPI IV (8) GERD (gastroesophageal reflux disease): Plan: Hx LA Grade B esophagitis on EGD in past March [address] Rodriguez Case cont IV PPI twice daily See above in #7 (9) CKD (chronic kidney disease), stage III: Plan: baseline creatinine about 1.4 to 1.6 now with KARLA see above serial BMPs (10) Hypotension: Plan: SBPs are typically 90s to low 100s but she is dizzy and lightheaded hypotension is 2nd to #1 above holding PO lasix/aldactone/Entresto will hold coreg once dobutamine drip is started (11) ICD (implantable cardioverter-defibrillator) in place: Plan: no shocks delivered at any time recently NSVT seen on telemetry while here but no other dysrhythmia otherwise (12) Pulmonary embolism: Plan: 05/2022 has been on Eliquis since given the rising creatinine and potential need for procedures Eliquis is on hold in [place] remains on heparin drip - standard dosing (13) Nocturnal hypoxia: Plan: during previous admission nocturnal O2 study showed need for night-time O2 continue such (14) Diabetes: Plan: most recent Hba1c 7.3% jardiance is on hold cont novolog loose sliding scale (15) Hyponatremia: Plan: 2nd to KARLA and acute/chronic CHF serial labs Pending Studies at Discharge: No Stand-Alone Forms: My [facility] Skilled Items Patient informed of condition?: Yes DNR: No Discharge Level of Care: Other Communicable Disease: No Discharge Prognosis: Stable Lines: Peripheral IV and JACC Urinary Catheter: No Medications and DC Order Prescriptions: Continued empagliflozin 25 mg tablet 25 mg PO DAILY Qty: 90 3RF ezetimibe 10 mg tablet 10 mg PO PM Qty: 90 3RF (DME) blood-glucose meter [Accu-Chek Guide Glucose Meter] [facility] See Rx Instructions .Route Qty: 1 0RF Rx Instructions: As directed (DME) Accu-Chek Guide test strips Strip See Dose Instructions .ROUTE .MEDSUPPLY Qty: 100 3RF Dose Instruction: As directed Rx Instructions: daily and as needed (DME) lancets [Accu-Chek Softclix Lancets] [facility] See Dose Instructions .ROUTE .MEDSUPPLY Qty: 100 3RF Dose Instruction: As directed Rx Instructions: Check daily and as needed carvedilol 6.25 mg tablet 3.125 mg PO BID Qty: 180 2RF Rx Instructions: must administer with a meal/food Eliquis 5 mg tablet 5 mg PO BID Qty: 180 3RF potassium chloride 20 mEq tablet extended release 20 meq PO DAILY Qty: 30 2RF cholecalciferol (vitamin D3) 5,000 unit capsule 5,000 units PO DAILY furosemide 40 mg tablet 40 mg PO DAILY Qty: 60 2RF Rx Instructions: Increase to 60-80 mg daily PRN. pantoprazole 40 mg tablet,delayed release (DR/EC) 40 mg PO DAILY Qty: 90 3RF acetaminophen 325 mg Tablet 650 mg PO Q4H PRN (Reason: pain) Qty: 30 0RF Rx Instructions: OTC levalbuterol tartrate [Xopenex HFA] 45 mcg/actuation HFA aerosol inhaler 2 inh inhalation Q6H PRN (Reason: shortness of breath/cough/wheeze) Qty: 15 0RF Rx Instructions: use with spacer device (DME) Aerochamber Plus Flow-Vu Spacer See Rx Instructions .Route Qty: 1 0RF Rx Instructions: As directed with Xopenex inhaler spironolactone 25 mg tablet 25 mg PO QPM Discharge Orders: Discharge Order (Routine); Ordered 10/28/22 Ordered By: Luis Crawford Admission Data Admit Date/Time: 10/26/22 15:49 Attending Provider: Ramesh Park Admit Provider: Ramesh Jones Primary Care Provider: Theo Houston Other Providers: Ramesh Jones ; Cesar Madera ; Edgar Mejia ; Ezequiel Colbert Other Interventions: Discharge Summary Assessment (RN) Last Done: 10/28/22 01:56 Coding Level of Care Code None Diagnoses Low output heart failure I50.9 HFrEF (heart failure with reduced ejection fraction) I50.20 Cardiomyopathy I42.9 KARLA (acute kidney injury) N17.9 Elevated LFTs R79.89 Nausea & vomiting R11.2 Dysphagia R13.10 GERD (gastroesophageal reflux disease) K21.9 CKD (chronic kidney disease), stage III N18.30 Hypotension I95.9 Hypotension type: unspecified hypotension type ICD (implantable cardioverter-defibrillator) in place Z95.810 Pulmonary embolism I26.99 Nocturnal hypoxia G47.34 Diabetes E11.9 Hyponatremia E87.1
== END 2022-10-28 02:15 | disposition short-term general hospital (02) | DRG 291 ==
LOC: ED 11:12 → SUATTDRO 15:49 → 2S 15:49 → 1E 10-27 21:11